=== PATIENT | male | born 1950 | race Caucasian/White ===

== ENCOUNTER 2016-05-18 08:10 | Observation (INO) | payer OTHER, MEDICAID ==
[~2016-05-18] VITALS: Ht 177.8 cm; Wt 66.0 kg
[2016-05-18 08:56] LABS: BASO % 0 % (0-3); EOS % 0 % (0-3); HEMATOCRIT 41.1 % (39.0-53.0); HEMOGLOBIN 13.5 g/dL (13.0-17.5); LYMPH # 1.5 x10^3/uL (1.0-4.8); LYMPH % 14 % (24-48); MEAN CORPUSCULAR HEMOGLOBIN 31 pg (25-35); MEAN CORPUSCULAR HGB CONC 33 g/dL (31-37); MEAN CORPUSCULAR VOLUME 95 fL (79-100); MONO % 8 % (0-9); NEUT % 78 % (31-73); PLATELET COUNT 317 x10^3/uL (140-400); RED BLOOD COUNT 4.33 x10^6/uL (4.30-5.70); RED CELL DISTRIBUTION WIDTH 12.9 % (11.5-14.5); WHITE BLOOD COUNT 10.6 x10^3/uL (4.0-11.0)
--- NOTE | 2016-05-18 09:01 | PHYS DOC ---
Past Medical History Past Medical History: CAD, Diabetes-Type II, Hypertension, [place], Other Additional Past Medical Histor: developmental delay Past Surgical History: Coronary Bypass Surgery, Other Additional Past Surgical Histo: l arm surg, peg placement and removal Alcohol Use: None Drug Use: None Adult General Chief Complaint Chief Complaint: HYPOGLYCEMIA HPI HPI Patient is a 65 year old [f__sex] who presents with [] Review of Systems Review of Systems Constitutional: Denies fever or chills [] Eyes: Denies change in visual acuity, redness, or eye pain [] HENT: Denies nasal congestion or sore throat [] Respiratory: Denies cough or shortness of breath [] Cardiovascular: No additional information not addressed in HPI [] GI: Denies abdominal pain, nausea, vomiting, bloody stools or diarrhea [] : Denies dysuria or hematuria [] Musculoskeletal: Denies back pain or joint pain [] Integument: Denies rash or skin lesions [] Neurologic: Denies headache, focal weakness or sensory changes [] Endocrine: Denies polyuria or polydipsia [] Allergies Allergies Allergies Coded Allergies Type Severity Reaction Last Updated Verified No Known Drug Allergies 05/18/16 No Physical Exam Physical Exam Constitutional: Well developed, well nourished, no acute distress, non-toxic appearance. [] HENT: Normocephalic, atraumatic, bilateral external ears normal, oropharynx moist, no oral exudates, nose normal. [] Eyes: PERRLA, EOMI, conjunctiva normal, no discharge. [] Neck: Normal range of motion, no tenderness, supple, no stridor. [] Cardiovascular:Heart rate regular rhythm, no murmur [] Lungs & Thorax: Bilateral breath sounds clear to auscultation [] Abdomen: Bowel sounds normal, soft, no tenderness, no masses, no pulsatile masses. [] Skin: Warm, dry, no erythema, no rash. [] Back: No tenderness, no CVA tenderness. [] Extremities: No tenderness, no cyanosis, no clubbing, ROM intact, no edema. [] Neurologic: Alert and oriented X 3, normal motor function, normal sensory function, no focal deficits noted. [] Psychologic: Affect normal, judgement normal, mood normal. [] Current Patient Data Vital Signs Vital Signs Date Time Temp Pulse Resp B/P Pulse Ox O2 Delivery O2 Flow Rate FiO2 05/18/16 08:15 98.2 89 17 203/89 97 Room Air 98.2 Lab Values Laboratory Tests Test 05/18/16 08:35 White Blood Count 10.6x10^3/uL (4.0-11.0) Red Blood Count 4.33x10^6/uL (4.30-5.70) Hemoglobin 13.5g/dL (13.0-17.5) Hematocrit 41.1% (39.0-53.0) Mean Corpuscular Volume 95fL (79-100) Mean Corpuscular Hemoglobin 31pg (25-35) Mean Corpuscular Hemoglobin Concent 33g/dL (31-37) Red Cell Distribution Width 12.9% (11.5-14.5) Platelet Count 317x10^3/uL (140-400) Neutrophils (%) (Auto) 78% (31-73) H Lymphocytes (%) (Auto) 14% (24-48) L Monocytes (%) (Auto) 8% (0-9) Eosinophils (%) (Auto) 0% (0-3) Basophils (%) (Auto) 0% (0-3) Neutrophils # (Auto) 8.3x10^3uL (1.8-7.7) H Lymphocytes # (Auto) 1.5x10^3/uL (1.0-4.8) Monocytes # (Auto) 0.8x10^3/uL (0.0-1.1) Eosinophils # (Auto) 0.0x10^3/uL (0.0-0.7) Basophils # (Auto) 0.0x10^3/uL (0.0-0.2) Sodium Level 144mmol/L (136-145) Potassium Level 4.3mmol/L (3.5-5.1) Chloride Level 108mmol/L (98-107) H Carbon Dioxide Level 28mmol/L (21-32) Anion Gap 8 (6-14) Blood Urea Nitrogen 22mg/dL (8-26) Creatinine 1.6mg/dL (0.7-1.3) H Estimated GFR (Cockcroft-Gault) 43.5 BUN/Creatinine Ratio 14 (6-20) Glucose Level 125mg/dL (70-99) H Calcium Level 9.1mg/dL (8.5-10.1) Total Bilirubin 0.6mg/dL (0.2-1.0) Aspartate Amino Transferase (AST) 48U/L (15-37) H Alanine Aminotransferase (ALT) 33U/L (16-63) Alkaline Phosphatase 94U/L (46-116) Total Protein 7.2g/dL (6.4-8.2) Albumin 3.0g/dL (3.4-5.0) L Albumin/Globulin Ratio 0.7 (1.0-1.7) L Laboratory Tests 05/18/16 08:35 Laboratory Tests 05/18/16 08:35 EKG EKG [] Radiology/Procedures Radiology/Procedures [] Course & Med Decision Making Course & Med Decision Making Pertinent Labs and Imaging studies reviewed. (See chart for details) CBC within normal limits. CMP with elevated creatine at 1.6 Patient was provided with meal tray here in the ED. Mother at bedside states patient manages his own medication regimen at home. Mother also states EMS had been called twice this week for low glucoses. [id number] Ness in regards to keeping the patient and monitoring glucoses and medication regimen. [] Dragon Disclaimer Dragon Disclaimer This electronic medical record was generated, in whole or in part, using a voice recognition dictation system. Departure Departure Impression: Primary Impression: Hypoglycemia Disposition: ADMITTED INPATIENT Admitting Physician: Karina Ness Condition: STABLE GIL SIERRA NP May 18, 2016 09:01
[2016-05-18 09:09] LABS: CALCIUM 9.1 mg/dL (8.5-10.1); CREATININE 1.6 mg/dL (0.7-1.3); GFR 43.5; POTASSIUM 4.3 mmol/L (3.5-5.1)
--- NOTE | 2016-05-18 09:10 | RAD ---
Indication: Hypoglycemia. Technique: Upright portable chest radiograph was obtained. Comparison is from August 28, 2012. Findings: Unusual configuration of a double density projecting over the superior mediastinum is probably artifactual and extrinsic to the patient. Repeat two-view chest radiograph may be of benefit to characterize this region further. Calcified granulomas are noted. There is no airspace disease. The heart is not enlarged and there is no definite heart failure. There are degenerative changes in the left shoulder. Leads overlie the patient. Median sternotomy wires are noted. Impression: Density projecting over the superior mediastinum is probably extrinsic to the patient, possibly a skinfold. Repeat 2 view examination likely would be of benefit in this patient.
[2016-05-18 09:13] LABS: ALBUMIN/GLOBULIN RATIO 0.7 (1.0-1.7); TOTAL BILIRUBIN 0.6 mg/dL (0.2-1.0); TOTAL PROTEIN 7.2 g/dL (6.4-8.2)
--- NOTE | 2016-05-18 10:13 | RAD ---
Chest, 2 views, 05/18/2016: History: Hypoglycemia Comparison is made to a study from earlier the same day. There has been a previous median sternotomy. The heart size and pulmonary vascularity are normal. Coronary artery calcifications are present. A calcified granuloma is present in the right upper lobe. No acute infiltrate is seen. A linear opacity projected over left chest on the previous study is no longer evident and was presumably a skin fold or other artifact. There is no evidence of pleural fluid. The bony structures are demineralized. There are scattered spurs. There is mild unchanged loss of height of several midthoracic vertebral bodies, also evident on 08/28/2012. IMPRESSION: No acute cardiopulmonary abnormality is detected.
[2016-05-18] MEDS ORDERED: DEXTROSE 50% 25 GM / 50ML DISP.SYRIN. IV PRN (11:15)
[2016-05-18] MEDS ORDERED: AMLODIPINE BESYLATE 5 MG TABLET PO ONE (12:00)
--- NOTE | 2016-05-18 13:28 | ACF ---
Admission Forms Criteria GENERAL ADMISSION CRITERIA (Place 'X' for any and all applicable criteria): Admission is indicated for ANY ONE of the following: [ ]I. Hemodynamic instability as indicated by ANY ONE of the following(1)(2) (3)(4)(5): [ ]a) Vital sign abnormality not readily corrected by appropriate treatment within 12 to 24 hours indicated by ANY ONE of the following: [ ]i) Hypotension [ ]ii) Symptomatic Tachycardia unresponsive to treatment (eg , analgesia, fluids, sedation as indicated) [ ]iii) Orthostatic vital sign changes unresponsive to treatment (eg, fluids) [ ]b) Vital sign abnormality that is severe indicated by ANY ONE of the following: [ ]i) Inadequate perfusion indicated by ANY ONE of the following: [ ]1) Lactic acidosis (greater than 2 mmol/L) [ ]2) New abnormal capillary refill (greater than 3 seconds) [ ]3) Other metabolic acidosis (arterial pH less than 7.35) not otherwise explained [ ]4) Reduced urine output [ ]5) Altered mental status [ ]6) Myocardial Ischemia [ ]v) Mean arterial pressure[A] less than 60 mm Hg [ ]vi) Mean arterial pressure[A] less than 70 mm Hg after 30 minutes of appropriate treatment (eg, fluid resuscitation) [ ]vii) IV inotropic or vasopressor medication required to maintain adequate blood pressure or perfusion [ ]viii) Sustained heart rate greater than 120 beats per minute in adult or child 6 years or older[B]] [ ]II. Hypertension requiring inpatient treatment as indicated by ANY ONE of the following(6)(7)(8): [ ]a) SBP greater than 220 mm Hg or DBP greater than 120 mm Hg despite treatment [ ]b) SBP greater than 140 mm Hg or DBP greater than 100 mm Hg with evidence of acute end organ damage as indicated by ANY ONE of the following: [ ]i) Encephalopathy [ ]ii) Acute renal failure as indicated by new onset of ANY ONE of the following(9)(10)(11)(12)(13): [ ]1) A 3-fold rise in serum creatinine from baseline [ ]2) Serum creatinine greater than 4 mg/dL ( 354 micromoles/L) with acute rise greater than 0.5 mg/dL (44.2 micromoles/L) [ ]3) Reduction of more than 75% in estimated glomerular filtration rate from baseline [ ]4) Estimated glomerular filtration rate less than 35 mL/min/1.73m2 (0.59 mL/sec/1.73m2) in child up to 18 years of age [ ]5) Cessation of urine output indicated by ALL of the following: [ ]A. Adequate volume status [ ]B. Inadequate urine output as indicated by ANY ONE of the following: [ ]a. Urine output less than 0.3 mL/kg/hr for 24 hours [ ]b. Anuria (urine output less than 0.1 mL/kg/hr) for 12 hours [ ]iii) Aortic dissection [ ]iv) Myocardial ischemia [ ]v) Left ventricular heart failure [ ]vi) Retinal hemorrhage [ ]vii) Other significant finding [ ]c) Hypertension in child requiring inpatient treatment as indicated by ALL of the following(14)(15)(16): [ ]i) Outpatient treatment not effective, not available, or not appropriate [ ]ii) SBP or DBP greater than 95th percentile for age [ ]iii) Evidence of acute end organ damage as indicated by ANY ONE of the following: [ ]1) Altered mental status [ ]2) Acute renal failure as indicated by new onset of ANY ONE of the following(9)(10)(11)(12)(13): [ ]A. A 3-fold rise in serum creatinine from baseline [ ]B. Serum creatinine greater than 4 mg/dL (354 micromoles/L) with acute rise greater than 0.5 mg/dL (44.2 micromoles/L) [ ]C. Reduction of more than 75% in estimated glomerular filtration rate from baseline [ ]D. Estimated glomerular filtration rate less than 35 mL/min/1.73m2 (0.59 mL/sec/1.73m2)in child up to 18 years of age [ ]E. Cessation of urine output indicated by ALL of the following: [ ]a. Adequate volume status [ ]b. Inadequate urine output as indicated by ANY ONE of the following: [ ]1) Urine output less than 0.3 mL/kg/hr for 24 hours [ ]2) Anuria (urine output less than 0.1 mL/kg/hr) for 12 hours [ ]3) Severe headache [ ]4) Visual disturbance [ ]5) Retinal hemorrhage [ ]6) Other significant finding [ ]III. Acute cardiac or peripheral ischemia as indicated by ANY ONE of the following: [ ]a) Acute coronary syndrome(17)(18) [ ]b) Acute peripheral ischemia (eg, pulseless, cool, mottled, or cyanotic extremity)(19) [ ]IV. Cardiac arrhythmias or findings of immediate concern indicated by ANY ONE of the following(20)(21): [ ]a) Heart rhythms that are inherently dangerous or unstable indicated by ANY ONE of the following(22)(23)(24): [ ]i) Resuscitated ventricular fibrillation or cardiac arrest [ ]ii) Ventricular escape rhythm [ ]iii) Sustained ventricular tachycardia (30 seconds or more of ventricular rhythm at greater than 100 beats per minute) [ ]iv) Nonsustained ventricular tachycardia and ANY ONE of the following: [ ]1) Suspected cardiac ischemia as cause or consequence of ventricular tachycardia [ ]2) In setting of acute myocarditis [ ]b) Unstable cardiac conduction defects indicated by ANY ONE of the following(24)(25)(26): [ ]i) Type II second-degree atrioventricular block [ ]ii) Third-degree atrioventricular block [ ]iii) New-onset left bundle branch block with suspected myocardial ischemia [ ]c) Any heart rhythm and ANY ONE of the following(22)(23)(27)(28)( 29): [ ] i) Continuous long-term ECG monitoring needed (eg, initiation of drug requiring monitoring for more than 24 hours) [ ] ii) Patient has automatic implanted cardioverter defibrillator that is repeatedly firing, malfunctioning, or in need of immediate adjustment of settings beyond the scope of ambulatory or observation care. [ ]d) Heart rhythms of concern due to ANY ONE of the following: [ ]i) Hypotension [ ]ii) Respiratory distress [ ]iii) Association with other significant symptoms (eg, bradycardia with syncope or ongoing dizziness, supraventricular tachycardia with chest pain) (27)(28) (30) [ ] V. Severe heart failure as indicated by ANY ONE of the following ( 31)(32): [ ]a) Respiratory distress [ ]b) Hypotension [ ]c) Anasarca (refractory to outpatient therapy) [ ]d) Cardiac arrhythmias of immediate concern [ ]e) Myocardial ischemia [ ]. Respiratory abnormalities, including ANY ONE of the following(33)(34) (35)(36): [ ]a) Respiratory rate greater than 30 breaths per minute unresponsive to treatment [A] [ ]b) New saturation of arterial oxygen less than 90% [ ]c) New partial pressure of carbon dioxide greater than 44 mm Hg ( 5.9 kPa) [ ]d) Supplemental oxygen or respiratory treatments needed that are new or not performable at other levels of care [ ]e) New-onset cyanosis [ ]f) Inability to protect airway [ ]g) Chronic lung disease with severe deterioration (not responsive to emergency and observation care treatment as appropriate) as indicated by ANY ONE of the following(34)(36 ): [ ]i) SaO2 5% below baseline in patient with chronic hypoxemia [ ]ii) New requirement for supplemental oxygen to keep SaO2 at baseline or acceptable level [ ]iii) Required supplemental oxygen performable only in acute inpatient setting [ ]iv) Severe airflow or ventilation abnormalities [ ]v) Previously mobile patient unable to walk between rooms [ ]vi Inability to eat or sleep due to dyspnea [ ]vii) Rapid rate of exacerbation onset [ ]viii) Altered mental status ]VII. Severe airflow or ventilation abnormalities (not responsive to emergency and observation care treatment as appropriate) as indicated by ANY ONE of the following(33)(34)(35)(37): [ ]a) PCO2 greater than 42 mm Hg (5.6 kPa) and pH less than 7.35 (new ) [ ]b) Documented PCO2 increased more than 5 mm Hg (0.7 kPa) from disease baseline [ ]c) Airflow measurements [B] less than 60% of previous best or predicted (eg, peak expiratory flow rate less than 300 L/minute) despite intensive emergent treatment [C] [ ]d) Required respiratory treatments that are performable only in acute inpatient setting [ ]VIII. Impending or actual respiratory arrest ( Also use Respiratory Failure GRG for severe respiratory disease and long-term mechanical ventilation patients) [ ]IX. Neurologic abnormalities, including ANY ONE of the following: [ ]a) New findings that suggest ANY ONE of the following: [ ]i) FLIGHT OPERATIONS COORDINATOR infection(38) [ ]ii) Cerebral bleeding, ischemia, or vasospasm(39)(40) [ ]iii) Increased intracranial pressure, hydrocephalus, or cerebral edema(41)(42)(43) [ ]iv) Spinal cord injury(44) [ ]b) Uncontrolled seizures(45) [ ]c) New-onset coma (eg, Jerri coma scale score less than 9) or unexplained abnormal mental status (eg, Jerri coma scale score less than 14) [D](41)(46)(47) [ ]X. New-onset severe neurologic findings requiring inpatient care; examples include(42)(48)(49): [ ]a) Papilledema [ ]b) Cerebral edema [ ]c) Mass effect on CT scan [ ]XI. Suspected acute intra-abdominal process with peritoneal signs, abdominal mass, or similar findings (50)(51)(52) [X]XII. Severe physiologic disorder remaining after emergency or observation level care (as appropriate) as indicated by ANY ONE of the following (53): [ ]a) Significant dehydration [ ]b) Diabetic ketoacidosis [ ]c) Hyperglycemic hyperosmolar state (eg, osmolality greater than 320 mOsm/kg (mmol/kg) [X]d) Hypoglycemia [ ]e) Other (new) acid-base disorder with pH less than 7.35 or greater than 7.5(54) [ ]f) Thyroid storm (55) [ ]g) Myxedema coma (55) [ ]XIII. Abdominal abnormalities with ANY ONE of the following(56)(57): [ ]a) Absent bowel sounds with complete ileus [ ]b) Signs of intestinal obstruction or peritonitis [E] [ ]c) Nausea and vomiting that cannot be controlled with outpatient or observation care [ ]XIV. Acute renal failure as indicated by new onset of ANY ONE of the following(9)(10)(11)(12)(13): [ ]a) A 3-fold rise in serum creatinine from baseline [ ]b) Serum creatinine greater than 4 mg/dL (354 micromoles/L) with acute rise greater than 0.5 mg/dL (44.2 micromoles/L) [ ]c) Reduction of more than 75% in estimated glomerular filtration rate from baseline [ ]d) Estimated glomerular filtration rate less than 35 mL/min/ 1.73m2 (0.59 mL/sec/1.73m2) in child up to 18 years of age [ ]e) Cessation of urine output indicated by ALL of the following: [ ]i) Adequate volume status [ ]ii) Inadequate urine output as indicated by ANY ONE of the following: [ ]1) Urine output less than 0.3 mL/kg/hr for 24 hours [ ]2) Anuria (urine output less than 0.1 mL/kg/hr) for 12 hours [ ]XV. Significant uremic complications as indicated by ANY ONE of the following(58)(59)(60): [ ]a) Outpatient therapy is ineffective or not feasible for ANY ONE of the following: [ ]i) Severe heart failure [ ]ii) Severehypertension [ ]iii) Pleural effusion [ ]iv) Pericarditis or pericardial effusion [ ]b) Cardiac arrhythmias of immediate concern [ ]c) Intractable nausea or vomiting [ ]d) Recurrent seizures [ ]e) Encephalopathy [ ]f) Bleeding abnormalities (eg, platelet dysfunction) with active (eg, gastrointestinal) bleeding [ ]g) Dialysis indicated before long-term access or ambulatory arrangements can be made [ ]h) Significant metabolic or electrolyte abnormalities (eg, severe acidosis or hyperkalemia) [ ]XVI. High fever or other high-risk infection situation as indicated by ANY ONE of the following(61)(62)(63)(64): [ ]a) Outpatient and observation care antimicrobial treatment unavailable, not effective, or not appropriate [ ]b) Documented bacteremia [ ]c) Temperature greater than 40.5 degrees C (104.9 degrees F) ( oral) [ ]d) Temperature greater than 39.5 degrees C (103.1 degrees F) ( oral) or less than 36 degrees C (96.8 degrees F) (rectal) that does not respond to e treatment and observation care [ ] XVII. Temperature less than 95 degrees F (35 degrees C)(rectal)(65) [ ] XVIII. Severe nutritional abnormalities as indicated by ALL of the following (66)(67): [ ]a) Inability to tolerate or establish sufficient oral or other enteral nutrition in outpatient setting [ ]b) Parenteral nutrition regimen need that must be implemented on inpatient basis [ ] XIX. Severe electrolyte abnormalities indicated by ALL of the following(68) (69)(70): [ ]a) Electrolytes and associated findings are not as expected for patient baseline or acceptable treatment effects. [ ]b) Severe abnormalities indicated by ANY ONE of the following: [ ]i) Sodium less than 130 mEq/L (mmol/L) (new) [ ]ii)Sodium less than 135 mEq/L (mmol/L) with ANY ONE of the following: [ ]1) Uncorrectable (to near normal or chronic baseline) after trial of outpatient and emergency treatment [ ]2) Altered mental status [ ]3) Seizures [ ]4) Severe medical etiology requiring inpatient management (eg, heart failure, hypovolemia) [ ]iii) Sodium greater than 155 mEq/L (mmol/L) [ ]iv) Sodium greater than 150 mEq/L (mmol/L) with ANY ONE of the following: [ ]1) Uncorrectable (to near normal or chronic baseline) with outpatient and emergency treatment [ ]2) Altered mental status [ ]3) Seizures [ ]4) Severe medical etiology (eg, hypovolemia, diabetes insipidus) [ ]v) Potassium less than 2.5 mEq/L (mmol/L) despite outpatient and emergency treatment [ ]vi) Potassium less than 3 mEq/L (mmol/L) with ANY ONE of the following: [ ]1) Weakness [ ]2) Cardiac abnormality (eg, arrhythmia, conduction disturbance) [ ]3) Cardiac ischemia [ ]4) Ileus [ ]5) Ongoing medical cause requiring inpatient management (eg, acute renal wasting or SIADH) [ ]6) Other severe symptoms [ ]vii) Potassium greater than 6.5 mEq/L (mmol/L) [ ]viii) Potassium greater than 5 mEq/L (mmol/L) with ANY ONE of the following: [ ]1) Uncorrectable (to near normal or chronic baseline) with outpatient and emergency treatment [ ]2) Severe ECG findings [F] [ ]3) Acute worsening of renal failure (creatinine greater than 2.5 mg/dL (221 micromoles/L) or significant elevation for age and size) [ ]4) Severe weakness [ ]5) Severe medical etiology (eg, hemolysis, infection, drug overdose) [ ]ix) Calcium less than 7 mg/dL (1.75 mmol/L) despite outpatient and emergency treatment (72) [ ]x) Calcium less than 8 mg/dL (2 mmol/L) with significant symptoms or findings; examples include(72): [ ]1) Altered mental status [ ]2) Muscle spasms [ ]3) Seizures [ ]4) Breathing difficulty [ ]5) Cardiac abnormality (eg, arrhythmia or conduction disturbance) [ ]xi) Calcium greater than 14 mg/dL (3.5 mmol/L)(72) [ ]xii) Calcium greater than 12 mg/dL (3 mmol/L) with ANY ONE of the following(72): [ ]1) Uncorrectable (to near normal or chronic baseline) with outpatient and emergency treatment [ ]2) Significant dehydration or hypovolemia as indicated by ALL of the following(70)(73)(74): [ ]A. Not resolved with initial treatments [ ]B. Clinically significant dehydration as indicated by ANY ONE of the following: [ ]a. Vomiting refractory to outpatient treatment (ie, precluding oral rehydration) [ ]b. Inability to drink [ ]c. Hypernatremia or other electrolyte abnormality unable to be corrected with outpatient and emergency treatment [ ]d. Failure to remain hydrated with outpatient therapy [ ]e. Reduced urine output [ ]f. Hypotension [ ]g. Serious cause for dehydration requiring acute hospitalization (eg, bowel obstruction, increased intracranial pressure, infectious cause) [ ]h. Child with ANY ONE of the following(75): [ ]1) Severe abdominal tenderness [ ]2) Adequate care not available at home [ ]3) Severe dehydration ( greater than 9% loss of body weight) [ ]4) Significant symptoms or findings; examples include: [ ]A. Altered mental status [ ]B. Cardiac abnormality (eg, arrhythmia, conduction disturbance) [ ]C. Malignant etiology requiring inpatient treatment [ ]xiii) Phosphorus less than 1 mg/dL (0.32 mmol/L) [ ]xiv) Phosphorus less than 1.5 mg/dL (0.48 mmol/L) with ANY ONE of the following: [ ]1) Patient unresponsive to outpatient and emergency treatment [ ]2) Significant symptoms or findings; examples include: [ ]A. Weakness [ ]B. Altered mental status [ ]C. Breathing difficulty [ ]D. Seizures [ ]E. Rhabdomyolysis [ ]xv) Phosphorus greater than 10 mg/dL (3.2 mmol/L) [ ]xvi) Phosphorus greater than 4.5 mg/dL (1.45 mmol/L) (new) with ANY ONE of the following: [ ]1) Severe medical etiology (eg, crush injury, acute renal failure) [ ]2) Associated hypocalcemia with significant findings; examples include: [ ]A. Neurologic symptoms [ ]B. Altered mental status [ ]C. Muscle spasms [ ]D. Seizures [ ]E. Breathing difficulty [ ]F. Cardiac abnormality (eg, arrhythmia, conduction disturbance) [ ]xvii) Magnesium less than 1 mg/dL (0.41 mmol/L) [ ]xviii) Magnesium less than 1.5 mg/dL (0.62 mmol/L) with ANY ONE of the following: [ ]1) Patient unresponsive to outpatient and emergency treatment [ ]2) Associated hypocalcemia with significant findings; examples include: [ ]A. Altered mental status [ ]B. Muscle spasms [ ]C. Seizures [ ]D. Breathing difficulty [ ]E. Cardiac abnormality (eg, arrhythmia , conduction disturbance) [ ]3) Associated hypokalemia (potassium less than 3 mEq/L (mmol/L)) with risk of arrhythmia [ ]xix) Magnesium greater than 4 mEq/L (2 mmol/L) [ ]xx) Magnesium greater than 2.5 mEq/L (1.25 mmol/L) with significant symptoms or findings; examples include: [ ]1) Weakness [ ]2) Altered mental status [ ]3) Cardiac abnormality (eg, arrhythmia, conduction disturbance) [ ]4) Breathing difficulty [ ]5) Severe medical etiology (eg, renal failure, hypovolemia) [ ]xxi) Uric acid greater than 20 mg/dL (1190 micromoles/L)(76) [ ]xxii) Uric acid greater than 8 mg/dL (476 micromoles/L) with significant symptoms or findings of tumor lysis syndrome; examples include(76): [ ]1) Creatinine greater than 1.5 times upper limit of normal [ ]2) Cardiac abnormality (eg, arrhythmia, conduction disturbance) [ ]3) Seizure [ ]XX. Acute blood loss causing significant abnormality as indicated by ANY ONE of the following(77)(78): [ ]a) Hemoglobin less than 10 g/dL (100 g/L) (not baseline) [ ]b) Hematocrit less than 30% (0.30) (not baseline) [ ]c) Repeat hematocrit decreased more than 2% (0.02) [ ]d) Uncontrolled bleeding [ ]XXI. Severe anemia indicated by ANY ONE of the following(78)(79): [ ]a) Altered mental status [ ]b) Chest pain [ ]c) Exertional dyspnea [ ]d) Syncope [ ]e) Other findings suggesting inadequate perfusion [ ]f) Treatment with transfusion or volume replacement is ineffective at resolving ANY ONE of the following [G]: [ ]i) Tachycardia for age [ ]ii) Orthostatic vital sign changes as indicated by ANY ONE of the following(80): [ ]1) Fall in SBP of 20 mm Hg or more 1 to 3 minutes after patient sits or stands from recumbent position [ ]2) Fall in DBP of 10 mm Hg or more 1 to 3 minutes after patient sits or stands from recumbent position [ ]XXII. High-risk low platelet count as indicated by ANY ONE of the following( 81)(82): [ ]a) Severe or life-threatening bleeding (eg, intracranial, major gastrointestinal, or extensive mucosal bleeding), with any reduced platelet count [ ]b) Platelet count less than 20,000/mm3 (20 x109/L) with any active bleeding [ ]c) Platelet count less than 10,000/mm3 (10 x109/L) with minor purpura or petechiae [ ]d) Platelet count less than 5000/mm3 (5 x109/L) [ ]e) Low platelet count with hemolytic anemia [ ]XXIII. Disseminated intravascular coagulation(77)(83) [ ]XXIV. Severe adverse drug or systemic toxin reaction requiring inpatient treatment; examples include(84)(85): [ ]a) Serotonin syndrome(86) [ ]b) Neuroleptic malignant syndrome(86) [ ]c) Cholinergic syndrome with severe symptoms (eg, bronchorrhea, weakness, mental status changes, seizures) [ ]d) Sympathetic syndrome with severe symptoms (eg, seizures, mental status changes, cardiac dysrhythmias) [ ]e) Anticholinergic syndrome [ ]XXV. Severe pain requiring acute inpatient management as indicated by ALL of the following (87)(88)(89): [ ]a) Continuous or frequent (eg, every 2 to 4 hours) parenteral analgesics required [H] [ ]b) Rapid improvement expected from treatment or acute intervention (eg, surgery, anesthesia procedure) [ ]XXVI.Severe behavioral health issues judged unmanageable at a lower level of care (eg, residential) in a patient who is ANY ONE of the following(91) [ ]a) Acutely suicidal [ ]b) A danger to self (eg, self-mutilating or suicidal behavior) [ ]c) A danger to others (eg, assaultive or homicidal behavior) [ ]d) Incapacitated because of grave disability (eg, inability to provide for self at lower level of care) (92) [ ]XXVII. Inpatient monitoring needed; examples include(1)(3)(87)(93)(94)(95)(96 ): [ ]a) Vital signs, neurologic signs, or vascular checks more frequently than every 4 hours [ ]b) Cardiac or respiratory monitoring beyond the scope (eg, over 24 hours) of observation care [ ]c) Pulmonary artery catheter monitoring [ ]d) Suspected compartment syndrome(97) (98) [ ]e) Cerebral bleeding, hydrocephalus, or vasospasm monitoring [ ]f) Increased intracranial pressure or cerebral edema monitoring [ ]g) monitoring [ ]XXVIII. Treatment requiring inpatient care; examples include: [ ]a) IV fluid to replace significant ongoing losses (greater than 3 L/m2 per day)(53) [ ]b) High concentration oxygen (greater than 40%)(33)(99)(100) [ ]c) Frequent respiratory therapy (more frequently than every 4 hours) to maintain airflow rates greater than 60% of baseline(33)(99)(100) [ ]d) Epidural analgesia(87) [ ]e) IV anticoagulation, vasoactive, or antiarrhythmic medication(19 )(23) [ ]f) Acute thrombolytics (generally require 24 hours of observation )(101)(102) [ ]XXIX. Emergency procedures needed; examples include: [ ]a) Emergency inpatient surgery [ ]b) Temporary pacemaker placement(103) [ ]c) Chest tube placement with active evacuation (eg, suction, drainage)(104) [ ]d) Emergent cardioversion(105) [ ]e) Emergent cardiac or vascular procedures (eg, cardiac catheterization, angioplasty) (17)(18) [ ]f) Emergent dialysis access placement and institution(10)(106) [ ]g) Emergent pericardiocentesis(107) [ ]h) Emergent plasmapheresis or leukapheresis(83) [ ]i) Emergent tracheostomy The original [employer] content created by [employer] has been revised. The portions of the content which have been revised are identified through the use of italic text or in bold, and [facility] has neither reviewed nor approved the modified material. All other unmodified content is copyright [employer]. Please see references footnoted in the original [employer] edition 2016 Admission Criteria Met?: Yes KEN CLEMONS May 18, 2016 13:28
[2016-05-18 14:53] VITALS: BP 177/73
[2016-05-18 15:09] LABS: BILIRUBIN,URINE NEGATIVE (NEG); GLUCOSE,URINE 100 mg/dL (NEG); NITRITE,URINE NEGATIVE (NEG); PROTEIN,URINE 100 mg/dL (NEG-TRACE); UROBILINOGEN,URINE 0.2 mg/dL (0.2 mg/dL)
[2016-05-18 15:15] VITALS: BP 177/73
[2016-05-18 15:25] LABS: BACTERIA,URINE 0 /HPF (0-FEW); SQUAMOUS EPITHELIAL CELL,UR FEW /LPF
[2016-05-18 19:00] VITALS: BP 164/89
[2016-05-18] MEDS: ATORVASTATIN CALCIUM 40 MG TABLET. PO SCH (20:07)
[2016-05-18] MEDS ORDERED: INSU100I27 SQ (20:35)
[2016-05-18] MEDS ORDERED: HYDR-2869 PO (20:35)
[2016-05-18] MEDS ORDERED: CLON0.1T PO (20:35)
[2016-05-18] MEDS ORDERED: BYSTOLIC10 MG PO (20:35)
[2016-05-18] MEDS ORDERED: INSU100I17 SQ (20:35)
[2016-05-18] MEDS ORDERED: FOLI1TAB16 PO (20:35)
[2016-05-18] MEDS ORDERED: AMLO10TA2 PO (20:35)
[2016-05-18] MEDS ORDERED: LOSA100T6 PO (20:35)
[2016-05-18 22:29] VITALS: BP 163/84
[2016-05-19 06:55] LABS: CALCIUM 9.3 mg/dL (8.5-10.1); CREATININE 1.6 mg/dL (0.7-1.3); GFR 43.5
[2016-05-19 07:00] VITALS: BP 147/90
[2016-05-19 07:00] LABS: BASO # 0.1 x10^3/uL (0.0-0.2); BASO % 1 % (0-3); EOS % 3 % (0-3); HEMATOCRIT 40.2 % (39.0-53.0); HEMOGLOBIN 13.3 g/dL (13.0-17.5); LYMPH % 35 % (24-48); MEAN CORPUSCULAR HEMOGLOBIN 31 pg (25-35); MEAN CORPUSCULAR HGB CONC 33 g/dL (31-37); MEAN CORPUSCULAR VOLUME 93 fL (79-100); MONO % 10 % (0-9); NEUT % 51 % (31-73); PLATELET COUNT 315 x10^3/uL (140-400); RED BLOOD COUNT 4.31 x10^6/uL (4.30-5.70); RED CELL DISTRIBUTION WIDTH 13.3 % (11.5-14.5); WHITE BLOOD COUNT 8.6 x10^3/uL (4.0-11.0)
[2016-05-19] MEDS: LOSARTAN POTASSIUM 50 MG TABLET. PO SCH (08:31)
[2016-05-19] MEDS ORDERED: HYDRALAZINE 50 MG TABLET PO SCH (09:00)
[2016-05-19] MEDS ORDERED: DEXTROSE 50% 25 GM / 50ML DISP.SYRIN. IV PRN (09:30)
--- NOTE | 2016-05-19 09:54 | PDOC ---
OBJECTIVE Vital Signs Vital Signs Date Time Temp Pulse Resp B/P Pulse Ox O2 Delivery O2 Flow Rate FiO2 05/19/16 08:31 73 147/90 05/19/16 08:31 73 147/90 05/19/16 08:15 Room Air 05/19/16 07:00 98.4 73 20 147/90 98 Room Air 98.4 05/18/16 22:29 97.4 81 18 163/84 96 Room Air 97.4 05/18/16 20:00 Room Air 05/18/16 19:00 97.4 98 18 164/89 98 Room Air 97.4 05/18/16 15:15 96.6 85 177/73 97 Room Air 96.6 05/18/16 14:53 96.6 85 18 177/73 97 Room Air 96.6 05/18/16 13:42 Room Air 05/18/16 13:23 186 83/205 05/18/16 13:00 80 18 170/79 97 Room Air 05/18/16 12:00 79 18 171/80 96 Room Air 05/18/16 11:00 86 16 145/65 97 Room Air 05/18/16 10:00 92 19 196/86 97 Room Air I & O Intake and Output 05/19/16 07:00 Intake Total 420 ml Balance 420 ml Intake Oral 420 ml # Voids 6 ASSESSMENT/PLAN Assessment/Plan [id number] H&P dictated Problems: COMMENT Lab Laboratory Tests Test 05/18/16 12:40 05/18/16 13:18 05/18/16 14:25 05/18/16 16:37 Glucose (Fingerstick) 209mg/dL (70-99) 205mg/dL (70-99) 306mg/dL (70-99) Urine Collection Type Unknown Urine Color Yellow Urine Clarity Clear Urine pH 6.0 Urine Specific [place] 1.015 Urine Protein 100mg/dL (NEG-TRACE) Urine Glucose (UA) 100mg/dL (NEG) Urine Ketones (Stick) Negativemg/dL (NEG) Urine Blood Trace (NEG) Urine Nitrite Negative (NEG) Urine Bilirubin Negative (NEG) Urine Urobilinogen Dipstick 0.2mg/dL (0.2 mg/dL) Urine Leukocyte Esterase Negative (NEG) Urine RBC 1-2/HPF (0-2) Urine WBC 1-4/HPF (0-4) Urine Squamous Epithelial Cells Few/LPF Urine Bacteria 0/HPF (0-FEW) Urine Hyaline Casts Few/HPF Urine Granular Casts Occasional/HPF Urine Mucus Slight/LPF Test 05/18/16 20:14 05/19/16 05:30 05/19/16 07:24 Glucose (Fingerstick) 364mg/dL (70-99) 320mg/dL (70-99) White Blood Count 8.6x10^3/uL (4.0-11.0) Red Blood Count 4.31x10^6/uL (4.30-5.70) Hemoglobin 13.3g/dL (13.0-17.5) Hematocrit 40.2% (39.0-53.0) Mean Corpuscular Volume 93fL (79-100) Mean Corpuscular Hemoglobin 31pg (25-35) Mean Corpuscular Hemoglobin Concent 33g/dL (31-37) Red Cell Distribution Width 13.3% (11.5-14.5) Platelet Count 315x10^3/uL (140-400) Neutrophils (%) (Auto) 51% (31-73) Lymphocytes (%) (Auto) 35% (24-48) Monocytes (%) (Auto) 10% (0-9) Eosinophils (%) (Auto) 3% (0-3) Basophils (%) (Auto) 1% (0-3) Neutrophils # (Auto) 4.4x10^3uL (1.8-7.7) Lymphocytes # (Auto) 3.0x10^3/uL (1.0-4.8) Monocytes # (Auto) 0.9x10^3/uL (0.0-1.1) Eosinophils # (Auto) 0.3x10^3/uL (0.0-0.7) Basophils # (Auto) 0.1x10^3/uL (0.0-0.2) Sodium Level 141mmol/L (136-145) Potassium Level 5.0mmol/L (3.5-5.1) Chloride Level 106mmol/L (98-107) Carbon Dioxide Level 25mmol/L (21-32) Anion Gap 10 (6-14) Blood Urea Nitrogen 24mg/dL (8-26) Creatinine 1.6mg/dL (0.7-1.3) Estimated GFR (Cockcroft-Gault) 43.5 Glucose Level 340mg/dL (70-99) Calcium Level 9.3mg/dL (8.5-10.1) VIRGINIA YORK MD May 19, 2016 09:54
[2016-05-19 10:45] VITALS: BP 149/79
[2016-05-19] MEDS: ASPIRIN ENTERIC COATED 81 MG TABLET.DR. PO SCH (11:05)
[2016-05-19] MEDS: AMLODIPINE BESYLATE 10 MG TABLET PO SCH (11:05)
[2016-05-19] MEDS: HYDRALAZINE 50 MG TABLET PO SCH ×3 (11:05→20:39)
[2016-05-19] MEDS: FOLIC ACID 1 MG TABLET PO SCH (11:05)
[2016-05-19] MEDS: METOPROLOL TART IMMED RELEASE 50 MG TABLET PO SCH ×2 (11:06→20:39)
[2016-05-19] MEDS ORDERED: INSULN ASP PRT/INSULIN ASPART 300 UNITS/3 ML INSULN.PEN. SQ ONE (11:15)
[2016-05-19] MEDS: INSULIN ASPART 300 UNITS/3 ML INSULN.PEN SQ SCH ×2 (11:29→17:15)
[2016-05-19 14:39] VITALS: BP 106/52
[2016-05-19] MEDS ORDERED: INSULN ASP PRT/INSULIN ASPART 300 UNITS/3 ML INSULN.PEN. SQ SCH (17:00)
--- NOTE | 2016-05-19 18:34 | PREOP HP ---
DATE OF SERVICE: 05/18/2016 HISTORY OF PRESENT ILLNESS: The patient is a 65-year-old gentleman with diabetic and has mental disability who presented to the Emergency Room due to hypoglycemia episode. He was brought by EMS. Apparently, during this last week, EMS has been called at least 3 times for him due to hypoglycemia episodes. The patient does have a mental disability/retardation and he has been managing his diabetes on his own without help from the family. He does not know exactly how much insulin he has taken, and he does seem to forget his insulin at times. He does have a previous history of diabetes, insulin requiring; coronary artery disease; history of CABG; hyperlipidemia; and hypertension. He is a heavy smoker who continues to smoke. SOCIAL HISTORY: Positive for smoking. Drinks alcohol occasionally. FAMILY HISTORY: Positive for diabetes. REVIEW OF SYSTEMS: CONSTITUTIONAL: Denies fever or chills. EYES: Denies visual changes. HEENT: Denies nasal congestion. RESPIRATORY: Denies shortness of breath. CARDIOVASCULAR: Denies chest pain. GASTROINTESTINAL: Denies nausea, vomiting, or abdominal pain. GENITOURINARY: Denies dysuria or hematuria. MUSCULOSKELETAL: He does have arthritis pain, nothing acute. DERMATOLOGY: Denies rashes. PHYSICAL EXAMINATION: GENERAL: He is alert and oriented to place. He is slow in responding. HEENT: Normocephalic. Eyes with normal color conjunctivae. NECK: Supple. HEART: Regular rate and rhythm. LUNGS: Fairly clear to auscultation. ABDOMEN: Soft, nontender, no organomegaly, no masses, no bruits, no ascites. SKIN: Warm and dry. He does have onychomycosis on his fingers as well as toes. EXTREMITIES: No edema, clubbing, or cyanosis. NEUROLOGIC: He moves all his extremities. IMPRESSION: 1. Hypoglycemia episode in a patient, who does have mental disability and has been very difficult to control as an outpatient. 2. History of coronary artery disease. 3. Chronic kidney disease. 4. Hypertension. 5. Hyperlipidemia. 6. Smoker. PLAN: The patient is admitted. We will hold his insulin and readjust his home dosages. VIRGINIA YORK MD DR: CLAUDIA/tata JOB#: [id number] / [id number]
[2016-05-19 19:00] VITALS: BP 121/86
[2016-05-19] MEDS: ATORVASTATIN CALCIUM 40 MG TABLET. PO SCH (20:38)
[2016-05-19 22:39] VITALS: BP 107/53
[2016-05-20 07:00] VITALS: BP 120/60
[2016-05-20] MEDS: INSULIN ASPART 300 UNITS/3 ML INSULN.PEN SQ SCH ×3 (08:00→17:43)
[2016-05-20] MEDS ORDERED: NON FORMULARY ITEM (Losartan Potassium 100 MG) PO SCH (09:00)
[2016-05-20] MEDS: FOLIC ACID 1 MG TABLET PO SCH (09:01)
[2016-05-20] MEDS: ASPIRIN ENTERIC COATED 81 MG TABLET.DR. PO SCH (09:01)
[2016-05-20] MEDS: METOPROLOL TART IMMED RELEASE 50 MG TABLET PO SCH ×2 (09:02→21:26)
[2016-05-20] MEDS: LOSARTAN POTASSIUM 50 MG TABLET. PO SCH (09:02)
[2016-05-20] MEDS: AMLODIPINE BESYLATE 10 MG TABLET PO SCH (09:03)
[2016-05-20] MEDS: HYDRALAZINE 50 MG TABLET PO SCH ×3 (09:03→21:26)
--- NOTE | 2016-05-20 09:46 | PDOC ---
SUBJECTIVE Subjective his diabetes is very frail, another episode hypoglycemia, adjusted insulin OBJECTIVE Vital Signs Vital Signs Date Time Temp Pulse Resp B/P Pulse Ox O2 Delivery O2 Flow Rate FiO2 05/20/16 09:03 66 120/60 05/20/16 09:03 66 120/60 05/20/16 09:02 66 120/60 05/20/16 09:02 66 120/60 05/20/16 07:00 97.8 66 20 120/60 98 Room Air 97.8 05/19/16 22:39 98.0 59 18 107/53 96 Room Air 98.0 05/19/16 20:39 71 121/86 05/19/16 20:39 71 121/86 05/19/16 20:00 Room Air 05/19/16 19:00 97.8 71 18 121/86 99 Room Air 97.8 05/19/16 14:39 98.0 69 20 106/52 99 Room Air 98.0 05/19/16 13:59 68 121/55 05/19/16 11:06 90 149/79 05/19/16 11:05 90 149/79 05/19/16 11:05 90 149/79 05/19/16 10:45 98.2 90 20 149/79 97 Room Air 98.2 I & O Intake and Output 05/20/16 07:00 Intake Total 1460 ml Balance 1460 ml Intake Oral 1460 ml # Voids 9 PHYSICAL EXAM Physical Exam no change ASSESSMENT/PLAN Assessment/Plan 1. Hypoglycemia , continue fluctuating BS, insulin adjusted continue to monitor 2. History of coronary artery disease. 3. Chronic kidney disease. 4. Hypertension. 5. Hyperlipidemia. 6. Smoker. Problems: COMMENT Lab Laboratory Tests Test 05/19/16 10:29 05/19/16 11:48 05/19/16 14:37 05/19/16 16:54 Glucose (Fingerstick) 517mg/dL (70-99) 482mg/dL (70-99) 172mg/dL (70-99) 72mg/dL (70-99) Test 05/19/16 20:30 05/19/16 20:54 05/20/16 07:33 05/20/16 08:16 Glucose (Fingerstick) 38mg/dL (70-99) 63mg/dL (70-99) 60mg/dL (70-99) 105mg/dL (70-99) VIRGINIA YORK MD May 20, 2016 09:46
[2016-05-20 10:54] VITALS: BP 121/63
[2016-05-20 14:31] VITALS: BP 116/56
[2016-05-20] MEDS: INSULN ASP PRT/INSULIN ASPART 300 UNITS/3 ML INSULN.PEN. SQ SCH (17:43)
[2016-05-20 19:00] VITALS: BP 103/45
[2016-05-20] MEDS: ATORVASTATIN CALCIUM 40 MG TABLET. PO SCH (21:25)
[2016-05-20 23:00] VITALS: BP 99/49
[2016-05-21 03:00] VITALS: BP 111/51
[2016-05-21 07:00] VITALS: BP 137/62
[2016-05-21] MEDS: INSULIN ASPART 300 UNITS/3 ML INSULN.PEN SQ SCH (08:02)
[2016-05-21] MEDS: INSULN ASP PRT/INSULIN ASPART 300 UNITS/3 ML INSULN.PEN. SQ SCH (08:03)
[2016-05-21] MEDS: AMLODIPINE BESYLATE 10 MG TABLET PO SCH (08:50)
[2016-05-21] MEDS: ASPIRIN ENTERIC COATED 81 MG TABLET.DR. PO SCH (08:50)
[2016-05-21] MEDS: FOLIC ACID 1 MG TABLET PO SCH (08:50)
[2016-05-21] MEDS: METOPROLOL TART IMMED RELEASE 50 MG TABLET PO SCH (08:51)
[2016-05-21] MEDS: LOSARTAN POTASSIUM 50 MG TABLET. PO SCH (08:51)
[2016-05-21] MEDS: HYDRALAZINE 50 MG TABLET PO SCH (08:52)
[2016-05-21] MEDS ORDERED: ASPI81TA9 PO (09:09)
[2016-05-21] MEDS ORDERED: INSU100I16 SQ (09:09)
[2016-05-21] MEDS ORDERED: ATOR40TA59 PO (09:09)
--- NOTE | 2016-05-21 09:12 | PDOC3 ---
Discharge Summary* Date of Admission: May 17, 2016 Date of Discharge: May 21, 2016 Admitting Diagnosis Problems Medical Problems: (1) Hypoglycemia Status: Acute Final Diagnosis 1. Hypoglycemia episode in a patient, who does have mental disability and has been very difficult to control as an outpatient. 2. History of coronary artery disease. 3. Chronic kidney disease. 4. Hypertension. 5. Hyperlipidemia. 6. Smoker. (1) Hypoglycemia Status: Acute Procedures CXR Brief Hospital Course Mr. Diggs is a 65 old [sex] who presented with [ ] Disposition/Orders: D/C to Home w/ HH CONDITION AT DISCHARGE: Improved Diet: Cardiac, Consistent Carbohydrate Scheduled Amlodipine Besylate (Amlodipine Besylate) 10 MG PO DAILY (Reported) Aspirin (Aspirin Ec) 81 MG PO DAILYWBKFT Atorvastatin Calcium (Atorvastatin Calcium) 80 MG PO QHS Folic Acid (Folic Acid) 1 MG PO DAILY (Reported) Hydralazine Hcl (Hydralazine Hcl) 1 TAB PO TID (Reported) Insuln Asp Prt/Insulin Aspart (Novolog Mix 70-30 Flexpen Syrn) 15 UNITS SQ BIDWMEALS Losartan Potassium (Losartan Potassium) 100 MG PO DAILY (Reported) Nebivolol Hcl (Bystolic) 10 MG PO DAILY (Reported) Discontinued Medications Clonidine Hcl (Clonidine Hcl) 0.1 MG PO BID (Reported) Insulin Aspart (Novolog Flexpen) 25 UNIT SQ BIDAC (Reported) Insulin Detemir (Levemir Flextouch) 25 UNIT SQ BIDBFRMEAL (Reported) FOLLOW UP APPOINTMENT: Dr. York 1 week Time Spent Total time spent with patient [] minutes for coordination of care, counseling, and education. VIRGINIA YORK MD May 21, 2016 09:12
--- NOTE | 2016-05-21 09:12 | PDOC ---
SUBJECTIVE Subjective no further hypoglycemia, feels better OBJECTIVE Vital Signs Vital Signs Date Time Temp Pulse Resp B/P Pulse Ox O2 Delivery O2 Flow Rate FiO2 05/21/16 08:52 63 137/62 05/21/16 08:51 63 137/62 05/21/16 08:51 63 137/62 05/21/16 08:50 63 137/62 05/21/16 07:00 97.7 63 20 137/62 96 Room Air 97.7 05/21/16 03:00 98.8 61 16 111/51 97 98.8 05/20/16 23:00 97.9 56 18 99/49 96 97.9 05/20/16 21:26 61 132/64 05/20/16 21:26 61 132/64 05/20/16 20:10 Room Air 05/20/16 19:00 98.0 58 16 103/45 97 98.0 05/20/16 14:31 98.1 62 20 116/56 97 Room Air 98.1 05/20/16 14:19 62 116/56 05/20/16 10:54 98.0 56 20 121/63 99 Room Air 98.0 I & O Intake and Output 05/21/16 07:00 Intake Total 970 ml Balance 970 ml Intake Oral 970 ml # Voids 5 PHYSICAL EXAM Physical Exam no Change ASSESSMENT/PLAN Assessment/Plan home today on lower dose insulin, f/u out pt, need home health to help with diabetic teaching Problems: COMMENT Lab Laboratory Tests Test 05/20/16 10:42 05/20/16 11:26 05/20/16 16:25 05/20/16 20:33 Glucose (Fingerstick) 289mg/dL (70-99) 316mg/dL (70-99) 246mg/dL (70-99) 186mg/dL (70-99) Test 05/21/16 07:38 Glucose (Fingerstick) 291mg/dL (70-99) VIRGINIA YORK MD May 21, 2016 09:12
[2016-05-21 10:49] VITALS: BP 131/61
== END 2016-05-21 12:16 | disposition home health service (06) ==
LOC: ER 08:10 → INTOOBSV 10:57 → 5 SOUTH 10:57
PROVIDERS: ADMIT Internal Medicine; ATTEND Internal Medicine
DX: E11.649 Type 2 diabetes mellitus with hypoglycemia without coma (principal); I25.10 Atherosclerotic heart disease of native coronary artery without angina pectoris; E11.22 Type 2 diabetes mellitus with diabetic chronic kidney disease; I12.9 Hypertensive chronic kidney disease with stage 1 through stage 4 chronic kidney disease, or unspecified chronic kidney disease; N18.9 Chronic kidney disease, unspecified; E78.5 Hyperlipidemia, unspecified; I25.2 Old myocardial infarction; Z95.1 Presence of aortocoronary bypass graft; Z79.4 Long term (current) use of insulin
CPT/HCPCS: 36415; 71010; 71020; 80048; 80053; 81001; 82947; 85027; 96372; 97116; 97162; 99285; G0378; J1815; G0379

== ENCOUNTER 2016-05-31 10:11 | Inpatient (IN) | payer OTHER, MEDICAID ==
[~2016-05-31] VITALS: Ht 177.8 cm; Wt 66.0 kg
[2016-05-31] VITALS (10 sets, daily range): BP systolic 86–108; BP diastolic 22–46
[~2016-05-31 10:11] MED LIST: AMLO10TA2 PO; ASPI81TA9 PO; ATOR40TA59 PO; BYSTOLIC10 MG PO; CLON0.1T PO; FOLI1TAB16 PO; HYDR-2869 PO; INSU100I16 SQ; INSU100I17 SQ; INSU100I27 SQ; LOSA100T6 PO
--- NOTE | 2016-05-31 10:38 | PHYS DOC ---
Past Medical History Past Medical History: CAD, Diabetes-Type II, Hypertension, ME, Other Additional Past Medical Histor: developmental delay Past Surgical History: Coronary Bypass Surgery, Other Additional Past Surgical Histo: l arm surg, peg placement and removal Alcohol Use: None Drug Use: None Adult General HPI HPI Patient is a 65 year old male who presents with altered mental status of unknown onset. The patient was brought in from home by EMS. He had soiled himself and had dried vomitus around his mouth. Upon arrival to the emergency department, he is hypotensive with blood pressure systolic in the 80s. He is alert to himself. His blood sugar is too high for Accu-Chek to register. He has a history of diabetes, CAD, and developmental delay. There is no family present to provide additional history. When family arrived, they added history that he has not been eating since being home from recent hospitalization. He drinks some. He takes medications inappropriately, but does not take insulin. He does not let them help him with this either. They do not feel he or they are capable of caring for him at home. Review of Systems Review of Systems Cardiovascular: Denies chest pain. [] GI: Denies abdominal pain. [] Musculoskeletal: Denies back pain or joint pain. [] Neurologic: Denies headache. Altered mental status positive. Unable to obtain complete ROS due to altered mental status. Current Medications Current Medications Current Medications Medications (Trade) Dose Ordered Sig/Paresh Start Time Stop Time Status Last Admin Dose Admin Dextrose/Sodium Chloride 1,000 ml @ 250 mls/hr Q4H 05/31/16 12:47 Insulin Human Regular 10 unit 10 unit 1X ONCE 05/31/16 12:00 05/31/16 12:01 DC 05/31/16 11:51 10 UNIT Insulin Human Regular 150 unit/ Sodium Chloride 151.5 ml @ 0 mls/hr CONT PRN PRN 05/31/16 12:45 05/31/16 13:33 31.3 MLS/HR Potassium Chloride (KCl Premix 10meq) 100 ml @ 100 mls/hr PRN Q1HR PRN 05/31/16 12:45 Sodium Chloride 1,000 ml @ 250 mls/hr Q4H 05/31/16 12:47 Sodium Chloride (Iv Sodium Chloride 0.9% 1000ml Bag) 1,000 ml @ 1,000 mls/hr 1X ONCE 05/31/16 10:45 05/31/16 11:44 DC 05/31/16 11:14 1,000 MLS/HR Allergies Allergies Allergies Coded Allergies Type Severity Reaction Last Updated Verified No Known Drug Allergies 05/18/16 No Physical Exam Physical Exam Constitutional: Well developed, no acute distress. The patient is alert and pleasantly disoriented. There is a fruity odor to his breath. HENT: Normocephalic, atraumatic, oropharynx moist. [] Eyes: PERRLA, EOMI, conjunctiva normal, no discharge. [] Neck: Normal range of motion, no tenderness, supple, no stridor. [] Cardiovascular: Heart rate regular rhythm, no murmur. [] Lungs & Thorax: Bilateral breath sounds clear to auscultation without wheezes, rales, or rhonchi. [] Abdomen: Bowel sounds normal, soft, no tenderness, no masses, no pulsatile masses. [] Skin: Warm, dry, no erythema, no rash. [] Extremities: No tenderness, no edema. Distal pulses equal bilaterally. [] Neurologic: Alert and oriented X 1, no focal deficits noted. Slurred speech. Unable to perform complete neurologic assessment due to patient's altered mental status, he has difficulty following commands. Psychologic: Affect normal, judgement normal, mood normal. [] Current Patient Data Vital Signs Vital Signs Date Time Temp Pulse Resp B/P Pulse Ox O2 Delivery O2 Flow Rate FiO2 05/31/16 13:10 70 18 81/43 98 Room Air 05/31/16 10:11 95.5 95.5 Lab Values Laboratory Tests Test 05/31/16 10:45 05/31/16 11:30 05/31/16 12:25 05/31/16 12:50 Prothrombin Time 14.1SEC (11.7-14.0) H Prothrombin Time INR 1.2 (0.8-1.1) H White Blood Count 22.4x10^3/uL (4.0-11.0) H Red Blood Count 3.64x10^6/uL (4.30-5.70) L Hemoglobin 11.2g/dL (13.0-17.5) L Hematocrit 40.2% (39.0-53.0) Mean Corpuscular Volume 111fL (79-100) H Mean Corpuscular Hemoglobin 31pg (25-35) Mean Corpuscular Hemoglobin Concent 28g/dL (31-37) L Red Cell Distribution Width 14.2% (11.5-14.5) Platelet Count 233x10^3/uL (140-400) Neutrophils (%) (Auto) 91% (31-73) H Lymphocytes (%) (Auto) 3% (24-48) L Monocytes (%) (Auto) 6% (0-9) Eosinophils (%) (Auto) 0% (0-3) Basophils (%) (Auto) 0% (0-3) Neutrophils # (Auto) 20.5x10^3uL (1.8-7.7) H Lymphocytes # (Auto) 0.6x10^3/uL (1.0-4.8) L Monocytes # (Auto) 1.3x10^3/uL (0.0-1.1) H Eosinophils # (Auto) 0.0x10^3/uL (0.0-0.7) Basophils # (Auto) 0.0x10^3/uL (0.0-0.2) Segmented Neutrophils % 81% (35-66) H Band Neutrophils % 8% (0-9) Lymphocytes % 4% (24-48) L Monocytes % 6% (0-10) Eosinophils % 1% (0-5) Toxic Granulation Mod Toxic Vacuolation Slight Platelet Estimate Adequate (ADEQUATE) Macrocytosis Marked Sodium Level 136mmol/L (136-145) Potassium Level 6.3mmol/L (3.5-5.1) *H Chloride Level 90mmol/L (98-107) L Carbon Dioxide Level 16mmol/L (21-32) L Anion Gap 30 (6-14) H Blood Urea Nitrogen 82mg/dL (8-26) H Creatinine 4.1mg/dL (0.7-1.3) H Estimated GFR (Cockcroft-Gault) 14.7 BUN/Creatinine Ratio 20 (6-20) Glucose Level 1627mg/dL (70-99) *H Calcium Level 9.4mg/dL (8.5-10.1) Magnesium Level 2.4mg/dL (1.8-2.4) Total Bilirubin 1.2mg/dL (0.2-1.0) H Aspartate Amino Transferase (AST) 11U/L (15-37) L Alanine Aminotransferase (ALT) 19U/L (16-63) Alkaline Phosphatase 104U/L (46-116) Creatine Kinase 103U/L (39-308) Creatine Kinase MB (Mass) 1.8ng/mL (0.0-3.6) Creatine Kinase MB Relative Index 1.7% (0-4) Troponin I Quantitative 0.031ng/mL (0.000-0.055) ZB-Ecd-E-Type Natriuretic Peptide 2804pg/mL (0-124) H Total Protein 6.4g/dL (6.4-8.2) Albumin 2.9g/dL (3.4-5.0) L Albumin/Globulin Ratio 0.8 (1.0-1.7) L Lactic Acid Level 8.0mmol/L (0.4-2.0) *H Urine Collection Type Unknown Urine Color Yellow Urine Clarity Clear Urine pH 5.5 Urine Specific [place] 1.025 Urine Protein Negativemg/dL (NEG-TRACE) Urine Glucose (UA) >=1000mg/dL (NEG) Urine Ketones (Stick) 15mg/dL (NEG) Urine Blood Negative (NEG) Urine Nitrite Negative (NEG) Urine Bilirubin Negative (NEG) Urine Urobilinogen Dipstick 0.2mg/dL (0.2 mg/dL) Urine Leukocyte Esterase Negative (NEG) Urine RBC 0/HPF (0-2) Urine WBC 0/HPF (0-4) Urine Squamous Epithelial Cells None/LPF Urine Bacteria 0/HPF (0-FEW) Urine Hyaline Casts Occasional/HPF Urine Mucus Slight/LPF Laboratory Tests 05/31/16 11:30 Laboratory Tests 05/31/16 11:30 EKG EKG EKG at 1020. Heart rate 79 bpm. Sinus rhythm without any acute ischemic changes or STEMI, as interpreted by Dr. Olea. Radiology/Procedures Radiology/Procedures REASON: altered mental status PROCEDURE: HEAD WO CONTRAST EXAM: Head CT without contrast. HISTORY: Altered mental status. TECHNIQUE: Computed tomographic images of the head were obtained without contrast. COMPARISON: None. FINDINGS: There is no acute or subacute extra-axial or intraparenchymal hemorrhage. There is no mass effect or midline shift. There is no hydrocephalus. There are scattered areas of hypodensity throughout the cerebral white matter, likely due to chronic small vessel disease. There are chronic lacunar infarcts within the left greater than the right basal ganglia. There is cerebellar, and to lesser extent, cerebral atrophy. There are findings consistent with lens surgery. No calvarial lesion is seen. The mastoid air cells are clear. IMPRESSION: 1. No acute intracranial finding. Note is made that MRI is more sensitive for acute infarction. 2. Scattered areas of hypodensity within the cerebral white, likely due to chronic small vessel disease. 3. Chronic appearing infarcts within the left greater and right basal ganglia. 4. Cerebellar atrophy, and to a lesser extent, cerebral atrophy. REASON: altered mental status PROCEDURE: PORTABLE CHEST 1V EXAM: Chest, single view. HISTORY: Altered mental status. COMPARISON: 05/18/2016. FINDINGS: A frontal view of the chest is obtained. There is no infiltrate, effusion or pneumothorax. The heart is normal in size. There are findings consistent with CABG. There are calcified granulomas, the most prominent of which is within the right upper lobe. There are healed rib fractures. There are metallic clips overlying the left axilla. IMPRESSION: No acute pulmonary finding. Course & Med Decision Making Course & Med Decision Making Pertinent Labs and Imaging studies reviewed. (See chart for details) Accepted care from [facility]. Pt arrived with altered mental status, hypotension, and hypothermia. Family notes medication noncompliance with gradual worsening of mental status. Laboratory evaluation concerning for HHNC, hyperglycemia and acute renal failure. Given large volumes of IVFs for replacement with intermittent improvement in BPs; has required frequent reassessment. Discussed case with Dr. Ahuja, iron assorter for Dr. Ness, who will admit. He remains in critical condition. -MD Cristela Ruiz Disclaimer Cristela Disclaimer This electronic medical record was generated, in whole or in part, using a voice recognition dictation system. Critical Care Time Critical care time was 120 minutes exclusive of procedures. Departure Departure Impression: Primary Impression: Hyperosmolar nonketotic coma in diabetes Additional Impressions: Hyperkalemia Acute renal failure Disposition: ADMITTED INPATIENT Condition: CRITICAL Referrals: NO PCP (PCP) Problem Qualifiers Additional Impressions: Acute renal failure Acute renal failure type: unspecified Qualified Code: N17.9 - Acute kidney failure, unspecified SHARON BOSTON May 31, 2016 10:38 Yolis OLEA MD May 31, 2016 12:43
--- NOTE | 2016-05-31 10:40 | EKG ---
[facility] [address] [place] [address] Test Date: 2016-05-31 Test Time: 10:20:48 Pat Name: BRENDA HARTMAN Department: Room: Gender: Male Sheet Catcher: : [id number] Requested By: SHARON BOSTON Order Number: [id number] Reading MD: Yareli Zelaya Measurements Intervals [place] Rate: 79 P: 90 [place]: 160 QRS: 37 QRSD: 94 T: 75 QT: 414 QTc: 476 Interpretive Statements SINUS RHYTHM LOW LIMB LEAD VOLTAGE QRS(T) CONTOUR ABNORMALITY CONSISTENT WITH ANTERIOR INFARCT AGE UNDETERMINED T ABNORMALITY IN LATERAL LEADS RI6.01 Compared to ECG 07/05/2013 23:56:43 No significant changes Electronically Signed On 05-31-2016 19:57:23 CDT by Yareli Zelaya
[2016-05-31] MEDS ORDERED: IV NORMAL SALINE 1000ML BAG 1,000 ML IV ONE ×6 (10:45→13:45)
--- NOTE | 2016-05-31 11:15 | RAD ---
EXAM: Chest, single view. HISTORY: Altered mental status. COMPARISON: 05/18/2016. FINDINGS: A frontal view of the chest is obtained. There is no infiltrate, effusion or pneumothorax. The heart is normal in size. There are findings consistent with CABG. There are calcified granulomas, the most prominent of which is within the right upper lobe. There are healed rib fractures. There are metallic clips overlying the left axilla. IMPRESSION: No acute pulmonary finding.
--- NOTE | 2016-05-31 11:33 | RAD ---
EXAM: Head CT without contrast. HISTORY: Altered mental status. TECHNIQUE: Computed tomographic images of the head were obtained without contrast. COMPARISON: None. FINDINGS: There is no acute or subacute extra-axial or intraparenchymal hemorrhage. There is no mass effect or midline shift. There is no hydrocephalus. There are scattered areas of hypodensity throughout the cerebral white matter, likely due to chronic small vessel disease. There are chronic lacunar infarcts within the left greater than the right basal ganglia. There is cerebellar, and to lesser extent, cerebral atrophy. There are findings consistent with lens surgery. No calvarial lesion is seen. The mastoid air cells are clear. IMPRESSION: 1. No acute intracranial finding. Note is made that MRI is more sensitive for acute infarction. 2. Scattered areas of hypodensity within the cerebral white, likely due to chronic small vessel disease. 3. Chronic appearing infarcts within the left greater and right basal ganglia. 4. Cerebellar atrophy, and to a lesser extent, cerebral atrophy. PQRS Compliance Statement: One or more of the following individualized dose reduction techniques were utilized for this examination: 1. Automated exposure control 2. Adjustment of the mA and/or kV according to patient size 3. Use of iterative reconstruction technique
[2016-05-31 11:35] LABS: INR 1.2 (0.8-1.1); PROTHROMBIN TIME PATIENT 14.1 SEC (11.7-14.0)
[2016-05-31] MEDS ORDERED: INSULIN REGULAR 100 UNIT/ML 10ML VIAL. IV ONE (12:00)
[2016-05-31 12:23] LABS: BASO % 0 % (0-3); EOS % 0 % (0-3); HEMATOCRIT 40.2 % (39.0-53.0); HEMOGLOBIN 11.2 g/dL (13.0-17.5); LYMPH # 0.6 x10^3/uL (1.0-4.8); LYMPH % 3 % (24-48); MEAN CORPUSCULAR HEMOGLOBIN 31 pg (25-35); MEAN CORPUSCULAR HGB CONC 28 g/dL (31-37); MEAN CORPUSCULAR VOLUME 111 fL (79-100); MONO % 6 % (0-9); NEUT % 91 % (31-73); PLATELET COUNT 233 x10^3/uL (140-400); RED BLOOD COUNT 3.64 x10^6/uL (4.30-5.70); RED CELL DISTRIBUTION WIDTH 14.2 % (11.5-14.5); WHITE BLOOD COUNT 22.4 x10^3/uL (4.0-11.0)
[2016-05-31 12:39] LABS: ALBUMIN 2.9 g/dL (3.4-5.0); ALBUMIN/GLOBULIN RATIO 0.8 (1.0-1.7); CALCIUM 9.4 mg/dL (8.5-10.1); CREATININE 4.1 mg/dL (0.7-1.3); GFR 14.7; MAGNESIUM 2.4 mg/dL (1.8-2.4); TOTAL BILIRUBIN 1.2 mg/dL (0.2-1.0); TOTAL PROTEIN 6.4 g/dL (6.4-8.2)
[2016-05-31] MEDS ORDERED: INSULIN REGULAR VIAL 150 UNIT in 0.9 % SODIUM CHLORIDE 150ML 150 ML IV PRN (12:45)
[2016-05-31] MEDS ORDERED: POTASSIUM CHLORIDE 10MEQ 100 ML IV PRN ×3 (12:45)
[2016-05-31 12:47] LABS: CKMB INDEX 1.7 % (0-4); CKMB MASS 1.8 ng/mL (0.0-3.6)
[2016-05-31 13:06] LABS: BILIRUBIN,URINE NEGATIVE (NEG); GLUCOSE,URINE >=1000 mg/dL (NEG); NITRITE,URINE NEGATIVE (NEG); PH,URINE 5.5; PROTEIN,URINE NEGATIVE (NEG-TRACE); UROBILINOGEN,URINE 0.2 mg/dL (0.2 mg/dL)
[2016-05-31 13:08] LABS: POTASSIUM 6.3 mmol/L (3.5-5.1)
[2016-05-31 13:23] LABS: BACTERIA,URINE 0 /HPF (0-FEW); RBC,URINE 0 /HPF (0-2); WBC,URINE 0 /HPF (0-4)
[2016-05-31 14:06] LABS: % EOS 1 % (0-5)
[2016-05-31 14:09] LABS: PLT ESTIMATE ADEQUATE (ADEQUATE); TOXIC GRANULATION MOD; TOXIC VACUOLATION SLIGHT
[2016-05-31 14:19] LABS: BASE EXCESS COOX -7 mmol/L (-3-3); CARBON MONOXIDE 0.3 % (0.0-1.9); HCO3 COOX 18 mmol/L (21-28); METHEMOGLOBIN 0.5 % (0.0-1.9); OXYHEMOGLOBIN 93.3 %; PCO2 COOX 32 mmHg (35-46); PH COOX 7.36 (7.35-7.45); PO2 COOX 77 mmHg (65-108); SAT O2 COOX 94 % (92-99); TOTAL HEMOGLOBIN 11.2 g/dL
[2016-05-31 14:21] LABS: FIO2 COOX 21
--- NOTE | 2016-05-31 14:49 | ACF ---
Admission Forms Criteria DIABETES Clinical Indications for Admission to Inpatient Care (Place 'X' for any and all applicable criteria): Admission is indicated by presence of ALL (if I & II) or ANY ONE (if III or IV) of the following (1)(2)(3)(4): [X]I. Diabetes is uncontrolled as indicated by ANY ONE of the following: [ ]a) Diabetic ketoacidosis as indicated by ALL of the following (8): [ ]i) Hyperglycemia (eg, plasma glucose greater than 200 mg/ dL (11.1 mmol/L)) [ ]ii) Acidosis (eg, arterial pH less than 7.30, serum bicarbonate level less than 15 mEq/L (mmol/L)) [ ]iii) Moderate ketonuria or ketonemia [ ]b) Hyperglycemic hyperosmolar state as indicated by ALL of the following(9)(10): [ ]i) Neurologic dysfunction (eg, stupor, coma, hemiparesis , seizure)(13) [ ]ii) Plasma glucose greater than 600 mg/dL (33.3 mmol/L) [ ]iii) Serum osmolality greater than 320 mOsm/kg (mmol/kg) [X]c) Severe signs or symptoms secondary to hyperglycemia indicated by ANY ONE of the following: [X]i) Altered mental status(10) [ ]ii) Significant hypovolemia or dehydration [ ]iii) Intractable nausea or vomiting [ ]iv) Unexplained fever or severe infection [X]v) Severe electrolyte abnormality (eg, hypokalemia, hyperkalemia, hypernatremia) [X]II. Management at other levels of care (Also use Diabetes: Observation Care as appropriate) is not feasible because of ANY ONE of the following: [ ]a) Condition was not adequately corrected with treatment at other levels of care. [X]b) Treatment at other levels of care is not appropriate because of condition severity (eg, hyperosmolar coma). [ ]III. Contraindications and/or Inappropriate clinical situations for Observational Care in patients with Diabetes, when ANY ONE of the following is required: [ ]a) Patient require specific diagnostic workup or therapeutic intervention 22 [ ]b) Patient with abnormal vital signs or altered mental status 23 [ ]IV. General contraindications and/or Inappropriate clinical situations for Observational Care in patients with Diabetes, when ANY ONE of the following is required: [ ]a) Prediction of prolongation of LOS based on ANY ONE of the following may be considered as a contraindication for observational care 2, 3, 4, 5, 6, 7, 8, 9, 10, 11 [ ]i) Age > 65 yrs. [ ]ii) Patient arriving by ambulance [ ]iii) Patient with high acuity [ ]iv) Patient requiring vital sign monitoring [ ]v) Patient on IV medication [ ]b) Systolic blood pressures 180mmHg 3,12 [ ]c) Patient with altered mental status including delirium and other alteration of consciousness, (3) [ ]d) Patient whose discharge disposition will be to a assisted home or rehabilitation home should not be managed in Emergency Department Observation Unit. CMS rule requires 3 days hospital stay before such placement.3,13 [ ]e) Patient with failure to thrive due to broad array of etiologies 3,16,17 [ ]f) Inability to ambulate 3,14 Extended stay beyond goal length of stay may be needed for(3)(20): [ ]a) Treatment of precipitating causes [ ]b) Development of hypoglycemia [ ]c) Complications of treatment [ ]d) Complications of decompensated diabetes (eg, acute gastric dilatation, persistent metabolic or neurologic derangement) [ ]e) Active Comorbidities [ ]f) Older patients( 65 years or older) The original [employer] content created by [employer] has been revised. The portions of the content which have been revised are identified through the use of italic text or in bold,and [facility] has neither reviewed nor approved the modified material. All other unmodified content is copyright [employer]. Please see references footnoted in the original [facility] edition 2016 Admission Criteria Met?: Yes KEN CLEMONS May 31, 2016 14:49
[2016-05-31] MEDS ORDERED: ONDANSETRON PF 4 MG/2 ML VIAL. IV PRN (15:15)
[2016-05-31] MEDS ORDERED: FENTANYL PF 100 MCG/2 ML VIAL. IV PRN (15:15)
[2016-05-31] MEDS ORDERED: ACETAMINOPHEN 325 MG TABLET. PO PRN (15:15)
[2016-05-31 16:08] LABS: CALCIUM 8.2 mg/dL (8.5-10.1); GFR 15.1
[2016-05-31 16:09] LABS: MAGNESIUM 2.2 mg/dL (1.8-2.4); PHOSPHORUS 2.5 mg/dL (2.6-4.7)
[2016-05-31] MEDS ORDERED: NOREPINEPHRINE VIAL 8 MG in IV NORMAL SALINE 250ML 250 ML IV PRN (16:30)
[2016-05-31] MEDS ORDERED: LORAZEPAM 2 MG/ML VIAL IV PRN (18:00)
--- NOTE | 2016-05-31 19:39 | RAD ---
PROCEDURE AP chest radiograph. HISTORY Right-sided PICC line placement. COMPARISON None. FINDINGS Median sternotomy wires are present. Cardiac silhouette appears within normal limits for size. No pneumothorax or pleural effusion is seen. No focal consolidation is identified. There is a right-sided PICC line. The PICC line appears mildly deep, projecting at the right atrium 2 centimeters inferior to the atriocaval junction. Old granulomatous disease of the chest is noted. IMPRESSION Right-sided PICC line tip projects slightly deep at the right atrium. Retraction by [address] tip of the PICC atriocaval junction. Electronically signed by: Marcello Cash MD (May 31, 2016 19:37:58)
[2016-05-31 19:56] LABS: ALBUMIN 2.6 g/dL (3.4-5.0); ALBUMIN/GLOBULIN RATIO 0.8 (1.0-1.7); CALCIUM 8.3 mg/dL (8.5-10.1); CREATININE 3.6 mg/dL (0.7-1.3); MAGNESIUM 1.9 mg/dL (1.8-2.4); PHOSPHORUS 1.5 mg/dL (2.6-4.7); POTASSIUM 3.5 mmol/L (3.5-5.1); TOTAL BILIRUBIN 0.6 mg/dL (0.2-1.0); TOTAL PROTEIN 5.9 g/dL (6.4-8.2)
[2016-05-31] MEDS: IV DEXTROSE 5 %-0.45 % NACL 1,000 ML IV SCH (20:47)
[2016-05-31] MEDS: IV NORMAL SALINE 1000ML BAG 1,000 ML IV SCH (21:28)
[2016-05-31 23:49] LABS: CALCIUM 8.3 mg/dL (8.5-10.1); CREATININE 3.2 mg/dL (0.7-1.3); GFR 19.5; MAGNESIUM 1.8 mg/dL (1.8-2.4); PHOSPHORUS 1.6 mg/dL (2.6-4.7); POTASSIUM 3.4 mmol/L (3.5-5.1)
[2016-06-01] VITALS (58 sets, daily range): BP systolic 94–139; BP diastolic 21–58
[2016-06-01] MEDS: IV NORMAL SALINE 1000ML BAG 1,000 ML IV SCH ×3 (00:47→08:47)
[2016-06-01] MEDS ORDERED: SODIUM PHOSPHATE 20 MMOL in IV DEXTROSE 5% 250 ML IV PRN (01:00)
[2016-06-01] MEDS: IV DEXTROSE 5 %-0.45 % NACL 1,000 ML IV SCH ×3 (01:02→08:47)
[2016-06-01] MEDS ORDERED: POTASSIUM CHLORIDE 20MEQ 50 ML IV ONE ×2 (01:30→02:30)
[2016-06-01] MEDS ORDERED: SODIUM PHOSPHATE 20 MMOL in IV DEXTROSE 5% 250 ML IV ONE (01:30)
[2016-06-01] MEDS ORDERED: POTASSIUM CL 20MEQ D5-0.9%NACL 1,000 ML IV SCH (08:30)
[2016-06-01] MEDS ORDERED: THIAMINE 100 MG in IV NORMAL SALINE 50ML 50 ML IV ONE (08:30)
[2016-06-01 08:42] LABS: CALCIUM 8.3 mg/dL (8.5-10.1); CREATININE 2.6 mg/dL (0.7-1.3); GFR 24.8; MAGNESIUM 1.7 mg/dL (1.8-2.4); PHOSPHORUS 3.8 mg/dL (2.6-4.7); POTASSIUM 3.9 mmol/L (3.5-5.1)
--- NOTE | 2016-06-01 08:42 | PDOC ---
Provider Note Provider Note [id number] YANET MYLES MD Jun 01, 2016 08:42
[2016-06-01] MEDS ORDERED: CYANOCOBALAMIN (VITAMIN B-12) 1,000 MCG/ML VIAL SQ ONE (08:45)
[2016-06-01] MEDS ORDERED: AMLODIPINE BESYLATE 10 MG TABLET PO SCH (09:00)
--- NOTE | 2016-06-01 10:11 | HP ---
ADMIT DATE: 05/31/2016 CHIEF COMPLAINT: Lethargy. HISTORY OF PRESENT ILLNESS: A 65-year-old white male, patient of Dr. Ness who is here 2 weeks ago for hypoglycemia, came in with profound hyperglycemia and hyperosmolar state and lethargy. He has received over 5 liters of fluid so far and his creatinine was down to 4.0 with a normal baseline of 1.2, is now down around 3 and he has good urine output. Blood sugars have dropped from 1200 down to 100 with insulin drip and he is still somnolent at this time. PAST MEDICAL HISTORY: Largely unknown, renal function 2 weeks ago was normal here. ALLERGIES: No allergies known. MEDICATIONS: He is listed to take two home blood pressure medicines, but do not know how compliant that he is. FAMILY HISTORY: Unremarkable. SOCIAL HISTORY: He lives with his mother and another disabled brother, do not know if he is a heavy drinker or not or anything about drug use. REVIEW OF SYSTEMS: Unknown. OBJECTIVE: ENT: He has dry blood around lips, otherwise unremarkable. There is no jaundice seen. NECK: No stiffness, nodes or masses. LUNGS: Clear without tachypnea. CARDIOVASCULAR: Regular rate. Rate is 100. ABDOMEN: Soft, benign, nontender. EXTREMITIES: Decreased pedal pulses. No edema. No joint or skin lesions. NEUROLOGIC: He is somnolent and not responsive to pain, but he does move a little bit on all extremities. ASSESSMENT: Hyperglycemic hyperosmolar, with acute renal failure secondary to poor insulin compliance. Apparently, he has some mental disabilities and because he has a severe macrocytosis, he may well have a strong alcohol component as well. PLAN: We will switch to Levemir and change his IV fluids for renal recovery. Check B12 levels in regards to the macrocytosis and will add lorazepam and do urine drug screen. YANET MYLES MD DR: JOSE/tata JOB#: [id number] / [id number]
[2016-06-01 10:22] LABS: BARBITURATES NEG (NEG); BENZODIAZEPINES NEG (NEG); CANNABINOIDS NEG (NEG); COCAINE NEG (NEG); METHADONE NEG (NEG); OPIATES NEG (NEG); PHENCYCLIDINE NEG (NEG)
[2016-06-01 10:23] LABS: ETHANOL, URINE NEG (NEG)
[2016-06-01] MEDS ORDERED: VANCOMYCIN 1 GM in IV NORMAL SALINE 250ML 250 ML IV ONE (11:00)
[2016-06-01] MEDS: INSULIN DETEMIR 300 UNITS/3 ML INSULN.PEN. SQ SCH ×2 (11:05→15:31)
[2016-06-01] MEDS: POTASSIUM CL 20MEQ D5-0.45NACL 1,000 ML IV SCH ×2 (11:06→18:01)
--- NOTE | 2016-06-01 11:51 | PDOC2 ---
CONSULT Date of Consult Date of Consult DATE: 06/01/16 TIME: 11:47 Reason for Consult Reason for Consult: MIKEY Referring Physician Referring Physician: JAYLEN Identification/Chief Complaint Chief Complaint CONFUSION Source Source: Chart review History of Present Illness Reason for Visit: THIS IS A 65 YR OLD ADMITTED WITH CONFUSION AND NOTED TO BE IN DKA WITH MIKEY AND ELECTROLYTE IMBALANCE AND DEHYDRATION. CR UP TO 4.0. HE HAS CKD STAGE 3 WITH BASELINE CR OF 1.5-2.0 AT BASELINE DUE TO HTN AND DM Past Medical History Cardiovascular: HTN GI: Constipation Heme/Onc: Anemia NOS Renal/: Chronic renal insuff Endocrine: Diabetes Current Problem List Problem List Problems Medical Problems: (1) Acute renal failure Status: Acute (2) Diabetic ketoacidosis Status: Acute (3) Hyperglycemia Status: Acute (4) Hyperkalemia Status: Acute (5) Hyperosmolar nonketotic coma in diabetes Status: Acute Current Medications Current Medications Current Medications Sodium Chloride 1,000 ml @ 1,000 mls/hr 1X ONCE IV Last administered on 10:50; Start 05/31/16 at 10:45; Stop 05/31/16 at 11:44; Status DC Sodium Chloride (Iv Sodium Chloride 0.9% 1000ml Bag) 1,000 ml @ 1,000 mls/hr 1X ONCE IV Last administered on 05/31/16 11:14; Start 05/31/16 at 10:45; Stop 05/31/16 at 11:44; Status DC Insulin Human Regular 10 unit 10 unit 1X ONCE IV Last administered on 11:51; Start 05/31/16 at 12:00; Stop 05/31/16 at 12:01; Status DC Sodium Chloride 1,000 ml @ 1,000 mls/hr 1X ONCE IV Last administered on 12:15; Start 05/31/16 at 12:15; Stop 05/31/16 at 13:14; Status DC Sodium Chloride 1,000 ml @ 1,000 mls/hr 1X ONCE IV ; Start 05/31/16 at 12:15; Stop 05/31/16 at 12:15; Status DC Sodium Chloride 1,000 ml @ 250 mls/hr Q4H IV Last administered on 05/31/16 21 :28; Start 05/31/16 at 12:47; Stop 06/01/16 at 08:58; Status DC Dextrose/Sodium Chloride 1,000 ml @ 250 mls/hr Q4H IV Last administered on 07:52; Start 05/31/16 at 12:47; Stop 06/01/16 at 08:58; Status DC Insulin Human Regular 150 unit/ Sodium Chloride 151.5 ml @ 0 mls/hr CONT PRN PRN IV PER PROTOCOL Last administered on 05/31/16 13:33; Start 05/31/16 at 12: 45; Stop 06/01/16 at 08:39; Status DC Potassium Chloride 100 ml @ 100 mls/hr PRN Q1HR PRN IV SEE COMMENTS; Start at 12:45 Potassium Chloride 100 ml @ 100 mls/hr PRN Q1HR PRN IV SEE COMMENTS; Start at 12:45 Potassium Chloride 100 ml @ 100 mls/hr PRN Q1HR PRN IV SEE COMMENTS; Start at 12:45 Sodium Chloride 1,000 ml @ 1,000 mls/hr 1X ONCE IV Last administered on 13:30; Start 05/31/16 at 13:30; Stop 05/31/16 at 14:29; Status DC Sodium Chloride (Iv Sodium Chloride 0.9% 1000ml Bag) 1,000 ml @ 1,000 mls/hr 1X ONCE IV Last administered on 05/31/16 13:45; Start 05/31/16 at 13:45; Stop 05/31/16 at 14:44; Status DC Ondansetron HCl (Zofran) 4 mg PRN Q8HRS PRN IV NAUSEA/VOMITING; Start 05/31/16 at 15:15; Stop 06/01/16 at 15:14 Fentanyl Citrate (Fentanyl 2ml Vial) 50 mcg PRN Q2HR PRN IV PAIN; Start at 15:15; Stop 06/01/16 at 15:14 Acetaminophen 650 mg 650 mg PRN Q4HRS PRN PO FEVER; Start 05/31/16 at 15:15; Stop 06/01/16 at 15:14 Norepinephrine Bitartrate/Sodium Chloride (Levophed Vial/ Iv Sodium Chloride 0.9 % 250ml) 258 ml @ 0 mls/hr CONT PRN IV SEE I/O RECORD Last administered on 06/01 04:18; Start 05/31/16 at 16:30; Stop 06/01/16 at 08:39; Status DC Lorazepam 2 mg 2 mg PRN Q4HRS PRN IV ANXIETY / AGITATION Last administered on 18:09; Start 05/31/16 at 18:00 Sodium Phosphate 20 mmol/Dextrose 256.6667 ml @ 62.5 mls/hr 1X PRN PRN IV SEE COMMENTS; Start 06/01/16 at 01:00 Potassium Chloride 50 ml @ 50 mls/hr 1X ONCE IV Last administered on 01:58; Start 06/01/16 at 01:30; Stop 06/01/16 at 02:29; Status DC Potassium Chloride 50 ml @ 50 mls/hr 1X ONCE IV Last administered on 02:49; Start 06/01/16 at 02:30; Stop 06/01/16 at 03:29; Status DC Sodium Phosphate/ Dextrose 256.6667 ml @ 64.167 m... 1X ONCE IV Last administered on 06/01/16 01:59; Start 06/01/16 at 01:30; Stop 06/01/16 at 05:29 ; Status DC Amlodipine Besylate 10 mg 10 mg DAILY PO ; Start 06/01/16 at 09:00; Stop at 09:00; Status DC Thiamine HCl/ Sodium Chloride (Iv Sodium Chloride 0.9% 50ml) 51 ml @ 102 mls/ hr 1X ONCE IV Last administered on 06/01/16 09:37; Start 06/01/16 at 08:30; Stop 06/01/16 at 08:59; Status DC Insulin Detemir 20 units 20 units BID92 SQ Last administered on 06/01/16 11:05 ; Start 06/01/16 at 09:00 Potassium Chloride/Dextrose/ Sod Cl (KCl 20 Meq In D5W-NS) 1,000 ml @ 150 mls/ hr Q6H40M IV ; Start 06/01/16 at 08:30; Stop 06/01/16 at 09:12; Status DC Insulin Aspart (Novolog) 0-9 UNITS TIDWMEALS SQ ; Start 06/01/16 at 12:00 Dextrose 12.5 gm PRN Q15MIN PRN IV SEE COMMENTS; Start 06/01/16 at 08:30 Cyanocobalamin 1000 mcg 1,000 mcg 1X ONCE SQ ; Start 06/01/16 at 08:45; Stop at 10:47; Status DC Potassium Chloride/Dextrose/ Sod Cl 1,000 ml @ 150 mls/hr Q6H40M IV Last administered on 06/01/16t 11:06; Start 06/01/16 at 09:15 Vancomycin HCl/ Sodium Chloride (Iv Sodium Chloride 0.9% 250ml) 250 ml @ 250 mls/hr 1X ONCE IV ; Start 06/01/16 at 11:00; Stop 06/01/16 at 11:59 Active Scripts Active Novolog Mix 70-30 Flexpen Syrn (Insuln Asp Prt/Insulin Aspart) 100 Unit/1 Ml Insuln.pen 15 Units SQ BIDWMEALS 30 Days Atorvastatin Calcium 40 Mg Tablet 80 Mg PO QHS 30 Days Aspirin Ec (Aspirin) 81 Mg Tablet.dr 81 Mg PO DAILYWBKFT 30 Days Reported Amlodipine Besylate 10 Mg Tablet 10 Mg PO DAILY Losartan Potassium 100 Mg Tablet 100 Mg PO DAILY Bystolic (Nebivolol) 10 Mg Tablet 10 Mg PO DAILY Hydralazine Hcl 50 Mg Tablet 1 Tab PO TID Folic Acid 1 Mg Tablet 1 Mg PO DAILY Allergies Allergies: Coded Allergies: No Known Drug Allergies (Unverified , 05/18/16) ROS Review of System UNABLE TO OBTAIN Physical Exam General: No acute distress HEENT: Atraumatic, Other (DRY MUCOSA) Lungs: Clear to auscultation Heart: Regular rate Abdomen: Normal bowel sounds, Soft Extremities: No clubbing Neuro: Other (CONFUSED) Psych/Mental Status: Mental status NL, Mood NL MUSCULOSKELETAL: No deformity Vitals VITALS Vital Signs Date Time Temp Pulse Resp B/P Pulse Ox O2 Delivery O2 Flow Rate FiO2 06/01/16 08:00 Room Air 06/01/16 06:00 68 20 109/31 94 06/01/16 04:00 98.1 98.1 Labs Labs Laboratory Tests Test 05/31/16 10:45 05/31/16 11:30 05/31/16 12:25 05/31/16 12:50 Prothrombin Time 14.1SEC (11.7-14.0) Prothromb Time International Ratio 1.2 (0.8-1.1) White Blood Count 22.4x10^3/uL (4.0-11.0) Red Blood Count 3.64x10^6/uL (4.30-5.70) Hemoglobin 11.2g/dL (13.0-17.5) Hematocrit 40.2% (39.0-53.0) Mean Corpuscular Volume 111fL (79-100) Mean Corpuscular Hemoglobin 31pg (25-35) Mean Corpuscular Hemoglobin Concent 28g/dL (31-37) Red Cell Distribution Width 14.2% (11.5-14.5) Platelet Count 233x10^3/uL (140-400) Neutrophils (%) (Auto) 91% (31-73) Lymphocytes (%) (Auto) 3% (24-48) Monocytes (%) (Auto) 6% (0-9) Eosinophils (%) (Auto) 0% (0-3) Basophils (%) (Auto) 0% (0-3) Neutrophils # (Auto) 20.5x10^3uL (1.8-7.7) Lymphocytes # (Auto) 0.6x10^3/uL (1.0-4.8) Monocytes # (Auto) 1.3x10^3/uL (0.0-1.1) Eosinophils # (Auto) 0.0x10^3/uL (0.0-0.7) Basophils # (Auto) 0.0x10^3/uL (0.0-0.2) Segmented Neutrophils % 81% (35-66) Band Neutrophils % 8% (0-9) Lymphocytes % 4% (24-48) Monocytes % 6% (0-10) Eosinophils % 1% (0-5) Toxic Granulation Mod Toxic Vacuolation Slight Platelet Estimate Adequate (ADEQUATE) Macrocytosis Marked Sodium Level 136mmol/L (136-145) Potassium Level 6.3mmol/L (3.5-5.1) Chloride Level 90mmol/L (98-107) Carbon Dioxide Level 16mmol/L (21-32) Anion Gap 30 (6-14) Blood Urea Nitrogen 82mg/dL (8-26) Creatinine 4.1mg/dL (0.7-1.3) Estimated GFR (Cockcroft-Gault) 14.7 BUN/Creatinine Ratio 20 (6-20) Glucose Level 1627mg/dL (70-99) Calcium Level 9.4mg/dL (8.5-10.1) Magnesium Level 2.4mg/dL (1.8-2.4) Total Bilirubin 1.2mg/dL (0.2-1.0) Aspartate Amino Transf (AST/SGOT) 11U/L (15-37) Alanine Aminotransferase (ALT/SGPT) 19U/L (16-63) Alkaline Phosphatase 104U/L (46-116) Creatine Kinase 103U/L (39-308) Creatine Kinase MB (Mass) 1.8ng/mL (0.0-3.6) Creatine Kinase MB Relative Index 1.7% (0-4) Troponin I Quantitative 0.031ng/mL (0.000-0.055) HI-Qgf-F-Type Natriuretic Peptide 2804pg/mL (0-124) Total Protein 6.4g/dL (6.4-8.2) Albumin 2.9g/dL (3.4-5.0) Albumin/Globulin Ratio 0.8 (1.0-1.7) Lactic Acid Level 8.0mmol/L (0.4-2.0) Urine Collection Type Unknown Urine Color Yellow Urine Clarity Clear Urine pH 5.5 Urine Specific [place] 1.025 Urine Protein Negativemg/dL (NEG-TRACE) Urine Glucose (UA) >=1000mg/dL (NEG) Urine Ketones (Stick) 15mg/dL (NEG) Urine Blood Negative (NEG) Urine Nitrite Negative (NEG) Urine Bilirubin Negative (NEG) Urine Urobilinogen Dipstick 0.2mg/dL (0.2 mg/dL) Urine Leukocyte Esterase Negative (NEG) Urine RBC 0/HPF (0-2) Urine WBC 0/HPF (0-4) Urine Squamous Epithelial Cells None/LPF Urine Bacteria 0/HPF (0-FEW) Urine Hyaline Casts Occasional/HPF Urine Mucus Slight/LPF Test 05/31/16 14:07 05/31/16 14:10 05/31/16 15:20 05/31/16 16:25 Serum Osmolality 400mOsm/Kg (279-304) O2 Saturation 94% (92-99) Arterial Blood pH 7.36 (7.35-7.45) Arterial Blood pCO2 at Patient Temp 32mmHg (35-46) Arterial Blood pO2 at Patient Temp 77mmHg (65-108) Arterial Blood HCO3 18mmol/L (21-28) Arterial Blood Base Excess -7mmol/L (-3-3) Oxyhemoglobin 93.3% Methemoglobin 0.5% (0.0-1.9) Carbon Monoxide, Quantitative 0.3% (0.0-1.9) FiO2 21 Sodium Level 143mmol/L (136-145) Potassium Level 4.0mmol/L (3.5-5.1) Chloride Level 101mmol/L (98-107) Carbon Dioxide Level 20mmol/L (21-32) Anion Gap 22 (6-14) Blood Urea Nitrogen 80mg/dL (8-26) Creatinine 4.0mg/dL (0.7-1.3) Estimated GFR (Cockcroft-Gault) 15.1 Glucose Level 1208mg/dL (70-99) Calcium Level 8.2mg/dL (8.5-10.1) Phosphorus Level 2.5mg/dL (2.6-4.7) Magnesium Level 2.2mg/dL (1.8-2.4) Lactic Acid Level 5.4mmol/L (0.4-2.0) Test 05/31/16 19:20 05/31/16 21:09 05/31/16 22:17 05/31/16 23:15 Sodium Level 149mmol/L (136-145) 154mmol/L (136-145) Potassium Level 3.5mmol/L (3.5-5.1) 3.4mmol/L (3.5-5.1) Chloride Level 109mmol/L (98-107) 115mmol/L (98-107) Carbon Dioxide Level 25mmol/L (21-32) 28mmol/L (21-32) Anion Gap 15 (6-14) 11 (6-14) Blood Urea Nitrogen 74mg/dL (8-26) 70mg/dL (8-26) Creatinine 3.6mg/dL (0.7-1.3) 3.2mg/dL (0.7-1.3) Estimated GFR (Cockcroft-Gault) 17.0 19.5 BUN/Creatinine Ratio 21 (6-20) Glucose Level 664mg/dL (70-99) 300mg/dL (70-99) Calcium Level 8.3mg/dL (8.5-10.1) 8.3mg/dL (8.5-10.1) Phosphorus Level 1.5mg/dL (2.6-4.7) 1.6mg/dL (2.6-4.7) Magnesium Level 1.9mg/dL (1.8-2.4) 1.8mg/dL (1.8-2.4) Total Bilirubin 0.6mg/dL (0.2-1.0) Aspartate Amino Transf (AST/SGOT) 16U/L (15-37) Alanine Aminotransferase (ALT/SGPT) 20U/L (16-63) Alkaline Phosphatase 94U/L (46-116) Total Protein 5.9g/dL (6.4-8.2) Albumin 2.6g/dL (3.4-5.0) Albumin/Globulin Ratio 0.8 (1.0-1.7) Glucose (Fingerstick) 433mg/dL (70-99) 349mg/dL (70-99) Test 05/31/16 23:17 06/01/16 00:29 06/01/16 01:32 06/01/16 02:31 Glucose (Fingerstick) 282mg/dL (70-99) 193mg/dL (70-99) 162mg/dL (70-99) 119mg/dL (70-99) Test 06/01/16 03:34 06/01/16 04:28 06/01/16 05:41 06/01/16 06:31 Glucose (Fingerstick) 79mg/dL (70-99) 82mg/dL (70-99) 112mg/dL (70-99) 147mg/dL (70-99) Test 06/01/16 07:46 06/01/16 08:10 06/01/16 09:23 06/01/16 09:43 Glucose (Fingerstick) 137mg/dL (70-99) 148mg/dL (70-99) Sodium Level 157mmol/L (136-145) Potassium Level 3.9mmol/L (3.5-5.1) Chloride Level 118mmol/L (98-107) Carbon Dioxide Level 29mmol/L (21-32) Anion Gap 10 (6-14) Blood Urea Nitrogen 59mg/dL (8-26) Creatinine 2.6mg/dL (0.7-1.3) Estimated GFR (Cockcroft-Gault) 24.8 Glucose Level 158mg/dL (70-99) Calcium Level 8.3mg/dL (8.5-10.1) Phosphorus Level 3.8mg/dL (2.6-4.7) Magnesium Level 1.7mg/dL (1.8-2.4) Vitamin B12 Level 669pg/mL (247-911) Reticulocyte Count (auto) 1.0% (0.5-2.5) Test 06/01/16 10:00 Urine Opiates Screen Neg (NEG) Urine Methadone Screen Neg (NEG) Urine Barbiturates Neg (NEG) Urine Phencyclidine Screen Neg (NEG) Urine Amphetamine/Methamphetamine Neg (NEG) Urine Benzodiazepines Screen Neg (NEG) Urine Cocaine Screen Neg (NEG) Urine Cannabinoids Screen Neg (NEG) Urine Ethyl Alcohol Neg (NEG) Laboratory Tests Test 05/31/16 12:25 05/31/16 12:50 05/31/16 14:07 05/31/16 14:10 Lactic Acid Level 8.0mmol/L (0.4-2.0) Urine Collection Type Unknown Urine Color Yellow Urine Clarity Clear Urine pH 5.5 Urine Specific [place] 1.025 Urine Protein Negativemg/dL (NEG-TRACE) Urine Glucose (UA) >=1000mg/dL (NEG) Urine Ketones (Stick) 15mg/dL (NEG) Urine Blood Negative (NEG) Urine Nitrite Negative (NEG) Urine Bilirubin Negative (NEG) Urine Urobilinogen Dipstick 0.2mg/dL (0.2 mg/dL) Urine Leukocyte Esterase Negative (NEG) Urine RBC 0/HPF (0-2) Urine WBC 0/HPF (0-4) Urine Squamous Epithelial Cells None/LPF Urine Bacteria 0/HPF (0-FEW) Urine Hyaline Casts Occasional/HPF Urine Mucus Slight/LPF Serum Osmolality 400mOsm/Kg (279-304) O2 Saturation 94% (92-99) Arterial Blood pH 7.36 (7.35-7.45) Arterial Blood pCO2 at Patient Temp 32mmHg (35-46) Arterial Blood pO2 at Patient Temp 77mmHg (65-108) Arterial Blood HCO3 18mmol/L (21-28) Arterial Blood Base Excess -7mmol/L (-3-3) Oxyhemoglobin 93.3% Methemoglobin 0.5% (0.0-1.9) Carbon Monoxide, Quantitative 0.3% (0.0-1.9) FiO2 21 Test 05/31/16 15:20 05/31/16 16:25 05/31/16 19:20 05/31/16 21:09 Sodium Level 143mmol/L (136-145) 149mmol/L (136-145) Potassium Level 4.0mmol/L (3.5-5.1) 3.5mmol/L (3.5-5.1) Chloride Level 101mmol/L (98-107) 109mmol/L (98-107) Carbon Dioxide Level 20mmol/L (21-32) 25mmol/L (21-32) Anion Gap 22 (6-14) 15 (6-14) Blood Urea Nitrogen 80mg/dL (8-26) 74mg/dL (8-26) Creatinine 4.0mg/dL (0.7-1.3) 3.6mg/dL (0.7-1.3) Estimated GFR (Cockcroft-Gault) 15.1 17.0 Glucose Level 1208mg/dL (70-99) 664mg/dL (70-99) Calcium Level 8.2mg/dL (8.5-10.1) 8.3mg/dL (8.5-10.1) Phosphorus Level 2.5mg/dL (2.6-4.7) 1.5mg/dL (2.6-4.7) Magnesium Level 2.2mg/dL (1.8-2.4) 1.9mg/dL (1.8-2.4) Lactic Acid Level 5.4mmol/L (0.4-2.0) BUN/Creatinine Ratio 21 (6-20) Total Bilirubin 0.6mg/dL (0.2-1.0) Aspartate Amino Transf (AST/SGOT) 16U/L (15-37) Alanine Aminotransferase (ALT/SGPT) 20U/L (16-63) Alkaline Phosphatase 94U/L (46-116) Total Protein 5.9g/dL (6.4-8.2) Albumin 2.6g/dL (3.4-5.0) Albumin/Globulin Ratio 0.8 (1.0-1.7) Glucose (Fingerstick) 433mg/dL (70-99) Test 05/31/16 22:17 05/31/16 23:15 05/31/16 23:17 06/01/16 00:29 Glucose (Fingerstick) 349mg/dL (70-99) 282mg/dL (70-99) 193mg/dL (70-99) Sodium Level 154mmol/L (136-145) Potassium Level 3.4mmol/L (3.5-5.1) Chloride Level 115mmol/L (98-107) Carbon Dioxide Level 28mmol/L (21-32) Anion Gap 11 (6-14) Blood Urea Nitrogen 70mg/dL (8-26) Creatinine 3.2mg/dL (0.7-1.3) Estimated GFR (Cockcroft-Gault) 19.5 Glucose Level 300mg/dL (70-99) Calcium Level 8.3mg/dL (8.5-10.1) Phosphorus Level 1.6mg/dL (2.6-4.7) Magnesium Level 1.8mg/dL (1.8-2.4) Test 06/01/16 01:32 06/01/16 02:31 06/01/16 03:34 06/01/16 04:28 Glucose (Fingerstick) 162mg/dL (70-99) 119mg/dL (70-99) 79mg/dL (70-99) 82mg/dL (70-99) Test 06/01/16 05:41 06/01/16 06:31 06/01/16 07:46 06/01/16 08:10 Glucose (Fingerstick) 112mg/dL (70-99) 147mg/dL (70-99) 137mg/dL (70-99) Sodium Level 157mmol/L (136-145) Potassium Level 3.9mmol/L (3.5-5.1) Chloride Level 118mmol/L (98-107) Carbon Dioxide Level 29mmol/L (21-32) Anion Gap 10 (6-14) Blood Urea Nitrogen 59mg/dL (8-26) Creatinine 2.6mg/dL (0.7-1.3) Estimated GFR (Cockcroft-Gault) 24.8 Glucose Level 158mg/dL (70-99) Calcium Level 8.3mg/dL (8.5-10.1) Phosphorus Level 3.8mg/dL (2.6-4.7) Magnesium Level 1.7mg/dL (1.8-2.4) Vitamin B12 Level 669pg/mL (247-911) Test 06/01/16 09:23 06/01/16 09:43 06/01/16 10:00 Glucose (Fingerstick) 148mg/dL (70-99) Reticulocyte Count (auto) 1.0% (0.5-2.5) Urine Opiates Screen Neg (NEG) Urine Methadone Screen Neg (NEG) Urine Barbiturates Neg (NEG) Urine Phencyclidine Screen Neg (NEG) Urine Amphetamine/Methamphetamine Neg (NEG) Urine Benzodiazepines Screen Neg (NEG) Urine Cocaine Screen Neg (NEG) Urine Cannabinoids Screen Neg (NEG) Urine Ethyl Alcohol Neg (NEG) Assessment/Plan Assessment/Plan IMP DKA HYPOVOLEMIA HYPERKALEMIA MET ENCEPHALOPATHY CKD STAGE 3 WITH CR OF 1.5-2.0 AT BASELINE MIKEY WITH CR OF 4.1 ON ADMIT LEUCOCYTOSIS PLAN VOLUME EXPAND DKA PROTOCOL ANTIBIOTICS SEBASTIAN LANDIS MD Jun 01, 2016 11:51
--- NOTE | 2016-06-01 13:13 | PDOC ---
Infectious Disease Note ROS ROS GEN: Denies fevers, chills, sweats HEENT: Denies blurred vision, sore throat CV: Denies chest pain RESP: Denies shortness of air, cough GI: Denies n/v/d NEURO: Denies confusion, dizziness MSK: Denies weakness, joint pain/swelling Vital Sign Vital Signs Vital Signs Date Time Temp Pulse Resp B/P Pulse Ox O2 Delivery O2 Flow Rate FiO2 06/01/16 10:45 68 16 107/28 95 Room Air 06/01/16 08:00 98.4 98.4 Physical Exam PHYSICAL EXAM GENERAL: NAD, Alert HEENT: PERRL, OC/OP NECK: Supple, no JVD, no LN LUNGS: Clear HEART: S1S2, no gallop, no murmur ABD: Soft, NT, no organomegaly, no rebound EXT: No edema, no cyanosis TRUCK SPOTTER: Alert, oriented x 3, 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 SKIN: No rash IV: ok Labs Lab Laboratory Tests Test 05/31/16 14:07 05/31/16 14:10 05/31/16 15:20 05/31/16 16:25 Serum Osmolality 400mOsm/Kg (279-304) O2 Saturation 94% (92-99) Arterial Blood pH 7.36 (7.35-7.45) Arterial Blood pCO2 at Patient Temp 32mmHg (35-46) Arterial Blood pO2 at Patient Temp 77mmHg (65-108) Arterial Blood HCO3 18mmol/L (21-28) Arterial Blood Base Excess -7mmol/L (-3-3) Oxyhemoglobin 93.3% Methemoglobin 0.5% (0.0-1.9) Carbon Monoxide, Quantitative 0.3% (0.0-1.9) FiO2 21 Sodium Level 143mmol/L (136-145) Potassium Level 4.0mmol/L (3.5-5.1) Chloride Level 101mmol/L (98-107) Carbon Dioxide Level 20mmol/L (21-32) Anion Gap 22 (6-14) Blood Urea Nitrogen 80mg/dL (8-26) Creatinine 4.0mg/dL (0.7-1.3) Estimated GFR (Cockcroft-Gault) 15.1 Glucose Level 1208mg/dL (70-99) Calcium Level 8.2mg/dL (8.5-10.1) Phosphorus Level 2.5mg/dL (2.6-4.7) Magnesium Level 2.2mg/dL (1.8-2.4) Lactic Acid Level 5.4mmol/L (0.4-2.0) Test 05/31/16 19:20 05/31/16 20:30 05/31/16 21:09 05/31/16 22:17 Sodium Level 149mmol/L (136-145) Potassium Level 3.5mmol/L (3.5-5.1) Chloride Level 109mmol/L (98-107) Carbon Dioxide Level 25mmol/L (21-32) Anion Gap 15 (6-14) Blood Urea Nitrogen 74mg/dL (8-26) Creatinine 3.6mg/dL (0.7-1.3) Estimated GFR (Cockcroft-Gault) 17.0 BUN/Creatinine Ratio 21 (6-20) Glucose Level 664mg/dL (70-99) Calcium Level 8.3mg/dL (8.5-10.1) Phosphorus Level 1.5mg/dL (2.6-4.7) Magnesium Level 1.9mg/dL (1.8-2.4) Total Bilirubin 0.6mg/dL (0.2-1.0) Aspartate Amino Transf (AST/SGOT) 16U/L (15-37) Alanine Aminotransferase (ALT/SGPT) 20U/L (16-63) Alkaline Phosphatase 94U/L (46-116) Total Protein 5.9g/dL (6.4-8.2) Albumin 2.6g/dL (3.4-5.0) Albumin/Globulin Ratio 0.8 (1.0-1.7) Nasal Screen MRSA (PCR) Negative (Negative) Glucose (Fingerstick) 433mg/dL (70-99) 349mg/dL (70-99) Test 05/31/16 23:15 05/31/16 23:17 06/01/16 00:29 06/01/16 01:32 Sodium Level 154mmol/L (136-145) Potassium Level 3.4mmol/L (3.5-5.1) Chloride Level 115mmol/L (98-107) Carbon Dioxide Level 28mmol/L (21-32) Anion Gap 11 (6-14) Blood Urea Nitrogen 70mg/dL (8-26) Creatinine 3.2mg/dL (0.7-1.3) Estimated GFR (Cockcroft-Gault) 19.5 Glucose Level 300mg/dL (70-99) Calcium Level 8.3mg/dL (8.5-10.1) Phosphorus Level 1.6mg/dL (2.6-4.7) Magnesium Level 1.8mg/dL (1.8-2.4) Glucose (Fingerstick) 282mg/dL (70-99) 193mg/dL (70-99) 162mg/dL (70-99) Test 06/01/16 02:31 06/01/16 03:34 06/01/16 04:28 06/01/16 05:41 Glucose (Fingerstick) 119mg/dL (70-99) 79mg/dL (70-99) 82mg/dL (70-99) 112mg/dL (70-99) Test 06/01/16 06:31 06/01/16 07:46 06/01/16 08:10 06/01/16 09:23 Glucose (Fingerstick) 147mg/dL (70-99) 137mg/dL (70-99) 148mg/dL (70-99) Sodium Level 157mmol/L (136-145) Potassium Level 3.9mmol/L (3.5-5.1) Chloride Level 118mmol/L (98-107) Carbon Dioxide Level 29mmol/L (21-32) Anion Gap 10 (6-14) Blood Urea Nitrogen 59mg/dL (8-26) Creatinine 2.6mg/dL (0.7-1.3) Estimated GFR (Cockcroft-Gault) 24.8 Glucose Level 158mg/dL (70-99) Calcium Level 8.3mg/dL (8.5-10.1) Phosphorus Level 3.8mg/dL (2.6-4.7) Magnesium Level 1.7mg/dL (1.8-2.4) Vitamin B12 Level 669pg/mL (247-911) Test 06/01/16 09:43 06/01/16 10:00 06/01/16 12:20 Reticulocyte Count (auto) 1.0% (0.5-2.5) Urine Opiates Screen Neg (NEG) Urine Methadone Screen Neg (NEG) Urine Barbiturates Neg (NEG) Urine Phencyclidine Screen Neg (NEG) Urine Amphetamine/Methamphetamine Neg (NEG) Urine Benzodiazepines Screen Neg (NEG) Urine Cocaine Screen Neg (NEG) Urine Cannabinoids Screen Neg (NEG) Urine Ethyl Alcohol Neg (NEG) Glucose (Fingerstick) 273mg/dL (70-99) Objective Assessment BC + with G + cocci Sepsis Leukocytosis Hyperosmolar diabetic coma Plan Plan of Care vanc x 1 and zosyn supportive care fluids Insulin JOSEFA KOCH MD Jun 01, 2016 13:13
[2016-06-01] MEDS: PIPERACILLIN/TAZOBACTAM 2.25 GM in IV NORMAL SALINE 50ML 50 ML IV SCH ×2 (13:49→18:02)
[2016-06-01] MEDS: INSULIN ASPART 300 UNITS/3 ML INSULN.PEN SQ SCH ×2 (13:50→18:07)
[2016-06-01 18:30] LABS: CALCIUM 8.1 mg/dL (8.5-10.1); CREATININE 2.3 mg/dL (0.7-1.3); GFR 28.6; POTASSIUM 4.4 mmol/L (3.5-5.1)
[2016-06-02] VITALS (15 sets, daily range): BP systolic 96–156; BP diastolic 34–83
[2016-06-02] MEDS: POTASSIUM CL 20MEQ D5-0.45NACL 1,000 ML IV SCH ×3 (01:40→17:00)
[2016-06-02] MEDS: PIPERACILLIN/TAZOBACTAM 2.25 GM in IV NORMAL SALINE 50ML 50 ML IV SCH ×4 (01:40→18:00)
--- NOTE | 2016-06-02 03:20 | CONS ---
DATE OF CONSULTATION: 06/01/2016 REQUESTING PHYSICIAN: Dr. Ahuja. REASON FOR CONSULTATION: Blood culture positive. HISTORY OF PRESENT ILLNESS: This is a 65-year-old gentleman with a history of diabetes who was seen a week or two ago with hypoglycemia and now he comes in with hyperglycemia with change in mental status, lethargic. Blood glucose of almost 1700. The patient is admitted to the CCU, at least 5 or 6 liters of fluid the patient has received. The patient had acute renal failure, lactic acidosis. The patient also required vasopressors support, which is improving. The patient is barely arousable, does not communicate and is not able to follow the command. No nausea, vomiting, diarrhea noted. PAST MEDICAL HISTORY: Positive for diabetes. The patient also has a history of hyperlipidemia, hypertension, coronary artery disease, has had a heart attack in the past as well as open heart surgery. SOCIAL HISTORY: Positive for smoking and no alcohol use or drug use. ALLERGIES: No known drug allergies. CURRENT MEDICATIONS: Reviewed. The patient was given one dose of vancomycin. REVIEW OF SYSTEMS: As per HPI, unable to do, only done through the patient's nurse. PHYSICAL EXAMINATION: GENERAL: Arousable gentleman, not in any distress. VITAL SIGNS: Stable, afebrile. HEENT: NAD. NECK: Supple, no JVD, no lymphadenopathy. LUNGS: Clear. CARDIOVASCULAR: S1, S2 regular. ABDOMEN: Benign. EXTREMITIES: No edema or cyanosis. SKIN: Unremarkable. NEUROLOGIC: The patient does not follow commands although moves all the extremities. LABORATORY DATA: White count is 22.4, hemoglobin 11.2, platelets are normal. BUN 59, creatinine 2.6, which he has had normal in the past and now it is improving from the admission of 4 creatinine. Blood glucose has improved from 1627. Lactic acid of 8. Drug screen was negative and bicarbonate was 16. Blood culture is positive, ____ gram-positive cocci in pairs and chains. CT scan of the head was unremarkable for any acute changes, chronic infarct seen. Chest x-ray unremarkable. IMPRESSION: 1. Blood culture positive with gram-positive cocci, could be strep, could be Enterococcus. Further identification is pending. 2. Sepsis with lactic acidosis. 3. Leukocytosis. 4. Hyperosmolar diabetic coma. PLAN: Recommend vancomycin times 1, Start Zosyn. Supportive care, fluids, insulin as per the primary and we will continue to follow. Thank you very much, Dr. Ahuja for giving me opportunity to participate in this patient's care. JOSEFA KOCH MD DR: TSERING/tata JOB#: [id number] / [id number]
[2016-06-02 07:01] LABS: CALCIUM 8.2 mg/dL (8.5-10.1); GFR 33.6; POTASSIUM 4.2 mmol/L (3.5-5.1)
--- NOTE | 2016-06-02 07:57 | PDOC ---
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, answering some SKIN: No rash IV: ok Labs Lab Laboratory Tests Test 06/01/16 08:10 06/01/16 09:23 06/01/16 09:43 06/01/16 10:00 Sodium Level 157mmol/L (136-145) Potassium Level 3.9mmol/L (3.5-5.1) Chloride Level 118mmol/L (98-107) Carbon Dioxide Level 29mmol/L (21-32) Anion Gap 10 (6-14) Blood Urea Nitrogen 59mg/dL (8-26) Creatinine 2.6mg/dL (0.7-1.3) Estimated GFR (Cockcroft-Gault) 24.8 Glucose Level 158mg/dL (70-99) Calcium Level 8.3mg/dL (8.5-10.1) Phosphorus Level 3.8mg/dL (2.6-4.7) Magnesium Level 1.7mg/dL (1.8-2.4) Vitamin B12 Level 669pg/mL (247-911) Glucose (Fingerstick) 148mg/dL (70-99) Reticulocyte Count (auto) 1.0% (0.5-2.5) Urine Opiates Screen Neg (NEG) Urine Methadone Screen Neg (NEG) Urine Barbiturates Neg (NEG) Urine Phencyclidine Screen Neg (NEG) Urine Amphetamine/Methamphetamine Neg (NEG) Urine Benzodiazepines Screen Neg (NEG) Urine Cocaine Screen Neg (NEG) Urine Cannabinoids Screen Neg (NEG) Urine Ethyl Alcohol Neg (NEG) Test 06/01/16 12:20 06/01/16 15:28 06/01/16 17:56 06/01/16 18:00 Glucose (Fingerstick) 273mg/dL (70-99) 322mg/dL (70-99) 346mg/dL (70-99) Sodium Level 152mmol/L (136-145) Potassium Level 4.4mmol/L (3.5-5.1) Chloride Level 115mmol/L (98-107) Carbon Dioxide Level 27mmol/L (21-32) Anion Gap 10 (6-14) Blood Urea Nitrogen 49mg/dL (8-26) Creatinine 2.3mg/dL (0.7-1.3) Estimated GFR (Cockcroft-Gault) 28.6 Glucose Level 402mg/dL (70-99) Calcium Level 8.1mg/dL (8.5-10.1) Test 06/01/16 23:14 06/02/16 04:03 06/02/16 06:30 Glucose (Fingerstick) 182mg/dL (70-99) 115mg/dL (70-99) Sodium Level 154mmol/L (136-145) Potassium Level 4.2mmol/L (3.5-5.1) Chloride Level 119mmol/L (98-107) Carbon Dioxide Level 26mmol/L (21-32) Anion Gap 9 (6-14) Blood Urea Nitrogen 37mg/dL (8-26) Creatinine 2.0mg/dL (0.7-1.3) Estimated GFR (Cockcroft-Gault) 33.6 Glucose Level 127mg/dL (70-99) Calcium Level 8.2mg/dL (8.5-10.1) Phosphorus Level 2.9mg/dL (2.6-4.7) Micro BC + 1/2 G + cocci Objective Assessment BC + with G + cocci Sepsis Leukocytosis Hyperosmolar diabetic coma Plan Plan of Care vanc x 1 and zosyn supportive care fluids Insulin JOSEFA KOCH MD Jun 02, 2016 07:57
[2016-06-02] MEDS: INSULIN ASPART 300 UNITS/3 ML INSULN.PEN SQ SCH ×3 (08:00→17:00)
--- NOTE | 2016-06-02 08:39 | PDOC ---
Provider Note Provider Note sleeping, nad- no temp, bp and output good- bmp [id number], creat down to 2.0 from 4- has 1/2 bc + for gram + cocci, on zosyn pending id- will reduce iv rate, keep same insulin , start fl- to floor as glucose control good, reduce loraz re sedation YANET MYLES MD Jun 02, 2016 08:39
[2016-06-02] MEDS ORDERED: LORAZEPAM 1 MG TABLET. PO PRN (08:45)
[2016-06-02] MEDS: INSULIN DETEMIR 300 UNITS/3 ML INSULN.PEN. SQ SCH ×2 (09:22→14:00)
--- NOTE | 2016-06-02 11:31 | PDOC ---
Renal-Progress Notes Subjective Notes Notes MORE ALERT History of Present Illness Hx of present illness BETTER Vitals Vitals Vital Signs Date Time Temp Pulse Resp B/P Pulse Ox O2 Delivery O2 Flow Rate FiO2 06/02/16 10:00 26 121/60 96 Room Air 06/02/16 08:00 99.0 99.0 06/02/16 06:00 61 Weight Weight [ ] I.O. Intake and Output Intake and Output 06/02/16 07:00 Intake Total 4180.5 ml Output Total 2350 ml Balance 1830.5 ml Intake IV Total 4180.5 ml Output Urine Total 2350 ml Labs Labs Laboratory Tests Test 06/01/16 12:20 06/01/16 15:28 06/01/16 17:56 06/01/16 18:00 Glucose (Fingerstick) 273mg/dL (70-99) 322mg/dL (70-99) 346mg/dL (70-99) Sodium Level 152mmol/L (136-145) Potassium Level 4.4mmol/L (3.5-5.1) Chloride Level 115mmol/L (98-107) Carbon Dioxide Level 27mmol/L (21-32) Anion Gap 10 (6-14) Blood Urea Nitrogen 49mg/dL (8-26) Creatinine 2.3mg/dL (0.7-1.3) Estimated GFR (Cockcroft-Gault) 28.6 Glucose Level 402mg/dL (70-99) Calcium Level 8.1mg/dL (8.5-10.1) Test 06/01/16 23:14 06/02/16 04:03 06/02/16 06:30 06/02/16 09:19 Glucose (Fingerstick) 182mg/dL (70-99) 115mg/dL (70-99) 144mg/dL (70-99) Sodium Level 154mmol/L (136-145) Potassium Level 4.2mmol/L (3.5-5.1) Chloride Level 119mmol/L (98-107) Carbon Dioxide Level 26mmol/L (21-32) Anion Gap 9 (6-14) Blood Urea Nitrogen 37mg/dL (8-26) Creatinine 2.0mg/dL (0.7-1.3) Estimated GFR (Cockcroft-Gault) 33.6 Glucose Level 127mg/dL (70-99) Calcium Level 8.2mg/dL (8.5-10.1) Phosphorus Level 2.9mg/dL (2.6-4.7) Micro Micro Microbiology 05/31/16 Blood Culture - Final, Complete Review of Systems Constitutional: yes: no symptom reported, other (CONFUSED ) Physical Exam General Appearance: no apparent distress Skin: warm Respiratory: bilateral CTA Heart: S1S2, RRR Abdomen: soft, bowel sounds present Extremities: pulses present Neurology: alert Assessment Assessment IMP MIKEY-BETTER DKA-RESOLVED DEHYDRATION HYPERNATREMIA LEUCOCYTOSIS-WAS PROB REACTIVE PLAN CHANGE TO HYPOTONIC SALINE SEBASTIAN LANDIS MD Jun 02, 2016 11:30
[2016-06-02] MEDS: DEXTROSE 50% 25 GM / 50ML DISP.SYRIN. IV PRN (18:15)
[2016-06-03] VITALS (7 sets, daily range): BP systolic 90–150; BP diastolic 34–68
[2016-06-03] MEDS: PIPERACILLIN/TAZOBACTAM 2.25 GM in IV NORMAL SALINE 50ML 50 ML IV SCH ×2 (00:26→05:27)
[2016-06-03] MEDS: POTASSIUM CL 20MEQ D5-0.45NACL 1,000 ML IV SCH (01:43)
[2016-06-03 06:03] LABS: CALCIUM 8.5 mg/dL (8.5-10.1); CREATININE 1.5 mg/dL (0.7-1.3); GFR 46.8; POTASSIUM 5.1 mmol/L (3.5-5.1)
--- NOTE | 2016-06-03 07:54 | PDOC ---
Infectious Disease Note Subjective Subjective more awake, able to talk ROS ROS GEN: Denies fevers, chills, sweats HEENT: Denies blurred vision, sore throat CV: Denies chest pain RESP: Denies shortness of air, cough GI: Denies n/v/d NEURO: Denies confusion, dizziness MSK: Denies weakness, joint pain/swelling Vital Sign Vital Signs Vital Signs Date Time Temp Pulse Resp B/P Pulse Ox O2 Delivery O2 Flow Rate FiO2 06/03/16 03:00 98.5 63 16 150/51 100 Room Air 98.5 Physical Exam PHYSICAL EXAM GENERAL: NAD, Alert HEENT: PERRL, OC/OP NECK: Supple, no JVD, no LN LUNGS: Clear HEART: S1S2, no gallop, no murmur ABD: Soft, NT, no organomegaly, no rebound EXT: No edema, no cyanosis SYSTEM ADMINISTRATOR: Alert, oriented , 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 SKIN: No rash IV: ok Labs Lab Laboratory Tests Test 06/02/16 09:19 06/02/16 13:33 06/02/16 18:09 06/02/16 19:24 Glucose (Fingerstick) 144mg/dL (70-99) 108mg/dL (70-99) 36mg/dL (70-99) 94mg/dL (70-99) Test 06/02/16 22:47 06/03/16 02:35 06/03/16 05:30 06/03/16 06:25 Glucose (Fingerstick) 93mg/dL (70-99) 182mg/dL (70-99) 254mg/dL (70-99) Sodium Level 146mmol/L (136-145) Potassium Level 5.1mmol/L (3.5-5.1) Chloride Level 114mmol/L (98-107) Carbon Dioxide Level 24mmol/L (21-32) Anion Gap 8 (6-14) Blood Urea Nitrogen 25mg/dL (8-26) Creatinine 1.5mg/dL (0.7-1.3) Estimated GFR (Cockcroft-Gault) 46.8 Glucose Level 247mg/dL (70-99) Calcium Level 8.5mg/dL (8.5-10.1) Phosphorus Level 2.0mg/dL (2.6-4.7) Micro BC + 1/2 G + cocci Objective Assessment BC + with G + cocci,,, ID still pending, d/w lab Sepsis Leukocytosis Hyperosmolar diabetic coma Plan Plan of Care vanc x 1 and zosyn supportive care fluids Insulin JOSEFA KOCH MD Jun 03, 2016 07:54
[2016-06-03] MEDS: INSULIN DETEMIR 300 UNITS/3 ML INSULN.PEN. SQ SCH ×3 (09:00→14:47)
--- NOTE | 2016-06-03 09:29 | PDOC ---
Provider Note Provider Note no temp, vss, good output- more alert, back to ? baseline- renal fx recovered- will reduce levemir re low glcose from 40 to 24, dont know his usual dose- to floor YANET MYLES MD Jun 03, 2016 09:29
[2016-06-03] MEDS ORDERED: ALTEPLASE 2 MG VIAL INT CAT ONE ×3 (10:00)
[2016-06-03] MEDS: INSULIN ASPART 300 UNITS/3 ML INSULN.PEN SQ SCH ×3 (10:20→17:00)
--- NOTE | 2016-06-03 11:42 | PDOC ---
Renal-Progress Notes Subjective Notes Notes NONE History of Present Illness Hx of present illness BETTER Vitals Vitals Vital Signs Date Time Temp Pulse Resp B/P Pulse Ox O2 Delivery O2 Flow Rate FiO2 06/03/16 08:00 Room Air 06/03/16 07:00 97.2 67 16 128/61 95 97.2 Weight Weight [ ] I.O. Intake and Output Intake and Output 06/03/16 07:00 Intake Total 405 ml Output Total 3825 ml Balance -3420 ml Intake Oral 30 ml IV Total 200 ml Other 175 ml Output Urine Total 3825 ml # Bowel Movements 1 Labs Labs Laboratory Tests Test 06/02/16 13:33 06/02/16 18:09 06/02/16 19:24 06/02/16 22:47 Glucose (Fingerstick) 108mg/dL (70-99) 36mg/dL (70-99) 94mg/dL (70-99) 93mg/dL (70-99) Test 06/03/16 02:35 06/03/16 05:30 06/03/16 06:25 06/03/16 10:05 Glucose (Fingerstick) 182mg/dL (70-99) 254mg/dL (70-99) 350mg/dL (70-99) Sodium Level 146mmol/L (136-145) Potassium Level 5.1mmol/L (3.5-5.1) Chloride Level 114mmol/L (98-107) Carbon Dioxide Level 24mmol/L (21-32) Anion Gap 8 (6-14) Blood Urea Nitrogen 25mg/dL (8-26) Creatinine 1.5mg/dL (0.7-1.3) Estimated GFR (Cockcroft-Gault) 46.8 Glucose Level 247mg/dL (70-99) Calcium Level 8.5mg/dL (8.5-10.1) Phosphorus Level 2.0mg/dL (2.6-4.7) Micro Micro Microbiology 05/31/16 Blood Culture - Preliminary, Resulted 05/31/16 Blood Culture Result 1 (SARAI) - Preliminary, Resulted 05/31/16 Blood Culture Result 2 (SARAI) - Preliminary, Resulted Review of Systems Constitutional: yes: no symptom reported, other (CONFUSED ) Physical Exam General Appearance: no apparent distress Skin: warm Respiratory: bilateral CTA Heart: S1S2, RRR Abdomen: soft, bowel sounds present Extremities: pulses present Neurology: alert Assessment Assessment IMP MIKEY-BETTER DKA-RESOLVED DEHYDRATION HYPERNATREMIA LEUCOCYTOSIS-WAS PROB REACTIVE PLAN ENC PO PPN FOR NOW SEBASTIAN LANDIS MD Jun 03, 2016 11:42
[2016-06-03] MEDS: PIPERACILLIN/TAZOBACTAM 3.375 GM in IV NORMAL SALINE 50ML 50 ML IV SCH ×2 (13:25→21:27)
[2016-06-03] MEDS: AA 4.25%/CALCIUM/LYTES/D5W 1,000 ML IV SCH (13:25)
[2016-06-04] MEDS: AA 4.25%/CALCIUM/LYTES/D5W 1,000 ML IV SCH ×2 (01:37→14:43)
[2016-06-04] MEDS ORDERED: DEXTROSE 50% 25 GM / 50ML DISP.SYRIN. IV ONE (03:06)
[2016-06-04] MEDS: DEXTROSE 50% 25 GM / 50ML DISP.SYRIN. IV PRN (03:42)
[2016-06-04] MEDS: PIPERACILLIN/TAZOBACTAM 3.375 GM in IV NORMAL SALINE 50ML 50 ML IV SCH ×4 (06:12→17:51)
[2016-06-04 07:00] VITALS: BP 130/64
--- NOTE | 2016-06-04 07:50 | PDOC ---
Provider Note Provider Note BG high in day but low overnight- renal fx recovered- do not know recent a1c so will do, will lower levemir from 24 to 10 am only now and follow- will need placement, better control here may be from different diet YANET MYLES MD Jun 04, 2016 07:49
[2016-06-04 07:52] LABS: CALCIUM 8.5 mg/dL (8.5-10.1); CREATININE 1.7 mg/dL (0.7-1.3); GFR 40.5; POTASSIUM 5.2 mmol/L (3.5-5.1)
[2016-06-04] MEDS ORDERED: INSULIN DETEMIR 300 UNITS/3 ML INSULN.PEN. SQ SCH (10:00)
[2016-06-04 11:00] VITALS: BP 144/68
--- NOTE | 2016-06-04 11:53 | PDOC ---
Infectious Disease Note Subjective Subjective more awake, able to talk ROS ROS GEN: Denies fevers, chills, sweats HEENT: Denies blurred vision, sore throat CV: Denies chest pain RESP: Denies shortness of air, cough GI: Denies n/v/d NEURO: Denies confusion, dizziness MSK: Denies weakness, joint pain/swelling Vital Sign Vital Signs Vital Signs Date Time Temp Pulse Resp B/P Pulse Ox O2 Delivery O2 Flow Rate FiO2 06/04/16 11:00 97.9 65 18 144/68 100 Room Air 97.9 Physical Exam PHYSICAL EXAM GENERAL: NAD, Alert HEENT: PERRL, OC/OP NECK: Supple, no JVD, no LN LUNGS: Clear HEART: S1S2, no gallop, no murmur ABD: Soft, NT, no organomegaly, no rebound EXT: No edema, no cyanosis 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, 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 x 3, 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 SKIN: No rash IV: ok Labs Lab Laboratory Tests Test 06/03/16 13:53 06/03/16 16:08 06/04/16 03:04 06/04/16 03:42 Glucose (Fingerstick) 213mg/dL (70-99) 119mg/dL (70-99) 22mg/dL (70-99) 156mg/dL (70-99) Test 06/04/16 07:20 06/04/16 08:03 06/04/16 10:45 Sodium Level 142mmol/L (136-145) Potassium Level 5.2mmol/L (3.5-5.1) Chloride Level 111mmol/L (98-107) Carbon Dioxide Level 24mmol/L (21-32) Anion Gap 7 (6-14) Blood Urea Nitrogen 28mg/dL (8-26) Creatinine 1.7mg/dL (0.7-1.3) Estimated GFR (Cockcroft-Gault) 40.5 Glucose Level 340mg/dL (70-99) Calcium Level 8.5mg/dL (8.5-10.1) Glucose (Fingerstick) 322mg/dL (70-99) 427mg/dL (70-99) Micro BC + enterococcus and staph hominis Objective Assessment BC + enterococcus and staph hominis Sepsis Leukocytosis Hyperosmolar diabetic coma Plan Plan of Care vanc x 1 and zosyn supportive care fluids Insulin enterococcus susceptibility pending JOSEFA KOCH MD Jun 04, 2016 11:53
--- NOTE | 2016-06-04 12:12 | PDOC ---
Renal-Progress Notes Subjective Notes Notes NONE History of Present Illness Hx of present illness NO CHANGE Vitals Vitals Vital Signs Date Time Temp Pulse Resp B/P Pulse Ox O2 Delivery O2 Flow Rate FiO2 06/04/16 11:00 97.9 65 18 144/68 100 Room Air 97.9 Weight Weight [ ] I.O. Intake and Output Intake and Output 06/04/16 07:00 Intake Total 650 ml Output Total 1800 ml Balance -1150 ml Intake Oral 600 ml IV Total 50 ml Output Urine Total 1800 ml # Voids 3 Labs Labs Laboratory Tests Test 06/03/16 13:53 06/03/16 16:08 06/04/16 03:04 06/04/16 03:42 Glucose (Fingerstick) 213mg/dL (70-99) 119mg/dL (70-99) 22mg/dL (70-99) 156mg/dL (70-99) Test 06/04/16 07:20 06/04/16 08:03 06/04/16 10:45 Sodium Level 142mmol/L (136-145) Potassium Level 5.2mmol/L (3.5-5.1) Chloride Level 111mmol/L (98-107) Carbon Dioxide Level 24mmol/L (21-32) Anion Gap 7 (6-14) Blood Urea Nitrogen 28mg/dL (8-26) Creatinine 1.7mg/dL (0.7-1.3) Estimated GFR (Cockcroft-Gault) 40.5 Glucose Level 340mg/dL (70-99) Calcium Level 8.5mg/dL (8.5-10.1) Glucose (Fingerstick) 322mg/dL (70-99) 427mg/dL (70-99) Micro Micro Microbiology 05/31/16 Blood Culture - Preliminary, Resulted 05/31/16 Blood Culture Result 1 (SARAI) - Preliminary, Resulted 05/31/16 Blood Culture Result 2 (SARAI) - Preliminary, Resulted 05/31/16 Antimicrobic Susceptibility - Preliminary, Resulted Review of Systems Constitutional: yes: no symptom reported, other (CONFUSED ) Physical Exam General Appearance: no apparent distress Skin: warm Respiratory: bilateral CTA Heart: S1S2, RRR Abdomen: soft, bowel sounds present Extremities: pulses present Neurology: alert Assessment Assessment IMP MIKEY-RESOLVED PROB CKD STAGE 3 WITH CR OF ABOUT 1.7 DKA-RESOLVED DEHYDRATION HYPERNATREMIA-BETTER LEUCOCYTOSIS-WAS PROB REACTIVE PLAN ENC PO PPN FOR NOW SEBASTIAN LANDIS MD Jun 04, 2016 12:12
[2016-06-04 12:45] LABS: HEMATOCRIT 36.4 % (39.0-53.0); HEMOGLOBIN 11.8 g/dL (13.0-17.5); RED BLOOD COUNT 3.85 x10^6/uL (4.30-5.70); RED CELL DISTRIBUTION WIDTH 12.9 % (11.5-14.5); WHITE BLOOD COUNT 6.7 x10^3/uL (4.0-11.0)
[2016-06-04 15:00] VITALS: BP 130/54
[2016-06-04] MEDS ORDERED: INSULIN DETEMIR 300 UNITS/3 ML INSULN.PEN. SQ STA (18:16)
[2016-06-04] MEDS ORDERED: INSULIN ASPART 300 UNITS/3 ML INSULN.PEN SQ STA (18:16)
[2016-06-04 19:27] VITALS: BP 109/49
[2016-06-04 23:12] VITALS: BP 135/67
[2016-06-05] MEDS: PIPERACILLIN/TAZOBACTAM 3.375 GM in IV NORMAL SALINE 50ML 50 ML IV SCH ×5 (00:19→23:40)
[2016-06-05 03:33] VITALS: BP 124/57
[2016-06-05] MEDS: AA 4.25%/CALCIUM/LYTES/D5W 1,000 ML IV SCH ×3 (04:29→21:02)
[2016-06-05 05:13] LABS: HEMATOCRIT 34.1 % (39.0-53.0); HEMOGLOBIN 11.2 g/dL (13.0-17.5); RED BLOOD COUNT 3.7 x10^6/uL (4.30-5.70); RED CELL DISTRIBUTION WIDTH 12.7 % (11.5-14.5); WHITE BLOOD COUNT 8.5 x10^3/uL (4.0-11.0)
[2016-06-05 05:41] LABS: CALCIUM 8.9 mg/dL (8.5-10.1); CREATININE 1.6 mg/dL (0.7-1.3); GFR 43.5; POTASSIUM 4.4 mmol/L (3.5-5.1)
[2016-06-05 07:00] VITALS: BP 144/66
[2016-06-05] MEDS: INSULIN DETEMIR 300 UNITS/3 ML INSULN.PEN. SQ SCH (09:00)
[2016-06-05 11:28] VITALS: BP 135/50
--- NOTE | 2016-06-05 11:31 | PDOC ---
GENERAL General: vss and afebrile. awake and alert and denies complaints. sugars all over the board in last 24 hrs. sugar 53 this am and over 400 during day yesterday. chest clear and heart regular. will adjust insulin though expect patient very labile with prior admit for hypoglycemia. Problems: VITAL SIGNS Vital Signs: Vital Signs Date Time Temp Pulse Resp B/P Pulse Ox O2 Delivery O2 Flow Rate FiO2 06/05/16 07:00 98.1 66 18 144/66 94 Room Air 98.1 I & O I & O Intake and Output 06/05/16 07:00 Intake Total 2465 ml Balance 2465 ml Intake Oral 660 ml IV Total 1805 ml # Voids 4 ALLERGIES Allergies: Allergies Coded Allergies Type Severity Reaction Last Updated Verified No Known Drug Allergies 05/18/16 No MEDS Medications: Current Medications Medications (Trade) Dose Ordered Sig/Paresh Start Time Stop Time Status Last Admin Dose Admin Acetaminophen 650 mg 650 mg PRN Q4HRS PRN 05/31/16 15:15 06/01/16 15:14 DC Alteplase, Recombinant (Cathflo) 2 mg 1X ONCE 06/03/16 10:00 06/03/16 10:01 DC 06/03/16 10:24 2 MG Alteplase, Recombinant 2 mg 2 mg 1X ONCE 06/03/16 10:00 06/03/16 10:01 DC 06/03/16 10:24 2 MG Amino Acids/ Electrolytes/ Dextrose (Clinimix E 4.25%-5% Solution) 1,000 ml @ 80 mls/hr [id number] 06/03/16 12:00 06/05/16 04:29 80 MLS/HR Amlodipine Besylate 10 mg 10 mg DAILY 06/01/16 09:00 06/01/16 09:00 DC Cyanocobalamin 1000 mcg 1,000 mcg 1X ONCE 06/01/16 08:45 06/01/16 10:47 DC Dextrose (Dextrose 50%-Water Syringe) 25 gm STK-MED ONCE 06/04/16 03:06 06/04/16 03:07 DC Dextrose/Sodium Chloride 1,000 ml @ 250 mls/hr Q4H 05/31/16 12:47 06/01/16 08:58 DC 06/01/16 07:52 250 MLS/HR Fentanyl Citrate (Fentanyl 2ml Vial) 50 mcg PRN Q2HR PRN 05/31/16 15:15 06/01/16 15:14 DC Insulin Aspart (Novolog) 15 units 1X STAT 06/04/16 18:16 06/04/16 18:23 DC 06/04/16 18:33 15 UNITS Insulin Detemir (Levemir) 20 units DAILY 06/05/16 09:00 06/05/16 09:00 20 UNITS Insulin Detemir 12 units 12 units [id number] 06/03/16 09:30 06/04/16 03:57 DC 06/03/16 14:47 12 UNITS Insulin Detemir 20 units 20 units BID92 06/01/16 09:00 06/03/16 09:27 DC 06/02/16 09:22 20 UNITS Insulin Human Regular 10 unit 10 unit 1X ONCE 05/31/16 12:00 05/31/16 12:01 DC 05/31/16 11:51 10 UNIT Insulin Human Regular 150 unit/ Sodium Chloride 151.5 ml @ 0 mls/hr CONT PRN PRN 05/31/16 12:45 06/01/16 08:39 DC 05/31/16 13:33 31.3 MLS/HR Lorazepam (Ativan) 1 mg PRN Q6HRS PRN 06/02/16 08:45 06/03/16 21:18 1 MG Lorazepam 2 mg 2 mg PRN Q4HRS PRN 05/31/16 18:00 06/02/16 08:36 DC 05/31/16 18:09 2 MG Norepinephrine Bitartrate/Sodium Chloride (Levophed Vial/ Iv Sodium Chloride 0.9% 250ml) 258 ml @ 0 mls/hr CONT PRN 05/31/16 16:30 06/01/16 08:39 DC 06/01/16 04:18 15.48 MLS/HR Ondansetron HCl (Zofran) 4 mg PRN Q8HRS PRN 05/31/16 15:15 06/01/16 15:14 DC Piperacillin Sod/ Tazobactam Sod/ Sodium Chloride (Zosyn/Iv Sodium Chloride 0.9% 50ml) 50 ml @ 100 mls/hr Q6HRS 06/03/16 12:00 06/05/16 05:55 100 MLS/HR Potassium Chloride/Dextrose/ Sod Cl 1,000 ml @ 75 mls/hr [id number] 06/01/16 09:15 06/03/16 09:27 DC 06/03/16 01:43 75 MLS/HR Potassium Chloride/Dextrose/ Sod Cl (KCl 20 Meq In D5W-NS) 1,000 ml @ 150 mls/hr Q6H40M 06/01/16 08:30 06/01/16 09:12 DC Potassium Chloride 50 ml @ 50 mls/hr 1X ONCE 06/01/16 02:30 06/01/16 03:29 DC 06/01/16 02:49 50 MLS/HR Sodium Chloride (Iv Sodium Chloride 0.9% 1000ml Bag) 1,000 ml @ 1,000 mls/hr 1X ONCE 05/31/16 13:45 05/31/16 14:44 DC 05/31/16 13:45 1,000 MLS/HR Sodium Phosphate 20 mmol/Dextrose 256.6667 ml @ 62.5 mls/hr 1X PRN PRN 06/01/16 01:00 06/03/16 09:27 DC Sodium Phosphate/ Dextrose 256.6667 ml @ 64.167 m... 1X ONCE 06/01/16 01:30 06/01/16 05:29 DC 06/01/16 01:59 64.167 MLS/HR Thiamine HCl/ Sodium Chloride (Iv Sodium Chloride 0.9% 50ml) 51 ml @ 102 mls/hr 1X ONCE 06/01/16 08:30 06/01/16 08:59 DC 06/01/16 09:37 102 MLS/HR Vancomycin HCl/ Sodium Chloride (Iv Sodium Chloride 0.9% 250ml) 250 ml @ 250 mls/hr 1X ONCE 06/01/16 11:00 06/01/16 11:59 DC 06/01/16 12:23 250 MLS/HR LAB Lab: Laboratory Tests Test 06/04/16 12:20 06/04/16 16:57 06/04/16 19:17 06/05/16 04:45 White Blood Count 6.7x10^3/uL (4.0-11.0) 8.5x10^3/uL (4.0-11.0) Red Blood Count 3.85x10^6/uL (4.30-5.70) 3.70x10^6/uL (4.30-5.70) Hemoglobin 11.8g/dL (13.0-17.5) 11.2g/dL (13.0-17.5) Hematocrit 36.4% (39.0-53.0) 34.1% (39.0-53.0) Mean Corpuscular Volume 95fL (79-100) 92fL (79-100) Mean Corpuscular Hemoglobin 31pg (25-35) 30pg (25-35) Mean Corpuscular Hemoglobin Concent 33g/dL (31-37) 33g/dL (31-37) Red Cell Distribution Width 12.9% (11.5-14.5) 12.7% (11.5-14.5) Platelet Count 140x10^3/uL (140-400) 165x10^3/uL (140-400) Glucose (Fingerstick) 558mg/dL (70-99) 406mg/dL (70-99) Sodium Level 145mmol/L (136-145) Potassium Level 4.4mmol/L (3.5-5.1) Chloride Level 112mmol/L (98-107) Carbon Dioxide Level 23mmol/L (21-32) Anion Gap 10 (6-14) Blood Urea Nitrogen 39mg/dL (8-26) Creatinine 1.6mg/dL (0.7-1.3) Estimated GFR (Cockcroft-Gault) 43.5 Glucose Level 53mg/dL (70-99) Calcium Level 8.9mg/dL (8.5-10.1) Test 06/05/16 07:31 06/05/16 09:00 Glucose (Fingerstick) 70mg/dL (70-99) 149mg/dL (70-99) Nutrition Consultation Dietary Evaluation: Recommendations by RD: Dietary education by RD, Increase Calorie Intake, Protein supplementation, PPN/TPN Comments: -Continue the boost glucose control TID until PO intake improves (250kcal and 14g protein) -PPN @ 80 ml/hr provides 650 calories (35% est calorie needs) and 80 grams of protein (> 100% est protein needs) -Discussed the diabetic diet restrictions with . refuses education handouts, however family friend is receptive-provided carb counting/nutrition label reading information and discussed Expected Outcomes/Goals: meet >75% est nutr needs Malnutrition Findings: Body Fat Depletion (Non Severe: Mild Depletion Reduced Director Of District Office Strength: N/A Reduced Director Of District Office Strength (Non-Sev: N/A Malnutrition related to morbid: No Weight Status: Appropriate RICKIE CADET MD Jun 05, 2016 11:31
--- NOTE | 2016-06-05 11:52 | PDOC ---
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5) Platelet Count 140x10^3/uL (140-400) 165x10^3/uL (140-400) Glucose (Fingerstick) 558mg/dL (70-99) 406mg/dL (70-99) Sodium Level 145mmol/L (136-145) Potassium Level 4.4mmol/L (3.5-5.1) Chloride Level 112mmol/L (98-107) Carbon Dioxide Level 23mmol/L (21-32) Anion Gap 10 (6-14) Blood Urea Nitrogen 39mg/dL (8-26) Creatinine 1.6mg/dL (0.7-1.3) Estimated GFR (Cockcroft-Gault) 43.5 Glucose Level 53mg/dL (70-99) Calcium Level 8.9mg/dL (8.5-10.1) Test 06/05/16 07:31 06/05/16 09:00 Glucose (Fingerstick) 70mg/dL (70-99) 149mg/dL (70-99) Micro BLD CULT RESULT 1 Preliminary Enterococcus species Recovered from aerobic bottle only. BLD CULT RESULT 2 Preliminary Comment Staphylococcus hominis Recovered from aerobic bottle only. ANTIMICROBIAL SUSCEPTIBILITY Preliminary Comment S = Susceptible; I = Intermediate; R = Resistant P = Positive; N = Negative MICS are expressed in micrograms per mL Antibiotic RSLT#1 RSLT#2 RSLT#3 RSLT#4 Ciprofloxacin S Clindamycin S Erythromycin R Gentamicin S Levofloxacin S Nitrofurantoin S Oxacillin S Penicillin R Rifampin S Tetracycline S Trimethoprim/Sulfa S Vancomycin S Objective Assessment Sepsis Enterococcus and staph hominis bacteremia. 05/31 ? true vs contamination given multiple species and staph hominis usually contamination Leukocytosis, improved Hyperosmolar diabetic coma MIKEY on CKD. improved Plan Plan of Care Trang octavio joiner 1, 06/01. clinically improving Repeat supportive care Attending Co-Sign Attending Co-Sign The patient was seen and interviewed as well as examined at the bedside. The chart was reviewed. The case was discussed. Agree with the plan of care. MARCELA CYR QUILT STUFFER Jun 05, 2016 11:51 NORTH CHUN MD Jun 05, 2016 12:48
--- NOTE | 2016-06-05 12:49 | PDOC ---
SUBJECTIVE ROS MIKEY/ CK D III no complaints dose not answer ROS Qs OBJECTIVE Vital Signs Vital Signs Date Time Temp Pulse Resp B/P Pulse Ox O2 Delivery O2 Flow Rate FiO2 06/05/16 11:28 98.2 68 18 135/50 100 Room Air 98.2 I & 0 Intake and Output 06/05/16 07:00 Intake Total 2465 ml Balance 2465 ml Intake Oral 660 ml IV Total 1805 ml # Voids 4 PHYSICAL EXAM Physical Exam GEN: Awake, Oriented x ?, In no distress EYES: Vision Unchanged, Conjunctiva Normal EN: No EN Drainage, Mucous Membranes moist, Poor Dnetition NECK: no JVD, no JVP, Supple, no Thyromegaly CVS: S1S2, ? Murmur, No Gallop, No Rub,no Edema RESP: no Rales, no Rhonchi,no Acc. Muscle Use GI: BS + ve, NO Bruit, Non Tender, Non Distended : no CVA tenderness, no Suprapubic Tenderness DIAGNOSIS/ASSESSMENT Assessment & Plan PROB CKD STAGE 3 WITH CR OF ABOUT 1.7 for his new baseline; check Renal US DEHYDRATION - PO Intake does not appear to be too good - ct PPN for now, ? Need for PEG HYPERNATREMIA-BETTER on Hypotnoic IVF/ PPN ANEMIA - check Iron Problems: COMMENT/RELEVANT DATA Meds Current Medications Medications (Trade) Dose Ordered Sig/Paresh Start Time Stop Time Status Last Admin Dose Admin Acetaminophen 650 mg 650 mg PRN Q4HRS PRN 05/31/16 15:15 06/01/16 15:14 DC Alteplase, Recombinant (Cathflo) 2 mg 1X ONCE 06/03/16 10:00 06/03/16 10:01 DC 06/03/16 10:24 2 MG Alteplase, Recombinant 2 mg 2 mg 1X ONCE 06/03/16 10:00 06/03/16 10:01 DC 06/03/16 10:24 2 MG Amino Acids/ Electrolytes/ Dextrose (Clinimix E 4.25%-5% Solution) 1,000 ml @ 80 mls/hr [id number] 06/03/16 12:00 06/05/16 04:29 80 MLS/HR Amlodipine Besylate 10 mg 10 mg DAILY 06/01/16 09:00 06/01/16 09:00 DC Cyanocobalamin 1000 mcg 1,000 mcg 1X ONCE 06/01/16 08:45 06/01/16 10:47 DC Dextrose (Dextrose 50%-Water Syringe) 25 gm STK-MED ONCE 06/04/16 03:06 06/04/16 03:07 DC Dextrose/Sodium Chloride 1,000 ml @ 250 mls/hr Q4H 05/31/16 12:47 06/01/16 08:58 DC 06/01/16 07:52 250 MLS/HR Fentanyl Citrate (Fentanyl 2ml Vial) 50 mcg PRN Q2HR PRN 05/31/16 15:15 06/01/16 15:14 DC Insulin Aspart (Novolog) 15 units 1X STAT 06/04/16 18:16 06/04/16 18:23 DC 06/04/16 18:33 15 UNITS Insulin Detemir (Levemir) 20 units DAILY 06/05/16 09:00 06/05/16 09:00 20 UNITS Insulin Detemir 12 units 12 units [id number] 06/03/16 09:30 06/04/16 03:57 DC 06/03/16 14:47 12 UNITS Insulin Detemir 20 units 20 units BID92 06/01/16 09:00 06/03/16 09:27 DC 06/02/16 09:22 20 UNITS Insulin Human Regular 10 unit 10 unit 1X ONCE 05/31/16 12:00 05/31/16 12:01 DC 05/31/16 11:51 10 UNIT Insulin Human Regular 150 unit/ Sodium Chloride 151.5 ml @ 0 mls/hr CONT PRN PRN 05/31/16 12:45 06/01/16 08:39 DC 05/31/16 13:33 31.3 MLS/HR Lorazepam (Ativan) 1 mg PRN Q6HRS PRN 06/02/16 08:45 06/03/16 21:18 1 MG Lorazepam 2 mg 2 mg PRN Q4HRS PRN 05/31/16 18:00 06/02/16 08:36 DC 05/31/16 18:09 2 MG Norepinephrine Bitartrate/Sodium Chloride (Levophed Vial/ Iv Sodium Chloride 0.9% 250ml) 258 ml @ 0 mls/hr CONT PRN 05/31/16 16:30 06/01/16 08:39 DC 06/01/16 04:18 15.48 MLS/HR Ondansetron HCl (Zofran) 4 mg PRN Q8HRS PRN 05/31/16 15:15 06/01/16 15:14 DC Piperacillin Sod/ Tazobactam Sod/ Sodium Chloride (Zosyn/Iv Sodium Chloride 0.9% 50ml) 50 ml @ 100 mls/hr Q6HRS 06/03/16 12:00 06/05/16 05:55 100 MLS/HR Potassium Chloride/Dextrose/ Sod Cl 1,000 ml @ 75 mls/hr [id number] 06/01/16 09:15 06/03/16 09:27 DC 06/03/16 01:43 75 MLS/HR Potassium Chloride/Dextrose/ Sod Cl (KCl 20 Meq In D5W-NS) 1,000 ml @ 150 mls/hr Q6H40M 06/01/16 08:30 06/01/16 09:12 DC Potassium Chloride 50 ml @ 50 mls/hr 1X ONCE 06/01/16 02:30 06/01/16 03:29 DC 06/01/16 02:49 50 MLS/HR Sodium Chloride (Iv Sodium Chloride 0.9% 1000ml Bag) 1,000 ml @ 1,000 mls/hr 1X ONCE 05/31/16 13:45 05/31/16 14:44 DC 05/31/16 13:45 1,000 MLS/HR Sodium Phosphate 20 mmol/Dextrose 256.6667 ml @ 62.5 mls/hr 1X PRN PRN 06/01/16 01:00 06/03/16 09:27 DC Sodium Phosphate/ Dextrose 256.6667 ml @ 64.167 m... 1X ONCE 06/01/16 01:30 06/01/16 05:29 DC 06/01/16 01:59 64.167 MLS/HR Thiamine HCl/ Sodium Chloride (Iv Sodium Chloride 0.9% 50ml) 51 ml @ 102 mls/hr 1X ONCE 06/01/16 08:30 06/01/16 08:59 DC 06/01/16 09:37 102 MLS/HR Vancomycin HCl/ Sodium Chloride (Iv Sodium Chloride 0.9% 250ml) 250 ml @ 250 mls/hr 1X ONCE 06/01/16 11:00 06/01/16 11:59 DC 06/01/16 12:23 250 MLS/HR Lab Laboratory Tests Test 06/04/16 16:57 06/04/16 19:17 06/05/16 04:45 06/05/16 07:31 Glucose (Fingerstick) 558mg/dL (70-99) 406mg/dL (70-99) 70mg/dL (70-99) White Blood Count 8.5x10^3/uL (4.0-11.0) Red Blood Count 3.70x10^6/uL (4.30-5.70) Hemoglobin 11.2g/dL (13.0-17.5) Hematocrit 34.1% (39.0-53.0) Mean Corpuscular Volume 92fL (79-100) Mean Corpuscular Hemoglobin 30pg (25-35) Mean Corpuscular Hemoglobin Concent 33g/dL (31-37) Red Cell Distribution Width 12.7% (11.5-14.5) Platelet Count 165x10^3/uL (140-400) Sodium Level 145mmol/L (136-145) Potassium Level 4.4mmol/L (3.5-5.1) Chloride Level 112mmol/L (98-107) Carbon Dioxide Level 23mmol/L (21-32) Anion Gap 10 (6-14) Blood Urea Nitrogen 39mg/dL (8-26) Creatinine 1.6mg/dL (0.7-1.3) Estimated GFR (Cockcroft-Gault) 43.5 Glucose Level 53mg/dL (70-99) Calcium Level 8.9mg/dL (8.5-10.1) Test 06/05/16 09:00 06/05/16 11:53 Glucose (Fingerstick) 149mg/dL (70-99) 282mg/dL (70-99) LORETA KOCH MD Jun 05, 2016 12:49
[2016-06-05] MEDS ORDERED: LORAZEPAM 1 MG TABLET. PO PRN (13:30)
[2016-06-05 13:32] LABS: % SAT IRON 33 % (15-34); IRON,SERUM 50 ug/dL (65-175)
--- NOTE | 2016-06-05 14:53 | RAD ---
EXAM: Renal sonogram. HISTORY: Elevated creatinine. TECHNIQUE: Sonographic imaging of the kidneys and bladder was performed. COMPARISON: None. FINDINGS: The right kidney measures 11.4 cm [id number]-[id number] and the left kidney measures 11.2 cm [id number]. No solid or cystic renal lesion is seen. The bladder is unremarkable. The inferior vena cava is patent. IMPRESSION: Sonographically unremarkable kidneys and bladder.
[2016-06-05 15:20] VITALS: BP 132/56
[2016-06-05] MEDS ORDERED: INSULIN ASPART 300 UNITS/3 ML INSULN.PEN SQ ONE (18:00)
[2016-06-05 19:00] VITALS: BP 136/63
[2016-06-05 23:00] VITALS: BP 145/70
[2016-06-06 03:00] VITALS: BP 140/66
[2016-06-06] MEDS: PIPERACILLIN/TAZOBACTAM 3.375 GM in IV NORMAL SALINE 50ML 50 ML IV SCH ×4 (06:45→23:13)
[2016-06-06 07:00] VITALS: BP 126/64
[2016-06-06] MEDS: INSULIN ASPART 300 UNITS/3 ML INSULN.PEN SQ SCH ×3 (08:27→16:55)
[2016-06-06] MEDS: INSULIN DETEMIR 300 UNITS/3 ML INSULN.PEN. SQ SCH (08:28)
--- NOTE | 2016-06-06 10:15 | PDOC ---
GENERAL General: vss and afebrile. much more awake and alert this am and eating better per nursing. chest clear and heart regular. sugars higher and ac novolog ordered with current dose of levemir. very labile blood sugars and not sure a good regimen of insulin for this patient is attainable. renal ultrasound is unremarkable and agree baseline creatinine is about 1.7. Problems: VITAL SIGNS Vital Signs: Vital Signs Date Time Temp Pulse Resp B/P Pulse Ox O2 Delivery O2 Flow Rate FiO2 06/06/16 07:00 97.6 80 18 126/64 96 Room Air 97.6 I & O I & O Intake and Output 06/06/16 06:59 Intake Total 940 ml Balance 940 ml Intake Oral 940 ml # Voids 9 ALLERGIES Allergies: Allergies Coded Allergies Type Severity Reaction Last Updated Verified No Known Drug Allergies 05/18/16 No MEDS Medications: Current Medications Medications (Trade) Dose Ordered Sig/Paresh Start Time Stop Time Status Last Admin Dose Admin Acetaminophen 650 mg 650 mg PRN Q4HRS PRN 05/31/16 15:15 06/01/16 15:14 DC Alteplase, Recombinant (Cathflo) 2 mg 1X ONCE 06/03/16 10:00 06/03/16 10:01 DC 06/03/16 10:24 2 MG Alteplase, Recombinant 2 mg 2 mg 1X ONCE 06/03/16 10:00 06/03/16 10:01 DC 06/03/16 10:24 2 MG Amino Acids/ Electrolytes/ Dextrose (Clinimix E 4.25%-5% Solution) 1,000 ml @ 80 mls/hr [id number] 06/03/16 12:00 06/05/16 21:02 80 MLS/HR Amlodipine Besylate 10 mg 10 mg DAILY 06/01/16 09:00 06/01/16 09:00 DC Cyanocobalamin 1000 mcg 1,000 mcg 1X ONCE 06/01/16 08:45 06/01/16 10:47 DC Dextrose (Dextrose 50%-Water Syringe) 12.5 gm PRN Q15MIN PRN 06/05/16 13:57 Dextrose/Sodium Chloride 1,000 ml @ 250 mls/hr Q4H 05/31/16 12:47 06/01/16 08:58 DC 06/01/16 07:52 250 MLS/HR Fentanyl Citrate (Fentanyl 2ml Vial) 50 mcg PRN Q2HR PRN 05/31/16 15:15 06/01/16 15:14 DC Insulin Aspart (Novolog) 5 units TIDAC 06/06/16 08:00 06/06/16 08:27 5 UNITS Insulin Detemir (Levemir) 20 units DAILY 06/05/16 09:00 06/06/16 08:28 20 UNITS Insulin Detemir 12 units 12 units [id number] 06/03/16 09:30 06/04/16 03:57 DC 06/03/16 14:47 12 UNITS Insulin Detemir 20 units 20 units BID92 06/01/16 09:00 06/03/16 09:27 DC 06/02/16 09:22 20 UNITS Insulin Human Regular 10 unit 10 unit 1X ONCE 05/31/16 12:00 05/31/16 12:01 DC 05/31/16 11:51 10 UNIT Insulin Human Regular 150 unit/ Sodium Chloride 151.5 ml @ 0 mls/hr CONT PRN PRN 05/31/16 12:45 06/01/16 08:39 DC 05/31/16 13:33 31.3 MLS/HR Lorazepam (Ativan) 1 mg PRN Q6HRS PRN 06/05/16 13:30 Lorazepam 2 mg 2 mg PRN Q4HRS PRN 05/31/16 18:00 06/02/16 08:36 DC 05/31/16 18:09 2 MG Norepinephrine Bitartrate/Sodium Chloride (Levophed Vial/ Iv Sodium Chloride 0.9% 250ml) 258 ml @ 0 mls/hr CONT PRN 05/31/16 16:30 06/01/16 08:39 DC 06/01/16 04:18 15.48 MLS/HR Ondansetron HCl (Zofran) 4 mg PRN Q8HRS PRN 05/31/16 15:15 06/01/16 15:14 DC Piperacillin Sod/ Tazobactam Sod/ Sodium Chloride (Zosyn/Iv Sodium Chloride 0.9% 50ml) 50 ml @ 100 mls/hr Q6HRS 06/03/16 12:00 06/06/16 06:45 100 MLS/HR Potassium Chloride/Dextrose/ Sod Cl 1,000 ml @ 75 mls/hr [id number] 06/01/16 09:15 06/03/16 09:27 DC 06/03/16 01:43 75 MLS/HR Potassium Chloride/Dextrose/ Sod Cl (KCl 20 Meq In D5W-NS) 1,000 ml @ 150 mls/hr Q6H40M 06/01/16 08:30 06/01/16 09:12 DC Potassium Chloride 50 ml @ 50 mls/hr 1X ONCE 06/01/16 02:30 06/01/16 03:29 DC 06/01/16 02:49 50 MLS/HR Sodium Chloride (Iv Sodium Chloride 0.9% 1000ml Bag) 1,000 ml @ 1,000 mls/hr 1X ONCE 05/31/16 13:45 05/31/16 14:44 DC 05/31/16 13:45 1,000 MLS/HR Sodium Phosphate 20 mmol/Dextrose 256.6667 ml @ 62.5 mls/hr 1X PRN PRN 06/01/16 01:00 06/03/16 09:27 DC Sodium Phosphate/ Dextrose 256.6667 ml @ 64.167 m... 1X ONCE 06/01/16 01:30 06/01/16 05:29 DC 06/01/16 01:59 64.167 MLS/HR Thiamine HCl/ Sodium Chloride (Iv Sodium Chloride 0.9% 50ml) 51 ml @ 102 mls/hr 1X ONCE 06/01/16 08:30 06/01/16 08:59 DC 06/01/16 09:37 102 MLS/HR Vancomycin HCl/ Sodium Chloride (Iv Sodium Chloride 0.9% 250ml) 250 ml @ 250 mls/hr 1X ONCE 06/01/16 11:00 06/01/16 11:59 DC 06/01/16 12:23 250 MLS/HR LAB Lab: Laboratory Tests Test 06/05/16 11:53 06/05/16 12:45 06/05/16 16:45 06/05/16 20:42 Glucose (Fingerstick) 282mg/dL (70-99) 340mg/dL (70-99) 261mg/dL (70-99) Reticulocyte Count (auto) 0.7% (0.5-2.5) Iron Level 50ug/dL (65-175) Total Iron Binding Capacity 150ug/dL (250-450) Iron Saturation 33% (15-34) Ferritin 221ng/mL (26-388) Test 06/06/16 07:39 Glucose (Fingerstick) 420mg/dL (70-99) Nutrition Consultation Dietary Evaluation: Recommendations by RD: Dietary education by RD, Increase Calorie Intake, Protein supplementation, PPN/TPN Comments: -Continue the boost glucose control TID until PO intake improves (250kcal and 14g protein) -PPN @ 80 ml/hr provides 650 calories (35% est calorie needs) and 80 grams of protein (> 100% est protein needs) -Discussed the diabetic diet restrictions with . refuses education handouts, however family friend is receptive-provided carb counting/nutrition label reading information and discussed Expected Outcomes/Goals: meet >75% est nutr needs Malnutrition Findings: Body Fat Depletion (Non Severe: Mild Depletion Reduced Reference Services Head Strength: N/A Reduced Reference Services Head Strength (Non-Sev: N/A Malnutrition related to morbid: No Weight Status: Appropriate RICKIE CADET MD Jun 06, 2016 10:15
--- NOTE | 2016-06-06 10:34 | PDOC ---
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 Susceptibility not normally performed on this organism. BLD CULT RESULT 2 Final Comment Staphylococcus hominis Recovered from aerobic bottle only. ANTIMICROBIAL SUSCEPTIBILITY Final Comment S = Susceptible; I = Intermediate; R = Resistant P = Positive; N = Negative MICS are expressed in micrograms per mL Antibiotic RSLT#1 RSLT#2 RSLT#3 RSLT#4 Ciprofloxacin S Clindamycin S Erythromycin R Gentamicin S Levofloxacin S Nitrofurantoin S Oxacillin S Penicillin R Rifampin S Tetracycline S Trimethoprim/Sulfa S Vancomycin S Objective Assessment Sepsis Enterococcus and staph hominis bacteremia. 05/31 ? true vs contamination given multiple species and staph hominis usually contamination. Aerococcus viridans and S hominis final report Leukocytosis, improved Hyperosmolar diabetic coma MIKEY on CKD. improved Plan Plan of Care Cont Trang for now vanc x 1, 06/01. clinically improving supportive care Attending Co-Sign Attending Co-Sign The patient was seen and interviewed as well as examined at the bedside. The chart was reviewed. The case was discussed. Agree with the plan of care. MARCELA CYR APRN Jun 06, 2016 10:34 [place] MD Jun 06, 2016 12:51
[2016-06-06 11:09] VITALS: BP 109/44
[2016-06-06] MEDS: AA 4.25%/CALCIUM/LYTES/D5W 1,000 ML IV SCH ×2 (12:35→23:14)
[2016-06-06 15:00] VITALS: BP 136/69
--- NOTE | 2016-06-06 18:58 | PDOC ---
SUBJECTIVE ROS MIKEY/ CKD III DOing and feeling OK, Denies complaints CVS: no Orthopnea, no CP RESP: no SOB, no QUINTANILLA GI: no Nausea, no Vomiting : no Dysuria, no Urgency OBJECTIVE Vital Signs Vital Signs Date Time Temp Pulse Resp B/P Pulse Ox O2 Delivery O2 Flow Rate FiO2 06/06/16 15:00 98.4 63 20 136/69 97 Room Air 98.4 I & 0 Intake and Output 06/06/16 07:00 Intake Total 940 ml Balance 940 ml Intake Oral 940 ml # Voids 9 PHYSICAL EXAM Physical Exam GEN: Awake, Oriented x ?, In no distress EYES: Vision Unchanged, Conjunctiva Normal EN: No EN Drainage, Mucous Membranes moist, Poor Dentition NECK: no JVD, no JVP, Supple, no Thyromegaly CVS: S1S2, ? Murmur, No Gallop, No Rub,no Edema RESP: no Rales, no Rhonchi,no Acc. Muscle Use GI: BS + ve, NO Bruit, Non Tender, Non Distended : no CVA tenderness, no Suprapubic Tenderness DIAGNOSIS/ASSESSMENT Assessment & Plan PROB CKD STAGE 3 WITH CR OF ABOUT 1.7 for his new baseline; Renal US WNL DEHYDRATION - suspectedly due to sev Glycosuria; PO Intake does not appear to be too good - ct PPN for now, ? Need for PEG HYPERNATREMIA-BETTER on Hypotnoic IVF/ PPN ANEMIA - Iron is WNL COMMENT/RELEVANT DATA Meds Current Medications Medications (Trade) Dose Ordered Sig/Paresh Start Time Stop Time Status Last Admin Dose Admin Acetaminophen 650 mg 650 mg PRN Q4HRS PRN 05/31/16 15:15 06/01/16 15:14 DC Alteplase, Recombinant (Cathflo) 2 mg 1X ONCE 06/03/16 10:00 06/03/16 10:01 DC 06/03/16 10:24 2 MG Alteplase, Recombinant 2 mg 2 mg 1X ONCE 06/03/16 10:00 06/03/16 10:01 DC 06/03/16 10:24 2 MG Amino Acids/ Electrolytes/ Dextrose (Clinimix E 4.25%-5% Solution) 1,000 ml @ 80 mls/hr [id number] 06/03/16 12:00 06/06/16 12:35 80 MLS/HR Amlodipine Besylate 10 mg 10 mg DAILY 06/01/16 09:00 06/01/16 09:00 DC Cyanocobalamin 1000 mcg 1,000 mcg 1X ONCE 06/01/16 08:45 06/01/16 10:47 DC Dextrose (Dextrose 50%-Water Syringe) 12.5 gm PRN Q15MIN PRN 06/05/16 13:57 Dextrose/Sodium Chloride 1,000 ml @ 250 mls/hr Q4H 05/31/16 12:47 06/01/16 08:58 DC 06/01/16 07:52 250 MLS/HR Fentanyl Citrate (Fentanyl 2ml Vial) 50 mcg PRN Q2HR PRN 05/31/16 15:15 06/01/16 15:14 DC Insulin Aspart (Novolog) 5 units TIDAC 06/06/16 08:00 06/06/16 16:55 5 UNITS Insulin Detemir (Levemir) 20 units DAILY 06/05/16 09:00 06/06/16 08:28 20 UNITS Insulin Detemir 12 units 12 units [id number] 06/03/16 09:30 06/04/16 03:57 DC 06/03/16 14:47 12 UNITS Insulin Detemir 20 units 20 units BID92 06/01/16 09:00 06/03/16 09:27 DC 06/02/16 09:22 20 UNITS Insulin Human Regular 10 unit 10 unit 1X ONCE 05/31/16 12:00 05/31/16 12:01 DC 05/31/16 11:51 10 UNIT Insulin Human Regular 150 unit/ Sodium Chloride 151.5 ml @ 0 mls/hr CONT PRN PRN 05/31/16 12:45 06/01/16 08:39 DC 05/31/16 13:33 31.3 MLS/HR Lorazepam (Ativan) 1 mg PRN Q6HRS PRN 06/05/16 13:30 Lorazepam 2 mg 2 mg PRN Q4HRS PRN 05/31/16 18:00 06/02/16 08:36 DC 05/31/16 18:09 2 MG Norepinephrine Bitartrate/Sodium Chloride (Levophed Vial/ Iv Sodium Chloride 0.9% 250ml) 258 ml @ 0 mls/hr CONT PRN 05/31/16 16:30 06/01/16 08:39 DC 06/01/16 04:18 15.48 MLS/HR Ondansetron HCl (Zofran) 4 mg PRN Q8HRS PRN 05/31/16 15:15 06/01/16 15:14 DC Piperacillin Sod/ Tazobactam Sod/ Sodium Chloride (Zosyn/Iv Sodium Chloride 0.9% 50ml) 50 ml @ 100 mls/hr Q6HRS 06/03/16 12:00 06/06/16 17:04 100 MLS/HR Potassium Chloride/Dextrose/ Sod Cl 1,000 ml @ 75 mls/hr [id number] 06/01/16 09:15 06/03/16 09:27 DC 06/03/16 01:43 75 MLS/HR Potassium Chloride/Dextrose/ Sod Cl (KCl 20 Meq In D5W-NS) 1,000 ml @ 150 mls/hr [id number] 06/01/16 08:30 06/01/16 09:12 DC Potassium Chloride 50 ml @ 50 mls/hr 1X ONCE 06/01/16 02:30 06/01/16 03:29 DC 06/01/16 02:49 50 MLS/HR Sodium Chloride (Iv Sodium Chloride 0.9% 1000ml Bag) 1,000 ml @ 1,000 mls/hr 1X ONCE 05/31/16 13:45 05/31/16 14:44 DC 05/31/16 13:45 1,000 MLS/HR Sodium Phosphate 20 mmol/Dextrose 256.6667 ml @ 62.5 mls/hr 1X PRN PRN 06/01/16 01:00 06/03/16 09:27 DC Sodium Phosphate/ Dextrose 256.6667 ml @ 64.167 m... 1X ONCE 06/01/16 01:30 06/01/16 05:29 DC 06/01/16 01:59 64.167 MLS/HR Thiamine HCl/ Sodium Chloride (Iv Sodium Chloride 0.9% 50ml) 51 ml @ 102 mls/hr 1X ONCE 06/01/16 08:30 06/01/16 08:59 DC 06/01/16 09:37 102 MLS/HR Vancomycin HCl/ Sodium Chloride (Iv Sodium Chloride 0.9% 250ml) 250 ml @ 250 mls/hr 1X ONCE 06/01/16 11:00 06/01/16 11:59 DC 06/01/16 12:23 250 MLS/HR Lab Laboratory Tests Test 06/05/16 20:42 06/06/16 07:39 06/06/16 11:28 06/06/16 16:06 Glucose (Fingerstick) 261mg/dL (70-99) 420mg/dL (70-99) 447mg/dL (70-99) 326mg/dL (70-99) LORETA KOCH MD Jun 06, 2016 18:58
[2016-06-06 19:00] VITALS: BP 121/73
[2016-06-06 23:00] VITALS: BP 144/68
[2016-06-07 03:00] VITALS: BP 132/62
[2016-06-07] MEDS: PIPERACILLIN/TAZOBACTAM 3.375 GM in IV NORMAL SALINE 50ML 50 ML IV SCH (06:05)
[2016-06-07 07:00] VITALS: BP 105/60
--- NOTE | 2016-06-07 08:29 | PDOC ---
Provider Note Provider Note vss, renal fx back to baseline- glucose high so will dc ppn and reassess, placemnet in progress YANET MYLES MD Jun 07, 2016 08:28
[2016-06-07] MEDS: INSULIN ASPART 300 UNITS/3 ML INSULN.PEN SQ SCH ×3 (08:53→17:27)
[2016-06-07] MEDS ORDERED: INSULIN DETEMIR 300 UNITS/3 ML INSULN.PEN. SQ SCH (09:00)
--- NOTE | 2016-06-07 10:13 | PDOC ---
Infectious Disease Note Subjective Subjective Comfortble Feels pretty good ROS ROS GEN: Denies fevers, chills, sweats HEENT: Denies blurred vision, sore throat CV: Denies chest pain RESP: Denies shortness of air, cough GI: Denies n/v/d NEURO: Denies confusion, dizziness MSK: Denies weakness, joint pain/swelling Vital Sign Vital Signs Vital Signs Date Time Temp Pulse Resp B/P Pulse Ox O2 Delivery O2 Flow Rate FiO2 06/07/16 07:55 Room Air 06/07/16 07:00 97.3 86 18 105/60 97 97.3 Physical Exam PHYSICAL EXAM GENERAL: Lying down, relaxed appearance HEENT: OC/OP dry LUNGS: Clear HEART: S1S2, no gallop, no murmur ABD: Soft, NT, BS present EXT: No edema, no cyanosis 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 05/31 ? true vs contamination given multiple species and staph hominis usually contamination. Aerococcus viridans and S hominis final report Leukocytosis, improved Hyperosmolar diabetic coma MIKEY on CKD. improved Plan Plan of Care [facility] supportive care NORTH CHUN MD Jun 07, 2016 10:13
[2016-06-07 11:00] VITALS: BP 146/66
[2016-06-07] MEDS ORDERED: MAGNESIUM SULFATE 2GM 50 ML IV PRN (12:15)
--- NOTE | 2016-06-07 12:16 | PDOC ---
SUBJECTIVE ROS CKD III unable to provide Reliable ROS OBJECTIVE Vital Signs Vital Signs Date Time Temp Pulse Resp B/P Pulse Ox O2 Delivery O2 Flow Rate FiO2 06/07/16 11:00 97.9 66 24 146/66 97 Room Air 97.9 I & 0 Intake and Output 06/07/16 07:00 Intake Total 1840 ml Balance 1840 ml Intake Oral 780 ml IV Total 1060 ml # Voids 10 PHYSICAL EXAM Physical Exam GEN: Awake, Oriented x ?, In no distress; ? underlying mental retardation EYES: Sclera Anicteric Conjunctiva Normal EN: No EN Drainage, Mucous Membranes moist, Poor Dentition NECK: no JVD, no JVP, Supple, no Thyromegaly CVS: S1S2, ? Murmur, No Gallop, No Rub,no Edema RESP: no Rales, no Rhonchi,no Acc. Muscle Use GI: BS + ve, NO Bruit, Non Tender, Non Distended : no CVA tenderness, no Suprapubic Tenderness DIAGNOSIS/ASSESSMENT Assessment & Plan PROB CKD STAGE 3 WITH CR OF ABOUT 1.7 for his new baseline; Renal US WNL DEHYDRATION - suspectedly due to sev Glycosuria; PO Intake does not appear to be too good - watch off of PPN , ? Need for PEG HYPERNATREMIA-BETTER on Hypotnoic IVF/ PPN - recheck in am ANEMIA - Iron is WNL, No EPO ordered for hgb > 10 COMMENT/RELEVANT DATA Meds Current Medications Medications (Trade) Dose Ordered Sig/Paresh Start Time Stop Time Status Last Admin Dose Admin Acetaminophen 650 mg 650 mg PRN Q4HRS PRN 05/31/16 15:15 06/01/16 15:14 DC Alteplase, Recombinant (Cathflo) 2 mg 1X ONCE 06/03/16 10:00 06/03/16 10:01 DC 06/03/16 10:24 2 MG Alteplase, Recombinant 2 mg 2 mg 1X ONCE 06/03/16 10:00 06/03/16 10:01 DC 06/03/16 10:24 2 MG Amino Acids/ Electrolytes/ Dextrose (Clinimix E 4.25%-5% Solution) 1,000 ml @ 80 mls/hr [id number] 06/03/16 12:00 06/07/16 08:27 DC 06/06/16 23:14 80 MLS/HR Amlodipine Besylate 10 mg 10 mg DAILY 06/01/16 09:00 06/01/16 09:00 DC Cyanocobalamin 1000 mcg 1,000 mcg 1X ONCE 06/01/16 08:45 06/01/16 10:47 DC Dextrose (Dextrose 50%-Water Syringe) 12.5 gm PRN Q15MIN PRN 06/05/16 13:57 Dextrose/Sodium Chloride 1,000 ml @ 250 mls/hr Q4H 05/31/16 12:47 06/01/16 08:58 DC 06/01/16 07:52 250 MLS/HR Fentanyl Citrate (Fentanyl 2ml Vial) 50 mcg PRN Q2HR PRN 05/31/16 15:15 06/01/16 15:14 DC Insulin Aspart (Novolog) 5 units TIDAC 06/06/16 08:00 06/07/16 08:53 5 UNITS Insulin Detemir (Levemir) 30 units DAILY 06/07/16 09:00 06/07/16 08:53 30 UNITS Insulin Detemir 12 units 12 units [id number] 06/03/16 09:30 06/04/16 03:57 DC 06/03/16 14:47 12 UNITS Insulin Detemir 20 units 20 units BID92 06/01/16 09:00 06/03/16 09:27 DC 06/02/16 09:22 20 UNITS Insulin Human Regular 10 unit 10 unit 1X ONCE 05/31/16 12:00 05/31/16 12:01 DC 05/31/16 11:51 10 UNIT Insulin Human Regular 150 unit/ Sodium Chloride 151.5 ml @ 0 mls/hr CONT PRN PRN 05/31/16 12:45 06/01/16 08:39 DC 05/31/16 13:33 31.3 MLS/HR Lorazepam (Ativan) 1 mg PRN Q6HRS PRN 06/05/16 13:30 Lorazepam 2 mg 2 mg PRN Q4HRS PRN 05/31/16 18:00 06/02/16 08:36 DC 05/31/16 18:09 2 MG Norepinephrine Bitartrate/Sodium Chloride (Levophed Vial/ Iv Sodium Chloride 0.9% 250ml) 258 ml @ 0 mls/hr CONT PRN 05/31/16 16:30 06/01/16 08:39 DC 06/01/16 04:18 15.48 MLS/HR Ondansetron HCl (Zofran) 4 mg PRN Q8HRS PRN 05/31/16 15:15 06/01/16 15:14 DC Piperacillin Sod/ Tazobactam Sod/ Sodium Chloride (Zosyn/Iv Sodium Chloride 0.9% 50ml) 50 ml @ 100 mls/hr Q6HRS 06/03/16 12:00 06/07/16 10:12 DC 06/07/16 06:05 100 MLS/HR Potassium Chloride/Dextrose/ Sod Cl 1,000 ml @ 75 mls/hr [id number] 06/01/16 09:15 06/03/16 09:27 DC 06/03/16 01:43 75 MLS/HR Potassium Chloride/Dextrose/ Sod Cl (KCl 20 Meq In D5W-NS) 1,000 ml @ 150 mls/hr Q6H40M 06/01/16 08:30 06/01/16 09:12 DC Potassium Chloride 50 ml @ 50 mls/hr 1X ONCE 06/01/16 02:30 06/01/16 03:29 DC 06/01/16 02:49 50 MLS/HR Sodium Chloride (Iv Sodium Chloride 0.9% 1000ml Bag) 1,000 ml @ 1,000 mls/hr 1X ONCE 05/31/16 13:45 05/31/16 14:44 DC 05/31/16 13:45 1,000 MLS/HR Sodium Phosphate 20 mmol/Dextrose 256.6667 ml @ 62.5 mls/hr 1X PRN PRN 06/01/16 01:00 06/03/16 09:27 DC Sodium Phosphate/ Dextrose 256.6667 ml @ 64.167 m... 1X ONCE 06/01/16 01:30 06/01/16 05:29 DC 06/01/16 01:59 64.167 MLS/HR Thiamine HCl/ Sodium Chloride (Iv Sodium Chloride 0.9% 50ml) 51 ml @ 102 mls/hr 1X ONCE 06/01/16 08:30 06/01/16 08:59 DC 06/01/16 09:37 102 MLS/HR Vancomycin HCl/ Sodium Chloride (Iv Sodium Chloride 0.9% 250ml) 250 ml @ 250 mls/hr 1X ONCE 06/01/16 11:00 06/01/16 11:59 DC 06/01/16 12:23 250 MLS/HR Lab Laboratory Tests Test 06/06/16 16:06 06/06/16 21:39 06/07/16 07:26 06/07/16 11:04 Glucose (Fingerstick) 326mg/dL (70-99) 285mg/dL (70-99) 395mg/dL (70-99) 419mg/dL (70-99) LORETA KOCH MD Jun 07, 2016 12:16
[2016-06-07] MEDS ORDERED: INSULIN ASPART 300 UNITS/3 ML INSULN.PEN SQ ONE (13:00)
[2016-06-07 14:54] VITALS: BP 126/62
[2016-06-07 19:00] VITALS: BP 114/51
[2016-06-07] MEDS: DEXTROSE 50% 25 GM / 50ML DISP.SYRIN. IV PRN (21:19)
[2016-06-07 23:00] VITALS: BP 150/68
[2016-06-08 03:00] VITALS: BP 147/65
[2016-06-08 05:51] LABS: ALBUMIN 2.2 g/dL (3.4-5.0); CALCIUM 8.9 mg/dL (8.5-10.1); CREATININE 1.5 mg/dL (0.7-1.3); GFR 46.8; PHOSPHORUS 3.2 mg/dL (2.6-4.7); POTASSIUM 3.9 mmol/L (3.5-5.1)
[2016-06-08] MEDS: DEXTROSE 50% 25 GM / 50ML DISP.SYRIN. IV PRN (06:06)
[2016-06-08 07:00] VITALS: BP 136/79
--- NOTE | 2016-06-08 08:33 | PDOC ---
Provider Note Provider Note vss, no temp, no new sxs- got hypo off ppn, will reduce levemir to 20/jeannie to 4 - snf next , renal stable at current baseline YANET MYLES MD Jun 08, 2016 08:33
[2016-06-08] MEDS: INSULIN ASPART 300 UNITS/3 ML INSULN.PEN SQ SCH ×3 (08:45→17:01)
[2016-06-08] MEDS: INSULIN DETEMIR 300 UNITS/3 ML INSULN.PEN. SQ SCH ×2 (08:45→09:00)
--- NOTE | 2016-06-08 09:20 | PDOC ---
Infectious Disease Note Subjective Subjective Doing well. Eating well Feels pretty good ROS ROS GEN: Denies fevers, chills, sweats HEENT: Denies blurred vision, sore throat CV: Denies chest pain RESP: Denies shortness of air, cough GI: Denies n/v/d NEURO: Denies confusion, dizziness MSK: Denies weakness, joint pain/swelling Vital Sign Vital Signs Vital Signs Date Time Temp Pulse Resp B/P Pulse Ox O2 Delivery O2 Flow Rate FiO2 06/08/16 07:00 98.3 81 18 136/79 98 Room Air 98.3 Physical Exam PHYSICAL EXAM GENERAL: NAD, Alert HEENT: PERRL, OC/OP - clear NECK: Supple, no JVD, no LN LUNGS: Clear HEART: S1S2, no gallop, no murmur ABD: Soft, NT, no organomegaly, no rebound EXT: No edema, 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9mg/dL (8.5-10.1) Phosphorus Level 3.2mg/dL (2.6-4.7) Magnesium Level 1.9mg/dL (1.8-2.4) Albumin 2.2g/dL (3.4-5.0) Test 06/08/16 06:13 06/08/16 07:36 Glucose (Fingerstick) 151mg/dL (70-99) 239mg/dL (70-99) Objective Assessment SIRS - resolved Enterococcus and staph hominis bacteremia. 05/31 ? true vs contamination given multiple species and staph hominis usually contamination. Aerococcus viridans and S hominis final report Leukocytosis, improved Hyperosmolar diabetic coma. Hypoglycemic this am MIKEY on CKD. improved Plan Plan of Care Cont off abx ID to sign off NORTH CHUN MD Jun 08, 2016 09:19
[2016-06-08 11:20] VITALS: BP 129/59
--- NOTE | 2016-06-08 11:29 | PDOC ---
SUBJECTIVE ROS MIKEY/ CKD III doing same to a littl ebtter today CVS: no Orthopnea, no CP RESP: no SOB, no QUINTANILLA GI: no Nausea, no Vomiting : no Dysuria, no Urgency OBJECTIVE Vital Signs Vital Signs Date Time Temp Pulse Resp B/P Pulse Ox O2 Delivery O2 Flow Rate FiO2 06/08/16 08:45 Room Air 06/08/16 07:00 98.3 81 18 136/79 98 98.3 I & 0 Intake and Output 06/08/16 07:00 Intake Total 1230 ml Output Total 600 ml Balance 630 ml Intake Oral 1230 ml Output Urine Total 600 ml # Voids 5 # Bowel Movements 2 PHYSICAL EXAM Physical Exam GEN: Awake, Oriented x 1-2 , slow to answer Qs, In no distress; ? underlying mental retardation EYES: Sclera Anicteric Conjunctiva Normal EN: No EN Drainage, Mucous Membranes moist, Poor Dentition NECK: no JVD, no JVP, Supple, no Thyromegaly CVS: S1S2, ? Murmur, No Gallop, No Rub,no Edema RESP: no Rales, no Rhonchi,no Acc. Muscle Use GI: BS + ve, NO Bruit, Non Tender, Non Distended : no CVA tenderness, no Suprapubic Tenderness DIAGNOSIS/ASSESSMENT Assessment & Plan MIKEY - Creat is still improving. ? Element of ATN OA cannot be ruled out PROB CKD STAGE 3 - await new baseline; Renal US WNL DEHYDRATION - suspectedly due to sev Glycosuria; PO Intake does not appear to be too good - encouraged PO Water intake. HYPERNATREMIA-BETTER on Hypotonic IVF; PPN has been D/eusebia and Na is Up again. encouraged PO Water intake for now. No Polyuria documented so not a candidate for DDAVP perse ANEMIA - Iron is WNL, No EPO ordered for hgb > 10 COMMENT/RELEVANT DATA Meds Current Medications Medications (Trade) Dose Ordered Sig/Paresh Start Time Stop Time Status Last Admin Dose Admin Acetaminophen 650 mg 650 mg PRN Q4HRS PRN 05/31/16 15:15 06/01/16 15:14 DC Alteplase, Recombinant (Cathflo) 2 mg 1X ONCE 06/03/16 10:00 06/03/16 10:01 DC 06/03/16 10:24 2 MG Alteplase, Recombinant 2 mg 2 mg 1X ONCE 06/03/16 10:00 06/03/16 10:01 DC 06/03/16 10:24 2 MG Amino Acids/ Electrolytes/ Dextrose (Clinimix E 4.25%-5% Solution) 1,000 ml @ 80 mls/hr [id number] 06/03/16 12:00 06/07/16 08:27 DC 06/06/16 23:14 80 MLS/HR Amlodipine Besylate 10 mg 10 mg DAILY 06/01/16 09:00 06/01/16 09:00 DC Cyanocobalamin 1000 mcg 1,000 mcg 1X ONCE 06/01/16 08:45 06/01/16 10:47 DC Dextrose (Dextrose 50%-Water Syringe) 12.5 gm PRN Q15MIN PRN 06/05/16 13:57 06/08/16 06:06 12.5 GM Dextrose/Sodium Chloride 1,000 ml @ 250 mls/hr Q4H 05/31/16 12:47 06/01/16 08:58 DC 06/01/16 07:52 250 MLS/HR Fentanyl Citrate (Fentanyl 2ml Vial) 50 mcg PRN Q2HR PRN 05/31/16 15:15 06/01/16 15:14 DC Insulin Aspart (Novolog) 4 units TIDAC 06/08/16 08:45 06/08/16 08:45 4 UNITS Insulin Detemir (Levemir) 20 units DAILY 06/08/16 08:45 06/08/16 08:45 20 UNITS Insulin Detemir 12 units 12 units [id number] 06/03/16 09:30 06/04/16 03:57 DC 06/03/16 14:47 12 UNITS Insulin Detemir 20 units 20 units BID92 06/01/16 09:00 06/03/16 09:27 DC 06/02/16 09:22 20 UNITS Insulin Detemir 30 units 30 units DAILY 06/07/16 09:00 06/08/16 08:26 DC 06/07/16 08:53 30 UNITS Insulin Human Regular 10 unit 10 unit 1X ONCE 05/31/16 12:00 05/31/16 12:01 DC 05/31/16 11:51 10 UNIT Insulin Human Regular 150 unit/ Sodium Chloride 151.5 ml @ 0 mls/hr CONT PRN PRN 05/31/16 12:45 06/01/16 08:39 DC 05/31/16 13:33 31.3 MLS/HR Lorazepam (Ativan) 1 mg PRN Q6HRS PRN 06/05/16 13:30 Lorazepam 2 mg 2 mg PRN Q4HRS PRN 05/31/16 18:00 06/02/16 08:36 DC 05/31/16 18:09 2 MG Magnesium Sulfate/ Dextrose (Magnesium Sulfate PREMIX 2GM) 50 ml @ 25 mls/hr PRN DAILY PRN 06/07/16 12:15 Norepinephrine Bitartrate/Sodium Chloride (Levophed Vial/ Iv Sodium Chloride 0.9% 250ml) 258 ml @ 0 mls/hr CONT PRN 05/31/16 16:30 06/01/16 08:39 DC 06/01/16 04:18 15.48 MLS/HR Ondansetron HCl (Zofran) 4 mg PRN Q8HRS PRN 05/31/16 15:15 06/01/16 15:14 DC Piperacillin Sod/ Tazobactam Sod/ Sodium Chloride (Zosyn/Iv Sodium Chloride 0.9% 50ml) 50 ml @ 100 mls/hr Q6HRS 06/03/16 12:00 06/07/16 10:12 DC 06/07/16 06:05 100 MLS/HR Potassium Chloride/Dextrose/ Sod Cl 1,000 ml @ 75 mls/hr [id number] 06/01/16 09:15 06/03/16 09:27 DC 06/03/16 01:43 75 MLS/HR Potassium Chloride/Dextrose/ Sod Cl (KCl 20 Meq In D5W-NS) 1,000 ml @ 150 mls/hr Q6H40M 06/01/16 08:30 06/01/16 09:12 DC Potassium Chloride 50 ml @ 50 mls/hr 1X ONCE 06/01/16 02:30 06/01/16 03:29 DC 06/01/16 02:49 50 MLS/HR Sodium Chloride (Iv Sodium Chloride 0.9% 1000ml Bag) 1,000 ml @ 1,000 mls/hr 1X ONCE 05/31/16 13:45 05/31/16 14:44 DC 05/31/16 13:45 1,000 MLS/HR Sodium Phosphate 20 mmol/Dextrose 256.6667 ml @ 62.5 mls/hr 1X PRN PRN 06/01/16 01:00 06/03/16 09:27 DC Sodium Phosphate/ Dextrose 256.6667 ml @ 64.167 m... 1X ONCE 06/01/16 01:30 06/01/16 05:29 DC 06/01/16 01:59 64.167 MLS/HR Thiamine HCl/ Sodium Chloride (Iv Sodium Chloride 0.9% 50ml) 51 ml @ 102 mls/hr 1X ONCE 06/01/16 08:30 06/01/16 08:59 DC 06/01/16 09:37 102 MLS/HR Vancomycin HCl/ Sodium Chloride (Iv Sodium Chloride 0.9% 250ml) 250 ml @ 250 mls/hr 1X ONCE 06/01/16 11:00 06/01/16 11:59 DC 06/01/16 12:23 250 MLS/HR Lab Laboratory Tests Test 06/07/16 16:29 06/08/16 04:36 06/08/16 05:57 06/08/16 06:13 Glucose (Fingerstick) 114mg/dL (70-99) 27mg/dL (70-99) 151mg/dL (70-99) Hemoglobin 10.5g/dL (13.0-17.5) Sodium Level 147mmol/L (136-145) Potassium Level 3.9mmol/L (3.5-5.1) Chloride Level 113mmol/L (98-107) Carbon Dioxide Level 25mmol/L (21-32) Anion Gap 9 (6-14) Blood Urea Nitrogen 40mg/dL (8-26) Creatinine 1.5mg/dL (0.7-1.3) Estimated GFR (Cockcroft-Gault) 46.8 Glucose Level 33mg/dL (70-99) Calcium Level 8.9mg/dL (8.5-10.1) Phosphorus Level 3.2mg/dL (2.6-4.7) Magnesium Level 1.9mg/dL (1.8-2.4) Albumin 2.2g/dL (3.4-5.0) Test 06/08/16 07:36 Glucose (Fingerstick) 239mg/dL (70-99) LORETA KOCH MD Jun 08, 2016 11:29
[2016-06-08] MEDS ORDERED: INSULIN ASPART 300 UNITS/3 ML INSULN.PEN SQ SCH (11:30)
[2016-06-08] MEDS ORDERED: INSULIN DETEMIR 300 UNITS/3 ML INSULN.PEN. SQ SCH (12:00)
[2016-06-08 14:52] VITALS: BP 124/68
[2016-06-08 19:00] VITALS: BP 149/71
[2016-06-08 23:00] VITALS: BP 141/67
[2016-06-09 03:00] VITALS: BP 129/58
[2016-06-09 06:53] LABS: ALBUMIN 2.1 g/dL (3.4-5.0); CALCIUM 8.7 mg/dL (8.5-10.1); CREATININE 1.6 mg/dL (0.7-1.3); GFR 43.5; MAGNESIUM 1.7 mg/dL (1.8-2.4); POTASSIUM 4.1 mmol/L (3.5-5.1)
[2016-06-09 07:00] VITALS: BP 142/68
--- NOTE | 2016-06-09 08:00 | PDOC ---
Provider Note Provider Note vss, no new sxs, afeb- looks like lev 20/ novo4 ac is about right- snf pending on current meds YANET MYLES MD Jun 09, 2016 08:00
[2016-06-09] MEDS: INSULIN DETEMIR 300 UNITS/3 ML INSULN.PEN. SQ SCH (08:07)
[2016-06-09] MEDS: INSULIN ASPART 300 UNITS/3 ML INSULN.PEN SQ SCH ×3 (08:08→17:06)
[2016-06-09 10:47] VITALS: BP 134/70
--- NOTE | 2016-06-09 11:29 | PDOC ---
SUBJECTIVE ROS CKD III doing same overall OBJECTIVE Vital Signs Vital Signs Date Time Temp Pulse Resp B/P Pulse Ox O2 Delivery O2 Flow Rate FiO2 06/09/16 10:47 98.6 76 16 134/70 96 Room Air 98.6 I & 0 Intake and Output 06/09/16 07:00 Intake Total 1200 ml Balance 1200 ml Intake Oral 1200 ml # Voids 8 # Bowel Movements 1 PHYSICAL EXAM Physical Exam General Appearance: Awake: Alert Oriented x ? 1-2 Neck: No JVD or JVP Chest: CTA [place]: S1 S2 Abdomen - Soft NTND Extremities - No Edema DIAGNOSIS/ASSESSMENT Diagnosis PROB CKD STAGE 3 - await new baseline; Renal US WNL DEHYDRATION - suspectedly due to sev Glycosuria; PO Intake does not appear to be too good - encouraged PO Water intake. Problems: COMMENT/RELEVANT DATA Meds Current Medications Medications (Trade) Dose Ordered Sig/Paresh Start Time Stop Time Status Last Admin Dose Admin Acetaminophen 650 mg 650 mg PRN Q4HRS PRN 05/31/16 15:15 06/01/16 15:14 DC Alteplase, Recombinant (Cathflo) 2 mg 1X ONCE 06/03/16 10:00 06/03/16 10:01 DC 06/03/16 10:24 2 MG Alteplase, Recombinant 2 mg 2 mg 1X ONCE 06/03/16 10:00 06/03/16 10:01 DC 06/03/16 10:24 2 MG Amino Acids/ Electrolytes/ Dextrose (Clinimix E 4.25%-5% Solution) 1,000 ml @ 80 mls/hr [id number] 06/03/16 12:00 06/07/16 08:27 DC 06/06/16 23:14 80 MLS/HR Amlodipine Besylate 10 mg 10 mg DAILY 06/01/16 09:00 06/01/16 09:00 DC Cyanocobalamin 1000 mcg 1,000 mcg 1X ONCE 06/01/16 08:45 06/01/16 10:47 DC Dextrose (Dextrose 50%-Water Syringe) 12.5 gm PRN Q15MIN PRN 06/05/16 13:57 06/08/16 06:06 12.5 GM Dextrose/Sodium Chloride 1,000 ml @ 250 mls/hr Q4H 05/31/16 12:47 06/01/16 08:58 DC 06/01/16 07:52 250 MLS/HR Fentanyl Citrate (Fentanyl 2ml Vial) 50 mcg PRN Q2HR PRN 05/31/16 15:15 06/01/16 15:14 DC Insulin Aspart (Novolog) 4 units TIDAC 06/08/16 08:45 06/09/16 08:08 4 UNITS Insulin Detemir (Levemir) 20 units DAILY 06/08/16 08:45 06/09/16 08:07 20 UNITS Insulin Detemir 12 units 12 units [id number] 06/03/16 09:30 06/04/16 03:57 DC 06/03/16 14:47 12 UNITS Insulin Detemir 20 units 20 units [id number] 06/01/16 09:00 06/03/16 09:27 DC 06/02/16 09:22 20 UNITS Insulin Detemir 30 units 30 units DAILY 06/07/16 09:00 06/08/16 08:26 DC 06/07/16 08:53 30 UNITS Insulin Human Regular 10 unit 10 unit 1X ONCE 05/31/16 12:00 05/31/16 12:01 DC 05/31/16 11:51 10 UNIT Insulin Human Regular 150 unit/ Sodium Chloride 151.5 ml @ 0 mls/hr CONT PRN PRN 05/31/16 12:45 06/01/16 08:39 DC 05/31/16 13:33 31.3 MLS/HR Lorazepam (Ativan) 1 mg PRN Q6HRS PRN 06/05/16 13:30 06/09/16 07:57 DC Lorazepam 2 mg 2 mg PRN Q4HRS PRN 05/31/16 18:00 06/02/16 08:36 DC 05/31/16 18:09 2 MG Magnesium Sulfate/ Dextrose (Magnesium Sulfate PREMIX 2GM) 50 ml @ 25 mls/hr PRN DAILY PRN 06/07/16 12:15 Norepinephrine Bitartrate/Sodium Chloride (Levophed Vial/ Iv Sodium Chloride 0.9% 250ml) 258 ml @ 0 mls/hr CONT PRN 05/31/16 16:30 06/01/16 08:39 DC 06/01/16 04:18 15.48 MLS/HR Ondansetron HCl (Zofran) 4 mg PRN Q8HRS PRN 05/31/16 15:15 3/28/17 15:14 DC Piperacillin Sod/ Tazobactam Sod/ Sodium Chloride (Zosyn/Iv Sodium Chloride 0.9% 50ml) 50 ml @ 100 mls/hr Q6HRS 06/03/16 12:00 06/07/16 10:12 DC 06/07/16 06:05 100 MLS/HR Potassium Chloride/Dextrose/ Sod Cl 1,000 ml @ 75 mls/hr [id number] 06/01/16 09:15 06/03/16 09:27 DC 06/03/16 01:43 75 MLS/HR Potassium Chloride/Dextrose/ Sod Cl (KCl 20 Meq In [id number]) 1,000 ml @ 150 mls/hr [id number] 06/01/16 08:30 06/01/16 09:12 DC Potassium Chloride 50 ml @ 50 mls/hr 1X ONCE 06/01/16 02:30 06/01/16 03:29 DC 06/01/16 02:49 50 MLS/HR Sodium Chloride (Iv Sodium Chloride 0.9% 1000ml Bag) 1,000 ml @ 1,000 mls/hr 1X ONCE 05/31/16 13:45 05/31/16 14:44 DC 05/31/16 13:45 1,000 MLS/HR Sodium Phosphate 20 mmol/Dextrose 256.6667 ml @ 62.5 mls/hr 1X PRN PRN 06/01/16 01:00 06/03/16 09:27 DC Sodium Phosphate/ Dextrose 256.6667 ml @ 64.167 m... 1X ONCE 06/01/16 01:30 06/01/16 05:29 DC 06/01/16 01:59 64.167 MLS/HR Thiamine HCl/ Sodium Chloride (Iv Sodium Chloride 0.9% 50ml) 51 ml @ 102 mls/hr 1X ONCE 06/01/16 08:30 06/01/16 08:59 DC 06/01/16 09:37 102 MLS/HR Vancomycin HCl/ Sodium Chloride (Iv Sodium Chloride 0.9% 250ml) 250 ml @ 250 mls/hr 1X ONCE 06/01/16 11:00 06/01/16 11:59 DC 06/01/16 12:23 250 MLS/HR Lab Laboratory Tests Test 06/08/16 11:54 06/08/16 16:36 06/08/16 21:03 06/09/16 05:40 Glucose (Fingerstick) 189mg/dL (70-99) 102mg/dL (70-99) 80mg/dL (70-99) Sodium Level 143mmol/L (136-145) Potassium Level 4.1mmol/L (3.5-5.1) Chloride Level 109mmol/L (98-107) Carbon Dioxide Level 25mmol/L (21-32) Anion Gap 9 (6-14) Blood Urea Nitrogen 34mg/dL (8-26) Creatinine 1.6mg/dL (0.7-1.3) Estimated GFR (Cockcroft-Gault) 43.5 Glucose Level 156mg/dL (70-99) Calcium Level 8.7mg/dL (8.5-10.1) Phosphorus Level 3.0mg/dL (2.6-4.7) Magnesium Level 1.7mg/dL (1.8-2.4) Albumin 2.1g/dL (3.4-5.0) LORETA KOCH MD Jun 09, 2016 11:29
[2016-06-09] MEDS ORDERED: MAGNESIUM SULFATE 1GM 100 ML IV ONE (11:30)
[2016-06-09 15:02] VITALS: BP 139/67
[2016-06-09 18:56] VITALS: BP 138/62
[2016-06-09 22:55] VITALS: BP 155/70
[2016-06-10 05:48] LABS: ALBUMIN 2.1 g/dL (3.4-5.0); CALCIUM 8.8 mg/dL (8.5-10.1); CREATININE 1.5 mg/dL (0.7-1.3); GFR 46.8; PHOSPHORUS 3.2 mg/dL (2.6-4.7); POTASSIUM 4.8 mmol/L (3.5-5.1)
[2016-06-10 07:15] VITALS: BP 149/62
--- NOTE | 2016-06-10 09:05 | DISCH ---
DISCHARGE FINAL DIAGNOSIS Problems Medical Problems: (1) Acute renal failure Status: Acute (2) Diabetic ketoacidosis Status: Acute (3) Hyperglycemia Status: Acute (4) Hyperkalemia Status: Acute (5) Hyperosmolar nonketotic coma in diabetes Status: Acute CONDITION ON DISCHARGE: Stable SNF STAY <30 DAYS: Yes POST DISCHARGE ORDERS ACTIVITY ORDERS: Activity as tolerated DIET AFTER DISCHARGE: ADA CHECKS AFTER DISCHARGE CHECKS AFTER DISCHARGE: Check blood sugar, ac/hs FOLLOW-UP PHYSICIAN FOLLOW-UP: YANET Dawn MD Jun 10, 2016 09:05
--- NOTE | 2016-06-10 09:08 | PDOC ---
Provider Note Provider Note [id number] YANET MYLES MD Jun 10, 2016 09:08
[2016-06-10] MEDS: INSULIN DETEMIR 300 UNITS/3 ML INSULN.PEN. SQ SCH (09:55)
[2016-06-10 11:04] VITALS: BP 142/61
[2016-06-10] MEDS ORDERED: INSULIN ASPART 300 UNITS/3 ML INSULN.PEN SQ SCH (11:30)
[2016-06-10 15:19] VITALS: BP 136/56
--- NOTE | 2016-06-10 16:08 | DS ---
DATE OF DISCHARGE: 06/10/2016 HOSPITAL SUMMARY: A 65-year-old white male with known insulin-dependent diabetes, came in with hyperosmolar nonketotic coma with blood sugar of 1200 and acute renal failure as well. His creatinine was 2.3 on admission with BUN of 82 and creatinine 4.1 on admission, potassium high at 6.3 and lactic acid was high as well. Creatinine has come down to baseline around 1.6 and stayed there and his BUN has come down as well as his blood sugars fairly quickly with IV insulin. His hemoglobin A1c was 9.1 indicating mainly noncompliance as his blood sugars were very labile in the hospital and had episodes of high and low blood sugars. He ultimately settled on his current insulin regimen, has a stable level. His hemoglobin is mildly low at 10.5 consistent with anemia of chronic disease. Urine drug screen was negative and urinalysis unremarkable aside from high blood sugar and urine sugar. Cultures had no growth. CT scan and chest x-ray were normal as well. He is currently stable on his insulin regimen of 20 Levemir and 3 of NovoLog with meals as his appetite is fairly labile. [facility] care as his home environment was not conducive to insulin compliance and management. FINAL DIAGNOSES: 1. Hyperosmolar, nonketotic state. 2. Acute renal failure, resolved. 3. Chronic kidney disease 3, stable. OPERATIONS, PROCEDURES, COMPLICATIONS, AND CONSULTATIONS: None. DISPOSITION: Med list per the chart. ACTIVITY: As tolerated. PROGNOSIS: Guarded. YANET MYLES MD DR: JOSE/tata JOB#: [id number] / [id number]
== END 2016-06-10 16:40 | disposition home health service (06) | DRG 871 ==
LOC: ER 10:11 → CVICU 13:25 → 5 SOUTH 06-03 15:19
PROVIDERS: ADMIT Internal Medicine; ATTEND Internal Medicine
PROC: 02HV33Z Insertion of Infusion Device into Superior Vena Cava, Percutaneous Approach (ICD-10-PCS; principal; 2016-06-01)
DX: A41.81 Sepsis due to Enterococcus (principal); E11.01 Type 2 diabetes mellitus with hyperosmolarity with coma; G93.40 Encephalopathy, unspecified; E11.00 Type 2 diabetes mellitus with hyperosmolarity without nonketotic hyperglycemic-hyperosmolar coma (NKHHC); E13.10 Other specified diabetes mellitus with ketoacidosis without coma; N17.9 Acute kidney failure, unspecified; D75.89 Other specified diseases of blood and blood-forming organs; E11.22 Type 2 diabetes mellitus with diabetic chronic kidney disease; E11.649 Type 2 diabetes mellitus with hypoglycemia without coma; E78.5 Hyperlipidemia, unspecified; E86.0 Dehydration; E86.1 Hypovolemia; E87.5 Hyperkalemia; I12.9 Hypertensive chronic kidney disease with stage 1 through stage 4 chronic kidney disease, or unspecified chronic kidney disease; I25.10 Atherosclerotic heart disease of native coronary artery without angina pectoris; E11.51 Type 2 diabetes mellitus with diabetic peripheral angiopathy without gangrene; N18.3 Chronic kidney disease, stage 3 (moderate); Z91.14 Patient's other noncompliance with medication regimen; I25.2 Old myocardial infarction; Z95.1 Presence of aortocoronary bypass graft
CPT/HCPCS: 36415; 36600; 51702; 70450; 71010; 76770; 80048; 80053; 80069; 81001; 82553; 82607; 82728; 82805; 82947; 83036; 83540; 83550; 83605; 83735; 83880; 83930; 84100; 84484; 85007; 85018; 85027; 85045; 85610; 87040; 87205; 87641; 93005; 96361; 96365; 96375; 99292; G0481; J1815; J2060; J2543; J2997; J3370; J3475; J3480; J3490; J7030; J7042; J7050; 97116; 97530; 97535; 99291-25

== ENCOUNTER 2016-07-02 18:07 | Emergency (ER) | payer OTHER, MEDICAID ==
[~2016-07-02 18:07] MED LIST changes: +IPRA3AMP NEB; +Linezolid PO
[2016-07-02 19:34] LABS: BILIRUBIN,URINE NEGATIVE (NEG); GLUCOSE,URINE >=1000 mg/dL (NEG); NITRITE,URINE NEGATIVE (NEG); PH,URINE 5.5; PROTEIN,URINE NEGATIVE (NEG-TRACE); UROBILINOGEN,URINE 0.2 mg/dL (0.2 mg/dL)
[2016-07-02 19:45] LABS: BACTERIA,URINE 0 /HPF (0-FEW); SQUAMOUS EPITHELIAL CELL,UR FEW /LPF; WBC,URINE 0 /HPF (0-4)
[2016-07-02 20:19] LABS: BASO # 0.1 x10^3/uL (0.0-0.2); BASO % 1 % (0-3); EOS % 1 % (0-3); HEMATOCRIT 34.4 % (39.0-53.0); HEMOGLOBIN 11.2 g/dL (13.0-17.5); LYMPH # 2.2 x10^3/uL (1.0-4.8); LYMPH % 21 % (24-48); MEAN CORPUSCULAR HEMOGLOBIN 31 pg (25-35); MEAN CORPUSCULAR HGB CONC 33 g/dL (31-37); MEAN CORPUSCULAR VOLUME 94 fL (79-100); MONO % 6 % (0-9); NEUT % 71 % (31-73); PLATELET COUNT 283 x10^3/uL (140-400); RED BLOOD COUNT 3.67 x10^6/uL (4.30-5.70); RED CELL DISTRIBUTION WIDTH 13.4 % (11.5-14.5); WHITE BLOOD COUNT 10.6 x10^3/uL (4.0-11.0)
[2016-07-02 20:23] VITALS: BP 178/70
[2016-07-02 20:32] LABS: CALCIUM 8.9 mg/dL (8.5-10.1); CREATININE 2.3 mg/dL (0.7-1.3); GFR 28.6; POTASSIUM 5.1 mmol/L (3.5-5.1)
--- NOTE | 2016-07-02 20:33 | PHYS DOC ---
Past Medical History Past Medical History: COPD, Diabetes-Type II, High Cholesterol, Hypertension, Hypotension, [place], Other Additional Past Medical Histor: developmental delay, AKD, CKD Past Surgical History: Coronary Bypass Surgery, Other Additional Past Surgical Histo: l arm surg, peg placement and removal Alcohol Use: None Drug Use: None Adult General Chief Complaint Chief Complaint: ALTERED MENTAL STATUS HPI HPI Patient is a 65 year old male who presents by EMS from nursing facility for being combative. Nursing facility was worried about altered mental status. He notes he is upset about having to get needles sticks for diabetic insulin and glucose checks. He was tired of being poked, so became upset. He otherwise states he has been eating, drinking, and urinating normal without difficulty. He denies cough, chest pain, dyspnea, headache, fever or chills, nausea or vomiting, dizziness, numbness, tingling, focal weakness. Review of Systems Review of Systems Constitutional: Denies fever or chills [] Eyes: Denies change in visual acuity, redness, or eye pain [] HENT: Denies nasal congestion or sore throat [] Respiratory: Denies cough or shortness of breath [] Cardiovascular: No additional information not addressed in HPI [] GI: Denies abdominal pain, nausea, vomiting, bloody stools or diarrhea [] : Denies dysuria or hematuria [] Musculoskeletal: Denies back pain or joint pain [] Integument: Denies rash or skin lesions [] Neurologic: Denies headache, focal weakness or sensory changes [] Endocrine: Denies polyuria or polydipsia [] Current Medications Current Medications Current Medications Medications (Trade) Dose Ordered Sig/[facility] Start Time Stop Time Status Last Admin Dose Admin Insulin Human Regular 10 unit 10 unit 1X ONCE 07/02/16 20:45 07/02/16 20:46 DC 07/02/16 20:44 10 UNIT Sodium Chloride (Iv Sodium Chloride 0.9% 500ml Bag) 500 ml @ 500 mls/hr 1X ONCE 07/02/16 20:45 07/02/16 21:44 07/02/16 20:45 500 MLS/HR Allergies Allergies Allergies Coded Allergies Type Severity Reaction Last Updated Verified No Known Drug Allergies 05/18/16 No Physical Exam Physical Exam Constitutional: Well developed, well nourished, no acute distress, non-toxic appearance. [] HENT: Normocephalic, atraumatic, bilateral external ears normal, oropharynx moist, no oral exudates, nose normal. [] Eyes: PERRLA, EOMI, conjunctiva normal, no discharge. [] Neck: Normal range of motion, no tenderness, supple, no stridor. [] Cardiovascular:Heart rate regular rhythm [] Lungs & Thorax: Bilateral breath sounds clear to auscultation [] Abdomen: Bowel sounds normal, soft, no tenderness. [] Skin: Warm, dry, no erythema, no rash. [] Back: No tenderness, no CVA tenderness. [] Extremities: No tenderness, ROM intact, no edema. [] Neurologic: Alert and oriented to self and situation and place, normal motor function, normal sensory function, no focal deficits noted. [] Psychologic: Affect normal, judgement normal, mood normal. [] Current Patient Data Vital Signs Vital Signs Date Time Temp Pulse Resp B/P Pulse Ox O2 Delivery O2 Flow Rate FiO2 07/02/16 18:19 99.0 85 18 141/56 94 Room Air 99.0 Lab Values Laboratory Tests Test 07/02/16 18:59 07/02/16 20:10 07/02/16 20:42 Urine Collection Type Unknown Urine Color Yellow Urine Clarity Clear Urine pH 5.5 Urine Specific [place] 1.020 Urine Protein Negativemg/dL (NEG-TRACE) Urine Glucose (UA) >=1000mg/dL (NEG) Urine Ketones (Stick) 15mg/dL (NEG) Urine Blood Moderate (NEG) Urine Nitrite Negative (NEG) Urine Bilirubin Negative (NEG) Urine Urobilinogen Dipstick 0.2mg/dL (0.2 mg/dL) Urine Leukocyte Esterase Negative (NEG) Urine RBC 11-20/HPF (0-2) Urine WBC 0/HPF (0-4) Urine Squamous Epithelial Cells Few/LPF Urine Amorphous Sediment Present/HPF Urine Bacteria 0/HPF (0-FEW) Urine Hyaline Casts Few/HPF White Blood Count 10.6x10^3/uL (4.0-11.0) Red Blood Count 3.67x10^6/uL (4.30-5.70) L Hemoglobin 11.2g/dL (13.0-17.5) L Hematocrit 34.4% (39.0-53.0) L Mean Corpuscular Volume 94fL (79-100) Mean Corpuscular Hemoglobin 31pg (25-35) Mean Corpuscular Hemoglobin Concent 33g/dL (31-37) Red Cell Distribution Width 13.4% (11.5-14.5) Platelet Count 283x10^3/uL (140-400) Neutrophils (%) (Auto) 71% (31-73) Lymphocytes (%) (Auto) 21% (24-48) L Monocytes (%) (Auto) 6% (0-9) Eosinophils (%) (Auto) 1% (0-3) Basophils (%) (Auto) 1% (0-3) Neutrophils # (Auto) 7.5x10^3uL (1.8-7.7) Lymphocytes # (Auto) 2.2x10^3/uL (1.0-4.8) Monocytes # (Auto) 0.6x10^3/uL (0.0-1.1) Eosinophils # (Auto) 0.1x10^3/uL (0.0-0.7) Basophils # (Auto) 0.1x10^3/uL (0.0-0.2) Platelet Estimate Adequate (ADEQUATE) Platelet Clumps, EDTA Present Polychromasia Slight Ovalocytes Occ Sodium Level 141mmol/L (136-145) Potassium Level 5.1mmol/L (3.5-5.1) Chloride Level 101mmol/L (98-107) Carbon Dioxide Level 25mmol/L (21-32) Anion Gap 15 (6-14) H Blood Urea Nitrogen 39mg/dL (8-26) H Creatinine 2.3mg/dL (0.7-1.3) H Estimated GFR (Cockcroft-Gault) 28.6 Glucose Level 476mg/dL (70-99) H Calcium Level 8.9mg/dL (8.5-10.1) Glucose (Fingerstick) 424mg/dL (70-99) H Laboratory Tests 07/02/16 20:10 Laboratory Tests 07/02/16 20:10 EKG EKG EKG as interpreted by me as normal sinus rhythm, rate 81, no ST-T changes, normal intervals, no ectopy Course & Med Decision Making Course & Med Decision Making Pertinent Labs and Imaging studies reviewed. (See chart for details) Laboratory evaluation shows hyperglycemia with mild dehydration. He was given IV insulin and fluids. He has been calm and cooperative here. Discussed that he needs to accept the nursing care and medications as prescribed to treat his chronic illnesses. He is not happy about it, but agrees to go back to nursing facility for further care. Return precautions given. He understood. Dragon Disclaimer Dragon Disclaimer This electronic medical record was generated, in whole or in part, using a voice recognition dictation system. Departure Departure Impression: Primary Impression: Agitation Additional Impression: Hyperglycemia Disposition: 01 HOME, SELF-CARE Condition: STABLE Referrals: VIRGINIA YORK MD (PCP) Patient Instructions: Insulin Treatment in Diabetes Additional Instructions: You need to take your medication as prescribed including insulin. Follow up with your primary care doctor. Return for any concerns. Problem Qualifiers Yolis OLEA MD Jul 02, 2016 20:33
[2016-07-02] MEDS ORDERED: IV NORMAL SALINE 500ML BAG 500 ML IV ONE (20:45)
[2016-07-02] MEDS ORDERED: INSULIN REGULAR 100 UNIT/ML 10ML VIAL. IV ONE (20:45)
[2016-07-02 20:50] LABS: OVALOCYTES OCC; PLT ESTIMATE ADEQUATE (ADEQUATE); POLYCHROMASIA SLIGHT
--- NOTE | 2016-07-03 08:31 | EKG ---
[facility] [address] [place] [address] Test Date: 2016-07-02 Test Time: 19:33:25 Pat Name: BRENDA HARTMAN Department: Room: Gender: M [employer]: : 1950 Requested By: Yolis OLEA Order Number: [id number] Reading MD: Measurements Intervals [place] Rate: 81 P: 90 WV: 136 QRS: 15 QRSD: 74 T: 61 QT: 388 QTc: 456 Interpretive Statements SINUS RHYTHM LOW LIMB LEAD VOLTAGE QRS(T) CONTOUR ABNORMALITY CONSISTENT WITH ANTERIOR INFARCT AGE UNDETERMINED ABNORMAL ECG RI6.01 No previous ECG available for comparison
== END 2016-07-02 23:12 | disposition home or self-care (01) ==
LOC: ER 18:07
DX: R45.1 Restlessness and agitation (principal); E11.65 Type 2 diabetes mellitus with hyperglycemia; R41.82 Altered mental status, unspecified; E86.0 Dehydration; J44.9 Chronic obstructive pulmonary disease, unspecified; E78.00 Pure hypercholesterolemia, unspecified; I12.9 Hypertensive chronic kidney disease with stage 1 through stage 4 chronic kidney disease, or unspecified chronic kidney disease; N18.9 Chronic kidney disease, unspecified; I95.9 Hypotension, unspecified; I25.2 Old myocardial infarction; Z95.1 Presence of aortocoronary bypass graft
CPT/HCPCS: 36415; 80048; 81001; 82947; 85007; 85027; 93005; 96361; 96374; 99285; J1815; J7040

== ENCOUNTER 2016-07-09 10:42 | Emergency (ER) | payer OTHER, MEDICAID ==
[~2016-07-09] VITALS: Ht 172.7 cm; Wt 60.8 kg
[2016-07-09] MEDS ORDERED: IV NORMAL SALINE 1000ML BAG 1,000 ML IV ONE (11:15)
[2016-07-09 11:50] LABS: HEMATOCRIT 29.5 % (39.0-53.0); HEMOGLOBIN 9.6 g/dL (13.0-17.5); RED BLOOD COUNT 3.19 x10^6/uL (4.30-5.70); RED CELL DISTRIBUTION WIDTH 13.9 % (11.5-14.5); WHITE BLOOD COUNT 10.4 x10^3/uL (4.0-11.0)
[2016-07-09 12:02] LABS: CALCIUM 9.1 mg/dL (8.5-10.1); CREATININE 2.5 mg/dL (0.7-1.3); POTASSIUM 4.8 mmol/L (3.5-5.1)
--- NOTE | 2016-07-09 13:18 | PHYS DOC ---
Past Medical History Past Medical History: COPD, Diabetes-Type I, High Cholesterol, Hypertension, Hypotension, [place], Other Additional Past Medical Histor: developmental delay, AKD, CKD Past Surgical History: Coronary Bypass Surgery, Other Additional Past Surgical Histo: l arm surg, peg placement and removal Alcohol Use: None Drug Use: None Adult General Chief Complaint Chief Complaint: HYPERGLYCEMIA HPI HPI 65-year-old male whose presenting with an episode of her glycemia. A home health nurse came home and states the patient had an elevated glucose in the 400 range. Per EMS, upon arrival the patient had a blood glucose of 390. Patient is completely asymptomatic at this time he states he slept in and did not eat or take his insulin therapy that he is usually prescribed. Patient is afebrile and nontoxic in appearance. He is not very cooperative for exam. Family was notified of the patient's arrival in the ED and states this is his usual mental baseline. He was recently admitted for uncontrolled blood glucose levels and he is a poorly compliant diabetic. Review of Systems Review of Systems Constitutional: Denies fever or chills [] Eyes: Denies change in visual acuity, redness, or eye pain [] HENT: Denies nasal congestion or sore throat [] Respiratory: Denies cough or shortness of breath [] Cardiovascular: No additional information not addressed in HPI [] GI: Denies abdominal pain, nausea, vomiting, bloody stools or diarrhea [] : Denies dysuria or hematuria [] Musculoskeletal: Denies back pain or joint pain [] Integument: Denies rash or skin lesions [] Neurologic: Denies headache, focal weakness or sensory changes [] Endocrine: Denies polyuria or polydipsia [] Current Medications Current Medications Current Medications Medications (Trade) Dose Ordered Sig/Paresh Start Time Stop Time Status Last Admin Dose Admin Sodium Chloride 1,000 ml @ 1,000 mls/hr 1X ONCE 07/09/16 11:15 07/09/16 12:14 DC 07/09/16 11:57 1,000 MLS/HR Allergies Allergies Allergies Coded Allergies Type Severity Reaction Last Updated Verified No Known Drug Allergies 05/18/16 No Physical Exam Physical Exam Constitutional: Well developed, well nourished, no acute distress, non-toxic appearance. [] HENT: Normocephalic, atraumatic, bilateral external ears normal, oropharynx moist, no oral exudates, nose normal. [] Eyes: PERRLA, EOMI, conjunctiva normal, no discharge. [] Neck: Normal range of motion, no tenderness, supple, no stridor. [] Cardiovascular:Heart rate regular rhythm, no murmur [] Lungs & Thorax: Bilateral breath sounds clear to auscultation [] Abdomen: Bowel sounds normal, soft, no tenderness, no masses, no pulsatile masses. [] Skin: Warm, dry, no erythema, no rash. [] Back: No tenderness, no CVA tenderness. [] Extremities: No tenderness, no cyanosis, no clubbing, ROM intact, no edema. [] Neurologic: Alert and oriented X 3, normal motor function, normal sensory function, no focal deficits noted. [] Psychologic: Affect normal, judgement normal, mood normal. [] Current Patient Data Vital Signs Vital Signs Date Time Temp Pulse Resp B/P (MAP) Pulse Ox O2 Delivery O2 Flow Rate FiO2 07/09/16 10:42 97.3 81 18 176/75 (108) 95 Room Air 97.3 Lab Values Laboratory Tests Test 07/09/16 11:40 07/09/16 13:26 White Blood Count 10.4 x10^3/uL (4.0-11.0) Red Blood Count 3.19 x10^6/uL (4.30-5.70) L Hemoglobin 9.6 g/dL (13.0-17.5) L Hematocrit 29.5 % (39.0-53.0) L Mean Corpuscular Volume 93 fL (79-100) Mean Corpuscular Hemoglobin 30 pg (25-35) Mean Corpuscular Hemoglobin Concent 32 g/dL (31-37) Red Cell Distribution Width 13.9 % (11.5-14.5) Platelet Count 240 x10^3/uL (140-400) Sodium Level 141 mmol/L (136-145) Potassium Level 4.8 mmol/L (3.5-5.1) Chloride Level 105 mmol/L (98-107) Carbon Dioxide Level 33 mmol/L (21-32) H Anion Gap 3 (6-14) L Blood Urea Nitrogen 31 mg/dL (8-26) H Creatinine 2.5 mg/dL (0.7-1.3) H Estimated GFR (Cockcroft-Gault) 26.0 Glucose Level 376 mg/dL (70-99) H Calcium Level 9.1 mg/dL (8.5-10.1) Glucose (Fingerstick) 310 mg/dL (70-99) H Laboratory Tests 07/09/16 11:40 Laboratory Tests 07/09/16 11:40 EKG EKG [] Radiology/Procedures Radiology/Procedures [] Course & Med Decision Making Course & Med Decision Making Pertinent Labs and Imaging studies reviewed. (See chart for details) This is a 65-year-old male who presents with an episode of hypoglycemia. His blood glucose here is elevated at 370. An IV fluid bolus will be given. Upon final reassessment, patient has a blood glucose of 310. Patient was given a full IV fluid loss of 1 L. Patient does not have any complaints at this time. Patient does not appear to be in DKA. Patient will be safe to be discharged and to continue to take his insulin regimen as prescribed and follow closely with his primary care doctor. I communicated all this with the family as well who will come to bedside to take the patient home. They are all very agreeable with this plan. Dragon Disclaimer Dragon Disclaimer This electronic medical record was generated, in whole or in part, using a voice recognition dictation system. Departure Departure Impression: Primary Impression: Hyperglycemia Disposition: 01 HOME, SELF-CARE Admitting Physician: Other Condition: STABLE Referrals: VIRGINIA YORK MD (PCP) Patient Instructions: Hyperglycemia, [id number] Additional Instructions: Please take your insulin as prescribed and follow up with your primary doctor in the next 1-2 days for your elevated blood glucose. Return to the ER if you develop any nausea, vomiting, or develop any dizziness/lightheaded. Continue to drink plenty of fluids at home. VERONICA ONEILL DO July 09, 2016 13:18
[2016-07-09 14:44] VITALS: BP 161/67
== END 2016-07-09 15:34 | disposition home or self-care (01) ==
LOC: ER 10:42
DX: E11.65 Type 2 diabetes mellitus with hyperglycemia (principal); I12.9 Hypertensive chronic kidney disease with stage 1 through stage 4 chronic kidney disease, or unspecified chronic kidney disease; N18.9 Chronic kidney disease, unspecified; J44.9 Chronic obstructive pulmonary disease, unspecified; E78.00 Pure hypercholesterolemia, unspecified; Z95.1 Presence of aortocoronary bypass graft
CPT/HCPCS: 36415; 80048; 82947; 85027; 96360; 99284; J7030

== ENCOUNTER 2016-07-11 09:21 | Inpatient (IN) | payer OTHER, MEDICAID ==
[~2016-07-11] VITALS: Ht 172.7 cm; Wt 60.8 kg
--- NOTE | 2016-07-11 09:28 | PHYS DOC ---
Past Medical History Past Medical History: COPD, Diabetes-Type I, High Cholesterol, Hypertension, Hypotension, [place], Other Additional Past Medical Histor: developmental delay, AKD, CKD Past Surgical History: Coronary Bypass Surgery, Other Additional Past Surgical Histo: l arm surg, peg placement and removal Alcohol Use: None Drug Use: None Adult General HPI HPI Patient is a 65 year old male who presents with or mental status. [facility] is to recall for hypoglycemia and they found sugars to be 25 mg/dL, he received 1 amp D50 however his IV infiltrated in his right hand during the last part of this bolus. His sugar since then per EMS is been in the 95 range. According to EMS he was just recently released from [facility] secondary to having pneumonia. Patient currently will respond briefly to questions. He has a past medical history of mental handicap, COPD, diabetes type 1, dyslipidemia, hypertension, coronary disease and kidney disease. He will only answer basic questions but denies a fever, headache, abdominal pain. He will answer a few breakfast or not. Review of Systems Review of Systems Unable to obtain secondary to patient's situation Current Medications Current Medications Current Medications Medications (Trade) Dose Ordered Sig/Paresh Start Time Stop Time Status Last Admin Dose Admin Dextrose/Sodium Chloride 1,000 ml @ 75 mls/hr 1X ONCE 07/11/16 11:15 07/12/16 00:34 07/11/16 11:30 75 MLS/HR Ondansetron HCl (Zofran) 4 mg PRN Q8HRS PRN 07/11/16 11:30 07/12/16 11:29 Sodium Chloride 1,000 ml @ 1,000 mls/hr 1X ONCE 07/11/16 09:30 07/11/16 10:29 DC 07/11/16 10:01 1,000 MLS/HR Allergies Allergies Allergies Coded Allergies Type Severity Reaction Last Updated Verified No Known Drug Allergies 05/18/16 No Physical Exam Physical Exam Constitutional: Cachectic appearing, no acute distress, non-toxic appearance. [] HENT: Normocephalic, atraumatic, bilateral external ears normal, oropharynx moist, no oral exudates, nose normal. [] Eyes: PERRLA, EOMI, conjunctiva normal, no discharge. [] Neck: Normal range of motion, no tenderness, supple, no stridor. [] Cardiovascular:Heart rate regular rhythm, no murmur [] Lungs & Thorax: Bilateral breath sounds clear to auscultation [] Abdomen: Bowel sounds normal, soft, no tenderness, no masses, no pulsatile masses. [] Skin: Warm, dry, no erythema, no rash. Ulcer on the left posterior heel. Back: No tenderness, no CVA tenderness. [] Extremities: No tenderness, no cyanosis, no clubbing, ROM intact, no edema. [] Neurologic: Alert and interactive, normal motor function, normal sensory function, no focal deficits noted. [] Current Patient Data Vital Signs Vital Signs Date Time Temp Pulse Resp B/P (MAP) Pulse Ox O2 Delivery O2 Flow Rate FiO2 07/11/16 09:21 66 17 186/73 (110) 98 Room Air Lab Values Laboratory Tests Test 07/11/16 09:25 07/11/16 09:30 07/11/16 10:04 07/11/16 10:15 Urine Color Yellow Urine Clarity Clear Urine pH 5.5 Urine Specific [place] 1.015 Urine Protein Negative mg/dL (NEG-TRACE) Urine Glucose (UA) 100 mg/dL (NEG) Urine Ketones (Stick) Negative mg/dL (NEG) Urine Blood Negative (NEG) Urine Nitrite Negative (NEG) Urine Bilirubin Negative (NEG) Urine Urobilinogen Dipstick 0.2 mg/dL (0.2 mg/dL) Urine Leukocyte Esterase Negative (NEG) Urine RBC 0 /HPF (0-2) Urine WBC 0 /HPF (0-4) Urine Bacteria 0 /HPF (0-FEW) Glucose (Fingerstick) 99 mg/dL (70-99) White Blood Count 10.1 x10^3/uL (4.0-11.0) Red Blood Count 3.20 x10^6/uL (4.30-5.70) L Hemoglobin 9.8 g/dL (13.0-17.5) L Hematocrit 29.1 % (39.0-53.0) L Mean Corpuscular Volume 91 fL (79-100) Mean Corpuscular Hemoglobin 30 pg (25-35) Mean Corpuscular Hemoglobin Concent 34 g/dL (31-37) Red Cell Distribution Width 13.3 % (11.5-14.5) Platelet Count 417 x10^3/uL (140-400) H Neutrophils (%) (Auto) 69 % (31-73) Lymphocytes (%) (Auto) 23 % (24-48) L Monocytes (%) (Auto) 7 % (0-9) Eosinophils (%) (Auto) 1 % (0-3) Basophils (%) (Auto) 1 % (0-3) Neutrophils # (Auto) 7.0 x10^3uL (1.8-7.7) Lymphocytes # (Auto) 2.3 x10^3/uL (1.0-4.8) Monocytes # (Auto) 0.7 x10^3/uL (0.0-1.1) Eosinophils # (Auto) 0.1 x10^3/uL (0.0-0.7) Basophils # (Auto) 0.1 x10^3/uL (0.0-0.2) Prothrombin Time 13.3 SEC (11.7-14.0) Prothrombin Time INR 1.1 (0.8-1.1) PTT 28 SEC (24-38) Sodium Level 138 mmol/L (136-145) Potassium Level 3.8 mmol/L (3.5-5.1) Chloride Level 102 mmol/L (98-107) Carbon Dioxide Level 27 mmol/L (21-32) Anion Gap 9 (6-14) Blood Urea Nitrogen 37 mg/dL (8-26) H Creatinine 2.2 mg/dL (0.7-1.3) H Estimated GFR (Cockcroft-Gault) 30.1 Glucose Level 78 mg/dL (70-99) Calcium Level 9.7 mg/dL (8.5-10.1) Magnesium Level 1.8 mg/dL (1.8-2.4) Total Bilirubin 1.1 mg/dL (0.2-1.0) H Direct Bilirubin 0.3 mg/dL (0.0-0.2) H Aspartate Amino Transferase (AST) 17 U/L (15-37) Alanine Aminotransferase (ALT) 21 U/L (16-63) Alkaline Phosphatase 115 U/L (46-116) Ammonia < 10 mcmol/L (11-34) L Creatine Kinase 83 U/L (39-308) Creatine Kinase MB (Mass) 1.5 ng/mL (0.0-3.6) Creatine Kinase MB Relative Index 1.8 % (0-4) Troponin I Quantitative < 0.017 ng/mL (0.000-0.055) JI-Xge-X-Type Natriuretic Peptide 1225 pg/mL (0-124) H Total Protein 7.4 g/dL (6.4-8.2) Albumin 2.5 g/dL (3.4-5.0) L Urine Opiates Screen Neg (NEG) Urine Methadone Screen Neg (NEG) Urine Barbiturates Neg (NEG) Urine Phencyclidine Screen Neg (NEG) Urine Amphetamine/Methamphetamine Neg (NEG) Urine Benzodiazepines Screen Neg (NEG) Urine Cocaine Screen Neg (NEG) Urine Cannabinoids Screen Neg (NEG) Urine Ethyl Alcohol Neg (NEG) Laboratory Tests 07/11/16 10:04 Laboratory Tests 07/11/16 10:04 EKG EKG EKG is of poor quality shows normal sinus rate of [address] elevations, T-wave inversions noted in V1 through V4, QTC 464 ms, normal axis, as interpreted by me. EKG is unchanged since his last one in July 02, 2016. Radiology/Procedures Radiology/Procedures [address] [address] IMAGING REPORT Signed PATIENT: BRENDA HARTMAN ACCOUNT: [id number] : 1950 LOCATION: ER AGE: 65 SEX: M EXAM STATUS: PRE ER ORD. PHYSICIAN: ALBERTO CROCKETT MD REASON: AMS PROCEDURE: PORTABLE CHEST 1V Indication altered mental status. Unresponsive. Protocol study. Suspect CVA. A single view of the chest was obtained and is compared to an examination 06/16/2016. There is chronic background changes compatible with emphysema and/or fibrosis. There is no consolidated pneumonia. The heart and pulmonary vessels are within normal limits. Significant pleural fluid is not seen. There is no pneumothorax. Granuloma in the right lung and postoperative changes are noted. Healed right rib fracture is noted. IMPRESSION: No acute or focal process seen in the chest DICTATED and SIGNED BY: GRETEL PERES MD DATE: 07/11/16 1001 CC: ALBERTO CROCKETT MD; VIRGINIA YORK MD ~ [place] [id number] [place] [address] IMAGING REPORT Signed PATIENT: BRENDA HARTMAN ACCOUNT: [id number] : 1950 LOCATION: ER AGE: 65 SEX: M EXAM STATUS: PRE ER ORD. PHYSICIAN: ALBERTO CROCKETT MD REASON: AMS PROCEDURE: CT HEAD WO CONTRAST Indication change in mental status. Noncontrast images of the head were obtained and are compared to an examination 05/31/2016. The calvarium appears unremarkable. The visualized paranasal sinuses appear normal. There is no subdural or epidural hematoma. Generalized atrophy is noted. There are areas of increased lucency in the deep white matter compatible with microvascular disease. There is a lucency in the right deep white matter, adjacent to the right lateral ventricle, which may represent interval small bland infarct relative to the prior CT. No mass or midline shift is seen. There is no evidence of hemorrhage. IMPRESSION: No definite acute finding. Generalized atrophy. Evidence for old microvascular disease. Possible interval small bland infarct in the right deep white matter relative to the study 05/31/2016 PQRS Compliance Statement: One or more of the following individualized dose reduction techniques were utilized for this examination: 1. Automated exposure control 2. Adjustment of the mA and/or kV according to patient size 3. Use of iterative reconstruction technique DICTATED and SIGNED BY: GRETEL PERES MD DATE: 07/11/16 1004 CC: ALBERTO CROCKETT MD; VIRGINIA YORK MD ~ Impressions: Hypoglycemia New stroke on CT scan Diabetes COPD hypertension coronary disease Course & Med Decision Making Course & Med Decision Making Pertinent Labs and Imaging studies reviewed. (See chart for details) Patient arrived the EMS with an in route sugar of 25 he received an amp of D50 and repeat sugars have been appropriate. He received IV fluids, chest x-ray CT of his head. CT of his head does show possible new infarct. We'll admit to Dr. York. She wanted the patient to receive neurology consult, be started on Plavix and a PT consult. Patient is on D5 half-normal saline. He is in stable condition this time. Dragon Disclaimer Dragon Disclaimer This electronic medical record was generated, in whole or in part, using a voice recognition dictation system. Departure Departure Impression: Primary Impression: Hypoglycemia Disposition: ADMITTED INPATIENT Admitting Physician: Virginia York Condition: STABLE Referrals: VIRGINIA YORK MD (PCP) ALBERTO CROCKETT MD July 11, 2016 09:28
[2016-07-11] MEDS ORDERED: IV NORMAL SALINE 1000ML BAG 1,000 ML IV ONE (09:30)
--- NOTE | 2016-07-11 10:06 | RAD ---
Indication altered mental status. Unresponsive. Protocol study. Suspect CVA. A single view of the chest was obtained and is compared to an examination 06/16/2016. There is chronic background changes compatible with emphysema and/or fibrosis. There is no consolidated pneumonia. The heart and pulmonary vessels are within normal limits. Significant pleural fluid is not seen. There is no pneumothorax. Granuloma in the right lung and postoperative changes are noted. Healed right rib fracture is noted. IMPRESSION: No acute or focal process seen in the chest
--- NOTE | 2016-07-11 10:11 | RAD ---
Indication change in mental status. Noncontrast images of the head were obtained and are compared to an examination 05/31/2016. The calvarium appears unremarkable. The visualized paranasal sinuses appear normal. There is no subdural or epidural hematoma. Generalized atrophy is noted. There are areas of increased lucency in the deep white matter compatible with microvascular disease. There is a lucency in the right deep white matter, adjacent to the right lateral ventricle, which may represent interval small bland infarct relative to the prior CT. No mass or midline shift is seen. There is no evidence of hemorrhage. IMPRESSION: No definite acute finding. Generalized atrophy. Evidence for old microvascular disease. Possible interval small bland infarct in the right deep white matter relative to the study 05/31/2016 PQRS Compliance Statement: One or more of the following individualized dose reduction techniques were utilized for this examination: 1. Automated exposure control 2. Adjustment of the mA and/or kV according to patient size 3. Use of iterative reconstruction technique
[2016-07-11 10:19] LABS: BASO # 0.1 x10^3/uL (0.0-0.2); BASO % 1 % (0-3); EOS % 1 % (0-3); HEMATOCRIT 29.1 % (39.0-53.0); HEMOGLOBIN 9.8 g/dL (13.0-17.5); LYMPH # 2.3 x10^3/uL (1.0-4.8); LYMPH % 23 % (24-48); MEAN CORPUSCULAR HEMOGLOBIN 30 pg (25-35); MEAN CORPUSCULAR HGB CONC 34 g/dL (31-37); MEAN CORPUSCULAR VOLUME 91 fL (79-100); MONO % 7 % (0-9); NEUT % 69 % (31-73); PLATELET COUNT 417 x10^3/uL (140-400); RED CELL DISTRIBUTION WIDTH 13.3 % (11.5-14.5); WHITE BLOOD COUNT 10.1 x10^3/uL (4.0-11.0)
[2016-07-11 10:26] LABS: CALCIUM 9.7 mg/dL (8.5-10.1); CREATININE 2.2 mg/dL (0.7-1.3); GFR 30.1; POTASSIUM 3.8 mmol/L (3.5-5.1)
[2016-07-11 10:29] LABS: INR 1.1 (0.8-1.1); PROTHROMBIN TIME PATIENT 13.3 SEC (11.7-14.0)
[2016-07-11 10:32] LABS: ALBUMIN 2.5 g/dL (3.4-5.0); DIRECT BILIRUBIN 0.3 mg/dL (0.0-0.2); MAGNESIUM 1.8 mg/dL (1.8-2.4); TOTAL BILIRUBIN 1.1 mg/dL (0.2-1.0); TOTAL PROTEIN 7.4 g/dL (6.4-8.2)
[2016-07-11 10:36] LABS: BILIRUBIN,URINE NEGATIVE (NEG); GLUCOSE,URINE 100 mg/dL (NEG); NITRITE,URINE NEGATIVE (NEG); PH,URINE 5.5; PROTEIN,URINE NEGATIVE (NEG-TRACE); UROBILINOGEN,URINE 0.2 mg/dL (0.2 mg/dL)
[2016-07-11 10:39] LABS: CKMB MASS 1.5 ng/mL (0.0-3.6)
[2016-07-11 10:46] LABS: BARBITURATES NEG (NEG); BENZODIAZEPINES NEG (NEG); CANNABINOIDS NEG (NEG); COCAINE NEG (NEG); METHADONE NEG (NEG); OPIATES NEG (NEG); PHENCYCLIDINE NEG (NEG)
[2016-07-11 10:47] LABS: BACTERIA,URINE 0 /HPF (0-FEW); RBC,URINE 0 /HPF (0-2); WBC,URINE 0 /HPF (0-4)
--- NOTE | 2016-07-11 11:14 | EKG ---
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
[2016-07-11] MEDS ORDERED: IV DEXTROSE 5 %-0.45 % NACL 1,000 ML IV ONE (11:15)
[2016-07-11] MEDS ORDERED: ONDANSETRON PF 4 MG/2 ML VIAL. IV PRN (11:30)
[2016-07-11] MEDS ORDERED: DEXTROSE 50% 25 GM / 50ML DISP.SYRIN. IV ONE ×3 (12:14→17:00)
[2016-07-11] MEDS: CLOPIDOGREL BISULFATE 75 MG TABLET PO SCH (12:26)
[2016-07-11] MEDS ORDERED: IV DEXTROSE 10% 1,000 ML IV SCH (12:30)
[2016-07-11 15:00] VITALS: BP 119/59
--- NOTE | 2016-07-11 15:57 | PDOC2 ---
NEUROLOGY CONSULT Date of Admission Date of Admission DATE: 07/11/16 TIME: 15:52 Reason for Consult Reason for Consult: Hypoglycemia, abnormal head CT Referring Physician Referring Physician: Dr. Ness Source Source: Caregiver, Chart review, Patient History of Present Illness History of Present Illness The patient is a 65-year-old right-handed male admitted with altered mental status, found to have severe hyperglycemia with a glucose of 25. According to his mother he has never had a stroke or seizure and did not have any seizure activity this time. I see that he has been in the hospital in the past 2 months for pneumonia as well as another hypoglycemic episode and was in the emergency room a few days ago with hyperglycemia. He has intellectual disability and has lived with his mother his entire life. Past Medical History Cardiovascular: HTN, HI, Hyperlipidemia Pulmonary: COPD Endocrine: Diabetes Past Surgical History Past Surgical History: CABG Current Medications Current Medications Current Medications Sodium Chloride 1,000 ml @ 1,000 mls/hr 1X ONCE IV Last administered on 10:01; Start 07/11/16 at 09:30; Stop 07/11/16 at 10:29; Status DC Dextrose/Sodium Chloride 1,000 ml @ 75 mls/hr 1X ONCE IV Last administered on 07/11/16 11:30; Start 07/11/16 at 11:15; Stop 07/12/16 at 00:34 Ondansetron HCl (Zofran) 4 mg PRN Q8HRS PRN IV NAUSEA/VOMITING; Start 07/11/16 at 11:30; Stop 07/12/16 at 11:29 Clopidogrel Bisulfate (Plavix) 75 mg DAILYWBKFT PO Last administered on 12:26; Start 07/11/16 at 12:30 Dextrose (Dextrose 50%-Water Syringe) 25 gm STK-MED ONCE IV ; Start 07/11/16 at 12:14; Stop 07/11/16 at 12:15; Status DC Dextrose (Dextrose 50%-Water Syringe) 25 gm 1X ONCE IV Last administered on 12:20; Start 07/11/16 at 12:30; Stop 07/11/16 at 12:31; Status DC Dextrose 1,000 ml @ 60 mls/hr [id number] IV Last administered on 07/11/16 12:31; Start 07/11/16 at 12:30 Active Scripts Active Novolog Flexpen (Insulin Aspart) 100 Unit/1 Ml Insuln.pen 0 Units SQ TIDAC 30 Days [Linezolid] 600 MG Tablet 600 Mg PO BID 7 Days Levemir Flextouch (Insulin Detemir) 100 Unit/1 Ml Insuln.pen 12 Units SQ HS 30 Days Duoneb 0.5-3(2.5) Mg/3 Ml (Albuterol/Ipratropium) 3 Ml Ampul.neb 3 Ml NEB RTQID 30 Days Atorvastatin Calcium 40 Mg Tablet 80 Mg PO QHS 30 Days Aspirin Ec (Aspirin) 81 Mg Tablet. 81 Mg PO DAILYWBKFT 30 Days Reported Folic Acid 1 Mg Tablet 1 Mg PO DAILY Allergies Allergies: Coded Allergies: No Known Drug Allergies (Unverified , 05/18/16) Physical Exam Physical Examination PHYSICAL EXAMINATION: Vital signs: see above. General appearance is normal and in no acute distress. HEENT: Normocephalic and nontraumatic. Eyes, nose, ears, and throat are unremarkable. Neck is supple. No lymphadenopathy. No bruits are heard over the carotid artery. No crepitus. NEUROLOGICAL EXAMINATION: Mental Status Examination: Alert. Oriented only to person. Answers questions and follows commends. Pupils are equal round and reactive to light and accommodation. Funduscopic exam: No papilledema. Extraocular movements are intact. Visual field exam shows no defect on the direct confrontation. No motor or sensory deficits on the facial exam. Uvula in the midline and the soft palate elevated symmetrically. No deviation of the tongue to any direction. Gross hearing is normal. Shoulder shrug normal. Muscle tone is increased bilaterally. Muscle strength is 4/5. Deep tendon reflexes are 0+ all around. Plantar reflex is with flexion response bilaterally. Finger-to- nose test performance is accurate. Alternative movements are accurate. Gait not tested. Sensory exam shows no deficits. No cerebellar signs are elicited. Vitals VITALS Vital Signs Date Time Temp Pulse Resp B/P (MAP) Pulse Ox O2 Delivery O2 Flow Rate FiO2 07/11/16 15:00 97.2 60 24 119/59 (79) 98 Room Air 97.2 Labs Labs Laboratory Tests Test 07/11/16 09:25 07/11/16 09:30 07/11/16 10:04 07/11/16 10:15 Urine Color Yellow Urine Clarity Clear Urine pH 5.5 Urine Specific [place] 1.015 Urine Protein Negative mg/dL (NEG-TRACE) Urine Glucose (UA) 100 mg/dL (NEG) Urine Ketones (Stick) Negative mg/dL (NEG) Urine Blood Negative (NEG) Urine Nitrite Negative (NEG) Urine Bilirubin Negative (NEG) Urine Urobilinogen Dipstick 0.2 mg/dL (0.2 mg/dL) Urine Leukocyte Esterase Negative (NEG) Urine RBC 0 /HPF (0-2) Urine WBC 0 /HPF (0-4) Urine Bacteria 0 /HPF (0-FEW) Glucose (Fingerstick) 99 mg/dL (70-99) White Blood Count 10.1 x10^3/uL (4.0-11.0) Red Blood Count 3.20 x10^6/uL (4.30-5.70) Hemoglobin 9.8 g/dL (13.0-17.5) Hematocrit 29.1 % (39.0-53.0) Mean Corpuscular Volume 91 fL (79-100) Mean Corpuscular Hemoglobin 30 pg (25-35) Mean Corpuscular Hemoglobin Concent 34 g/dL (31-37) Red Cell Distribution Width 13.3 % (11.5-14.5) Platelet Count 417 x10^3/uL (140-400) Neutrophils (%) (Auto) 69 % (31-73) Lymphocytes (%) (Auto) 23 % (24-48) Monocytes (%) (Auto) 7 % (0-9) Eosinophils (%) (Auto) 1 % (0-3) Basophils (%) (Auto) 1 % (0-3) Neutrophils # (Auto) 7.0 x10^3uL (1.8-7.7) Lymphocytes # (Auto) 2.3 x10^3/uL (1.0-4.8) Monocytes # (Auto) 0.7 x10^3/uL (0.0-1.1) Eosinophils # (Auto) 0.1 x10^3/uL (0.0-0.7) Basophils # (Auto) 0.1 x10^3/uL (0.0-0.2) Prothrombin Time 13.3 SEC (11.7-14.0) Prothromb Time International Ratio 1.1 (0.8-1.1) Activated Partial Thromboplast Time 28 SEC (24-38) Sodium Level 138 mmol/L (136-145) Potassium Level 3.8 mmol/L (3.5-5.1) Chloride Level 102 mmol/L (98-107) Carbon Dioxide Level 27 mmol/L (21-32) Anion Gap 9 (6-14) Blood Urea Nitrogen 37 mg/dL (8-26) Creatinine 2.2 mg/dL (0.7-1.3) Estimated GFR (Cockcroft-Gault) 30.1 Glucose Level 78 mg/dL (70-99) Calcium Level 9.7 mg/dL (8.5-10.1) Magnesium Level 1.8 mg/dL (1.8-2.4) Total Bilirubin 1.1 mg/dL (0.2-1.0) Direct Bilirubin 0.3 mg/dL (0.0-0.2) Aspartate Amino Transf (AST/SGOT) 17 U/L (15-37) Alanine Aminotransferase (ALT/SGPT) 21 U/L (16-63) Alkaline Phosphatase 115 U/L (46-116) Ammonia < 10 mcmol/L (11-34) Creatine Kinase 83 U/L (39-308) Creatine Kinase MB (Mass) 1.5 ng/mL (0.0-3.6) Creatine Kinase MB Relative Index 1.8 % (0-4) Troponin I Quantitative < 0.017 ng/mL (0.000-0.055) KO-Gai-C-Type Natriuretic Peptide 1225 pg/mL (0-124) Total Protein 7.4 g/dL (6.4-8.2) Albumin 2.5 g/dL (3.4-5.0) Urine Opiates Screen Neg (NEG) Urine Methadone Screen Neg (NEG) Urine Barbiturates Neg (NEG) Urine Phencyclidine Screen Neg (NEG) Urine Amphetamine/Methamphetamine Neg (NEG) Urine Benzodiazepines Screen Neg (NEG) Urine Cocaine Screen Neg (NEG) Urine Cannabinoids Screen Neg (NEG) Urine Ethyl Alcohol Neg (NEG) Test 07/11/16 12:11 07/11/16 12:25 Glucose (Fingerstick) 43 mg/dL (70-99) 122 mg/dL (70-99) Laboratory Tests Test 07/11/16 09:25 07/11/16 09:30 07/11/16 10:04 07/11/16 10:15 Urine Color Yellow Urine Clarity Clear Urine pH 5.5 Urine Specific [place] 1.015 Urine Protein Negative mg/dL (NEG-TRACE) Urine Glucose (UA) 100 mg/dL (NEG) Urine Ketones (Stick) Negative mg/dL (NEG) Urine Blood Negative (NEG) Urine Nitrite Negative (NEG) Urine Bilirubin Negative (NEG) Urine Urobilinogen Dipstick 0.2 mg/dL (0.2 mg/dL) Urine Leukocyte Esterase Negative (NEG) Urine RBC 0 /HPF (0-2) Urine WBC 0 /HPF (0-4) Urine Bacteria 0 /HPF (0-FEW) Glucose (Fingerstick) 99 mg/dL (70-99) White Blood Count 10.1 x10^3/uL (4.0-11.0) Red Blood Count 3.20 x10^6/uL (4.30-5.70) Hemoglobin 9.8 g/dL (13.0-17.5) Hematocrit 29.1 % (39.0-53.0) Mean Corpuscular Volume 91 fL (79-100) Mean Corpuscular Hemoglobin 30 pg (25-35) Mean Corpuscular Hemoglobin Concent 34 g/dL (31-37) Red Cell Distribution Width 13.3 % (11.5-14.5) Platelet Count 417 x10^3/uL (140-400) Neutrophils (%) (Auto) 69 % (31-73) Lymphocytes (%) (Auto) 23 % (24-48) Monocytes (%) (Auto) 7 % (0-9) Eosinophils (%) (Auto) 1 % (0-3) Basophils (%) (Auto) 1 % (0-3) Neutrophils # (Auto) 7.0 x10^3uL (1.8-7.7) Lymphocytes # (Auto) 2.3 x10^3/uL (1.0-4.8) Monocytes # (Auto) 0.7 x10^3/uL (0.0-1.1) Eosinophils # (Auto) 0.1 x10^3/uL (0.0-0.7) Basophils # (Auto) 0.1 x10^3/uL (0.0-0.2) Prothrombin Time 13.3 SEC (11.7-14.0) Prothromb Time International Ratio 1.1 (0.8-1.1) Activated Partial Thromboplast Time 28 SEC (24-38) Sodium Level 138 mmol/L (136-145) Potassium Level 3.8 mmol/L (3.5-5.1) Chloride Level 102 mmol/L (98-107) Carbon Dioxide Level 27 mmol/L (21-32) Anion Gap 9 (6-14) Blood Urea Nitrogen 37 mg/dL (8-26) Creatinine 2.2 mg/dL (0.7-1.3) Estimated GFR (Cockcroft-Gault) 30.1 Glucose Level 78 mg/dL (70-99) Calcium Level 9.7 mg/dL (8.5-10.1) Magnesium Level 1.8 mg/dL (1.8-2.4) Total Bilirubin 1.1 mg/dL (0.2-1.0) Direct Bilirubin 0.3 mg/dL (0.0-0.2) Aspartate Amino Transf (AST/SGOT) 17 U/L (15-37) Alanine Aminotransferase (ALT/SGPT) 21 U/L (16-63) Alkaline Phosphatase 115 U/L (46-116) Ammonia < 10 mcmol/L (11-34) Creatine Kinase 83 U/L (39-308) Creatine Kinase MB (Mass) 1.5 ng/mL (0.0-3.6) Creatine Kinase MB Relative Index 1.8 % (0-4) Troponin I Quantitative < 0.017 ng/mL (0.000-0.055) BG-Cyn-S-Type Natriuretic Peptide 1225 pg/mL (0-124) Total Protein 7.4 g/dL (6.4-8.2) Albumin 2.5 g/dL (3.4-5.0) Urine Opiates Screen Neg (NEG) Urine Methadone Screen Neg (NEG) Urine Barbiturates Neg (NEG) Urine Phencyclidine Screen Neg (NEG) Urine Amphetamine/Methamphetamine Neg (NEG) Urine Benzodiazepines Screen Neg (NEG) Urine Cocaine Screen Neg (NEG) Urine Cannabinoids Screen Neg (NEG) Urine Ethyl Alcohol Neg (NEG) Test 07/11/16 12:11 07/11/16 12:25 Glucose (Fingerstick) 43 mg/dL (70-99) 122 mg/dL (70-99) Images Images CT head Are compared to an examination 05/31/2016. The calvarium appears unremarkable. The visualized paranasal sinuses appear normal. There is no subdural or epidural hematoma. Generalized atrophy is noted. There are areas of increased lucency in the deep white matter compatible with microvascular disease. There is a lucency in the right deep white matter, adjacent to the right lateral ventricle, which may represent interval small bland infarct relative to the prior CT. No mass or midline shift is seen. There is no evidence of hemorrhage. IMPRESSION: No definite acute finding. Generalized atrophy. Evidence for old microvascular disease. Possible interval small bland infarct in the right deep white matter relative to the study 05/31/2016 I reviewed the MRI images and see no acute infarct, radiology interpretation pending Assessment/Plan Assessment/Plan Impression: Hypoglycemic encephalopathy, cleared Intellectual disability I see no evidence of infarct on MRI and am not impressed with the CT had either he Recommendations: Await radiologic MRI interpretation No additional studies unless the MRI is deemed positive for a new stroke I discussed my findings with the patient's mother. Thank you for letting me help with the patient's care. LAKESHA ROMEO MD July 11, 2016 15:57
--- NOTE | 2016-07-11 16:07 | RAD ---
Indication signs and symptoms of a CVA. Possible inner pole deep white matter infarct in the right cerebral hemisphere relative to an exam 05/31/2016. Imaging sequences which were obtained including sagittal T1, axial T1, T2, FLAIR and gradient echo sequences. The axial ADC and DWI maps were also obtained as well as a coronal T2 sequence. Several of the sequences are significantly compromised by patient motion. No definite acute or recent infarct is suggested on the ADC and DWI sequences. On the gradient echo sequence no definite hemorrhage is seen. There is generalized atrophy. There is some increased signal in the deep white matter compatible with microvascular disease. No mass is seen. An acute finding is not apparent. IMPRESSION: Limited study secondary to motion. Generalized atrophy and microvascular disease. No definite acute finding seen
[2016-07-11] MEDS ORDERED: IV DEXTROSE 5% - 0.9 % NACL 500 ML IV ONE (17:15)
[2016-07-11] MEDS ORDERED: IV DEXTROSE 5 %-0.45 % NACL 1,000 ML IV SCH (17:30)
[2016-07-11 19:00] VITALS: BP 118/53
[2016-07-11 23:00] VITALS: BP 137/61
[2016-07-12] MEDS ORDERED: INSULIN ASPART 300 UNITS/3 ML INSULN.PEN SQ ONE ×3 (00:30→12:15)
[2016-07-12 03:00] VITALS: BP 150/70
[2016-07-12 04:09] LABS: BASO % 0 % (0-3); EOS % 1 % (0-3); HEMATOCRIT 26.7 % (39.0-53.0); HEMOGLOBIN 8.9 g/dL (13.0-17.5); LYMPH # 2.3 x10^3/uL (1.0-4.8); LYMPH % 30 % (24-48); MEAN CORPUSCULAR HEMOGLOBIN 31 pg (25-35); MEAN CORPUSCULAR HGB CONC 33 g/dL (31-37); MEAN CORPUSCULAR VOLUME 92 fL (79-100); MONO % 10 % (0-9); NEUT % 59 % (31-73); PLATELET COUNT 290 x10^3/uL (140-400); RED CELL DISTRIBUTION WIDTH 13.5 % (11.5-14.5); WHITE BLOOD COUNT 7.6 x10^3/uL (4.0-11.0)
[2016-07-12 04:39] LABS: CALCIUM 8.4 mg/dL (8.5-10.1); CREATININE 2.1 mg/dL (0.7-1.3); GFR 31.8; POTASSIUM 4.9 mmol/L (3.5-5.1)
[2016-07-12 07:55] VITALS: BP 146/69
[2016-07-12] MEDS: CLOPIDOGREL BISULFATE 75 MG TABLET PO SCH (08:12)
[2016-07-12] MEDS ORDERED: INSULIN DETEMIR 300 UNITS/3 ML INSULN.PEN. SQ ONE (08:45)
[2016-07-12] MEDS: INSULIN ASPART 300 UNITS/3 ML INSULN.PEN SQ SCH ×2 (11:30→16:59)
[2016-07-12 11:44] VITALS: BP 147/81
--- NOTE | 2016-07-12 14:10 | PDOC ---
OBJECTIVE Vital Signs Vital Signs Date Time Temp Pulse Resp B/P (MAP) Pulse Ox O2 Delivery O2 Flow Rate FiO2 07/12/16 11:44 97.7 85 17 147/81 (103) 100 Room Air 97.7 07/12/16 07:55 98.1 73 15 146/69 (94) 99 Room Air 98.1 07/12/16 03:00 98.4 73 18 150/70 (96) 95 98.4 07/11/16 23:00 98.5 73 18 137/61 (86) 95 98.5 07/11/16 19:00 98.4 73 20 118/53 (74) 100 98.4 07/11/16 15:00 97.2 60 24 119/59 (79) 98 Room Air 97.2 I & O Intake and Output 07/12/16 07:00 Intake Total 2355 ml Output Total 600 ml Balance 1755 ml Intake Oral 780 ml IV Total 1575 ml Output Urine Total 600 ml # Voids 4 ASSESSMENT/PLAN Assessment/Plan [id number] H&P dictated Problems: COMMENT Lab Laboratory Tests Test 07/11/16 16:52 07/11/16 17:08 07/11/16 17:55 07/11/16 21:33 Glucose (Fingerstick) 48 mg/dL (70-99) 48 mg/dL (70-99) 148 mg/dL (70-99) 366 mg/dL (70-99) Test 07/12/16 02:40 07/12/16 08:11 07/12/16 10:49 White Blood Count 7.6 x10^3/uL (4.0-11.0) Red Blood Count 2.90 x10^6/uL (4.30-5.70) Hemoglobin 8.9 g/dL (13.0-17.5) Hematocrit 26.7 % (39.0-53.0) Mean Corpuscular Volume 92 fL (79-100) Mean Corpuscular Hemoglobin 31 pg (25-35) Mean Corpuscular Hemoglobin Concent 33 g/dL (31-37) Red Cell Distribution Width 13.5 % (11.5-14.5) Platelet Count 290 x10^3/uL (140-400) Neutrophils (%) (Auto) 59 % (31-73) Lymphocytes (%) (Auto) 30 % (24-48) Monocytes (%) (Auto) 10 % (0-9) Eosinophils (%) (Auto) 1 % (0-3) Basophils (%) (Auto) 0 % (0-3) Neutrophils # (Auto) 4.5 x10^3uL (1.8-7.7) Lymphocytes # (Auto) 2.3 x10^3/uL (1.0-4.8) Monocytes # (Auto) 0.8 x10^3/uL (0.0-1.1) Eosinophils # (Auto) 0.1 x10^3/uL (0.0-0.7) Basophils # (Auto) 0.0 x10^3/uL (0.0-0.2) Sodium Level 136 mmol/L (136-145) Potassium Level 4.9 mmol/L (3.5-5.1) Chloride Level 102 mmol/L (98-107) Carbon Dioxide Level 27 mmol/L (21-32) Anion Gap 7 (6-14) Blood Urea Nitrogen 30 mg/dL (8-26) Creatinine 2.1 mg/dL (0.7-1.3) Estimated GFR (Cockcroft-Gault) 31.8 Glucose Level 481 mg/dL (70-99) Calcium Level 8.4 mg/dL (8.5-10.1) Glucose (Fingerstick) 499 mg/dL (70-99) 489 mg/dL (70-99) VIRGINIA YORK MD July 12, 2016 14:09
--- NOTE | 2016-07-12 15:23 | PREOP HP ---
DATE OF SERVICE: 07/12/2016 ROOM NUMBER: [id number]. HISTORY OF PRESENT ILLNESS: The patient is a 65-year-old gentleman who has multiple previous admissions due to hypoglycemia and fluctuating blood sugars who presented to the Emergency Room due to change in mental status. Again, he apparently was found with a blood sugar of 25. He was given an amp of D50 and was brought to the Emergency Room. He was evaluated, and a CT scan of the head was done in the Emergency Room that showed possible new CVA. He was admitted for further evaluation for possible CVA and for the treatment of hypoglycemia. The patient is very sensitive to insulin, has required very low amount of insulin. His blood sugar fluctuates rapidly from one end to the other. He is mentally handicapped and does need help mentally and physically in all his activities. He is a smoker and has COPD. PAST MEDICAL HISTORY: Significant for COPD, diabetes mellitus type 1, dyslipidemia, hypertension, coronary artery disease, chronic kidney disease, mental retardation, previous history of coronary artery bypass graft, hyperlipidemia, hypertension, osteoarthritis, and fatigue. SOCIAL HISTORY: He does smoke. He denies alcohol or other drugs. REVIEW OF SYSTEMS: CONSTITUTIONAL: Denies fever or chills. EYES: Denies visual problems. HEENT: Denies sore throat or congestion. PULMONARY: Denies increasing shortness of breath. He recently was admitted for pneumonia and seemed to be recovering from that. CARDIAC: He denies chest pain or swelling in the lower extremities. GASTROINTESTINAL: Denies nausea, vomiting, or abdominal pain. GENITOURINARY: He does have urinary incontinence, but he does not have dysuria or hematuria. NEUROLOGIC: He does not have a focal deficit, but he is slow which is his baseline, and he had alteration in mental status at the time he was seen by the EMT. PHYSICAL EXAMINATION: GENERAL: He is alert, oriented to place and person. He does not seem to be in acute distress. HEENT: Normocephalic, atraumatic. Eyes with normal color conjunctivae. NECK: Supple, with no JVD or bruit. HEART: Regular rate and rhythm. LUNGS: Fairly clear, few scattered rhonchi and wheezes. ABDOMEN: Soft, nontender, no organomegaly, no masses, no bruits, no ascites. EXTREMITIES: No edema, clubbing, or cyanosis. He does have an ulcer on his left heel. SKIN: Warm and dry, no erythema or rashes, but he does have a pressure ulcer on his left heel. NEUROLOGIC: He does move all his extremities without focal deficit. He is alert and interactive. He does talk slow, but this is his baseline. IMPRESSION: 1. Episode of hypoglycemia. He is known to have recurrent episodes of hypoglycemia. He has been requiring very low dose of basal insulin and only about 2 units with meal. 2. Possible cerebrovascular accident on CT scan in the Emergency Room. We will obtain Neurology consultation. He already takes aspirin. If it is truly a cerebrovascular accident, he will need to be on Plavix. 3. Hyperlipidemia. Continue statin. 4. Hypertension. Continue to monitor blood pressure. 5. Coronary artery disease, asymptomatic at present time. 6. Chronic obstructive pulmonary disease and tobaccoism. 7. Degenerative joint disease and debilitation. 8. Ulcer of the left heel. We will ask Wound Care to evaluate while he is in the hospital. VIRGINIA YORK MD DR: CLAUDIA/tata JOB#: [id number] / [id number]
[2016-07-12 15:40] VITALS: BP 144/74
--- NOTE | 2016-07-12 15:46 | PDOC ---
PROGRESS NOTES Assessment Assessment IMPRESSION: Metabolic encephalopathy. Hypoglycemia, glucose level 42. Hyperglycemia, glucose level 499 Seizure DM HTN HLD Renal failure Chronic low mental ability. Obesity. No evidence of acute CVA this time. RECOMMENDATIONS/PLAN: Treat medical diseases. Control hyper and hypoglycemia. Continue Plavix 75 mg daily. Continue Lipitor HS. OT/PT. SUBJECTIVE: No new neurological issues. OBJECTIVE: No focalized motor or sensory deficits. Past Medical History Cardiovascular: HTN, [place], Hyperlipidemia Pulmonary: COPD Endocrine: Diabetes Past Surgical History CABG ALLERGY: Reviewed. MEDICATIONS: Refer to [facility] REVIEW OF SYSTEMS: Constitutional: No malnutrition, weight loss, cachexia. Head: No recent traumatic brain or head injury. Skin: No edema, or rash. Ear: No infection, tinnitus. Eyes: No vision loss, or diplopia. Nose: No bleeding or purulent discharges. Hearing: No hearing decrease. H Neck: No injury. Cardiac: HTN, HLD Pulmonary: No COPD. GI: No GI Ulcer, GI bleeding Urinary/genital: No dysuria, incontinence. Endocrine: Diabetes Mellitus, obesity. Skeletomuscular: No muscular atrophy, deformity. Neurological: see HP. Psychiatric: Denies drug use/abuse. Otherwise, not -mzmhg review of systems. PHYSICAL EXAMINATION: General appearance in subacute distress. HEENT: Normocephalic and nontraumatic. Eyes, nose, ears, and throat are unremarkable. Neck is supple. No lymphadenopathy. No bruits are heard over the carotid artery. No Crepitus. Cardiovascular: S1, S2, regular rate and rhythm. Pulmonary: Clear to auscultation bilaterally. Abdomen: Bowel sounds are positive. Extremities: No rash, lesions, or edema. No restriction of range of motion NEUROLOGICAL EXAMINATION: Awake. Not oriented to time, but knows place and person. PERRL. EOMI. CN: no focal findings. Muscle tone: within normal. Muscle strength: 4+ DTR: 1-2 Plantar reflex: Flexor response bilaterally Gait: not examined in bed. Sensory exam: no abnormal findings. No obvious cerebellar signs elicited. F-T-N test fine Objective Objective Vital Signs Date Time Temp Pulse Resp B/P (MAP) Pulse Ox O2 Delivery O2 Flow Rate FiO2 07/12/16 11:44 97.7 85 17 147/81 (103) 100 Room Air 97.7 Intake and Output 07/12/16 07:00 Intake Total 2355 ml Output Total 600 ml Balance 1755 ml Intake Oral 780 ml IV Total 1575 ml Output Urine Total 600 ml # Voids 4 Vitals Signs Vitals VS - Last 72 Hours, by Label Date Time Temp Pulse Resp B/P (MAP) Pulse Ox O2 Delivery O2 Flow Rate FiO2 07/12/16 11:44 97.7 85 17 147/81 (103) 100 Room Air 97.7 07/12/16 07:55 98.1 73 15 146/69 (94) 99 Room Air 98.1 07/12/16 03:00 98.4 73 18 150/70 (96) 95 98.4 07/11/16 23:00 98.5 73 18 137/61 (86) 95 98.5 07/11/16 19:00 98.4 73 20 118/53 (74) 100 98.4 07/11/16 15:00 97.2 60 24 119/59 (79) 98 Room Air 97.2 07/11/16 12:35 64 17 169/75 (106) 100 Room Air 07/11/16 11:54 58 19 152/67 (95) 98 Room Air 07/11/16 11:24 58 11 152/68 (96) 99 Room Air 07/11/16 10:54 60 10 179/77 (111) 100 Room Air 07/11/16 10:24 62 14 173/75 (107) 100 Room Air 07/11/16 09:54 56 168/72 (104) 99 Room Air 07/11/16 09:21 66 17 186/73 (110) 98 Room Air Laboratory Laboratory Laboratory Tests Test 07/11/16 16:52 07/11/16 17:08 07/11/16 17:55 07/11/16 21:33 Glucose (Fingerstick) 48 mg/dL (70-99) 48 mg/dL (70-99) 148 mg/dL (70-99) 366 mg/dL (70-99) Test 07/12/16 02:40 07/12/16 08:11 07/12/16 10:49 White Blood Count 7.6 x10^3/uL (4.0-11.0) Red Blood Count 2.90 x10^6/uL (4.30-5.70) Hemoglobin 8.9 g/dL (13.0-17.5) Hematocrit 26.7 % (39.0-53.0) Mean Corpuscular Volume 92 fL (79-100) Mean Corpuscular Hemoglobin 31 pg (25-35) Mean Corpuscular Hemoglobin Concent 33 g/dL (31-37) Red Cell Distribution Width 13.5 % (11.5-14.5) Platelet Count 290 x10^3/uL (140-400) Neutrophils (%) (Auto) 59 % (31-73) Lymphocytes (%) (Auto) 30 % (24-48) Monocytes (%) (Auto) 10 % (0-9) Eosinophils (%) (Auto) 1 % (0-3) Basophils (%) (Auto) 0 % (0-3) Neutrophils # (Auto) 4.5 x10^3uL (1.8-7.7) Lymphocytes # (Auto) 2.3 x10^3/uL (1.0-4.8) Monocytes # (Auto) 0.8 x10^3/uL (0.0-1.1) Eosinophils # (Auto) 0.1 x10^3/uL (0.0-0.7) Basophils # (Auto) 0.0 x10^3/uL (0.0-0.2) Sodium Level 136 mmol/L (136-145) Potassium Level 4.9 mmol/L (3.5-5.1) Chloride Level 102 mmol/L (98-107) Carbon Dioxide Level 27 mmol/L (21-32) Anion Gap 7 (6-14) Blood Urea Nitrogen 30 mg/dL (8-26) Creatinine 2.1 mg/dL (0.7-1.3) Estimated GFR (Cockcroft-Gault) 31.8 Glucose Level 481 mg/dL (70-99) Calcium Level 8.4 mg/dL (8.5-10.1) Glucose (Fingerstick) 499 mg/dL (70-99) 489 mg/dL (70-99) Microbiology 07/11/16 Blood Culture - Preliminary, Resulted NO GROWTH AFTER 1 DAY Medication Medications Current Medications Albuterol/ Ipratropium (Duoneb) 3 ml RTQID NEB ; Start 07/12/16 at 16:00 Aspirin (Ecotrin) 81 mg DAILYWBKFT PO ; Start 07/12/16 at 14:30 Atorvastatin Calcium (Lipitor) 10 mg QHS PO ; Start 07/12/16 at 21:00; Stop at 21:00; Status DC Atorvastatin Calcium (Lipitor) 80 mg QHS PO ; Start 07/12/16 at 21:00 Dextrose (Dextrose 50%-Water Syringe) 25 gm 1X ONCE IV ; Start 07/11/16 at 17:00 ; Stop 07/11/16 at 17:01; Status DC Dextrose/Sodium Chloride 500 ml @ 0 mls/hr 1X ONCE IV ; Start 07/11/16 at 17:15 ; Stop 07/11/16 at 17:16; Status DC Dextrose/Sodium Chloride 1,000 ml @ 75 mls/hr [id number] IV ; Start 07/11/16 at 17: 30; Stop 07/12/16 at 00:22; Status DC Insulin Aspart (Novolog) 2 units 1X ONCE SQ Last administered on 07/12/16 00: 47; Start 07/12/16 at 00:30; Stop 07/12/16 at 00:31; Status DC Insulin Aspart (Novolog) 2 units TIDAC SQ ; Start 07/12/16 at 11:30 Insulin Aspart (Novolog) 5 units 1X ONCE SQ Last administered on 07/12/16 08: 58; Start 07/12/16 at 08:45; Stop 07/12/16 at 08:46; Status DC Insulin Aspart (Novolog) 5 units 1X ONCE SQ Last administered on 07/12/16 12: 18; Start 07/12/16 at 12:15; Stop 07/12/16 at 12:16; Status DC Insulin Detemir (Levemir) 5 units 1X ONCE SQ Last administered on 07/12/16 08: 59; Start 07/12/16 at 08:45; Stop 07/12/16 at 08:46; Status DC Insulin Detemir (Levemir) 5 units QHS SQ ; Start 07/12/16 at 21:00; Stop 07/12/16 at 21:00; Status DC Insulin Detemir (Levemir) 12 units QHS SQ ; Start 07/12/16 at 21:00 Losartan Potassium (Cozaar) 50 mg DAILY PO ; Start 07/12/16 at 14:30 Comment Review of Relevant I have reviewed the following items monica (where applicable) has been applied. VIMAL HURTADO MD July 12, 2016 15:46
[2016-07-12] MEDS: ASPIRIN ENTERIC COATED 81 MG TABLET.DR. PO SCH (15:51)
[2016-07-12] MEDS: LOSARTAN POTASSIUM 50 MG TABLET. PO SCH (15:51)
[2016-07-12] MEDS: IPRATRPIUM/ALBUTEROL 0.5/2.5MG 3 ML NEBU. NEB SCH ×2 (16:28→20:13)
[2016-07-12 19:00] VITALS: BP 151/59
[2016-07-12] MEDS ORDERED: INSULIN DETEMIR 300 UNITS/3 ML INSULN.PEN. SQ SCH (21:00)
[2016-07-12] MEDS ORDERED: ATORVASTATIN CALCIUM 10 MG TABLET. PO SCH (21:00)
[2016-07-12] MEDS: ATORVASTATIN CALCIUM 40 MG TABLET. PO SCH (21:14)
[2016-07-12] MEDS: INSULIN DETEMIR 300 UNITS/3 ML INSULN.PEN. SQ SCH (21:18)
[2016-07-12 23:42] VITALS: BP 133/52
[2016-07-13] VITALS (7 sets, daily range): BP systolic 99–123; BP diastolic 45–56
[2016-07-13] MEDS: IPRATRPIUM/ALBUTEROL 0.5/2.5MG 3 ML NEBU. NEB SCH ×4 (07:44→20:15)
[2016-07-13 07:51] LABS: HEMATOCRIT 29.1 % (39.0-53.0); HEMOGLOBIN 9.5 g/dL (13.0-17.5); RED BLOOD COUNT 3.22 x10^6/uL (4.30-5.70); RED CELL DISTRIBUTION WIDTH 13.6 % (11.5-14.5); WHITE BLOOD COUNT 21.5 x10^3/uL (4.0-11.0)
[2016-07-13 08:09] LABS: CALCIUM 8.7 mg/dL (8.5-10.1); CREATININE 1.7 mg/dL (0.7-1.3); GFR 40.5; POTASSIUM 4.3 mmol/L (3.5-5.1)
[2016-07-13] MEDS: INSULIN ASPART 300 UNITS/3 ML INSULN.PEN SQ SCH ×3 (08:23→16:30)
[2016-07-13] MEDS: ASPIRIN ENTERIC COATED 81 MG TABLET.DR. PO SCH (08:23)
[2016-07-13] MEDS: LOSARTAN POTASSIUM 50 MG TABLET. PO SCH (08:23)
[2016-07-13] MEDS: CLOPIDOGREL BISULFATE 75 MG TABLET PO SCH (08:24)
[2016-07-13] MEDS ORDERED: IPRA3AMP NEB (09:17)
[2016-07-13] MEDS ORDERED: INSU100I17 SQ (09:17)
[2016-07-13] MEDS ORDERED: LOSA50TA2 PO (09:17)
--- NOTE | 2016-07-13 09:18 | PDOC ---
SUBJECTIVE Subjective looks ok , state not feeling good in general , said same yesterday OBJECTIVE Vital Signs Vital Signs Date Time Temp Pulse Resp B/P (MAP) Pulse Ox O2 Delivery O2 Flow Rate FiO2 07/13/16 08:23 93 121/52 07/13/16 07:45 Room Air 07/13/16 07:00 98.9 93 18 121/52 (75) 96 Room Air 98.9 07/13/16 03:27 98.0 90 18 116/56 (76) 94 Room Air 98.0 07/12/16 23:42 98.0 108 20 133/52 (79) 96 Room Air 98.0 07/12/16 20:13 98 Room Air 07/12/16 20:00 Room Air 07/12/16 19:00 97.3 109 18 151/59 (89) 97 Room Air 97.3 07/12/16 16:29 99 Room Air 07/12/16 15:51 82 142/74 07/12/16 15:40 97.6 84 144/74 (97) 100 Room Air 97.6 07/12/16 11:44 97.7 85 17 147/81 (103) 100 Room Air 97.7 I & O Intake and Output 07/13/16 07:00 Intake Total 960 ml Balance 960 ml Intake Oral 960 ml # Voids 5 PHYSICAL EXAM Physical Exam lungs clear heart mild tachycardia abd soft, no tenderness ext no edema ASSESSMENT/PLAN Assessment/Plan 1- leukocytosis today ? cause his urine is clear , will check CXR ? aspiration will ask ST to evaluate at bed side 2-hypoglycemia followed by hyperglycemia due to overtreatment ,better today 3- no evidence of CVA on MRI, no need for plavix will resume ASA only unless other recommendation by Neurology 4- heel ulcer might be cause of high WBC 4- other diagnosis as per H&P plan discharge home if CXR neg and no aspiration Problems: COMMENT Lab Laboratory Tests Test 07/12/16 10:49 07/12/16 16:18 07/12/16 20:57 07/13/16 07:20 Glucose (Fingerstick) 489 mg/dL (70-99) 391 mg/dL (70-99) 342 mg/dL (70-99) White Blood Count 21.5 x10^3/uL (4.0-11.0) Red Blood Count 3.22 x10^6/uL (4.30-5.70) Hemoglobin 9.5 g/dL (13.0-17.5) Hematocrit 29.1 % (39.0-53.0) Mean Corpuscular Volume 91 fL (79-100) Mean Corpuscular Hemoglobin 30 pg (25-35) Mean Corpuscular Hemoglobin Concent 33 g/dL (31-37) Red Cell Distribution Width 13.6 % (11.5-14.5) Platelet Count 341 x10^3/uL (140-400) Sodium Level 141 mmol/L (136-145) Potassium Level 4.3 mmol/L (3.5-5.1) Chloride Level 104 mmol/L (98-107) Carbon Dioxide Level 28 mmol/L (21-32) Anion Gap 9 (6-14) Blood Urea Nitrogen 26 mg/dL (8-26) Creatinine 1.7 mg/dL (0.7-1.3) Estimated GFR (Cockcroft-Gault) 40.5 Glucose Level 101 mg/dL (70-99) Calcium Level 8.7 mg/dL (8.5-10.1) Test 07/13/16 07:22 Glucose (Fingerstick) 115 mg/dL (70-99) VIRGINIA YORK MD July 13, 2016 09:18
[2016-07-13] MEDS ORDERED: ZINC56.7 TP (09:45)
[2016-07-13] MEDS ORDERED: SILV20CR4 TP (09:45)
[2016-07-13] MEDS: silver sulfADIAZINE 1% CREAM 25GM TUBE. TP SCH (11:17)
[2016-07-13] MEDS: ZINC OXIDE 20% TOPICAL OINTMENT 28GM TUBE. TP SCH (11:17)
--- NOTE | 2016-07-13 13:15 | PDOC ---
PROGRESS NOTES Assessment Assessment Metabolic encephalopathy. Hypoglycemia, glucose level 42. Hyperglycemia, glucose level 499 Seizure DM HTN HLD Renal failure Chronic low mental ability. Psychosis. Obesity. No evidence of acute CVA this time. RECOMMENDATIONS/PLAN: Treat medical diseases. Control hyper and hypoglycemia. Continue Plavix 75 mg daily. Continue Lipitor HS. Start Seroquel low dose 12.5 mg bid. OT/PT. SUBJECTIVE: Cursing. OBJECTIVE: No focalized motor or sensory deficits. Very psychotic on 07/13/16. Past Medical History Cardiovascular: HTN, [place], Hyperlipidemia Pulmonary: COPD Endocrine: Diabetes Past Surgical History CABG ALLERGY: Reviewed. MEDICATIONS: Refer to [facility] REVIEW OF SYSTEMS: Constitutional: No malnutrition, weight loss, cachexia. Head: No recent traumatic brain or head injury. Skin: No edema, or rash. Ear: No infection, tinnitus. Eyes: No vision loss, or diplopia. Nose: No bleeding or purulent discharges. Hearing: No hearing decrease. H Neck: No injury. Cardiac: HTN, HLD Pulmonary: No COPD. GI: No GI Ulcer, GI bleeding Urinary/genital: No dysuria, incontinence. Endocrine: Diabetes Mellitus, obesity. Skeletomuscular: No muscular atrophy, deformity. Neurological: see HP. Psychiatric: Denies drug use/abuse. Otherwise, not [id number] review of systems. PHYSICAL EXAMINATION: General appearance in subacute distress. HEENT: Normocephalic and nontraumatic. Eyes, nose, ears, and throat are unremarkable. Neck is supple. No lymphadenopathy. No bruits are heard over the carotid artery. No Crepitus. Cardiovascular: S1, S2, regular rate and rhythm. Pulmonary: Clear to auscultation bilaterally. Abdomen: Bowel sounds are positive. Extremities: No rash, lesions, or edema. No restriction of range of motion NEUROLOGICAL EXAMINATION: Awake. Continuously cursing. Not oriented to time, place and person. PERRL. EOMI. CN: no focal findings. Muscle tone: within normal. Muscle strength: 4+ DTR: 1-2 Plantar reflex: Flexor response bilaterally Gait: able to walk around bed. Sensory exam: no abnormal findings. No obvious cerebellar signs elicited. F-T-N test not performed due to not follow commands. Objective Objective Vital Signs Date Time Temp Pulse Resp B/P (MAP) Pulse Ox O2 Delivery O2 Flow Rate FiO2 07/13/16 11:41 Room Air 07/13/16 10:39 99.5 107 18 106/56 (73) 96 99.5 Intake and Output 07/13/16 07:00 Intake Total 960 ml Balance 960 ml Intake Oral 960 ml # Voids 5 Vitals Signs Vitals VS - Last 72 Hours, by Label Date Time Temp Pulse Resp B/P (MAP) Pulse Ox O2 Delivery O2 Flow Rate FiO2 07/13/16 11:41 Room Air 07/13/16 10:39 99.5 107 18 106/56 (73) 96 Room Air 99.5 07/13/16 08:23 93 121/52 07/13/16 07:45 Room Air 07/13/16 07:00 98.9 93 18 121/52 (75) 96 Room Air 98.9 07/13/16 03:27 98.0 90 18 116/56 (76) 94 Room Air 98.0 07/12/16 23:42 98.0 108 20 133/52 (79) 96 Room Air 98.0 07/12/16 20:13 98 Room Air 07/12/16 20:00 Room Air 07/12/16 19:00 97.3 109 18 151/59 (89) 97 Room Air 97.3 07/12/16 16:29 99 Room Air 07/12/16 15:51 82 142/74 07/12/16 15:40 97.6 84 144/74 (97) 100 Room Air 97.6 07/12/16 11:44 97.7 85 17 147/81 (103) 100 Room Air 97.7 07/12/16 07:55 98.1 73 15 146/69 (94) 99 Room Air 98.1 Laboratory Laboratory Laboratory Tests Test 07/12/16 16:18 07/12/16 20:57 07/13/16 07:20 07/13/16 07:22 Glucose (Fingerstick) 391 mg/dL (70-99) 342 mg/dL (70-99) 115 mg/dL (70-99) White Blood Count 21.5 x10^3/uL (4.0-11.0) Red Blood Count 3.22 x10^6/uL (4.30-5.70) Hemoglobin 9.5 g/dL (13.0-17.5) Hematocrit 29.1 % (39.0-53.0) Mean Corpuscular Volume 91 fL (79-100) Mean Corpuscular Hemoglobin 30 pg (25-35) Mean Corpuscular Hemoglobin Concent 33 g/dL (31-37) Red Cell Distribution Width 13.6 % (11.5-14.5) Platelet Count 341 x10^3/uL (140-400) Sodium Level 141 mmol/L (136-145) Potassium Level 4.3 mmol/L (3.5-5.1) Chloride Level 104 mmol/L (98-107) Carbon Dioxide Level 28 mmol/L (21-32) Anion Gap 9 (6-14) Blood Urea Nitrogen 26 mg/dL (8-26) Creatinine 1.7 mg/dL (0.7-1.3) Estimated GFR (Cockcroft-Gault) 40.5 Glucose Level 101 mg/dL (70-99) Calcium Level 8.7 mg/dL (8.5-10.1) Test 07/13/16 11:02 Glucose (Fingerstick) 110 mg/dL (70-99) Microbiology 07/11/16 Blood Culture - Preliminary, Resulted NO GROWTH AFTER 2 DAYS Medication Medications Current Medications Albuterol/ Ipratropium (Duoneb) 3 ml RTQID NEB Last administered on 07/13/16 11 :40; Start 07/12/16 at 16:00 Aspirin (Ecotrin) 81 mg DAILYWBKFT PO Last administered on 07/13/16 08:23; Start 07/12/16 at 14:30 Atorvastatin Calcium (Lipitor) 10 mg QHS PO ; Start 07/12/16 at 21:00; Stop at 21:00; Status DC Atorvastatin Calcium (Lipitor) 80 mg QHS PO Last administered on 07/12/16 21:14 ; Start 07/12/16 at 21:00 Ceftriaxone Sodium 1 gm/ Sodium Chloride 50 ml @ 100 mls/hr Q24H IV Last administered on 07/13/16 11:17; Start 07/13/16 at 11:00 Insulin Detemir (Levemir) 5 units QHS SQ ; Start 07/12/16 at 21:00; Stop 07/12/16 at 21:00; Status DC Insulin Detemir (Levemir) 12 units QHS SQ Last administered on 07/12/16 21:18; Start 07/12/16 at 21:00 Losartan Potassium (Cozaar) 50 mg DAILY PO Last administered on 07/13/16 08:23 ; Start 07/12/16 at 14:30 Silver Sulfadiazine (Silvadene) 1 andreia DAILY TP Last administered on 07/13/16 11 :17; Start 07/13/16 at 10:30 Zinc Oxide 1 andreia DAILY TP Last administered on 07/13/16 11:17; Start 07/13/16 at 10:30 Comment Review of Relevant I have reviewed the following items monica (where applicable) has been applied. VIMAL HURTADO MD July 13, 2016 13:15
--- NOTE | 2016-07-13 13:47 | RAD ---
Exam performed: 2 views of the chest. Indication: high WBC ? pneumonia Date of Service:07/13/2016 11:28 AM . Comparison : One view chest from 07/11/16 Findings: PA and lateral radiographs of the chest reveal a normal cardiomediastinal contour. Previous median sternotomy. Questionable opacity in the right lower lobe could be related to confluence of shadows. Calcified nodule in the right upper lobe. No pleural fluid is seen. The visualized osseous structures are unremarkable. Impression: Questionable opacity in the right lower lobe. This could be related to confluence of shadows, however developing infiltrates underlying nodule not excluded. Follow-up exams may be of additional benefit.
[2016-07-13] MEDS: IV NORMAL SALINE 1000ML BAG 1,000 ML IV SCH (16:54)
[2016-07-13] MEDS: ACETAMINOPHEN 325 MG TABLET. PO PRN (17:06)
[2016-07-13] MEDS: QUEtiapine 25 MG TABLET. PO SCH (21:11)
[2016-07-13] MEDS: ATORVASTATIN CALCIUM 40 MG TABLET. PO SCH (21:11)
[2016-07-13] MEDS: INSULIN DETEMIR 300 UNITS/3 ML INSULN.PEN. SQ SCH (21:17)
[2016-07-14] VITALS (7 sets, daily range): BP systolic 93–126; BP diastolic 38–60
[2016-07-14] MEDS: ACETAMINOPHEN 325 MG TABLET. PO PRN (02:44)
[2016-07-14] MEDS: IV NORMAL SALINE 1000ML BAG 1,000 ML IV SCH ×2 (06:05→17:26)
[2016-07-14 06:17] LABS: HEMATOCRIT 26.5 % (39.0-53.0); RED BLOOD COUNT 2.98 x10^6/uL (4.30-5.70); RED CELL DISTRIBUTION WIDTH 13.8 % (11.5-14.5); WHITE BLOOD COUNT 29.9 x10^3/uL (4.0-11.0)
[2016-07-14 06:26] LABS: CALCIUM 8.3 mg/dL (8.5-10.1); CREATININE 2.2 mg/dL (0.7-1.3); GFR 30.1; POTASSIUM 3.9 mmol/L (3.5-5.1)
[2016-07-14] MEDS ORDERED: ACETAMINOPHEN 325 MG TABLET. PO PRN (07:00)
[2016-07-14] MEDS: INSULIN ASPART 300 UNITS/3 ML INSULN.PEN SQ SCH ×3 (07:30→17:28)
[2016-07-14] MEDS: IPRATRPIUM/ALBUTEROL 0.5/2.5MG 3 ML NEBU. NEB SCH ×4 (07:52→20:22)
[2016-07-14] MEDS: PIPERACILLIN/TAZOBACTAM 2.25 GM in IV NORMAL SALINE 50ML 50 ML IV SCH ×3 (08:20→17:25)
[2016-07-14] MEDS: QUEtiapine 25 MG TABLET. PO SCH ×2 (08:37→19:48)
[2016-07-14] MEDS: ASPIRIN ENTERIC COATED 81 MG TABLET.DR. PO SCH (08:40)
--- NOTE | 2016-07-14 09:49 | PDOC ---
Infectious Disease Note ROS ROS GEN: Denies fevers, chills, sweats HEENT: Denies blurred vision, sore throat CV: Denies chest pain RESP: Denies shortness of air, cough GI: Denies n/v/d NEURO: Denies confusion, dizziness MSK: Denies weakness, joint pain/swelling Vital Sign Vital Signs Vital Signs Date Time Temp Pulse Resp B/P (MAP) Pulse Ox O2 Delivery O2 Flow Rate FiO2 07/14/16 08:12 Room Air 07/14/16 07:52 96 07/14/16 07:00 99.2 82 14 111/46 (67) 99.2 Physical Exam PHYSICAL EXAM GENERAL: NAD, Alert HEENT: PERRL, OC/OP NECK: Supple, no JVD, no LN LUNGS: Clear HEART: S1S2, no gallop, no murmur ABD: Soft, NT, no organomegaly, no rebound EXT: No edema, no cyanosis LEAD ATHLETE: Alert, oriented x 3, 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 SKIN: No rash IV: ok Labs Lab Laboratory Tests Test 07/13/16 11:02 07/13/16 16:39 07/13/16 17:20 07/13/16 20:32 Glucose (Fingerstick) 110 mg/dL (70-99) 146 mg/dL (70-99) 203 mg/dL (70-99) Lactic Acid Level 1.8 mmol/L (0.4-2.0) Test 07/14/16 05:40 07/14/16 07:27 07/14/16 07:53 White Blood Count 29.9 x10^3/uL (4.0-11.0) Red Blood Count 2.98 x10^6/uL (4.30-5.70) Hemoglobin 9.0 g/dL (13.0-17.5) Hematocrit 26.5 % (39.0-53.0) Mean Corpuscular Volume 89 fL (79-100) Mean Corpuscular Hemoglobin 30 pg (25-35) Mean Corpuscular Hemoglobin Concent 34 g/dL (31-37) Red Cell Distribution Width 13.8 % (11.5-14.5) Platelet Count 329 x10^3/uL (140-400) Sodium Level 141 mmol/L (136-145) Potassium Level 3.9 mmol/L (3.5-5.1) Chloride Level 106 mmol/L (98-107) Carbon Dioxide Level 29 mmol/L (21-32) Anion Gap 6 (6-14) Blood Urea Nitrogen 29 mg/dL (8-26) Creatinine 2.2 mg/dL (0.7-1.3) Estimated GFR (Cockcroft-Gault) 30.1 Glucose Level 45 mg/dL (70-99) Calcium Level 8.3 mg/dL (8.5-10.1) Glucose (Fingerstick) 32 mg/dL (70-99) 54 mg/dL (70-99) Objective Assessment Fever Leukocytosis CKD Left heel eschar Plan Plan of Care Started Zosyn/Zyvox F/u labs in am and cults Foot XRAY Wound care consult Thank you # [id number] NORTH CHUN MD July 14, 2016 09:49
--- NOTE | 2016-07-14 10:07 | PDOC ---
SUBJECTIVE Subjective running fever, no injury fall this AM, BS down due not eating will adjust/hold insulin accordingly OBJECTIVE Vital Signs Vital Signs Date Time Temp Pulse Resp B/P (MAP) Pulse Ox O2 Delivery O2 Flow Rate FiO2 07/14/16 08:12 Room Air 07/14/16 07:52 96 Room Air 07/14/16 07:00 99.2 82 14 111/46 (67) 96 Room Air 99.2 07/14/16 03:08 93/47 (62) 07/14/16 03:07 102.8 98 18 100/38 (58) 96 Room Air 102.8 07/13/16 23:23 99.0 99 18 100/49 (66) 96 Room Air 99.0 07/13/16 20:18 98 Room Air 07/13/16 20:00 Room Air 07/13/16 19:00 99.7 94 20 105/45 (65) 93 Room Air 99.7 07/13/16 16:34 102.6 110 18 99/47 (64) Room Air 102.6 07/13/16 15:14 Room Air 07/13/16 14:45 100.5 101 18 123/52 (75) 95 Room Air 100.5 07/13/16 11:41 Room Air 07/13/16 10:39 99.5 107 18 106/56 (73) 96 Room Air 99.5 I & O Intake and Output 07/14/16 07:00 Intake Total 410 ml Balance 410 ml Intake Oral 360 ml IV Total 50 ml # Voids 6 PHYSICAL EXAM Physical Exam alert lungs with ronchi right lung and scattered wheezes abd soft and none tender ext no edema ASSESSMENT/PLAN Assessment/Plan 1- leukocytosis / fever likely aspirated during hypoglycemia or decrease mental status states , CXR with infiltrate RML no aspiration at bed side eval seems happened when decrease conciousness 2-hypoglycemia / hyperglycemia due to frail diabetic type 1 3- no evidence of CVA on MRI, no need for plavix will resume ASA only unless other recommendation by Neurology 4- heel ulcer 5- other diagnosis as per H&P continue ABx and hydration , ID consulted due to fever , will ask for 1 on 1 due to risk of falls pt does not follow directions and gets up without waiting on answer from staff Problems: COMMENT Lab Laboratory Tests Test 07/13/16 11:02 5/9/17 16:39 07/13/16 17:20 07/13/16 20:32 Glucose (Fingerstick) 110 mg/dL (70-99) 146 mg/dL (70-99) 203 mg/dL (70-99) Lactic Acid Level 1.8 mmol/L (0.4-2.0) Test 07/14/16 05:40 07/14/16 07:27 07/14/16 07:53 White Blood Count 29.9 x10^3/uL (4.0-11.0) Red Blood Count 2.98 x10^6/uL (4.30-5.70) Hemoglobin 9.0 g/dL (13.0-17.5) Hematocrit 26.5 % (39.0-53.0) Mean Corpuscular Volume 89 fL (79-100) Mean Corpuscular Hemoglobin 30 pg (25-35) Mean Corpuscular Hemoglobin Concent 34 g/dL (31-37) Red Cell Distribution Width 13.8 % (11.5-14.5) Platelet Count 329 x10^3/uL (140-400) Sodium Level 141 mmol/L (136-145) Potassium Level 3.9 mmol/L (3.5-5.1) Chloride Level 106 mmol/L (98-107) Carbon Dioxide Level 29 mmol/L (21-32) Anion Gap 6 (6-14) Blood Urea Nitrogen 29 mg/dL (8-26) Creatinine 2.2 mg/dL (0.7-1.3) Estimated GFR (Cockcroft-Gault) 30.1 Glucose Level 45 mg/dL (70-99) Calcium Level 8.3 mg/dL (8.5-10.1) Glucose (Fingerstick) 32 mg/dL (70-99) 54 mg/dL (70-99) VIRGINIA YORK MD July 14, 2016 10:07
[2016-07-14] MEDS: silver sulfADIAZINE 1% CREAM 25GM TUBE. TP SCH (11:24)
[2016-07-14] MEDS: ZINC OXIDE 20% TOPICAL OINTMENT 28GM TUBE. TP SCH (11:24)
--- NOTE | 2016-07-14 13:30 | RAD ---
Indication: Left heel wound. Time of exam 1308 hours. 2 views of the left foot were obtained. The calcaneus appears intact. No bony destructive changes are seen. No definite soft tissue gas is identified. There are vascular calcifications present. No fractures are seen. Impression: No acute feature is identified.
--- NOTE | 2016-07-14 15:07 | PDOC ---
PROGRESS NOTES Assessment Assessment Metabolic encephalopathy. Hypoglycemia, glucose level 42. Hyperglycemia, glucose level 499 Seizure DM HTN HLD Renal failure Low mental ability, chronic. Psychosis. No evidence of acute CVA this time. RECOMMENDATIONS/PLAN: Treat medical diseases. Control hyper and hypoglycemia. Continue Plavix 75 mg daily. Continue Lipitor HS. Continue Seroquel 12.5 mg bid. OT/PT. SUBJECTIVE: No cursing heard per staff on 07/14. OBJECTIVE: No focalized motor or sensory deficits. Psychosis improved on 07/14/16. Past Medical History Cardiovascular: HTN, HI, Hyperlipidemia Pulmonary: COPD Endocrine: Diabetes Past Surgical History CABG ALLERGY: Reviewed. MEDICATIONS: Refer to [facility] REVIEW OF SYSTEMS: Constitutional: No malnutrition, weight loss, cachexia. Head: No recent traumatic brain or head injury. Skin: No edema, or rash. Ear: No infection, tinnitus. Eyes: No vision loss, or diplopia. Nose: No bleeding or purulent discharges. Hearing: No hearing decrease. H Neck: No injury. Cardiac: HTN, HLD Pulmonary: No COPD. GI: No GI Ulcer, GI bleeding Urinary/genital: No dysuria, incontinence. Endocrine: Diabetes Mellitus, obesity. Skeletomuscular: No muscular atrophy, deformity. Neurological: see HP. Psychiatric: Denies drug use/abuse. Otherwise, not [id number] review of systems. PHYSICAL EXAMINATION: General appearance in subacute distress. HEENT: Normocephalic and nontraumatic. Eyes, nose, ears, and throat are unremarkable. Neck is supple. No lymphadenopathy. No bruits are heard over the carotid artery. No Crepitus. Cardiovascular: S1, S2, regular rate and rhythm. Pulmonary: Clear to auscultation bilaterally. Abdomen: Bowel sounds are positive. Extremities: No rash, lesions, or edema. No restriction of range of motion NEUROLOGICAL EXAMINATION: Drowsiness, but arousable. Not oriented to time, place and person. PERRL. EOMI. CN: no focal findings. Muscle tone: within normal. Muscle strength: 4 DTR: 1-2 Plantar reflex: Flexor response bilaterally Gait: able to walk around bed. Sensory exam: no abnormal findings. No obvious cerebellar signs elicited. F-T-N test not performed due to not follow commands. Objective Objective Vital Signs Date Time Temp Pulse Resp B/P (MAP) Pulse Ox O2 Delivery O2 Flow Rate FiO2 07/14/16 13:24 97 Room Air 07/14/16 11:00 98.4 84 14 120/52 (74) 98.4 Intake and Output 07/14/16 07:00 Intake Total 410 ml Balance 410 ml Intake Oral 360 ml IV Total 50 ml # Voids 6 Vitals Signs Vitals VS - Last 72 Hours, by Label Date Time Temp Pulse Resp B/P (MAP) Pulse Ox O2 Delivery O2 Flow Rate FiO2 07/14/16 13:24 97 Room Air 07/14/16 11:00 98.4 84 14 120/52 (74) 96 Room Air 98.4 07/14/16 08:12 Room Air 07/14/16 07:52 96 Room Air 07/14/16 07:00 99.2 82 14 111/46 (67) 96 Room Air 99.2 07/14/16 03:08 93/47 (62) 07/14/16 03:07 102.8 98 18 100/38 (58) 96 Room Air 102.8 07/13/16 23:23 99.0 99 18 100/49 (66) 96 Room Air 99.0 07/13/16 20:18 98 Room Air 07/13/16 20:00 Room Air 07/13/16 19:00 99.7 94 20 105/45 (65) 93 Room Air 99.7 07/13/16 16:34 102.6 110 18 99/47 (64) Room Air 102.6 07/13/16 15:14 Room Air 07/13/16 14:45 100.5 101 18 123/52 (75) 95 Room Air 100.5 07/13/16 11:41 Room Air 07/13/16 10:39 99.5 107 18 106/56 (73) 96 Room Air 99.5 07/13/16 08:23 93 121/52 07/13/16 08:05 Room Air 07/13/16 07:45 Room Air 07/13/16 07:00 98.9 93 18 121/52 (75) 96 Room Air 98.9 Laboratory Laboratory Laboratory Tests Test 07/13/16 16:39 07/13/16 17:20 07/13/16 20:32 07/14/16 05:40 Glucose (Fingerstick) 146 mg/dL (70-99) 203 mg/dL (70-99) Lactic Acid Level 1.8 mmol/L (0.4-2.0) White Blood Count 29.9 x10^3/uL (4.0-11.0) Red Blood Count 2.98 x10^6/uL (4.30-5.70) Hemoglobin 9.0 g/dL (13.0-17.5) Hematocrit 26.5 % (39.0-53.0) Mean Corpuscular Volume 89 fL (79-100) Mean Corpuscular Hemoglobin 30 pg (25-35) Mean Corpuscular Hemoglobin Concent 34 g/dL (31-37) Red Cell Distribution Width 13.8 % (11.5-14.5) Platelet Count 329 x10^3/uL (140-400) Sodium Level 141 mmol/L (136-145) Potassium Level 3.9 mmol/L (3.5-5.1) Chloride Level 106 mmol/L (98-107) Carbon Dioxide Level 29 mmol/L (21-32) Anion Gap 6 (6-14) Blood Urea Nitrogen 29 mg/dL (8-26) Creatinine 2.2 mg/dL (0.7-1.3) Estimated GFR (Cockcroft-Gault) 30.1 Glucose Level 45 mg/dL (70-99) Calcium Level 8.3 mg/dL (8.5-10.1) Test 07/14/16 07:27 07/14/16 07:53 07/14/16 11:17 Glucose (Fingerstick) 32 mg/dL (70-99) 54 mg/dL (70-99) 157 mg/dL (70-99) Microbiology 07/11/16 Blood Culture - Preliminary, Resulted NO GROWTH AFTER 3 DAYS Medication Medications Current Medications Acetaminophen (Tylenol) 325 mg PRN Q6HRS PRN PO MILD PAIN / TEMP Last administered on 07/14/16 02:44; Start 07/13/16 at 17:00; Stop 07/14/16 at 06:56 ; Status DC Acetaminophen (Tylenol) 650 mg PRN Q6HRS PRN PO MILD PAIN / TEMP Last administered on 07/14/16 08:42; Start 07/14/16 at 07:00 Insulin Detemir (Levemir) 10 units QHS SQ ; Start 07/14/16 at 21:00 Linezolid 300 ml @ 300 mls/hr Q12HR IV Last administered on 07/14/16 11:23; Start 07/14/16 at 08:00 Piperacillin Sod/ Tazobactam Sod 2.25 gm/Sodium Chloride 50 ml @ 100 mls/hr Q6HRS IV Last administered on 07/14/16 12:36; Start 07/14/16 at 07:30 Quetiapine Fumarate (SEROquel) 12.5 mg BID PO Last administered on 07/14/16 08 :37; Start 07/13/16 at 21:00 Sodium Chloride 1,000 ml @ 75 mls/hr [id number] IV Last administered on 07/13/16 16:54; Start 07/13/16 at 16:45 Comment Review of Relevant I have reviewed the following items monica (where applicable) has been applied. VIMAL HURTADO MD July 14, 2016 15:07
[2016-07-14] MEDS: ATORVASTATIN CALCIUM 40 MG TABLET. PO SCH (19:48)
[2016-07-14] MEDS: INSULIN DETEMIR 300 UNITS/3 ML INSULN.PEN. SQ SCH (20:54)
[2016-07-14] MEDS ORDERED: INSULIN ASPART 300 UNITS/3 ML INSULN.PEN SQ ONE (21:30)
[2016-07-15 02:30] VITALS: BP 108/45
[2016-07-15] MEDS: PIPERACILLIN/TAZOBACTAM 2.25 GM in IV NORMAL SALINE 50ML 50 ML IV SCH ×5 (05:58→18:09)
[2016-07-15] MEDS: IPRATRPIUM/ALBUTEROL 0.5/2.5MG 3 ML NEBU. NEB SCH ×4 (07:41→20:00)
[2016-07-15 07:57] VITALS: BP 139/56
[2016-07-15] MEDS: ASPIRIN ENTERIC COATED 81 MG TABLET.DR. PO SCH (08:51)
[2016-07-15] MEDS: QUEtiapine 25 MG TABLET. PO SCH ×2 (08:51→21:35)
[2016-07-15] MEDS: ZINC OXIDE 20% TOPICAL OINTMENT 28GM TUBE. TP SCH (08:54)
[2016-07-15] MEDS: silver sulfADIAZINE 1% CREAM 25GM TUBE. TP SCH (08:54)
[2016-07-15] MEDS: IV NORMAL SALINE 1000ML BAG 1,000 ML IV SCH ×2 (08:54→23:08)
[2016-07-15 09:11] LABS: BASO % 0 % (0-3); EOS % 0 % (0-3); HEMATOCRIT 24.5 % (39.0-53.0); HEMOGLOBIN 8.4 g/dL (13.0-17.5); LYMPH # 2.4 x10^3/uL (1.0-4.8); LYMPH % 14 % (24-48); MEAN CORPUSCULAR HEMOGLOBIN 31 pg (25-35); MEAN CORPUSCULAR HGB CONC 34 g/dL (31-37); MEAN CORPUSCULAR VOLUME 89 fL (79-100); MONO % 5 % (0-9); NEUT % 81 % (31-73); PLATELET COUNT 327 x10^3/uL (140-400); RED BLOOD COUNT 2.73 x10^6/uL (4.30-5.70); RED CELL DISTRIBUTION WIDTH 14.2 % (11.5-14.5); WHITE BLOOD COUNT 17.4 x10^3/uL (4.0-11.0)
[2016-07-15 09:12] LABS: CALCIUM 8.2 mg/dL (8.5-10.1); CREATININE 2.2 mg/dL (0.7-1.3); GFR 30.1; POTASSIUM 3.9 mmol/L (3.5-5.1)
[2016-07-15] MEDS: INSULIN ASPART 300 UNITS/3 ML INSULN.PEN SQ SCH ×3 (09:14→18:24)
--- NOTE | 2016-07-15 09:31 | PDOC ---
SUBJECTIVE Subjective more alert today OBJECTIVE Vital Signs Vital Signs Date Time Temp Pulse Resp B/P (MAP) Pulse Ox O2 Delivery O2 Flow Rate FiO2 07/15/16 07:57 98.6 73 18 139/56 (83) 92 Room Air 98.6 07/15/16 07:43 92 Room Air 07/15/16 02:30 97.9 81 18 108/45 (66) 95 Room Air 97.9 07/14/16 23:08 98.2 80 18 116/55 (75) 96 Room Air 98.2 07/14/16 20:23 95 Room Air 07/14/16 20:00 Room Air 07/14/16 19:00 97.9 79 18 116/51 (72) 98 Room Air 97.9 07/14/16 16:32 96 Room Air 07/14/16 15:00 98.0 80 14 126/60 (82) 96 Room Air 98.0 07/14/16 13:24 97 Room Air 07/14/16 11:00 98.4 84 14 120/52 (74) 96 Room Air 98.4 I & O Intake and Output 07/15/16 07:00 Intake Total 1250 ml Output Total 500 ml Balance 750 ml Intake Oral 1200 ml IV Total 50 ml Output Urine Total 500 ml # Voids 3 PHYSICAL EXAM Physical Exam lungs with ronchi right , few scattered wheezes bilateral heart RRR abd soft and none tender ext no edema ASSESSMENT/PLAN Assessment/Plan 1- leukocytosis / fever likely aspirated during hypoglycemia or decrease mental status states , CXR with infiltrate RML no aspiration at bed side eval seems happened when decrease conciousness 2-hypoglycemia / hyperglycemia due to frail diabetic type 1 3- no evidence of CVA on MRI, no need for plavix will resume ASA only unless other recommendation by Neurology 4- heel ulcer 5- other diagnosis as per H&P foot xray ok no evidence of osteomylitis or soft tissue swelling, fever is down but WBC still up, continue plans, Problems: COMMENT Lab Laboratory Tests Test 07/14/16 11:17 07/14/16 16:29 07/14/16 19:51 07/15/16 05:16 Glucose (Fingerstick) 157 mg/dL (70-99) 456 mg/dL (70-99) 525 mg/dL (70-99) 405 mg/dL (70-99) Test 07/15/16 07:50 07/15/16 08:45 Glucose (Fingerstick) 313 mg/dL (70-99) Sodium Level 140 mmol/L (136-145) Potassium Level 3.9 mmol/L (3.5-5.1) Chloride Level 106 mmol/L (98-107) Carbon Dioxide Level 27 mmol/L (21-32) Anion Gap 7 (6-14) Blood Urea Nitrogen 34 mg/dL (8-26) Creatinine 2.2 mg/dL (0.7-1.3) Estimated GFR (Cockcroft-Gault) 30.1 Glucose Level 293 mg/dL (70-99) Calcium Level 8.2 mg/dL (8.5-10.1) VIRGINIA YORK MD July 15, 2016 09:31
--- NOTE | 2016-07-15 09:43 | CONS ---
DATE OF CONSULTATION: 07/14/2016 PATIENT'S ROOM: 586. REQUESTING PHYSICIAN: Dr. Ness. REASON FOR CONSULTATION: Sepsis screen. HISTORY OF PRESENT ILLNESS: This patient is a 65-year-old gentleman with history of diabetes as well as some mental retardation who has had previous complications with DKA and history of pneumonia. He was brought to [facility] secondary to mental status changes, found to have a blood sugar of [address] Under[address] a [address] scan of his head, which showed a possible new CVA. However, been admitted and evaluated by Neurology and there is no evidence of a new CVA per their note. Yesterday, the white count 21.5, today it increased to 29.9 and a sepsis screen was called. Lactic acid was only 1.8 on the , but he did have a temperature of 102.8 this morning, hence I have been consulted. Currently, the patient is lying in bed. He is covered with a sheet over his head, although he did respond to questions. He states he did not realize he was having a fever. He did fall this morning. Denies any trauma or pain from this, has no shortness of air. Denies any nausea, vomiting or diarrhea or dysuria. He does have a wound on his left heel. He states it has been there since last time he was in the hospital. PAST MEDICAL HISTORY: Positive for diabetes, COPD, dyslipidemia, hypertension, coronary artery disease, chronic kidney disease, mental retardation, previous aspiration pneumonia, hyperlipidemia, hypertension, osteoarthritis. PAST SURGICAL HISTORY: Positive for coronary artery bypass graft. REVIEW OF SYSTEMS: As mentioned above. SOCIAL HISTORY: No tobacco, alcohol, is cared for at home. ALLERGIES: NO KNOWN DRUG ALLERGIES. FAMILY HISTORY: Noncontributory other than his brother has diabetes. CURRENT MEDICATIONS: Rocephin starting on the , Tylenol, Ecotrin, Lipitor, Levemir, NovoLog, Seroquel, Cozaar. Other meds are available and reviewed in the chart. PHYSICAL EXAMINATION: VITAL SIGNS: T-max 102.8, currently 99.2, pulse 82, respirations 14, blood pressure 111/46, satting 96% on room air. CONSTITUTIONAL: He again was lying under a sheet, when I arrived he did remove the sheet and there are no signs of any trauma on his head. HEENT: Oral cavity was dry. NECK: Supple, no JVD. LUNGS: Clear to auscultation. HEART: S1, S2. ABDOMEN: Soft, nontender, nondistended, positive bowel sounds. He is lying on his right side. EXTREMITIES: Without clubbing, cyanosis. His left heel has an eschar. NEUROLOGIC: He was alert, did answer questions. SKIN: Warm to touch without signs of rash. LABORATORY VALUES: White count today 29.9, hemoglobin 9, platelets of 329, creatinine 2.2, glucose dropped to 32, was 45 earlier. Urinalysis from the was clean. Blood cultures are negative for 2 days. Chest x-ray from the , questionable opacity in the right lower lobe. Brain MRI on , no acute findings. IMPRESSION: 1. Fever. 2. Leukocytosis. 3. Chronic kidney disease. 4. Left heel eschar. RECOMMENDATIONS: This morning I have started Zosyn and Zyvox, we will follow up labs and cultures. Obtain x-ray of the foot and consult wound care. Thank you for allowing me to participate in the patient's care. If you have any questions, please do not hesitate to contact me. NORTH CHUN MD DR: COLE/tata JOB#: [id number] / [id number]
--- NOTE | 2016-07-15 10:09 | PDOC ---
Infectious Disease Note Subjective Subjective Says he doesn't feel any better but denies pain/SOA/cough/fever ROS ROS GEN: Denies fevers, chills, sweats HEENT: Denies blurred vision, sore throat CV: Denies chest pain RESP: Denies shortness of air, cough GI: Denies n/v/d NEURO: Denies confusion, dizziness MSK: Denies weakness, joint pain/swelling Vital Sign Vital Signs Vital Signs Date Time Temp Pulse Resp B/P (MAP) Pulse Ox O2 Delivery O2 Flow Rate FiO2 07/15/16 07:57 98.6 73 18 139/56 (83) 92 Room Air 98.6 Physical Exam PHYSICAL EXAM GENERAL: NAD, more Alert HEENT: PERRL, OC/OP - dry NECK: Supple, no JVD, no LN LUNGS: Clear HEART: S1S2, no gallop, no murmur ABD: Soft, NT, no organomegaly, no rebound EXT: No edema, no cyanosis/ Left heel dressed 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, 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, 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 SKIN: No rash IV: ok Labs Lab Laboratory Tests Test 07/14/16 11:17 07/14/16 16:29 07/14/16 19:51 07/15/16 05:16 Glucose (Fingerstick) 157 mg/dL (70-99) 456 mg/dL (70-99) 525 mg/dL (70-99) 405 mg/dL (70-99) Test 07/15/16 07:50 07/15/16 08:45 Glucose (Fingerstick) 313 mg/dL (70-99) White Blood Count 17.4 x10^3/uL (4.0-11.0) Red Blood Count 2.73 x10^6/uL (4.30-5.70) Hemoglobin 8.4 g/dL (13.0-17.5) Hematocrit 24.5 % (39.0-53.0) Mean Corpuscular Volume 89 fL (79-100) Mean Corpuscular Hemoglobin 31 pg (25-35) Mean Corpuscular Hemoglobin Concent 34 g/dL (31-37) Red Cell Distribution Width 14.2 % (11.5-14.5) Platelet Count 327 x10^3/uL (140-400) Neutrophils (%) (Auto) 81 % (31-73) Lymphocytes (%) (Auto) 14 % (24-48) Monocytes (%) (Auto) 5 % (0-9) Eosinophils (%) (Auto) 0 % (0-3) Basophils (%) (Auto) 0 % (0-3) Neutrophils # (Auto) 14.1 x10^3uL (1.8-7.7) Lymphocytes # (Auto) 2.4 x10^3/uL (1.0-4.8) Monocytes # (Auto) 0.9 x10^3/uL (0.0-1.1) Eosinophils # (Auto) 0.0 x10^3/uL (0.0-0.7) Basophils # (Auto) 0.0 x10^3/uL (0.0-0.2) Sodium Level 140 mmol/L (136-145) Potassium Level 3.9 mmol/L (3.5-5.1) Chloride Level 106 mmol/L (98-107) Carbon Dioxide Level 27 mmol/L (21-32) Anion Gap 7 (6-14) Blood Urea Nitrogen 34 mg/dL (8-26) Creatinine 2.2 mg/dL (0.7-1.3) Estimated GFR (Cockcroft-Gault) 30.1 Glucose Level 293 mg/dL (70-99) Calcium Level 8.2 mg/dL (8.5-10.1) Objective Assessment Fever - better Leukocytosis - better CKD - stable Dysphagia with ? aspiration Left heel eschar - XRAY - neg Plan Plan of Care Clincially looks better - cont Zosyn/Zyvox F/u labs in am and cults Wound care consult NORTH CHUN MD July 15, 2016 10:09
[2016-07-15 10:51] VITALS: BP 112/43
[2016-07-15] MEDS ORDERED: INSULIN ASPART 300 UNITS/3 ML INSULN.PEN SQ ONE ×2 (12:15→18:30)
[2016-07-15 13:03] LABS: % EOS 1 % (0-5); PLT ESTIMATE ADEQUATE (ADEQUATE)
--- NOTE | 2016-07-15 13:45 | PDOC ---
PROGRESS NOTES Assessment Assessment Metabolic encephalopathy. Hypoglycemia, glucose level 42. Hyperglycemia, glucose level 499 Seizure DM HTN HLD Renal failure Low mental ability, chronic. Psychosis. No evidence of acute CVA this time. RECOMMENDATIONS/PLAN: Treat medical diseases. Control hyper and hypoglycemia. Continue Plavix 75 mg daily. Continue Lipitor HS. Continue Seroquel 12.5 mg bid. OT/PT. SUBJECTIVE: No obvious psychosis on 07/15. OBJECTIVE: No focalized motor or sensory deficits. Psychosis improved on 07/14/16. Past Medical History Cardiovascular: HTN, NE, Hyperlipidemia Pulmonary: COPD Endocrine: Diabetes Past Surgical History CABG ALLERGY: Reviewed. MEDICATIONS: Refer to [facility] REVIEW OF SYSTEMS: Constitutional: No malnutrition, weight loss, cachexia. Head: No recent traumatic brain or head injury. Skin: No edema, or rash. Ear: No infection, tinnitus. Eyes: No vision loss, or diplopia. Nose: No bleeding or purulent discharges. Hearing: No hearing decrease. H Neck: No injury. Cardiac: HTN, HLD Pulmonary: No COPD. GI: No GI Ulcer, GI bleeding Urinary/genital: No dysuria, incontinence. Endocrine: Diabetes Mellitus, obesity. Skeletomuscular: No muscular atrophy, deformity. Neurological: see HP. Psychiatric: Denies drug use/abuse. Otherwise, not [id number] review of systems. PHYSICAL EXAMINATION: General appearance in subacute distress. HEENT: Normocephalic and nontraumatic. Eyes, nose, ears, and throat are unremarkable. Neck is supple. No lymphadenopathy. No bruits are heard over the carotid artery. No Crepitus. Cardiovascular: S1, S2, regular rate and rhythm. Pulmonary: Clear to auscultation bilaterally. Abdomen: Bowel sounds are positive. Extremities: No rash, lesions, or edema. No restriction of range of motion NEUROLOGICAL EXAMINATION: Awake. Not communicate. Not oriented to time, place and person. PERRL. EOMI. CN: no focal findings. Muscle tone: within normal. Muscle strength: 4+ DTR: 1-2 Plantar reflex: Flexor response bilaterally Gait: able to walk around bed. Sensory exam: no abnormal findings. No obvious cerebellar signs elicited. F-T-N test not performed due to not follow commands. Objective Objective Vital Signs Date Time Temp Pulse Resp B/P (MAP) Pulse Ox O2 Delivery O2 Flow Rate FiO2 07/15/16 11:33 Room Air 07/15/16 10:51 98.0 79 19 112/43 (66) 95 98.0 Intake and Output 07/15/16 07:00 Intake Total 1250 ml Output Total 500 ml Balance 750 ml Intake Oral 1200 ml IV Total 50 ml Output Urine Total 500 ml # Voids 3 Vitals Signs Vitals VS - Last 72 Hours, by Label Date Time Temp Pulse Resp B/P (MAP) Pulse Ox O2 Delivery O2 Flow Rate FiO2 07/15/16 11:33 Room Air 07/15/16 10:51 98.0 79 19 112/43 (66) 95 Room Air 98.0 07/15/16 07:57 98.6 73 18 139/56 (83) 92 Room Air 98.6 07/15/16 07:43 92 Room Air 07/15/16 02:30 97.9 81 18 108/45 (66) 95 Room Air 97.9 07/14/16 23:08 98.2 80 18 116/55 (75) 96 Room Air 98.2 07/14/16 20:23 95 Room Air 07/14/16 20:00 Room Air 07/14/16 19:00 97.9 79 18 116/51 (72) 98 Room Air 97.9 07/14/16 16:32 96 Room Air 07/14/16 15:00 98.0 80 14 126/60 (82) 96 Room Air 98.0 07/14/16 13:24 97 Room Air 07/14/16 11:00 98.4 84 14 120/52 (74) 96 Room Air 98.4 07/14/16 08:12 Room Air 07/14/16 07:52 96 Room Air 07/14/16 07:00 99.2 82 14 111/46 (67) 96 Room Air 99.2 Laboratory Laboratory Laboratory Tests Test 07/14/16 16:29 07/14/16 19:51 07/15/16 05:16 07/15/16 07:50 Glucose (Fingerstick) 456 mg/dL (70-99) 525 mg/dL (70-99) 405 mg/dL (70-99) 313 mg/dL (70-99) Test 07/15/16 08:45 07/15/16 11:29 White Blood Count 17.4 x10^3/uL (4.0-11.0) Red Blood Count 2.73 x10^6/uL (4.30-5.70) Hemoglobin 8.4 g/dL (13.0-17.5) Hematocrit 24.5 % (39.0-53.0) Mean Corpuscular Volume 89 fL (79-100) Mean Corpuscular Hemoglobin 31 pg (25-35) Mean Corpuscular Hemoglobin Concent 34 g/dL (31-37) Red Cell Distribution Width 14.2 % (11.5-14.5) Platelet Count 327 x10^3/uL (140-400) Neutrophils (%) (Auto) 81 % (31-73) Lymphocytes (%) (Auto) 14 % (24-48) Monocytes (%) (Auto) 5 % (0-9) Eosinophils (%) (Auto) 0 % (0-3) Basophils (%) (Auto) 0 % (0-3) Neutrophils # (Auto) 14.1 x10^3uL (1.8-7.7) Lymphocytes # (Auto) 2.4 x10^3/uL (1.0-4.8) Monocytes # (Auto) 0.9 x10^3/uL (0.0-1.1) Eosinophils # (Auto) 0.0 x10^3/uL (0.0-0.7) Basophils # (Auto) 0.0 x10^3/uL (0.0-0.2) Segmented Neutrophils % 84 % (35-66) Lymphocytes % 11 % (24-48) Monocytes % 4 % (0-10) Eosinophils % 1 % (0-5) Platelet Estimate Adequate (ADEQUATE) Basophilic Stippling Present Sodium Level 140 mmol/L (136-145) Potassium Level 3.9 mmol/L (3.5-5.1) Chloride Level 106 mmol/L (98-107) Carbon Dioxide Level 27 mmol/L (21-32) Anion Gap 7 (6-14) Blood Urea Nitrogen 34 mg/dL (8-26) Creatinine 2.2 mg/dL (0.7-1.3) Estimated GFR (Cockcroft-Gault) 30.1 Glucose Level 293 mg/dL (70-99) Calcium Level 8.2 mg/dL (8.5-10.1) Glucose (Fingerstick) 353 mg/dL (70-99) Microbiology 5/9/17 Blood Culture - Preliminary, Resulted NO GROWTH AFTER 1 DAY Medication Medications Current Medications Insulin Aspart (NovoLOG) 2 units 1X ONCE SQ Last administered on 07/15/16 12: 20; Start 07/15/16 at 12:15; Stop 07/15/16 at 12:16; Status DC Insulin Aspart (Novolog) 5 units 1X ONCE SQ Last administered on 07/14/16 21: 20; Start 07/14/16 at 21:30; Stop 07/14/16 at 21:31; Status DC Insulin Detemir (Levemir) 10 units QHS SQ Last administered on 07/14/16 20:54 ; Start 07/14/16 at 21:00 Comment Review of Relevant I have reviewed the following items monica (where applicable) has been applied. VIMAL HURTADO MD July 15, 2016 13:45
[2016-07-15 14:48] VITALS: BP 112/60
[2016-07-15 19:00] VITALS: BP 121/51
[2016-07-15] MEDS ORDERED: DEXTROSE 50% 25 GM / 50ML DISP.SYRIN. IV PRN (21:30)
[2016-07-15] MEDS: ATORVASTATIN CALCIUM 40 MG TABLET. PO SCH (21:34)
[2016-07-15] MEDS: INSULIN DETEMIR 300 UNITS/3 ML INSULN.PEN. SQ SCH (21:40)
[2016-07-15 23:00] VITALS: BP 118/63
[2016-07-16 03:00] VITALS: BP 125/60
[2016-07-16] MEDS: PIPERACILLIN/TAZOBACTAM 2.25 GM in IV NORMAL SALINE 50ML 50 ML IV SCH ×5 (05:58→17:26)
[2016-07-16 07:00] VITALS: BP 142/37
[2016-07-16 07:15] LABS: HEMATOCRIT 24.3 % (39.0-53.0); RED BLOOD COUNT 2.65 x10^6/uL (4.30-5.70); RED CELL DISTRIBUTION WIDTH 13.8 % (11.5-14.5); WHITE BLOOD COUNT 9.2 x10^3/uL (4.0-11.0)
[2016-07-16 07:25] LABS: CALCIUM 8.4 mg/dL (8.5-10.1); CREATININE 1.8 mg/dL (0.7-1.3); GFR 37.9; POTASSIUM 3.8 mmol/L (3.5-5.1)
[2016-07-16] MEDS: INSULIN ASPART 300 UNITS/3 ML INSULN.PEN SQ SCH ×4 (07:30→17:30)
[2016-07-16] MEDS: IPRATRPIUM/ALBUTEROL 0.5/2.5MG 3 ML NEBU. NEB SCH ×4 (07:45→20:05)
--- NOTE | 2016-07-16 08:32 | PDOC ---
Infectious Disease Note Subjective Subjective Says he is some better but denies hunger. No pain/SOA/cough/fever ROS ROS GEN: Denies fevers, chills, sweats HEENT: Denies blurred vision, sore throat CV: Denies chest pain RESP: Denies shortness of air, cough GI: Denies n/v/d NEURO: Denies confusion, dizziness MSK: Denies weakness, joint pain/swelling Vital Sign Vital Signs Vital Signs Date Time Temp Pulse Resp B/P (MAP) Pulse Ox O2 Delivery O2 Flow Rate FiO2 07/16/16 07:47 93 Room Air 07/16/16 03:00 98.6 74 18 125/60 (81) 98.6 Physical Exam PHYSICAL EXAM GENERAL: NAD, more Alert, looks better. 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, 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 SKIN: No rash IV: ok Labs Lab Laboratory Tests Test 07/15/16 08:45 07/15/16 11:29 07/15/16 17:01 07/15/16 21:26 White Blood Count 17.4 x10^3/uL (4.0-11.0) Red Blood Count 2.73 x10^6/uL (4.30-5.70) Hemoglobin 8.4 g/dL (13.0-17.5) Hematocrit 24.5 % (39.0-53.0) Mean Corpuscular Volume 89 fL (79-100) Mean Corpuscular Hemoglobin 31 pg (25-35) Mean Corpuscular Hemoglobin Concent 34 g/dL (31-37) Red Cell Distribution Width 14.2 % (11.5-14.5) Platelet Count 327 x10^3/uL (140-400) Neutrophils (%) (Auto) 81 % (31-73) Lymphocytes (%) (Auto) 14 % (24-48) Monocytes (%) (Auto) 5 % (0-9) Eosinophils (%) (Auto) 0 % (0-3) Basophils (%) (Auto) 0 % (0-3) Neutrophils # (Auto) 14.1 x10^3uL (1.8-7.7) Lymphocytes # (Auto) 2.4 x10^3/uL (1.0-4.8) Monocytes # (Auto) 0.9 x10^3/uL (0.0-1.1) Eosinophils # (Auto) 0.0 x10^3/uL (0.0-0.7) Basophils # (Auto) 0.0 x10^3/uL (0.0-0.2) Segmented Neutrophils % 84 % (35-66) Lymphocytes % 11 % (24-48) Monocytes % 4 % (0-10) Eosinophils % 1 % (0-5) Platelet Estimate Adequate (ADEQUATE) Basophilic Stippling Present Sodium Level 140 mmol/L (136-145) Potassium Level 3.9 mmol/L (3.5-5.1) Chloride Level 106 mmol/L (98-107) Carbon Dioxide Level 27 mmol/L (21-32) Anion Gap 7 (6-14) Blood Urea Nitrogen 34 mg/dL (8-26) Creatinine 2.2 mg/dL (0.7-1.3) Estimated GFR (Cockcroft-Gault) 30.1 Glucose Level 293 mg/dL (70-99) Calcium Level 8.2 mg/dL (8.5-10.1) Glucose (Fingerstick) 353 mg/dL (70-99) 306 mg/dL (70-99) 217 mg/dL (70-99) Test 07/16/16 01:26 07/16/16 06:30 Glucose (Fingerstick) 266 mg/dL (70-99) White Blood Count 9.2 x10^3/uL (4.0-11.0) Red Blood Count 2.65 x10^6/uL (4.30-5.70) Hemoglobin 8.0 g/dL (13.0-17.5) Hematocrit 24.3 % (39.0-53.0) Mean Corpuscular Volume 92 fL (79-100) Mean Corpuscular Hemoglobin 30 pg (25-35) Mean Corpuscular Hemoglobin Concent 33 g/dL (31-37) Red Cell Distribution Width 13.8 % (11.5-14.5) Platelet Count 305 x10^3/uL (140-400) Sodium Level 145 mmol/L (136-145) Potassium Level 3.8 mmol/L (3.5-5.1) Chloride Level 110 mmol/L (98-107) Carbon Dioxide Level 27 mmol/L (21-32) Anion Gap 8 (6-14) Blood Urea Nitrogen 25 mg/dL (8-26) Creatinine 1.8 mg/dL (0.7-1.3) Estimated GFR (Cockcroft-Gault) 37.9 Glucose Level 143 mg/dL (70-99) Calcium Level 8.4 mg/dL (8.5-10.1) Objective Assessment Fever - better Leukocytosis - better CKD - stable Dysphagia with ? aspiration Left heel eschar - XRAY - neg Plan Plan of Care Clincially looks better - cont Zosyn/Zyvox - taper soon F/u labs in am and cults NORTH CHUN MD July 16, 2016 08:32
[2016-07-16] MEDS: QUEtiapine 25 MG TABLET. PO SCH ×2 (09:27→22:31)
[2016-07-16] MEDS: ZINC OXIDE 20% TOPICAL OINTMENT 28GM TUBE. TP SCH (09:27)
[2016-07-16] MEDS: ASPIRIN ENTERIC COATED 81 MG TABLET.DR. PO SCH (09:27)
[2016-07-16] MEDS: silver sulfADIAZINE 1% CREAM 25GM TUBE. TP SCH (09:28)
--- NOTE | 2016-07-16 10:06 | PDOC ---
SUBJECTIVE Subjective state feels better today OBJECTIVE Objective fever down Vital Signs Vital Signs Date Time Temp Pulse Resp B/P (MAP) Pulse Ox O2 Delivery O2 Flow Rate FiO2 07/16/16 07:47 93 Room Air 07/16/16 07:00 97.8 76 16 142/37 (72) 92 Room Air 97.8 07/16/16 03:00 98.6 74 18 125/60 (81) 93 Room Air 98.6 07/15/16 23:00 98.5 82 16 118/63 (81) 95 Room Air 98.5 07/15/16 20:00 Room Air 07/15/16 19:00 98.3 76 16 121/51 (74) 95 Room Air 98.3 07/15/16 15:23 Room Air 07/15/16 14:48 99.1 81 18 112/60 (77) 97 Room Air 99.1 07/15/16 11:33 Room Air 07/15/16 10:51 98.0 79 19 112/43 (66) 95 Room Air 98.0 I & O Intake and Output 07/16/16 07:00 Intake Total 600 ml Balance 600 ml Intake Oral 600 ml # Voids 4 # Bowel Movements 3 PHYSICAL EXAM Physical Exam no change ASSESSMENT/PLAN Assessment/Plan 1- leukocytosis / fever likely aspirated during hypoglycemia or decrease mental status states , CXR with infiltrate RML no aspiration at bed side eval seems happened when decrease conciousness 2-hypoglycemia / hyperglycemia due to frail diabetic type 1 3- no evidence of CVA on MRI, plavix recommended by neurology will restart 4- heel ulcer 5- other diagnosis as per H&P continue plans his WBC much better and kidney function better today , Dr. Ha will cover this week end Problems: COMMENT Lab Laboratory Tests Test 07/15/16 11:29 07/15/16 17:01 07/15/16 21:26 07/16/16 01:26 Glucose (Fingerstick) 353 mg/dL (70-99) 306 mg/dL (70-99) 217 mg/dL (70-99) 266 mg/dL (70-99) Test 07/16/16 06:30 07/16/16 07:42 White Blood Count 9.2 x10^3/uL (4.0-11.0) Red Blood Count 2.65 x10^6/uL (4.30-5.70) Hemoglobin 8.0 g/dL (13.0-17.5) Hematocrit 24.3 % (39.0-53.0) Mean Corpuscular Volume 92 fL (79-100) Mean Corpuscular Hemoglobin 30 pg (25-35) Mean Corpuscular Hemoglobin Concent 33 g/dL (31-37) Red Cell Distribution Width 13.8 % (11.5-14.5) Platelet Count 305 x10^3/uL (140-400) Sodium Level 145 mmol/L (136-145) Potassium Level 3.8 mmol/L (3.5-5.1) Chloride Level 110 mmol/L (98-107) Carbon Dioxide Level 27 mmol/L (21-32) Anion Gap 8 (6-14) Blood Urea Nitrogen 25 mg/dL (8-26) Creatinine 1.8 mg/dL (0.7-1.3) Estimated GFR (Cockcroft-Gault) 37.9 Glucose Level 143 mg/dL (70-99) Calcium Level 8.4 mg/dL (8.5-10.1) Glucose (Fingerstick) 116 mg/dL (70-99) VIRGINIA YORK MD July 16, 2016 10:06
[2016-07-16 11:00] VITALS: BP 141/50
[2016-07-16] MEDS: ASCORBIC ACID 500 MG TABLET PO SCH (13:37)
[2016-07-16] MEDS: IV NORMAL SALINE 1000ML BAG 1,000 ML IV SCH (13:59)
--- NOTE | 2016-07-16 14:58 | PDOC ---
PROGRESS NOTES Assessment Assessment Metabolic encephalopathy. Hypoglycemia, glucose level 42. Hyperglycemia, glucose level 499 Seizure DM HTN HLD Renal failure Low mental ability, chronic. Psychosis. No evidence of acute CVA this time. RECOMMENDATIONS/PLAN: Treat medical diseases. Control hyper and hypoglycemia. Continue Plavix 75 mg daily. Continue Lipitor HS. Continue Seroquel 12.5 mg bid. OT/PT. SUBJECTIVE: No obvious psychosis since 07/15. OBJECTIVE: No focalized motor or sensory deficits. Psychosis improved since 07/14/16. Past Medical History Cardiovascular: HTN, MT, Hyperlipidemia Pulmonary: COPD Endocrine: Diabetes Past Surgical History CABG ALLERGY: Reviewed. MEDICATIONS: Refer to [facility] REVIEW OF SYSTEMS: Constitutional: No malnutrition, weight loss, cachexia. Head: No recent traumatic brain or head injury. Skin: No edema, or rash. Ear: No infection, tinnitus. Eyes: No vision loss, or diplopia. Nose: No bleeding or purulent discharges. Hearing: No hearing decrease. H Neck: No injury. Cardiac: HTN, HLD Pulmonary: No COPD. GI: No GI Ulcer, GI bleeding Urinary/genital: No dysuria, incontinence. Endocrine: Diabetes Mellitus, obesity. Skeletomuscular: No muscular atrophy, deformity. Neurological: see HP. Psychiatric: Denies drug use/abuse. Otherwise, not [id number] review of systems. PHYSICAL EXAMINATION: General appearance in subacute distress. HEENT: Normocephalic and nontraumatic. Eyes, nose, ears, and throat are unremarkable. Neck is supple. No lymphadenopathy. No bruits are heard over the carotid artery. No Crepitus. Cardiovascular: S1, S2, regular rate and rhythm. Pulmonary: Clear to auscultation bilaterally. Abdomen: Bowel sounds are positive. Extremities: No rash, lesions, or edema. No restriction of range of motion NEUROLOGICAL EXAMINATION: Awake. Not communicate. Not oriented to time, place and person. Able to follow a few commands. PERRL. EOMI. CN: no focal findings. Muscle tone: within normal. Muscle strength: 4+ DTR: 1-2 Plantar reflex: Flexor response bilaterally Gait: able to walk around bed. Sensory exam: no abnormal findings. No obvious cerebellar signs elicited. F-T-N test not performed due to not follow commands. Objective Objective Vital Signs Date Time Temp Pulse Resp B/P (MAP) Pulse Ox O2 Delivery O2 Flow Rate FiO2 07/16/16 11:00 97.9 77 16 141/50 (80) 97 Room Air 97.9 Intake and Output 07/16/16 07:00 Intake Total 600 ml Balance 600 ml Intake Oral 600 ml # Voids 4 # Bowel Movements 3 Vitals Signs Vitals VS - Last 72 Hours, by Label Date Time Temp Pulse Resp B/P (MAP) Pulse Ox O2 Delivery O2 Flow Rate FiO2 07/16/16 11:00 97.9 77 16 141/50 (80) 97 Room Air 97.9 07/16/16 10:56 Room Air 07/16/16 08:00 Room Air 07/16/16 07:47 93 Room Air 07/16/16 07:00 97.8 76 16 142/37 (72) 92 Room Air 97.8 07/16/16 03:00 98.6 74 18 125/60 (81) 93 Room Air 98.6 07/15/16 23:00 98.5 82 16 118/63 (81) 95 Room Air 98.5 07/15/16 20:00 Room Air 07/15/16 19:00 98.3 76 16 121/51 (74) 95 Room Air 98.3 07/15/16 15:23 Room Air 07/15/16 14:48 99.1 81 18 112/60 (77) 97 Room Air 99.1 07/15/16 11:33 Room Air 07/15/16 10:51 98.0 79 19 112/43 (66) 95 Room Air 98.0 07/15/16 08:05 Room Air 07/15/16 07:57 98.6 73 18 139/56 (83) 92 Room Air 98.6 07/15/16 07:43 92 Room Air Laboratory Laboratory Laboratory Tests Test 07/15/16 17:01 07/15/16 21:26 07/16/16 01:26 07/16/16 06:30 Glucose (Fingerstick) 306 mg/dL (70-99) 217 mg/dL (70-99) 266 mg/dL (70-99) White Blood Count 9.2 x10^3/uL (4.0-11.0) Red Blood Count 2.65 x10^6/uL (4.30-5.70) Hemoglobin 8.0 g/dL (13.0-17.5) Hematocrit 24.3 % (39.0-53.0) Mean Corpuscular Volume 92 fL (79-100) Mean Corpuscular Hemoglobin 30 pg (25-35) Mean Corpuscular Hemoglobin Concent 33 g/dL (31-37) Red Cell Distribution Width 13.8 % (11.5-14.5) Platelet Count 305 x10^3/uL (140-400) Sodium Level 145 mmol/L (136-145) Potassium Level 3.8 mmol/L (3.5-5.1) Chloride Level 110 mmol/L (98-107) Carbon Dioxide Level 27 mmol/L (21-32) Anion Gap 8 (6-14) Blood Urea Nitrogen 25 mg/dL (8-26) Creatinine 1.8 mg/dL (0.7-1.3) Estimated GFR (Cockcroft-Gault) 37.9 Glucose Level 143 mg/dL (70-99) Calcium Level 8.4 mg/dL (8.5-10.1) Test 07/16/16 07:42 07/16/16 12:04 Glucose (Fingerstick) 116 mg/dL (70-99) 221 mg/dL (70-99) Microbiology 07/13/16 Blood Culture - Preliminary, Resulted NO GROWTH AFTER 2 DAYS Medication Medications Current Medications Ascorbic Acid (Vitamin C) 500 mg DAILY PO Last administered on 07/16/16 13:37 ; Start 07/16/16 at 11:00 Clopidogrel Bisulfate (Plavix) 75 mg DAILYWBKFT PO ; Start 07/17/16 at 08:00 Dextrose (Dextrose 50%-Water Syringe) 25 gm PRN 1X PRN IV SEE COMMENTS; Start 07/15/16 at 21:30 Insulin Aspart (NovoLOG) 2 units 1X ONCE SQ Last administered on 07/15/16 18: 30; Start 07/15/16 at 18:30; Stop 07/15/16 at 18:31; Status DC Multivitamins (Thera M Plus) 1 tab DAILY PO ; Start 07/17/16 at 09:00 Comment Review of Relevant I have reviewed the following items monica (where applicable) has been applied. VIMAL HURTADO MD July 16, 2016 14:58
[2016-07-16 14:59] VITALS: BP 140/44
[2016-07-16 19:56] VITALS: BP 145/58
[2016-07-16] MEDS: ATORVASTATIN CALCIUM 40 MG TABLET. PO SCH (22:30)
[2016-07-16] MEDS: INSULIN DETEMIR 300 UNITS/3 ML INSULN.PEN. SQ SCH (22:36)
[2016-07-16 23:20] VITALS: BP 153/63
[2016-07-17 03:00] VITALS: BP 174/74
[2016-07-17] MEDS: IV NORMAL SALINE 1000ML BAG 1,000 ML IV SCH ×2 (04:22→15:30)
[2016-07-17] MEDS: PIPERACILLIN/TAZOBACTAM 2.25 GM in IV NORMAL SALINE 50ML 50 ML IV SCH ×6 (05:57→23:34)
[2016-07-17 06:16] LABS: HEMATOCRIT 25.6 % (39.0-53.0); HEMOGLOBIN 8.7 g/dL (13.0-17.5); RED BLOOD COUNT 2.86 x10^6/uL (4.30-5.70); RED CELL DISTRIBUTION WIDTH 13.8 % (11.5-14.5); WHITE BLOOD COUNT 6.4 x10^3/uL (4.0-11.0)
[2016-07-17 06:27] LABS: CALCIUM 8.3 mg/dL (8.5-10.1); CREATININE 1.6 mg/dL (0.7-1.3); GFR 43.5; POTASSIUM 3.9 mmol/L (3.5-5.1)
[2016-07-17 07:00] VITALS: BP 163/72
[2016-07-17] MEDS: IPRATRPIUM/ALBUTEROL 0.5/2.5MG 3 ML NEBU. NEB SCH ×4 (07:22→19:38)
[2016-07-17] MEDS: MULTIVITAMIN with MINERAL TABLET. PO SCH (08:45)
[2016-07-17] MEDS: ASCORBIC ACID 500 MG TABLET PO SCH (08:46)
[2016-07-17] MEDS: QUEtiapine 25 MG TABLET. PO SCH ×2 (08:46→20:38)
[2016-07-17] MEDS: ASPIRIN ENTERIC COATED 81 MG TABLET.DR. PO SCH (08:46)
[2016-07-17] MEDS: CLOPIDOGREL BISULFATE 75 MG TABLET PO SCH (08:46)
[2016-07-17] MEDS: silver sulfADIAZINE 1% CREAM 25GM TUBE. TP SCH (08:48)
[2016-07-17] MEDS: ZINC OXIDE 20% TOPICAL OINTMENT 28GM TUBE. TP SCH (08:48)
[2016-07-17] MEDS: INSULIN ASPART 300 UNITS/3 ML INSULN.PEN SQ SCH ×3 (09:07→17:58)
[2016-07-17 10:44] VITALS: BP 150/55
--- NOTE | 2016-07-17 10:59 | PDOC ---
GENERAL General: vss and afebrile. awake and alert and says just doesn't feel well all over but nothing specific. ongoing labile blood sugars. continue present. help of consultants appreciated. Problems: VITAL SIGNS Vital Signs: Vital Signs Date Time Temp Pulse Resp B/P (MAP) Pulse Ox O2 Delivery O2 Flow Rate FiO2 07/17/16 10:44 97.8 85 18 150/55 (86) 96 Room Air 97.8 I & O I & O Intake and Output 07/17/16 07:00 Intake Total 200 ml Output Total 400 ml Balance -200 ml Intake Oral 200 ml Output Urine Total 400 ml # Voids 8 # Bowel Movements 1 ALLERGIES Allergies: Allergies Coded Allergies Type Severity Reaction Last Updated Verified No Known Drug Allergies 05/18/16 No MEDS Medications: Current Medications Medications (Trade) Dose Ordered Sig/Paresh Start Time Stop Time Status Last Admin Dose Admin Acetaminophen (Tylenol) 650 mg PRN Q6HRS PRN 07/14/16 07:00 07/14/16 08:42 650 MG Albuterol/ Ipratropium (Duoneb) 3 ml RTQID 07/12/16 16:00 07/17/16 07:22 3 ML Ascorbic Acid (Vitamin C) 500 mg DAILY 07/16/16 11:00 07/17/16 08:46 500 MG Aspirin (Ecotrin) 81 mg DAILYWBKFT 07/12/16 14:30 07/17/16 08:46 81 MG Atorvastatin Calcium (Lipitor) 80 mg QHS 07/12/16 21:00 07/16/16 22:30 80 MG Ceftriaxone Sodium 1 gm/ Sodium Chloride 50 ml @ 100 mls/hr Q24H 07/13/16 11:00 07/14/16 07:23 DC 07/13/16 11:17 100 MLS/HR Clopidogrel Bisulfate (Plavix) 75 mg DAILYWBKFT 07/17/16 08:00 07/17/16 08:46 75 MG Dextrose (Dextrose 50%-Water Syringe) 25 gm PRN 1X PRN 07/15/16 21:30 Dextrose/Sodium Chloride 500 ml @ 0 mls/hr 1X ONCE 07/11/16 17:15 07/11/16 17:16 DC Insulin Aspart (NovoLOG) 2 units 1X ONCE 07/15/16 18:30 07/15/16 18:31 DC 07/15/16 18:30 2 UNITS Insulin Aspart (Novolog) 5 units 1X ONCE 07/14/16 21:30 07/14/16 21:31 DC 07/14/16 21:20 5 UNITS Insulin Detemir (Levemir) 10 units QHS 07/14/16 21:00 07/16/16 22:36 10 UNITS Linezolid 300 ml @ 300 mls/hr Q12HR 07/14/16 08:00 07/17/16 08:46 300 MLS/HR Losartan Potassium (Cozaar) 50 mg DAILY 07/12/16 14:30 07/14/16 09:40 DC 07/13/16 08:23 50 MG Multivitamins (Thera M Plus) 1 tab DAILY 07/17/16 09:00 07/17/16 08:45 1 TAB Ondansetron HCl (Zofran) 4 mg PRN Q8HRS PRN 07/11/16 11:30 07/12/16 11:29 DC Piperacillin Sod/ Tazobactam Sod 2.25 gm/Sodium Chloride 50 ml @ 100 mls/hr Q6HRS 07/14/16 07:30 07/17/16 05:57 100 MLS/HR Quetiapine Fumarate (SEROquel) 12.5 mg BID 07/13/16 21:00 07/17/16 08:46 12.5 MG Silver Sulfadiazine (Silvadene) 1 andreia DAILY 07/13/16 10:30 07/17/16 08:48 1 ANDREIA Sodium Chloride 1,000 ml @ 75 mls/hr [id number] 07/13/16 16:45 07/16/16 13:59 75 MLS/HR Zinc Oxide 1 andreia DAILY 07/13/16 10:30 07/17/16 08:48 1 ANDREIA LAB Lab: Laboratory Tests Test 07/16/16 12:04 07/16/16 20:38 07/17/16 05:50 07/17/16 07:31 Glucose (Fingerstick) 221 mg/dL (70-99) 314 mg/dL (70-99) 292 mg/dL (70-99) White Blood Count 6.4 x10^3/uL (4.0-11.0) Red Blood Count 2.86 x10^6/uL (4.30-5.70) Hemoglobin 8.7 g/dL (13.0-17.5) Hematocrit 25.6 % (39.0-53.0) Mean Corpuscular Volume 89 fL (79-100) Mean Corpuscular Hemoglobin 31 pg (25-35) Mean Corpuscular Hemoglobin Concent 34 g/dL (31-37) Red Cell Distribution Width 13.8 % (11.5-14.5) Platelet Count 359 x10^3/uL (140-400) Sodium Level 142 mmol/L (136-145) Potassium Level 3.9 mmol/L (3.5-5.1) Chloride Level 107 mmol/L (98-107) Carbon Dioxide Level 27 mmol/L (21-32) Anion Gap 8 (6-14) Blood Urea Nitrogen 20 mg/dL (8-26) Creatinine 1.6 mg/dL (0.7-1.3) Estimated GFR (Cockcroft-Gault) 43.5 Glucose Level 337 mg/dL (70-99) Calcium Level 8.3 mg/dL (8.5-10.1) Nutrition Consultation Dietary Evaluation: Recommendations by RD: Increase Calorie Intake, Protein supplementation Comments: continue diet per STOREROOM KEEPER, ada, cardiac with boost glucose control REC: appetite stimulant REC: mvi, vit c to aid in wound healing Expected Outcomes/Goals: to meet > 75% est nutr needs Interpretation of weight loss: >5% in 1 month Malnutrition Findings: Food and Nutrition Intake (Sev: <50% est energy req 5days Body Fat Depletion (Non Severe: Mild Depletion Weight Status: Appropriate RICKIE CADET MD July 17, 2016 10:59
--- NOTE | 2016-07-17 11:07 | PDOC ---
Infectious Disease Note Subjective Subjective Comfortable, denies pain Not very hungry, skipped breakfast ROS ROS GEN: Denies fevers, chills, sweats HEENT: Denies sore throat CV: Denies chest pain RESP: Denies shortness of air, cough GI: Denies n/v/d Vital Sign Vital Signs Vital Signs Date Time Temp Pulse Resp B/P (MAP) Pulse Ox O2 Delivery O2 Flow Rate FiO2 07/17/16 10:44 97.8 85 18 150/55 (86) 96 Room Air 97.8 Physical Exam PHYSICAL EXAM GENERAL: Lying down,smiled, NAD HEENT: OC/OP pink, dentures LUNGS: Clear HEART: S1S2, no gallop, no murmur ABD: Soft, NT EXT: No edema, no cyanosis GUNCOTTON PACKER: Alert, quiet, responds appropriately, SKIN: No rash IV: ok Labs Lab Laboratory Tests Test 07/16/16 12:04 07/16/16 20:38 07/17/16 05:50 07/17/16 07:31 Glucose (Fingerstick) 221 mg/dL (70-99) 314 mg/dL (70-99) 292 mg/dL (70-99) White Blood Count 6.4 x10^3/uL (4.0-11.0) Red Blood Count 2.86 x10^6/uL (4.30-5.70) Hemoglobin 8.7 g/dL (13.0-17.5) Hematocrit 25.6 % (39.0-53.0) Mean Corpuscular Volume 89 fL (79-100) Mean Corpuscular Hemoglobin 31 pg (25-35) Mean Corpuscular Hemoglobin Concent 34 g/dL (31-37) Red Cell Distribution Width 13.8 % (11.5-14.5) Platelet Count 359 x10^3/uL (140-400) Sodium Level 142 mmol/L (136-145) Potassium Level 3.9 mmol/L (3.5-5.1) Chloride Level 107 mmol/L (98-107) Carbon Dioxide Level 27 mmol/L (21-32) Anion Gap 8 (6-14) Blood Urea Nitrogen 20 mg/dL (8-26) Creatinine 1.6 mg/dL (0.7-1.3) Estimated GFR (Cockcroft-Gault) 43.5 Glucose Level 337 mg/dL (70-99) Calcium Level 8.3 mg/dL (8.5-10.1) Micro BLOOD CULTURE Preliminary NO GROWTH AFTER 3 DAYS Objective Assessment Fever - better Leukocytosis - better CKD - stable Dysphagia with ? aspiration Left heel eschar - XRAY - neg Plan Plan of Care Zosyn/Zyvox - taper soon Supportive care Patient seen and examined. Chart reviewed in detail. Case discussed with CONSUMER LOAN OFFICER. Agree with above plan. MARCELA CYR APRN July 17, 2016 11:07 DEIDRA GEE MD July 17, 2016 14:50
[2016-07-17] MEDS ORDERED: INSULIN ASPART 300 UNITS/3 ML INSULN.PEN SQ ONE ×2 (12:30→18:00)
[2016-07-17 14:56] VITALS: BP 132/58
[2016-07-17 19:00] VITALS: BP 136/89
[2016-07-17] MEDS: ATORVASTATIN CALCIUM 40 MG TABLET. PO SCH (20:37)
[2016-07-17] MEDS: INSULIN DETEMIR 300 UNITS/3 ML INSULN.PEN. SQ SCH (20:44)
[2016-07-17 22:57] VITALS: BP 146/67
[2016-07-18 04:45] VITALS: BP 154/72
[2016-07-18] MEDS: PIPERACILLIN/TAZOBACTAM 2.25 GM in IV NORMAL SALINE 50ML 50 ML IV SCH ×2 (05:29→12:07)
[2016-07-18 07:00] VITALS: BP 141/68
[2016-07-18] MEDS: IPRATRPIUM/ALBUTEROL 0.5/2.5MG 3 ML NEBU. NEB SCH ×4 (07:07→19:25)
[2016-07-18] MEDS: IV NORMAL SALINE 1000ML BAG 1,000 ML IV SCH (07:55)
[2016-07-18] MEDS: ASPIRIN ENTERIC COATED 81 MG TABLET.DR. PO SCH (07:56)
[2016-07-18] MEDS: MULTIVITAMIN with MINERAL TABLET. PO SCH (07:56)
[2016-07-18] MEDS: CLOPIDOGREL BISULFATE 75 MG TABLET PO SCH (07:56)
[2016-07-18] MEDS: QUEtiapine 25 MG TABLET. PO SCH ×2 (07:56→20:21)
[2016-07-18] MEDS: ASCORBIC ACID 500 MG TABLET PO SCH (07:56)
[2016-07-18] MEDS: INSULIN ASPART 300 UNITS/3 ML INSULN.PEN SQ SCH ×3 (08:21→17:47)
[2016-07-18 08:36] LABS: CALCIUM 8.1 mg/dL (8.5-10.1); CREATININE 1.4 mg/dL (0.7-1.3); GFR 50.7; POTASSIUM 3.8 mmol/L (3.5-5.1)
--- NOTE | 2016-07-18 09:18 | PDOC ---
Infectious Disease Note Subjective Subjective Comfortable, denies pain ROS ROS GEN: Denies fevers, chills, sweats CV: Denies chest pain RESP: Denies shortness of air, cough GI: Denies n/v/d Vital Sign Vital Signs Vital Signs Date Time Temp Pulse Resp B/P (MAP) Pulse Ox O2 Delivery O2 Flow Rate FiO2 07/18/16 08:20 Room Air 07/18/16 07:08 98 07/18/16 07:00 98.9 72 14 141/68 (92) 98.9 Physical Exam PHYSICAL EXAM GENERAL: Lying down flat affect, coop HEENT: OC/OP pink, dentures LUNGS: Clear HEART: S1S2, no gallop, no murmur ABD: Soft, NT EXT: No edema, no cyanosis PROJECT MANAGEMENT CONSULTANT: Alert, quiet, responds appropriately, SKIN: No rash. left heel ulcer/eschar, soft IV: ok Labs Lab Laboratory Tests Test 07/17/16 11:01 07/17/16 16:09 07/17/16 20:28 07/18/16 05:11 Glucose (Fingerstick) 381 mg/dL (70-99) 415 mg/dL (70-99) 411 mg/dL (70-99) 278 mg/dL (70-99) Test 07/18/16 07:05 Sodium Level 144 mmol/L (136-145) Potassium Level 3.8 mmol/L (3.5-5.1) Chloride Level 108 mmol/L (98-107) Carbon Dioxide Level 29 mmol/L (21-32) Anion Gap 7 (6-14) Blood Urea Nitrogen 17 mg/dL (8-26) Creatinine 1.4 mg/dL (0.7-1.3) Estimated GFR (Cockcroft-Gault) 50.7 Glucose Level 256 mg/dL (70-99) Glucose (Fingerstick) 244 mg/dL (70-99) Calcium Level 8.1 mg/dL (8.5-10.1) Micro BLOOD CULTURE Preliminary NO GROWTH AFTER 3 DAYS Objective Assessment Fever - better Leukocytosis - better CKD - stable Dysphagia with ? aspiration Left heel eschar - XRAY - neg Plan Plan of Care Zyvox and Zosyn- taper soon Off load heels Supportive care Patient seen and examined. Chart reviewed. Case discussed with ORACLE HRMS DEVELOPER. Agree with above plan MARCELA CYR APRN July 18, 2016 09:18 DEIDRA GEE MD July 18, 2016 16:04
--- NOTE | 2016-07-18 09:44 | PDOC ---
GENERAL General: vss and afebrile. awake and alert. chest clear and heart regular. sugars variable. left heel ulcer about 2.5 X 2.5 cm with eschar and unstageable. creatinine down to 1.4. continue same. Antibiotics ongoing. Problems: VITAL SIGNS Vital Signs: Vital Signs Date Time Temp Pulse Resp B/P (MAP) Pulse Ox O2 Delivery O2 Flow Rate FiO2 07/18/16 08:20 Room Air 07/18/16 07:08 98 07/18/16 07:00 98.9 72 14 141/68 (92) 98.9 I & O I & O Intake and Output 07/18/16 07:00 Intake Total 100 ml Balance 100 ml Intake Oral 100 ml # Voids 6 ALLERGIES Allergies: Allergies Coded Allergies Type Severity Reaction Last Updated Verified No Known Drug Allergies 05/18/16 No MEDS Medications: Current Medications Medications (Trade) Dose Ordered Sig/Paresh Start Time Stop Time Status Last Admin Dose Admin Acetaminophen (Tylenol) 650 mg PRN Q6HRS PRN 07/14/16 07:00 07/14/16 08:42 650 MG Albuterol/ Ipratropium (Duoneb) 3 ml RTQID 07/12/16 16:00 07/18/16 07:07 3 ML Ascorbic Acid (Vitamin C) 500 mg DAILY 07/16/16 11:00 07/18/16 07:56 500 MG Aspirin (Ecotrin) 81 mg DAILYWBKFT 07/12/16 14:30 07/18/16 07:56 81 MG Atorvastatin Calcium (Lipitor) 80 mg QHS 07/12/16 21:00 07/17/16 20:37 80 MG Ceftriaxone Sodium 1 gm/ Sodium Chloride 50 ml @ 100 mls/hr Q24H 07/13/16 11:00 07/14/16 07:23 DC 07/13/16 11:17 100 MLS/HR Clopidogrel Bisulfate (Plavix) 75 mg DAILYWBKFT 07/17/16 08:00 07/18/16 07:56 75 MG Dextrose (Dextrose 50%-Water Syringe) 25 gm PRN 1X PRN 07/15/16 21:30 Dextrose/Sodium Chloride 500 ml @ 0 mls/hr 1X ONCE 07/11/16 17:15 07/11/16 17:16 DC Insulin Aspart (NovoLOG) 4 units 1X ONCE 07/17/16 18:00 07/17/16 18:01 DC 07/17/16 17:59 4 UNITS Insulin Aspart (Novolog) 5 units 1X ONCE 07/14/16 21:30 07/14/16 21:31 DC 07/14/16 21:20 5 UNITS Insulin Detemir (Levemir) 10 units QHS 07/14/16 21:00 07/17/16 20:44 10 UNITS Linezolid 300 ml @ 300 mls/hr Q12HR 07/14/16 08:00 07/18/16 07:56 300 MLS/HR Losartan Potassium (Cozaar) 50 mg DAILY 07/12/16 14:30 07/14/16 09:40 DC 07/13/16 08:23 50 MG Multivitamins (Thera M Plus) 1 tab DAILY 07/17/16 09:00 07/18/16 07:56 1 TAB Ondansetron HCl (Zofran) 4 mg PRN Q8HRS PRN 07/11/16 11:30 07/12/16 11:29 DC Piperacillin Sod/ Tazobactam Sod 2.25 gm/Sodium Chloride 50 ml @ 100 mls/hr Q6HRS 07/14/16 07:30 07/18/16 05:29 100 MLS/HR Quetiapine Fumarate (SEROquel) 12.5 mg BID 07/13/16 21:00 07/18/16 07:56 12.5 MG Silver Sulfadiazine (Silvadene) 1 andreia DAILY 07/13/16 10:30 07/17/16 08:48 1 ANDREIA Sodium Chloride 1,000 ml @ 75 mls/hr [id number] 07/13/16 16:45 07/18/16 07:55 75 MLS/HR Zinc Oxide 1 andreia DAILY 07/13/16 10:30 07/17/16 08:48 1 ANDREIA LAB Lab: Laboratory Tests Test 07/17/16 11:01 07/17/16 16:09 07/17/16 20:28 07/18/16 05:11 Glucose (Fingerstick) 381 mg/dL (70-99) 415 mg/dL (70-99) 411 mg/dL (70-99) 278 mg/dL (70-99) Test 07/18/16 07:05 Sodium Level 144 mmol/L (136-145) Potassium Level 3.8 mmol/L (3.5-5.1) Chloride Level 108 mmol/L (98-107) Carbon Dioxide Level 29 mmol/L (21-32) Anion Gap 7 (6-14) Blood Urea Nitrogen 17 mg/dL (8-26) Creatinine 1.4 mg/dL (0.7-1.3) Estimated GFR (Cockcroft-Gault) 50.7 Glucose Level 256 mg/dL (70-99) Glucose (Fingerstick) 244 mg/dL (70-99) Calcium Level 8.1 mg/dL (8.5-10.1) Nutrition Consultation Dietary Evaluation: Recommendations by RD: Increase Calorie Intake, Protein supplementation Comments: continue diet per SUPERVISOR SALVAGE, ada, cardiac with boost glucose control REC: appetite stimulant REC: mvi, vit c to aid in wound healing Expected Outcomes/Goals: to meet > 75% est nutr needs Interpretation of weight loss: >5% in 1 month Malnutrition Findings: Food and Nutrition Intake (Sev: <50% est energy req 5days Body Fat Depletion (Non Severe: Mild Depletion Weight Status: Appropriate RICKIE CADET MD July 18, 2016 09:44
[2016-07-18] MEDS: ZINC OXIDE 20% TOPICAL OINTMENT 28GM TUBE. TP SCH (09:51)
[2016-07-18] MEDS: silver sulfADIAZINE 1% CREAM 25GM TUBE. TP SCH (09:51)
[2016-07-18 11:00] VITALS: BP 132/70
[2016-07-18] MEDS ORDERED: INSULIN ASPART 300 UNITS/3 ML INSULN.PEN SQ ONE ×2 (11:30→17:30)
[2016-07-18 15:00] VITALS: BP 135/72
[2016-07-18] MEDS: PIPERACILLIN/TAZOBACTAM 3.375 GM in IV NORMAL SALINE 50ML 50 ML IV SCH ×2 (17:43→23:24)
[2016-07-18 19:00] VITALS: BP 138/70
[2016-07-18] MEDS: ATORVASTATIN CALCIUM 40 MG TABLET. PO SCH (20:21)
[2016-07-18] MEDS: INSULIN DETEMIR 300 UNITS/3 ML INSULN.PEN. SQ SCH (20:26)
[2016-07-18 22:50] VITALS: BP 144/78
[2016-07-19] MEDS: IV NORMAL SALINE 1000ML BAG 1,000 ML IV SCH ×3 (00:58→18:28)
[2016-07-19] MEDS: PIPERACILLIN/TAZOBACTAM 3.375 GM in IV NORMAL SALINE 50ML 50 ML IV SCH (05:28)
[2016-07-19 07:00] VITALS: BP 175/79
[2016-07-19] MEDS: IPRATRPIUM/ALBUTEROL 0.5/2.5MG 3 ML NEBU. NEB SCH ×4 (07:56→20:35)
[2016-07-19] MEDS: QUEtiapine 25 MG TABLET. PO SCH ×2 (08:38→22:07)
[2016-07-19] MEDS: CLOPIDOGREL BISULFATE 75 MG TABLET PO SCH (08:39)
[2016-07-19] MEDS: ASPIRIN ENTERIC COATED 81 MG TABLET.DR. PO SCH (08:39)
[2016-07-19] MEDS: ASCORBIC ACID 500 MG TABLET PO SCH (08:39)
[2016-07-19] MEDS: MULTIVITAMIN with MINERAL TABLET. PO SCH (08:39)
[2016-07-19] MEDS: INSULIN ASPART 300 UNITS/3 ML INSULN.PEN SQ SCH ×3 (08:45→17:34)
[2016-07-19] MEDS: ZINC OXIDE 20% TOPICAL OINTMENT 28GM TUBE. TP SCH (08:59)
[2016-07-19] MEDS: silver sulfADIAZINE 1% CREAM 25GM TUBE. TP SCH (08:59)
--- NOTE | 2016-07-19 09:44 | PDOC ---
Infectious Disease Note Subjective Subjective Comfortable, denies pain ROS ROS GEN: Denies fevers, chills, sweats HEENT: Denies blurred vision, sore throat CV: Denies chest pain RESP: Denies shortness of air, cough GI: Denies n/v/d NEURO: Denies confusion, dizziness MSK: Denies weakness, joint pain/swelling Vital Sign Vital Signs Vital Signs Date Time Temp Pulse Resp B/P (MAP) Pulse Ox O2 Delivery O2 Flow Rate FiO2 07/19/16 07:57 97 Room Air 07/19/16 07:00 97.8 79 18 175/79 (111) 97.8 07/18/16 07:00 Physical Exam PHYSICAL EXAM GENERAL: Lying down flat affect, coop HEENT: OC/OP pink, dentures LUNGS: Clear HEART: S1S2, no gallop, no murmur ABD: Soft, NT EXT: No edema, no cyanosis RADIOISOTOPE PRODUCTION OPERATOR: Alert, quiet, responds appropriately, SKIN: No rash. left heel ulcer/eschar, soft IV: ok Labs Lab Laboratory Tests Test 07/18/16 11:19 07/18/16 16:13 07/18/16 20:04 07/19/16 07:29 Glucose (Fingerstick) 307 mg/dL (70-99) 360 mg/dL (70-99) 380 mg/dL (70-99) 188 mg/dL (70-99) Objective Assessment Fever - better Leukocytosis - better CKD - stable Dysphagia with ? aspiration Left heel eschar - XRAY - neg Plan Plan of Care D/c Zyvox/Zosyn begin Augmentin Off load heels Supportive care NORTH CHUN MD July 19, 2016 09:44
[2016-07-19 10:51] VITALS: BP 158/82
[2016-07-19] MEDS: AMOXICILLIN/K CLAV 875/125MG TABLET. PO SCH ×2 (11:12→22:07)
--- NOTE | 2016-07-19 12:14 | PDOC ---
SUBJECTIVE Subjective does not want to answer questions today, looks ok OBJECTIVE Vital Signs Vital Signs Date Time Temp Pulse Resp B/P (MAP) Pulse Ox O2 Delivery O2 Flow Rate FiO2 07/19/16 11:53 Room Air 07/19/16 10:51 97.8 76 18 158/82 (107) 97 Room Air 97.8 07/19/16 07:57 97 Room Air 07/19/16 07:50 Room Air 07/19/16 07:00 97.8 79 18 175/79 (111) 96 Room Air 97.8 07/18/16 22:50 98.4 72 18 144/78 (100) 98 Room Air 98.4 07/18/16 19:25 98 Room Air 07/18/16 19:00 97.9 83 18 138/70 (92) 96 Room Air 97.9 07/18/16 15:16 Room Air 07/18/16 15:00 98.2 72 16 135/72 (93) 96 Room Air 98.2 I & O Intake and Output 07/19/16 06:59 Intake Total 2420 ml Balance 2420 ml Intake Oral 1020 ml IV Total 1400 ml # Voids 4 PHYSICAL EXAM Physical Exam lungs clearer heart RRR abd soft ext no edema ASSESSMENT/PLAN Assessment/Plan 1- leukocytosis / fever likely aspirated during hypoglycemia or decrease mental status states , CXR with infiltrate RML no aspiration at bed side eval seems happened when decrease conciousness 2-hypoglycemia / hyperglycemia due to frail diabetic type 1 3- no evidence of CVA on MRI, plavix recommended by neurology will restart 4- heel ulcer 5- other diagnosis as per H&P switch to P.O ABx today , discharge tomorrow high risk for readmission , would benefit from manager intermediate placement if possible, social Svc following Problems: COMMENT Lab Laboratory Tests Test 07/18/16 16:13 07/18/16 20:04 07/19/16 07:29 07/19/16 10:13 Glucose (Fingerstick) 360 mg/dL (70-99) 380 mg/dL (70-99) 188 mg/dL (70-99) 228 mg/dL (70-99) VIRGINIA YORK MD July 19, 2016 12:14
--- NOTE | 2016-07-19 12:18 | PDOC ---
PROGRESS NOTES Assessment Problems Medical Problems: (1) Hypoglycemia Status: Acute Hypoglycemic encephalopathy, cleared Intellectual disability Left heel eschar Abnormal head CT, no abnormalities on MRI Plan Neurology will follow at intervals Subjective No complaints Objective Vital Signs Date Time Temp Pulse Resp B/P (MAP) Pulse Ox O2 Delivery O2 Flow Rate FiO2 07/19/16 11:53 Room Air 07/19/16 10:51 97.8 76 18 158/82 (107) 97 97.8 07/18/16 07:00 Intake and Output 07/19/16 07:00 Intake Total 2420 ml Balance 2420 ml Intake Oral 1020 ml IV Total 1400 ml # Voids 4 PHYSICAL EXAM Alert. Oriented only to person. PERRL. EOMI. CN: no focal findings. Muscle tone: normal. Muscle strength: 4/5 DTR: 0+ Plantar reflex: flexor Gait: apraxic Sensory exam: no abnormal findings. No cerebellar signs elicited. Review of Relevant I have reviewed the following items monica (where applicable) has been applied. Labs Laboratory Tests Test 07/17/16 16:09 07/17/16 20:28 07/18/16 05:11 07/18/16 07:05 Glucose (Fingerstick) 415 mg/dL (70-99) 411 mg/dL (70-99) 278 mg/dL (70-99) 244 mg/dL (70-99) Sodium Level 144 mmol/L (136-145) Potassium Level 3.8 mmol/L (3.5-5.1) Chloride Level 108 mmol/L (98-107) Carbon Dioxide Level 29 mmol/L (21-32) Anion Gap 7 (6-14) Blood Urea Nitrogen 17 mg/dL (8-26) Creatinine 1.4 mg/dL (0.7-1.3) Estimated GFR (Cockcroft-Gault) 50.7 Glucose Level 256 mg/dL (70-99) Calcium Level 8.1 mg/dL (8.5-10.1) Test 07/18/16 11:19 07/18/16 16:13 07/18/16 20:04 07/19/16 07:29 Glucose (Fingerstick) 307 mg/dL (70-99) 360 mg/dL (70-99) 380 mg/dL (70-99) 188 mg/dL (70-99) Test 07/19/16 10:13 Glucose (Fingerstick) 228 mg/dL (70-99) Laboratory Tests Test 07/18/16 16:13 07/18/16 20:04 07/19/16 07:29 07/19/16 10:13 Glucose (Fingerstick) 360 mg/dL (70-99) 380 mg/dL (70-99) 188 mg/dL (70-99) 228 mg/dL (70-99) Microbiology 07/13/16 Blood Culture - Final, Complete NO GROWTH AFTER 5 DAYS Medications Current Medications Sodium Chloride 1,000 ml @ 1,000 mls/hr 1X ONCE IV Last administered on 10:01; Start 07/11/16 at 09:30; Stop 07/11/16 at 10:29; Status DC Dextrose/Sodium Chloride 1,000 ml @ 75 mls/hr 1X ONCE IV Last administered on 07/11/16 11:30; Start 07/11/16 at 11:15; Stop 07/11/16 at 17:10; Status DC Ondansetron HCl (Zofran) 4 mg PRN Q8HRS PRN IV NAUSEA/VOMITING; Start 07/11/16 at 11:30; Stop 07/12/16 at 11:29; Status DC Clopidogrel Bisulfate (Plavix) 75 mg DAILYWBKFT PO Last administered on 08:24; Start 07/11/16 at 12:30; Stop 07/13/16 at 09:36; Status DC Dextrose (Dextrose 50%-Water Syringe) 25 gm STK-MED ONCE IV ; Start 07/11/16 at 12:14; Stop 07/11/16 at 12:15; Status DC Dextrose (Dextrose 50%-Water Syringe) 25 gm 1X ONCE IV Last administered on 12:20; Start 07/11/16 at 12:30; Stop 07/11/16 at 12:31; Status DC Dextrose 1,000 ml @ 60 mls/hr [id number] IV Last administered on 07/11/16 12:31; Start 07/11/16 at 12:30; Stop 07/11/16 at 16:58; Status DC Dextrose/Sodium Chloride 1,000 ml @ 75 mls/hr [id number] IV ; Start 07/11/16 at 17: 30; Stop 07/12/16 at 00:22; Status DC Dextrose (Dextrose 50%-Water Syringe) 25 gm 1X ONCE IV ; Start 07/11/16 at 17:00 ; Stop 07/11/16 at 17:01; Status DC Dextrose/Sodium Chloride 500 ml @ 0 mls/hr 1X ONCE IV ; Start 07/11/16 at 17:15 ; Stop 07/11/16 at 17:16; Status DC Insulin Aspart (Novolog) 2 units 1X ONCE SQ Last administered on 07/12/16 00: 47; Start 07/12/16 at 00:30; Stop 07/12/16 at 00:31; Status DC Insulin Aspart (Novolog) 5 units 1X ONCE SQ Last administered on 07/12/16 08: 58; Start 07/12/16 at 08:45; Stop 07/12/16 at 08:46; Status DC Insulin Detemir (Levemir) 5 units 1X ONCE SQ Last administered on 07/12/16 08: 59; Start 07/12/16 at 08:45; Stop 07/12/16 at 08:46; Status DC Insulin Aspart (Novolog) 2 units TIDAC SQ Last administered on 07/19/16 08:45 ; Start 07/12/16 at 11:30 Insulin Detemir (Levemir) 5 units QHS SQ ; Start 07/12/16 at 21:00; Stop 07/12/16 at 21:00; Status DC Insulin Aspart (Novolog) 5 units 1X ONCE SQ Last administered on 07/12/16 12: 18; Start 07/12/16 at 12:15; Stop 07/12/16 at 12:16; Status DC Insulin Detemir (Levemir) 12 units QHS SQ Last administered on 07/13/16 21:17; Start 07/12/16 at 21:00; Stop 07/14/16 at 09:40; Status DC Albuterol/ Ipratropium (Duoneb) 3 ml RTQID NEB Last administered on 07/19/16 11:51; Start 07/12/16 at 16:00 Aspirin (Ecotrin) 81 mg DAILYWBKFT PO Last administered on 07/19/16 08:39; Start 07/12/16 at 14:30 Losartan Potassium (Cozaar) 50 mg DAILY PO Last administered on 07/13/16 08:23 ; Start 07/12/16 at 14:30; Stop 07/14/16 at 09:40; Status DC Atorvastatin Calcium (Lipitor) 10 mg QHS PO ; Start 07/12/16 at 21:00; Stop at 21:00; Status DC Atorvastatin Calcium (Lipitor) 80 mg QHS PO Last administered on 07/18/16 20: 21; Start 07/12/16 at 21:00 Silver Sulfadiazine (Silvadene) 1 andreia DAILY TP Last administered on 07/19/16 08:59; Start 07/13/16 at 10:30 Zinc Oxide 1 andreia DAILY TP Last administered on 07/19/16 08:59; Start 07/13/16 at 10:30 Ceftriaxone Sodium 1 gm/ Sodium Chloride 50 ml @ 100 mls/hr Q24H IV Last administered on 07/13/16 11:17; Start 07/13/16 at 11:00; Stop 07/14/16 at 07:23; Status DC Quetiapine Fumarate (SEROquel) 12.5 mg BID PO Last administered on 07/19/16 08 :38; Start 07/13/16 at 21:00 Sodium Chloride 1,000 ml @ 75 mls/hr [id number] IV Last administered on 00:58; Start 07/13/16 at 16:45 Acetaminophen (Tylenol) 325 mg PRN Q6HRS PRN PO MILD PAIN / TEMP Last administered on 07/14/16 02:44; Start 07/13/16 at 17:00; Stop 07/14/16 at 06:56 ; Status DC Acetaminophen (Tylenol) 650 mg PRN Q6HRS PRN PO MILD PAIN / TEMP Last administered on 07/14/16 08:42; Start 07/14/16 at 07:00 Linezolid 300 ml @ 300 mls/hr Q12HR IV Last administered on 07/19/16 08:50; Start 07/14/16 at 08:00; Stop 07/19/16 at 09:43; Status DC Piperacillin Sod/ Tazobactam Sod 2.25 gm/Sodium Chloride 50 ml @ 100 mls/hr Q6HRS IV Last administered on 07/18/16 12:07; Start 07/14/16 at 07:30; Stop at 13:36; Status DC Insulin Detemir (Levemir) 10 units QHS SQ Last administered on 07/18/16 20:26 ; Start 07/14/16 at 21:00 Insulin Aspart (Novolog) 5 units 1X ONCE SQ Last administered on 07/14/16 21: 20; Start 07/14/16 at 21:30; Stop 07/14/16 at 21:31; Status DC Insulin Aspart (NovoLOG) 2 units 1X ONCE SQ Last administered on 07/15/16 12: 20; Start 07/15/16 at 12:15; Stop 07/15/16 at 12:16; Status DC Insulin Aspart (NovoLOG) 2 units 1X ONCE SQ Last administered on 07/15/16 18: 30; Start 07/15/16 at 18:30; Stop 07/15/16 at 18:31; Status DC Dextrose (Dextrose 50%-Water Syringe) 25 gm PRN 1X PRN IV SEE COMMENTS; Start 07/15/16 at 21:30 Clopidogrel Bisulfate (Plavix) 75 mg DAILYWBKFT PO Last administered on 08:39; Start 07/17/16 at 08:00 Multivitamins (Thera M Plus) 1 tab DAILY PO Last administered on 07/19/16 08: 39; Start 07/17/16 at 09:00 Ascorbic Acid (Vitamin C) 500 mg DAILY PO Last administered on 07/19/16 08:39 ; Start 07/16/16 at 11:00 Insulin Aspart (NovoLOG) 2 units 1X ONCE SQ Last administered on 07/17/16 12: 29; Start 07/17/16 at 12:30; Stop 07/17/16 at 12:43; Status DC Insulin Aspart (NovoLOG) 4 units 1X ONCE SQ Last administered on 07/17/16 17: 59; Start 07/17/16 at 18:00; Stop 07/17/16 at 18:01; Status DC Insulin Aspart (NovoLOG) 2 units 1X ONCE SQ Last administered on 07/18/16 12: 10; Start 07/18/16 at 11:30; Stop 07/18/16 at 11:31; Status DC Piperacillin Sod/ Tazobactam Sod 3.375 gm/Sodium Chloride 50 ml @ 100 mls/hr Q6HRS IV Last administered on 07/19/16 05:28; Start 07/18/16 at 18:00; Stop at 09:43; Status DC Insulin Aspart (NovoLOG) 2 units 1X ONCE SQ Last administered on 07/18/16 17: 48; Start 07/18/16 at 17:30; Stop 07/18/16 at 17:31; Status DC Amoxicillin/ Clavulanate Potassium (Augmentin 875/ 125mg) 1 tab BID PO Last administered on 07/19/16 11:12; Start 07/19/16 at 09:45 Active Scripts Active Novolog Flexpen (Insulin Aspart) 100 Unit/1 Ml Insuln.pen 0 Units SQ TIDAC 30 Days Levemir Flextouch (Insulin Detemir) 100 Unit/1 Ml Insuln.pen 12 Units SQ HS 30 Days Atorvastatin Calcium 40 Mg Tablet 80 Mg PO QHS 30 Days Aspirin Ec (Aspirin) 81 Mg Tablet. 81 Mg PO DAILYWBKFT 30 Days Reported Folic Acid 1 Mg Tablet 1 Mg PO DAILY Vitals/I & O Vital Sign - Last 24 Hours 07/18/16 07/18/16 07/18/16 07/18/16 15:00 15:16 19:00 19:25 Temp 98.2 97.9 98.2 97.9 Pulse 72 83 Resp 16 18 B/P (MAP) 135/72 (93) 138/70 (92) Pulse Ox 96 96 98 O2 Delivery Room Air Room Air Room Air Room Air 07/18/16 07/19/16 07/19/16 07/19/16 22:50 07:00 07:50 07:57 Temp 98.4 97.8 98.4 97.8 Pulse 72 79 Resp 18 18 B/P (MAP) 144/78 (100) 175/79 (111) Pulse Ox 98 96 97 O2 Delivery Room Air Room Air Room Air Room Air 07/19/16 07/19/16 10:51 11:53 Temp 97.8 97.8 Pulse 76 Resp 18 B/P (MAP) 158/82 (107) Pulse Ox 97 O2 Delivery Room Air Room Air Intake and Output 5/14/17 5/14/17 5/15/17 15:00 23:00 07:00 Intake Total 1590 ml 710 ml 120 ml Balance 1590 ml 710 ml 120 ml LAKESHA ROMEO MD July 19, 2016 12:18
[2016-07-19 14:59] VITALS: BP 155/80
--- NOTE | 2016-07-19 16:20 | RAD ---
Portable chest, 07/19/2016: History: Possible pneumonia Comparison is made to a study from 07/13/2016. There has been a previous median sternotomy. The heart size and pulmonary vascularity are normal. There is a calcified granuloma in the right upper lobe. Oblique lines overlying both hemithoraces are compatible with skin folds. No pulmonary consolidation is seen. There is no evidence of pleural fluid. IMPRESSION: No acute cardiopulmonary abnormality is detected.
[2016-07-19 19:00] VITALS: BP 156/70
[2016-07-19] MEDS: ATORVASTATIN CALCIUM 40 MG TABLET. PO SCH (22:07)
[2016-07-19] MEDS: INSULIN DETEMIR 300 UNITS/3 ML INSULN.PEN. SQ SCH (22:12)
[2016-07-19 23:00] VITALS: BP 165/76
[2016-07-20 04:33] LABS: HEMATOCRIT 24.2 % (39.0-53.0); HEMOGLOBIN 8.4 g/dL (13.0-17.5); RED BLOOD COUNT 2.72 x10^6/uL (4.30-5.70); RED CELL DISTRIBUTION WIDTH 13.8 % (11.5-14.5); WHITE BLOOD COUNT 7.9 x10^3/uL (4.0-11.0)
[2016-07-20 05:07] LABS: CREATININE 1.2 mg/dL (0.7-1.3); GFR 60.6; POTASSIUM 3.5 mmol/L (3.5-5.1)
[2016-07-20] MEDS: IV NORMAL SALINE 1000ML BAG 1,000 ML IV SCH (06:09)
[2016-07-20 07:00] VITALS: BP 159/75
[2016-07-20] MEDS: IPRATRPIUM/ALBUTEROL 0.5/2.5MG 3 ML NEBU. NEB SCH ×2 (07:37→11:40)
[2016-07-20] MEDS: AMOXICILLIN/K CLAV 875/125MG TABLET. PO SCH ×2 (08:31→08:45)
[2016-07-20] MEDS: MULTIVITAMIN with MINERAL TABLET. PO SCH (08:31)
[2016-07-20] MEDS: ASPIRIN ENTERIC COATED 81 MG TABLET.DR. PO SCH (08:31)
[2016-07-20] MEDS: CLOPIDOGREL BISULFATE 75 MG TABLET PO SCH (08:31)
[2016-07-20] MEDS: QUEtiapine 25 MG TABLET. PO SCH (08:32)
[2016-07-20] MEDS: ASCORBIC ACID 500 MG TABLET PO SCH (08:32)
[2016-07-20] MEDS: INSULIN ASPART 300 UNITS/3 ML INSULN.PEN SQ SCH ×2 (08:43→12:02)
--- NOTE | 2016-07-20 08:48 | PDOC ---
Infectious Disease Note Subjective Subjective Comfortable, denies pain ROS ROS GEN: Denies fevers, chills, sweats HEENT: Denies blurred vision, sore throat CV: Denies chest pain RESP: Denies shortness of air, cough GI: Denies n/v/d NEURO: Denies confusion, dizziness MSK: Denies weakness, joint pain/swelling Vital Sign Vital Signs Vital Signs Date Time Temp Pulse Resp B/P (MAP) Pulse Ox O2 Delivery O2 Flow Rate FiO2 07/20/16 07:38 Room Air 07/20/16 07:00 97.9 81 18 159/75 (103) 98 97.9 Physical Exam PHYSICAL EXAM GENERAL: Lying down flat affect, coop HEENT: OC/OP pink, dentures LUNGS: Clear HEART: S1S2, no gallop, no murmur ABD: Soft, NT EXT: No edema, no cyanosis SPRAYER INSECTICIDE: Alert, quiet, responds appropriately, SKIN: No rash. left heel ulcer/eschar, soft IV: ok Labs Lab Laboratory Tests Test 07/19/16 10:13 07/19/16 16:35 07/19/16 20:59 07/20/16 04:20 Glucose (Fingerstick) 228 mg/dL (70-99) 307 mg/dL (70-99) 304 mg/dL (70-99) White Blood Count 7.9 x10^3/uL (4.0-11.0) Red Blood Count 2.72 x10^6/uL (4.30-5.70) Hemoglobin 8.4 g/dL (13.0-17.5) Hematocrit 24.2 % (39.0-53.0) Mean Corpuscular Volume 89 fL (79-100) Mean Corpuscular Hemoglobin 31 pg (25-35) Mean Corpuscular Hemoglobin Concent 35 g/dL (31-37) Red Cell Distribution Width 13.8 % (11.5-14.5) Platelet Count 331 x10^3/uL (140-400) Sodium Level 141 mmol/L (136-145) Potassium Level 3.5 mmol/L (3.5-5.1) Chloride Level 106 mmol/L (98-107) Carbon Dioxide Level 27 mmol/L (21-32) Anion Gap 8 (6-14) Blood Urea Nitrogen 14 mg/dL (8-26) Creatinine 1.2 mg/dL (0.7-1.3) Estimated GFR (Cockcroft-Gault) 60.6 Glucose Level 246 mg/dL (70-99) Calcium Level 8.0 mg/dL (8.5-10.1) Test 07/20/16 07:22 Glucose (Fingerstick) 145 mg/dL (70-99) Objective Assessment Fever - better Leukocytosis - better CKD - stable Dysphagia with ? aspiration Left heel eschar - XRAY - neg Plan Plan of Care Cont Augmentin through 07/24 Off load heels Supportive care NORTH CHUN MD July 20, 2016 08:48
[2016-07-20] MEDS: ZINC OXIDE 20% TOPICAL OINTMENT 28GM TUBE. TP SCH (09:00)
[2016-07-20] MEDS: silver sulfADIAZINE 1% CREAM 25GM TUBE. TP SCH (09:00)
--- NOTE | 2016-07-20 09:34 | PDOC2 ---
CONSULT Date of Consult Date of Consult DATE: 07/20/16 TIME: 09:19 Reason for Consult Reason for Consult: l heel wound Referring Physician Referring Physician: Dr. Ness Identification/Chief Complaint Chief Complaint This is a 65-year-old patient being seen for left heel wound after recent admission for altered mental status, hypoglycemia and leukocytosis. Source Source: Chart review, Patient History of Present Illness Reason for Visit: Patient is seen for left heel wound of unknown duration. Patient is relatively poor historian. At this time he is reporting minimal discomfort to the site. Silvadene application is being utilized. A review of the chart demonstrates no evidence of bony infection at the calcaneus with vascular calcifications noted. Blood culture is negative. Original presentation is reported to have been hard necrotic left heel wound. We note that the patient is currently transitioned to Augmentin. Patient is not able to review history of wounding or ulceration otherwise. Past Medical History Cardiovascular: HTN, IN, Hyperlipidemia Pulmonary: COPD GI: Constipation Heme/Onc: Anemia NOS Renal/: Chronic renal insuff Endocrine: Diabetes Past Surgical History Past Surgical History: CABG Family History Family History: Diabetes (brother) Social History Lives: with Family (with mother) Current Problem List Problem List Problems Medical Problems: (1) Hypoglycemia Status: Acute Current Medications Current Medications Current Medications Sodium Chloride 1,000 ml @ 1,000 mls/hr 1X ONCE IV Last administered on 10:01; Start 07/11/16 at 09:30; Stop 07/11/16 at 10:29; Status DC Dextrose/Sodium Chloride 1,000 ml @ 75 mls/hr 1X ONCE IV Last administered on 07/11/16 11:30; Start 07/11/16 at 11:15; Stop 07/11/16 at 17:10; Status DC Ondansetron HCl (Zofran) 4 mg PRN Q8HRS PRN IV NAUSEA/VOMITING; Start 07/11/16 at 11:30; Stop 07/12/16 at 11:29; Status DC Clopidogrel Bisulfate (Plavix) 75 mg DAILYWBKFT PO Last administered on 08:24; Start 07/11/16 at 12:30; Stop 07/13/16 at 09:36; Status DC Dextrose (Dextrose 50%-Water Syringe) 25 gm STK-MED ONCE IV ; Start 07/11/16 at 12:14; Stop 07/11/16 at 12:15; Status DC Dextrose (Dextrose 50%-Water Syringe) 25 gm 1X ONCE IV Last administered on 12:20; Start 07/11/16 at 12:30; Stop 07/11/16 at 12:31; Status DC Dextrose 1,000 ml @ 60 mls/hr [id number] IV Last administered on 07/11/16 12:31; Start 07/11/16 at 12:30; Stop 07/11/16 at 16:58; Status DC Dextrose/Sodium Chloride 1,000 ml @ 75 mls/hr [id number] IV ; Start 07/11/16 at 17: 30; Stop 07/12/16 at 00:22; Status DC Dextrose (Dextrose 50%-Water Syringe) 25 gm 1X ONCE IV ; Start 07/11/16 at 17:00 ; Stop 07/11/16 at 17:01; Status DC Dextrose/Sodium Chloride 500 ml @ 0 mls/hr 1X ONCE IV ; Start 07/11/16 at 17:15 ; Stop 07/11/16 at 17:16; Status DC Insulin Aspart (Novolog) 2 units 1X ONCE SQ Last administered on 07/12/16 00: 47; Start 07/12/16 at 00:30; Stop 07/12/16 at 00:31; Status DC Insulin Aspart (Novolog) 5 units 1X ONCE SQ Last administered on 07/12/16 08: 58; Start 07/12/16 at 08:45; Stop 07/12/16 at 08:46; Status DC Insulin Detemir (Levemir) 5 units 1X ONCE SQ Last administered on 07/12/16 08: 59; Start 07/12/16 at 08:45; Stop 07/12/16 at 08:46; Status DC Insulin Aspart (Novolog) 2 units TIDAC SQ Last administered on 07/20/16 08:43 ; Start 07/12/16 at 11:30 Insulin Detemir (Levemir) 5 units QHS SQ ; Start 07/12/16 at 21:00; Stop 07/12/16 at 21:00; Status DC Insulin Aspart (Novolog) 5 units 1X ONCE SQ Last administered on 07/12/16 12: 18; Start 07/12/16 at 12:15; Stop 07/12/16 at 12:16; Status DC Insulin Detemir (Levemir) 12 units QHS SQ Last administered on 07/13/16 21:17; Start 07/12/16 at 21:00; Stop 07/14/16 at 09:40; Status DC Albuterol/ Ipratropium (Duoneb) 3 ml RTQID NEB Last administered on 07/20/16 07:37; Start 07/12/16 at 16:00 Aspirin (Ecotrin) 81 mg DAILYWBKFT PO Last administered on 07/20/16 08:31; Start 07/12/16 at 14:30 Losartan Potassium (Cozaar) 50 mg DAILY PO Last administered on 07/13/16 08:23 ; Start 07/12/16 at 14:30; Stop 07/14/16 at 09:40; Status DC Atorvastatin Calcium (Lipitor) 10 mg QHS PO ; Start 07/12/16 at 21:00; Stop at 21:00; Status DC Atorvastatin Calcium (Lipitor) 80 mg QHS PO Last administered on 07/19/16 22: 07; Start 07/12/16 at 21:00 Silver Sulfadiazine (Silvadene) 1 andreia DAILY TP Last administered on 07/19/16 08:59; Start 07/13/16 at 10:30 Zinc Oxide 1 andreia DAILY TP Last administered on 07/19/16 08:59; Start 07/13/16 at 10:30 Ceftriaxone Sodium 1 gm/ Sodium Chloride 50 ml @ 100 mls/hr Q24H IV Last administered on 07/13/16 11:17; Start 07/13/16 at 11:00; Stop 07/14/16 at 07:23; Status DC Quetiapine Fumarate (SEROquel) 12.5 mg BID PO Last administered on 07/20/16 08 :32; Start 07/13/16 at 21:00 Sodium Chloride 1,000 ml @ 75 mls/hr [id number] IV Last administered on 06:09; Start 07/13/16 at 16:45 Acetaminophen (Tylenol) 325 mg PRN Q6HRS PRN PO MILD PAIN / TEMP Last administered on 07/14/16 02:44; Start 07/13/16 at 17:00; Stop 07/14/16 at 06:56 ; Status DC Acetaminophen (Tylenol) 650 mg PRN Q6HRS PRN PO MILD PAIN / TEMP Last administered on 07/14/16 08:42; Start 07/14/16 at 07:00 Linezolid 300 ml @ 300 mls/hr Q12HR IV Last administered on 07/19/16 08:50; Start 07/14/16 at 08:00; Stop 07/19/16 at 09:43; Status DC Piperacillin Sod/ Tazobactam Sod 2.25 gm/Sodium Chloride 50 ml @ 100 mls/hr Q6HRS IV Last administered on 07/18/16 12:07; Start 07/14/16 at 07:30; Stop at 13:36; Status DC Insulin Detemir (Levemir) 10 units QHS SQ Last administered on 07/19/16 22:12 ; Start 07/14/16 at 21:00 Insulin Aspart (Novolog) 5 units 1X ONCE SQ Last administered on 07/14/16 21: 20; Start 07/14/16 at 21:30; Stop 07/14/16 at 21:31; Status DC Insulin Aspart (NovoLOG) 2 units 1X ONCE SQ Last administered on 07/15/16 12: 20; Start 07/15/16 at 12:15; Stop 07/15/16 at 12:16; Status DC Insulin Aspart (NovoLOG) 2 units 1X ONCE SQ Last administered on 07/15/16 18: 30; Start 07/15/16 at 18:30; Stop 07/15/16 at 18:31; Status DC Dextrose (Dextrose 50%-Water Syringe) 25 gm PRN 1X PRN IV SEE COMMENTS; Start 07/15/16 at 21:30 Clopidogrel Bisulfate (Plavix) 75 mg DAILYWBKFT PO Last administered on 08:31; Start 07/17/16 at 08:00 Multivitamins (Thera M Plus) 1 tab DAILY PO Last administered on 07/20/16 08: 31; Start 07/17/16 at 09:00 Ascorbic Acid (Vitamin C) 500 mg DAILY PO Last administered on 07/20/16 08:32 ; Start 07/16/16 at 11:00 Insulin Aspart (NovoLOG) 2 units 1X ONCE SQ Last administered on 07/17/16 12: 29; Start 07/17/16 at 12:30; Stop 07/17/16 at 12:43; Status DC Insulin Aspart (NovoLOG) 4 units 1X ONCE SQ Last administered on 07/17/16 17: 59; Start 07/17/16 at 18:00; Stop 07/17/16 at 18:01; Status DC Insulin Aspart (NovoLOG) 2 units 1X ONCE SQ Last administered on 07/18/16 12: 10; Start 07/18/16 at 11:30; Stop 07/18/16 at 11:31; Status DC Piperacillin Sod/ Tazobactam Sod 3.375 gm/Sodium Chloride 50 ml @ 100 mls/hr Q6HRS IV Last administered on 07/19/16 05:28; Start 07/18/16 at 18:00; Stop at 09:43; Status DC Insulin Aspart (NovoLOG) 2 units 1X ONCE SQ Last administered on 07/18/16 17: 48; Start 07/18/16 at 17:30; Stop 07/18/16 at 17:31; Status DC Amoxicillin/ Clavulanate Potassium (Augmentin 875/ 125mg) 1 tab BID PO Last administered on 07/20/16 08:45; Start 07/19/16 at 09:45 Active Scripts Active Novolog Flexpen (Insulin Aspart) 100 Unit/1 Ml Insuln.pen 0 Units SQ TIDAC 30 Days Levemir Flextouch (Insulin Detemir) 100 Unit/1 Ml Insuln.pen 12 Units SQ HS 30 Days Atorvastatin Calcium 40 Mg Tablet 80 Mg PO QHS 30 Days Aspirin Ec (Aspirin) 81 Mg Tablet.dr 81 Mg PO DAILYWBKFT 30 Days Reported Folic Acid 1 Mg Tablet 1 Mg PO DAILY Allergies Allergies: Coded Allergies: No Known Drug Allergies (Unverified , 05/18/16) ROS General: YES: Fatigue (patient reports being tired) Musculoskeletal: Yes Gait Disturbance (he reports some difficulty with ambulation) Physical Exam General: Alert, Oriented X3, Cooperative HEENT: Atraumatic, PERRLA, EOMI Lungs: Clear to auscultation Heart: Regular rate Abdomen: Soft Extremities: No clubbing, No cyanosis, No edema, Other (Quanta sarah beth is .37 in affected extremity) Skin: Other (left heel early and minimally soft necrotic site is noted. This is not affecting the plantar surface. The periwound does show some maceration. Minimal erythema is demonstrated and no pustular drainage is evident. It is not lifting from the necrotic edge at this time. Total score surface area is roughly 16 cm. It is not significantly tender. Palpable dorsalis pedis pulse was noted.) Neuro: Normal speech (speech is slowed), Other (patient is examined in bed and gait is not tested) Psych/Mental Status: Other (slowed mentation is noted) Vitals VITALS Vital Signs Date Time Temp Pulse Resp B/P (MAP) Pulse Ox O2 Delivery O2 Flow Rate FiO2 07/20/16 07:38 Room Air 07/20/16 07:00 97.9 81 18 159/75 (103) 98 97.9 Labs Labs Laboratory Tests Test 07/18/16 11:19 07/18/16 16:13 07/18/16 20:04 07/19/16 07:29 Glucose (Fingerstick) 307 mg/dL (70-99) 360 mg/dL (70-99) 380 mg/dL (70-99) 188 mg/dL (70-99) Test 07/19/16 10:13 07/19/16 16:35 07/19/16 20:59 07/20/16 04:20 Glucose (Fingerstick) 228 mg/dL (70-99) 307 mg/dL (70-99) 304 mg/dL (70-99) White Blood Count 7.9 x10^3/uL (4.0-11.0) Red Blood Count 2.72 x10^6/uL (4.30-5.70) Hemoglobin 8.4 g/dL (13.0-17.5) Hematocrit 24.2 % (39.0-53.0) Mean Corpuscular Volume 89 fL (79-100) Mean Corpuscular Hemoglobin 31 pg (25-35) Mean Corpuscular Hemoglobin Concent 35 g/dL (31-37) Red Cell Distribution Width 13.8 % (11.5-14.5) Platelet Count 331 x10^3/uL (140-400) Sodium Level 141 mmol/L (136-145) Potassium Level 3.5 mmol/L (3.5-5.1) Chloride Level 106 mmol/L (98-107) Carbon Dioxide Level 27 mmol/L (21-32) Anion Gap 8 (6-14) Blood Urea Nitrogen 14 mg/dL (8-26) Creatinine 1.2 mg/dL (0.7-1.3) Estimated GFR (Cockcroft-Gault) 60.6 Glucose Level 246 mg/dL (70-99) Calcium Level 8.0 mg/dL (8.5-10.1) Test 07/20/16 07:22 Glucose (Fingerstick) 145 mg/dL (70-99) Laboratory Tests Test 07/19/16 10:13 07/19/16 16:35 07/19/16 20:59 07/20/16 04:20 Glucose (Fingerstick) 228 mg/dL (70-99) 307 mg/dL (70-99) 304 mg/dL (70-99) White Blood Count 7.9 x10^3/uL (4.0-11.0) Red Blood Count 2.72 x10^6/uL (4.30-5.70) Hemoglobin 8.4 g/dL (13.0-17.5) Hematocrit 24.2 % (39.0-53.0) Mean Corpuscular Volume 89 fL (79-100) Mean Corpuscular Hemoglobin 31 pg (25-35) Mean Corpuscular Hemoglobin Concent 35 g/dL (31-37) Red Cell Distribution Width 13.8 % (11.5-14.5) Platelet Count 331 x10^3/uL (140-400) Sodium Level 141 mmol/L (136-145) Potassium Level 3.5 mmol/L (3.5-5.1) Chloride Level 106 mmol/L (98-107) Carbon Dioxide Level 27 mmol/L (21-32) Anion Gap 8 (6-14) Blood Urea Nitrogen 14 mg/dL (8-26) Creatinine 1.2 mg/dL (0.7-1.3) Estimated GFR (Cockcroft-Gault) 60.6 Glucose Level 246 mg/dL (70-99) Calcium Level 8.0 mg/dL (8.5-10.1) Test 07/20/16 07:22 Glucose (Fingerstick) 145 mg/dL (70-99) Images Images X-ray examination of the foot showed vascular calcifications and no evidence of bony infection. Assessment/Plan Assessment/Plan Unstageable diabetic ulcer of the left heel. This is represented by local necrosis. Periwound maceration is occurring with the Silvadene and would recommend Curtis honey if the intent is clinic follow-up and eventual progressive debridement. Because it is beginning to soften I think efforts to return it to a hard dry gangrenous state would not be successful. He does have a heel relief boot and this will be critical upon discharge. Close clinic follow-up is encouraged. A vascular workup will be an integral part of his care but this can be performed on an outpatient basis (quanta sarah beth is .37). He will continue on oral antibiotic therapy. Offloading instructions were provided to the patient but this will certainly need to be passed on to family members at home as well. Thank you for allowing us to participate in your patient's care. BENJA HAQUE DO July 20, 2016 09:34
--- NOTE | 2016-07-20 09:58 | PDOC ---
PROGRESS NOTES Assessment Problems Medical Problems: (1) Hypoglycemia Status: Acute Hypoglycemic encephalopathy, cleared Intellectual disability Left heel eschar Abnormal head CT, no abnormalities on MRI Plan Will follow Subjective No complaints Objective Vital Signs Date Time Temp Pulse Resp B/P (MAP) Pulse Ox O2 Delivery O2 Flow Rate FiO2 07/20/16 08:00 Room Air 07/20/16 07:00 97.9 81 18 159/75 (103) 98 97.9 Intake and Output 07/20/16 07:00 Intake Total 870 ml Output Total 200 ml Balance 670 ml Intake Oral 570 ml IV Total 300 ml Output Urine Total 200 ml # Voids 1 PHYSICAL EXAM Alert. Oriented only to person. PERRL. EOMI. CN: no focal findings. Muscle tone: normal. Muscle strength: 4/5 DTR: 0+ Plantar reflex: flexor Gait: Not tested Sensory exam: no abnormal findings. No cerebellar signs elicited. Review of Relevant I have reviewed the following items monica (where applicable) has been applied. Labs Laboratory Tests Test 07/18/16 11:19 07/18/16 16:13 07/18/16 20:04 07/19/16 07:29 Glucose (Fingerstick) 307 mg/dL (70-99) 360 mg/dL (70-99) 380 mg/dL (70-99) 188 mg/dL (70-99) Test 07/19/16 10:13 07/19/16 16:35 07/19/16 20:59 07/20/16 04:20 Glucose (Fingerstick) 228 mg/dL (70-99) 307 mg/dL (70-99) 304 mg/dL (70-99) White Blood Count 7.9 x10^3/uL (4.0-11.0) Red Blood Count 2.72 x10^6/uL (4.30-5.70) Hemoglobin 8.4 g/dL (13.0-17.5) Hematocrit 24.2 % (39.0-53.0) Mean Corpuscular Volume 89 fL (79-100) Mean Corpuscular Hemoglobin 31 pg (25-35) Mean Corpuscular Hemoglobin Concent 35 g/dL (31-37) Red Cell Distribution Width 13.8 % (11.5-14.5) Platelet Count 331 x10^3/uL (140-400) Sodium Level 141 mmol/L (136-145) Potassium Level 3.5 mmol/L (3.5-5.1) Chloride Level 106 mmol/L (98-107) Carbon Dioxide Level 27 mmol/L (21-32) Anion Gap 8 (6-14) Blood Urea Nitrogen 14 mg/dL (8-26) Creatinine 1.2 mg/dL (0.7-1.3) Estimated GFR (Cockcroft-Gault) 60.6 Glucose Level 246 mg/dL (70-99) Calcium Level 8.0 mg/dL (8.5-10.1) Test 07/20/16 07:22 Glucose (Fingerstick) 145 mg/dL (70-99) Laboratory Tests Test 07/19/16 10:13 07/19/16 16:35 07/19/16 20:59 07/20/16 04:20 Glucose (Fingerstick) 228 mg/dL (70-99) 307 mg/dL (70-99) 304 mg/dL (70-99) White Blood Count 7.9 x10^3/uL (4.0-11.0) Red Blood Count 2.72 x10^6/uL (4.30-5.70) Hemoglobin 8.4 g/dL (13.0-17.5) Hematocrit 24.2 % (39.0-53.0) Mean Corpuscular Volume 89 fL (79-100) Mean Corpuscular Hemoglobin 31 pg (25-35) Mean Corpuscular Hemoglobin Concent 35 g/dL (31-37) Red Cell Distribution Width 13.8 % (11.5-14.5) Platelet Count 331 x10^3/uL (140-400) Sodium Level 141 mmol/L (136-145) Potassium Level 3.5 mmol/L (3.5-5.1) Chloride Level 106 mmol/L (98-107) Carbon Dioxide Level 27 mmol/L (21-32) Anion Gap 8 (6-14) Blood Urea Nitrogen 14 mg/dL (8-26) Creatinine 1.2 mg/dL (0.7-1.3) Estimated GFR (Cockcroft-Gault) 60.6 Glucose Level 246 mg/dL (70-99) Calcium Level 8.0 mg/dL (8.5-10.1) Test 07/20/16 07:22 Glucose (Fingerstick) 145 mg/dL (70-99) Microbiology 07/13/16 Blood Culture - Final, Complete NO GROWTH AFTER 5 DAYS Medications Current Medications Sodium Chloride 1,000 ml @ 1,000 mls/hr 1X ONCE IV Last administered on 10:01; Start 07/11/16 at 09:30; Stop 07/11/16 at 10:29; Status DC Dextrose/Sodium Chloride 1,000 ml @ 75 mls/hr 1X ONCE IV Last administered on 07/11/16 11:30; Start 07/11/16 at 11:15; Stop 07/11/16 at 17:10; Status DC Ondansetron HCl (Zofran) 4 mg PRN Q8HRS PRN IV NAUSEA/VOMITING; Start 07/11/16 at 11:30; Stop 07/12/16 at 11:29; Status DC Clopidogrel Bisulfate (Plavix) 75 mg DAILYWBKFT PO Last administered on 08:24; Start 07/11/16 at 12:30; Stop 07/13/16 at 09:36; Status DC Dextrose (Dextrose 50%-Water Syringe) 25 gm STK-MED ONCE IV ; Start 07/11/16 at 12:14; Stop 07/11/16 at 12:15; Status DC Dextrose (Dextrose 50%-Water Syringe) 25 gm 1X ONCE IV Last administered on 12:20; Start 07/11/16 at 12:30; Stop 07/11/16 at 12:31; Status DC Dextrose 1,000 ml @ 60 mls/hr [id number] IV Last administered on 07/11/16 12:31; Start 07/11/16 at 12:30; Stop 07/11/16 at 16:58; Status DC Dextrose/Sodium Chloride 1,000 ml @ 75 mls/hr [id number] IV ; Start 07/11/16 at 17: 30; Stop 07/12/16 at 00:22; Status DC Dextrose (Dextrose 50%-Water Syringe) 25 gm 1X ONCE IV ; Start 07/11/16 at 17:00 ; Stop 07/11/16 at 17:01; Status DC Dextrose/Sodium Chloride 500 ml @ 0 mls/hr 1X ONCE IV ; Start 07/11/16 at 17:15 ; Stop 07/11/16 at 17:16; Status DC Insulin Aspart (Novolog) 2 units 1X ONCE SQ Last administered on 07/12/16 00: 47; Start 07/12/16 at 00:30; Stop 07/12/16 at 00:31; Status DC Insulin Aspart (Novolog) 5 units 1X ONCE SQ Last administered on 07/12/16 08: 58; Start 07/12/16 at 08:45; Stop 07/12/16 at 08:46; Status DC Insulin Detemir (Levemir) 5 units 1X ONCE SQ Last administered on 07/12/16 08: 59; Start 07/12/16 at 08:45; Stop 07/12/16 at 08:46; Status DC Insulin Aspart (Novolog) 2 units TIDAC SQ Last administered on 07/20/16 08:43 ; Start 07/12/16 at 11:30 Insulin Detemir (Levemir) 5 units QHS SQ ; Start 07/12/16 at 21:00; Stop 07/12/16 at 21:00; Status DC Insulin Aspart (Novolog) 5 units 1X ONCE SQ Last administered on 07/12/16 12: 18; Start 07/12/16 at 12:15; Stop 07/12/16 at 12:16; Status DC Insulin Detemir (Levemir) 12 units QHS SQ Last administered on 07/13/16 21:17; Start 07/12/16 at 21:00; Stop 07/14/16 at 09:40; Status DC Albuterol/ Ipratropium (Duoneb) 3 ml RTQID NEB Last administered on 07/20/16 07:37; Start 07/12/16 at 16:00 Aspirin (Ecotrin) 81 mg DAILYWBKFT PO Last administered on 07/20/16 08:31; Start 07/12/16 at 14:30 Losartan Potassium (Cozaar) 50 mg DAILY PO Last administered on 07/13/16 08:23 ; Start 07/12/16 at 14:30; Stop 07/14/16 at 09:40; Status DC Atorvastatin Calcium (Lipitor) 10 mg QHS PO ; Start 07/12/16 at 21:00; Stop at 21:00; Status DC Atorvastatin Calcium (Lipitor) 80 mg QHS PO Last administered on 07/19/16 22: 07; Start 07/12/16 at 21:00 Silver Sulfadiazine (Silvadene) 1 andreia DAILY TP Last administered on 07/19/16 08:59; Start 07/13/16 at 10:30 Zinc Oxide 1 andreia DAILY TP Last administered on 07/19/16 08:59; Start 07/13/16 at 10:30 Ceftriaxone Sodium 1 gm/ Sodium Chloride 50 ml @ 100 mls/hr Q24H IV Last administered on 07/13/16 11:17; Start 07/13/16 at 11:00; Stop 07/14/16 at 07:23; Status DC Quetiapine Fumarate (SEROquel) 12.5 mg BID PO Last administered on 07/20/16 08 :32; Start 07/13/16 at 21:00 Sodium Chloride 1,000 ml @ 75 mls/hr [id number] IV Last administered on 06:09; Start 07/13/16 at 16:45 Acetaminophen (Tylenol) 325 mg PRN Q6HRS PRN PO MILD PAIN / TEMP Last administered on 07/14/16 02:44; Start 07/13/16 at 17:00; Stop 07/14/16 at 06:56 ; Status DC Acetaminophen (Tylenol) 650 mg PRN Q6HRS PRN PO MILD PAIN / TEMP Last administered on 07/14/16 08:42; Start 07/14/16 at 07:00 Linezolid 300 ml @ 300 mls/hr Q12HR IV Last administered on 07/19/16 08:50; Start 07/14/16 at 08:00; Stop 07/19/16 at 09:43; Status DC Piperacillin Sod/ Tazobactam Sod 2.25 gm/Sodium Chloride 50 ml @ 100 mls/hr Q6HRS IV Last administered on 07/18/16 12:07; Start 07/14/16 at 07:30; Stop at 13:36; Status DC Insulin Detemir (Levemir) 10 units QHS SQ Last administered on 07/19/16 22:12 ; Start 07/14/16 at 21:00 Insulin Aspart (Novolog) 5 units 1X ONCE SQ Last administered on 07/14/16 21: 20; Start 07/14/16 at 21:30; Stop 07/14/16 at 21:31; Status DC Insulin Aspart (NovoLOG) 2 units 1X ONCE SQ Last administered on 07/15/16 12: 20; Start 07/15/16 at 12:15; Stop 07/15/16 at 12:16; Status DC Insulin Aspart (NovoLOG) 2 units 1X ONCE SQ Last administered on 07/15/16 18: 30; Start 07/15/16 at 18:30; Stop 07/15/16 at 18:31; Status DC Dextrose (Dextrose 50%-Water Syringe) 25 gm PRN 1X PRN IV SEE COMMENTS; Start 07/15/16 at 21:30 Clopidogrel Bisulfate (Plavix) 75 mg DAILYWBKFT PO Last administered on 08:31; Start 07/17/16 at 08:00 Multivitamins (Thera M Plus) 1 tab DAILY PO Last administered on 07/20/16 08: 31; Start 07/17/16 at 09:00 Ascorbic Acid (Vitamin C) 500 mg DAILY PO Last administered on 07/20/16 08:32 ; Start 07/16/16 at 11:00 Insulin Aspart (NovoLOG) 2 units 1X ONCE SQ Last administered on 07/17/16 12: 29; Start 07/17/16 at 12:30; Stop 07/17/16 at 12:43; Status DC Insulin Aspart (NovoLOG) 4 units 1X ONCE SQ Last administered on 07/17/16 17: 59; Start 07/17/16 at 18:00; Stop 07/17/16 at 18:01; Status DC Insulin Aspart (NovoLOG) 2 units 1X ONCE SQ Last administered on 07/18/16 12: 10; Start 07/18/16 at 11:30; Stop 07/18/16 at 11:31; Status DC Piperacillin Sod/ Tazobactam Sod 3.375 gm/Sodium Chloride 50 ml @ 100 mls/hr Q6HRS IV Last administered on 07/19/16 05:28; Start 07/18/16 at 18:00; Stop at 09:43; Status DC Insulin Aspart (NovoLOG) 2 units 1X ONCE SQ Last administered on 07/18/16 17: 48; Start 07/18/16 at 17:30; Stop 07/18/16 at 17:31; Status DC Amoxicillin/ Clavulanate Potassium (Augmentin 875/ 125mg) 1 tab BID PO Last administered on 07/20/16 08:45; Start 07/19/16 at 09:45 Active Scripts Active Novolog Flexpen (Insulin Aspart) 100 Unit/1 Ml Insuln.pen 0 Units SQ TIDAC 30 Days Levemir Flextouch (Insulin Detemir) 100 Unit/1 Ml Insuln.pen 12 Units SQ HS 30 Days Atorvastatin Calcium 40 Mg Tablet 80 Mg PO QHS 30 Days Aspirin Ec (Aspirin) 81 Mg Tablet. 81 Mg PO DAILYWBKFT 30 Days Reported Folic Acid 1 Mg Tablet 1 Mg PO DAILY Vitals/I & O Vital Sign - Last 24 Hours 07/19/16 07/19/16 07/19/16 07/19/16 10:51 11:53 14:59 16:51 Temp 97.8 97.8 97.8 97.8 Pulse 76 78 Resp 18 18 B/P (MAP) 158/82 (107) 155/80 (105) Pulse Ox 97 97 99 O2 Delivery Room Air Room Air Room Air Room Air 07/19/16 07/19/16 07/19/16 07/19/16 19:00 20:00 20:37 23:00 Temp 98.2 98.0 98.2 98.0 Pulse 77 85 Resp 18 18 B/P (MAP) 156/70 (98) 165/76 (105) Pulse Ox 98 100 98 O2 Delivery Room Air Room Air 07/20/16 07/20/16 07/20/16 07:00 07:38 08:00 Temp 97.9 97.9 Pulse 81 Resp 18 B/P (MAP) 159/75 (103) Pulse Ox 98 O2 Delivery Room Air Room Air Room Air Intake and Output 07/19/16 07/19/16 07/20/16 15:00 23:00 07:00 Intake Total 550 ml 320 ml Output Total 200 ml Balance 550 ml 320 ml -200 ml LAKESHA ROMEO MD July 20, 2016 09:58
[2016-07-20] MEDS ORDERED: AMOX1TAB11 PO (10:07)
[2016-07-20] MEDS ORDERED: CLOP75TA PO (10:07)
--- NOTE | 2016-07-20 10:08 | PDOC ---
OBJECTIVE Objective feels better in general Vital Signs Vital Signs Date Time Temp Pulse Resp B/P (MAP) Pulse Ox O2 Delivery O2 Flow Rate FiO2 07/20/16 08:00 Room Air 07/20/16 07:38 Room Air 07/20/16 07:00 97.9 81 18 159/75 (103) 98 Room Air 97.9 07/19/16 23:00 98.0 85 18 165/76 (105) 98 98.0 07/19/16 20:37 100 Room Air 07/19/16 20:00 Room Air 07/19/16 19:00 98.2 77 18 156/70 (98) 98 98.2 07/19/16 16:51 99 Room Air 07/19/16 14:59 97.8 78 18 155/80 (105) 97 Room Air 97.8 07/19/16 11:53 Room Air 07/19/16 10:51 97.8 76 18 158/82 (107) 97 Room Air 97.8 I & O Intake and Output 07/20/16 07:00 Intake Total 870 ml Output Total 200 ml Balance 670 ml Intake Oral 570 ml IV Total 300 ml Output Urine Total 200 ml # Voids 1 PHYSICAL EXAM Physical Exam lungs clearer heart RRR abd soft ext no edema ASSESSMENT/PLAN Assessment/Plan discharge home , very frail risk of readmission very high, discussed dysphagia II diet Problems: COMMENT Lab Laboratory Tests Test 07/19/16 10:13 07/19/16 16:35 07/19/16 20:59 07/20/16 04:20 Glucose (Fingerstick) 228 mg/dL (70-99) 307 mg/dL (70-99) 304 mg/dL (70-99) White Blood Count 7.9 x10^3/uL (4.0-11.0) Red Blood Count 2.72 x10^6/uL (4.30-5.70) Hemoglobin 8.4 g/dL (13.0-17.5) Hematocrit 24.2 % (39.0-53.0) Mean Corpuscular Volume 89 fL (79-100) Mean Corpuscular Hemoglobin 31 pg (25-35) Mean Corpuscular Hemoglobin Concent 35 g/dL (31-37) Red Cell Distribution Width 13.8 % (11.5-14.5) Platelet Count 331 x10^3/uL (140-400) Sodium Level 141 mmol/L (136-145) Potassium Level 3.5 mmol/L (3.5-5.1) Chloride Level 106 mmol/L (98-107) Carbon Dioxide Level 27 mmol/L (21-32) Anion Gap 8 (6-14) Blood Urea Nitrogen 14 mg/dL (8-26) Creatinine 1.2 mg/dL (0.7-1.3) Estimated GFR (Cockcroft-Gault) 60.6 Glucose Level 246 mg/dL (70-99) Calcium Level 8.0 mg/dL (8.5-10.1) Test 07/20/16 07:22 Glucose (Fingerstick) 145 mg/dL (70-99) VIRGINIA YORK MD July 20, 2016 10:08
--- NOTE | 2016-07-20 10:09 | PDOC3 ---
Discharge Summary* Date of Admission: July 11, 2016 Date of Discharge: July 20, 2016 Admitting Diagnosis Problems Medical Problems: (1) Hypoglycemia Status: Acute Final Diagnosis 1- hypoglycemia. 2-sepsis and aspiration pneumonia RML 3. no CVA on CT but plavix recommended by Neurology [facility] [place] 4. Hyperlipidemia. Continue statin. 5. Hypertension. Continue to monitor blood pressure. 6. Coronary artery disease, asymptomatic at present time. 7. Chronic obstructive pulmonary disease and tobaccoism. 8. Degenerative joint disease and debilitation. 9- Ulcer of the left heel. healing 10.mental retardation Problems Medical Problems: (1) Hypoglycemia Status: Acute CONSULTS neurology, infectious disease Procedures CT head, MRI brain, several CXR Brief Hospital Course Mr. Diggs is a 65 old [sex] who presented with [ ] Disposition/Orders: D/C to Home w/ HH CONDITION AT DISCHARGE: Improved Diet: other (dysphagia II no straw always sit with eating) Scheduled Amoxicillin/Potassium Clav (Amox Tr-K Clv 875-125 Mg Tab), 1 TAB PO BID Aspirin (Aspirin Ec), 81 MG PO DAILYWBKFT Atorvastatin Calcium (Atorvastatin Calcium), 80 MG PO QHS Clopidogrel Bisulfate (Clopidogrel), 75 MG PO DAILYWBKFT Folic Acid (Folic Acid), 1 MG PO DAILY, (Reported) Insulin Aspart (Novolog Flexpen), 2 UNITS SQ TIDAC Insulin Detemir (Levemir Flextouch), 12 UNITS SQ HS Ipratropium/Albuterol Sulfate (Duoneb 0.5-3(2.5) Mg/3 Ml), 3 ML NEB RTQID Losartan Potassium (Cozaar), 50 MG PO DAILY Silver Sulfadiazine (Silvadene), 1 CICI TP DAILY Zinc Oxide (Zinc Oxide), 1 CICI TP DAILY FOLLOW UP APPOINTMENT: office 1 week Time Spent Total time spent with patient [] minutes for coordination of care, counseling, and education. VIRGINIA YORK MD July 20, 2016 10:09
[2016-07-20 11:00] VITALS: BP 143/58
== END 2016-07-20 15:30 | disposition home health service (06) | DRG 871 ==
LOC: ER 10:34 → OBSVTOIN 11:30 → 5 SOUTH 11:30
PROVIDERS: ADMIT Internal Medicine; ATTEND Internal Medicine
DX: A41.9 Sepsis, unspecified organism (principal); G93.41 Metabolic encephalopathy; E43 Unspecified severe protein-calorie malnutrition; J69.0 Pneumonitis due to inhalation of food and vomit; L97.409 Non-pressure chronic ulcer of unspecified heel and midfoot with unspecified severity; Z95.1 Presence of aortocoronary bypass graft; M19.90 Unspecified osteoarthritis, unspecified site; I12.9 Hypertensive chronic kidney disease with stage 1 through stage 4 chronic kidney disease, or unspecified chronic kidney disease; N18.9 Chronic kidney disease, unspecified; J44.9 Chronic obstructive pulmonary disease, unspecified; I25.10 Atherosclerotic heart disease of native coronary artery without angina pectoris; F79 Unspecified intellectual disabilities; E78.5 Hyperlipidemia, unspecified; E10.22 Type 1 diabetes mellitus with diabetic chronic kidney disease; Z79.4 Long term (current) use of insulin; E10.621 Type 1 diabetes mellitus with foot ulcer; E10.649 Type 1 diabetes mellitus with hypoglycemia without coma; F17.200 Nicotine dependence, unspecified, uncomplicated; E10.65 Type 1 diabetes mellitus with hyperglycemia; K59.00 Constipation, unspecified; E66.9 Obesity, unspecified; F29 Unspecified psychosis not due to a substance or known physiological condition; E78.00 Pure hypercholesterolemia, unspecified; Z87.01 Personal history of pneumonia (recurrent); Z68.20 Body mass index [BMI] 20.0-20.9, adult; I25.2 Old myocardial infarction; Z83.3 Family history of diabetes mellitus; Z79.02 Long term (current) use of antithrombotics/antiplatelets; Z79.82 Long term (current) use of aspirin
CPT/HCPCS: 36415; 51701; 70450; 70551; 71010; 71020; 73620; 80048; 80076; 81001; 82140; 82553; 82962; 83605; 83735; 83880; 84484; 85007; 85027; 85610; 85730; 87040; 93005; 94250; 94620; 94640; 94760; 96360; 96361; G0481; J0696; J1815; J2020; J2543; J7030; J7042; J7620; 92610; 97530; 99285-25